=== PATIENT | female | born 1970 | race Caucasian/White ===

== ENCOUNTER 2021-12-20 08:43 | Outpatient (CLI) | payer BC, SELFPAY ==
--- OUTSIDE RECORDS SUMMARY | 2021-12-20 08:46 | XMS_ITS | Encounter Summary ---
:1970 Author Organization [facility] Address [address] [place] [address] Care Team Providers Name Role Phone Tom Abdul MD Primary Care Provider Reason for Visit Reason Comments HEARING LOSS Encounter Details Date Type Department Care Team Description 10/30/2020 Office Visit [facility] Mary Bryant Hearing loss, [address] [facility] REJI Mcguire unspecified hearing [place], [place] [address] [facility] loss type, unspecified [id number] [address] laterality (Primary [phone] [place], [place] [address] Dx) Social History Tobacco Use Types Packs/Day Years Used Date Smoking Tobacco: Former Smokeless Tobacco: Never Alcohol Use Standard Drinks/Week Comments Not Currently 0 (1 standard drink = 0.6 oz pure alcoho l) Sex Assigned at Date Recorded Not on file documented as of this encounter Progress Notes Mary Bryant AU.D. - 10/30/2020 2:00 PM CDT Patient comes in today for Hearing Aid Evaluation, but she did not bring hearing evaluation that wascompleted outside of [facility] with her today. She thought it was in her purse, but was unable to find it during the appointment. This was completed at [facility] where she also saw ENT. 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 Release of Information request was completed during the appointment and faxed to [facility] in [place]. Requested ENT and audiology records including audiogram, visit notes, and medical clearance for hearing aids. She will reschedule hearing aid evaluation after records are received from [facility]. documented in this encounter Plan of Treatment Not on filedocumented as of this encounter Visit Diagnoses Diagnosis Hearing loss, unspecified hearing loss t ype, unspecified laterality - Primary documented in this encounter Care Teams Enrollment Nurse Relationship Specialty Start Date End Date Tom Abdul MD PCP - General Family Practice [address] [place] [address] documented as of this encounter
--- OUTSIDE RECORDS SUMMARY | 2021-12-20 08:46 | XMS_ITS | Encounter Summary ---
:1970 [facility] Address [address] [place] [address] Care Team Providers Name Role Phone Tom Goff MD Primary Care Provider Reason for Referral Procedure/Equipment (Routine) - Closed Specialty Diagnoses / Procedures Referred By Contact Refer red To Contact Diagnoses Memory loss Romero Singh MD Procedures MR Brain W/WO IV Cont [address] [place] [address] Referral ID Status Reason Start Date Expiration Date Visits Requ ested Visits Authorized [id number] Closed 02/13/2021 05/15/2022 1 1 Consult/Transfer Care (Routine) - New Request Specialty Diagnoses / Procedures Referred By Contact Refer red To Contact Neuropsychology Diagnoses Memory loss Romero Singh MD [facility] Neuropsychology [address] [facility] [place] [address] [place] [address] Fax: Referral ID Status Reason Start Date Expiration Date Visits V isits Requested Authorized [id number] New Request 02/13/2021 05/15/2022 1 1 Scheduling Instructions Your provider has recommended an appoint ment with Neuropsychological Testing. You may call [phone] to schedule your appoi ntment. Reason for Visit Reason Comments CONSULT Encounter Details Date Type Department Care Team Description 02/13/2021 Office Visit [facility] Romero Singh, Odette garcia ([facility] Dx) Neurology [address] [place] [id number] [phone] Social History Tobacco Use Types Packs/Day Years Used Date Smoking Tobacco: Former Smokeless Tobacco: Never Alcohol Use Standard Drinks/Week Comments Not Currently 0 (1 standard drink = 0.6 oz pure alcoho l) Sex Assigned at Date Recorded Not on file documented as of this encounter Last Filed Vital Signs Vital Sign Reading Time Taken Comments Blood Pressure 109/68 02/13/2021 8:08 AM CDT Pulse 60 02/13/2021 8:08 AM CDT Temperature - - Respiratory Rate - - Oxygen Saturation - - Inhaled Oxygen Concentration - - Weight 115.2 kg (254 lb) 02/13/2021 8:08 AM CDT Height - - Body Mass Index - - documented in this encounter Progress Notes Romero Singh MD - 02/13/2021 8:15 AM CDT Outpatient Neurology Consultation Name: Keiko Kyle Age: 50 y.o. Date of : 1970 Date of Consultation: 02/12/2021 Consultation is requested by: Self-Referral, Patient, [place] [address] Primary care provider: Tom Goff MD Reason for Neurology Consult: Chief Complaint Patient presents with ??? CONSULT Assessment and Plan: Summary Diagnoses/Recommendations: 1. Cognitive impairment, NOS ?? Contributing factors: Medication side effect, sleep apnea, mental health disorder, ?? CT head 10/17/19 WNL ?? Mikhail Cognitive Assessment (MoCA) ?? Recommendations: ?? Neuropsychological testing ?? MRI brain ?? Follow-up with me after testing 2. Hypertension 3. Hyperlipidemia 4. Bipolar 1 5. PTSD 6. Restless legs 7. Obstructive sleep apnea with associated hypersomnia ?? Polysomnography 2014: AHI 5.1 , unable to tolerate CPAP ?? Multiple sleep latency test : Mean sleep latency 14.8, no REM sleep Plan as given to patient as above. See AVS. Chief Complaint: Memory impairment History of Present Illness: Keiko Kyle is a 50 y.o. female Patient is here to establish neurology care. She saw various neurologists before. She was last seen apparently in 2018 by Neurology. I records from Neurology from 2014 an outside facility. She has mostly concerns about her short-term memory She also is tripping and falling. She has neuropathy for almost 20 years. She uses a cane or walker.She broke her legs frequently and had recently a broken leg on the right with knee pain now. She has also nerve issues on the right arm. She had a disc replacement on the cervical spine with [facility]. Initially she had a pinched nerve sensation down her left arm with electrical zapping sensation. This surgery in 2018 helped but she still experience numbness in the left upper extremity She saw [facility] for her left shoulder and was told that the disc does not look good and she should check in with her spine surgeon. She is planning to go back to [facility] to address her cervical spine issues She has frequent muscle twitching on her lower extremities seems to me on observe a del rosario mostly spasms For the neuropathy she takes many years now gabapentin. She also had a very causes main removed on her left leg She takes medical cannabis CBD oral and muscle relaxant Her main concern today is really the short-term memory. She has a hard time tracking events . Her short-term memory is reduced. She has to write down things frequently. She is disoriented at times whenshe talks with her rn field case manager. Her daughter who lives with her until 2 days ago also noted the short-term memory issues. She has bad hearing. 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 She actually cannot really hold a job well. 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 She has a high school diploma and some college education She often has hallucination and feels that things happened that actually did not happen. She has tablets showing psychiatry care with [facility] soon. Had a chance to review the medical records from [facility]. She was followed at this clinic for obstructive sleep apnea with associated hypersomnia. She was not able to tolerate CPAP and was given Nuvigil for wake promotion She was hospitalized 02/18/2018 for a HNP W/RADICULOPATHY, C6-C7 and spine surgery Disc ArthroplastyLevels: C6 to C7 Episodic memory ?? Forgetting recent events Yes ?? Misplacing personal items Yes ?? Asking repetitive questions Yes ?? Missing appointments Yes ?? Paying bills late Yes ?? Poor long-term/autobiographical memory No Visual-spatial ?? Navigational problems Yes ?? Getting lost Yes ?? Difficulty locating items in play and site No ?? Problems visually recognizing faces No Language ?? Difficulties retrieving words or names Yes ?? Problems comprehending words No ?? Effortful or nonfluent speech No ?? Grammar errors No ?? Omissions No ?? Spelling errors No ?? Problems reading and writing Yes (ryland pressley) Executive function ?? Problems organizing Yes ?? Multitasking Yes ?? Distractibility Yes ?? Difficulties reasoning, problem solving, decision-making No ?? Poor judgment No Other cognitive concerns ?? Problems calculationYes ?? Difficulty using devices/technology Yes ?? Disoriented to time and space No ?? Medications: Outpatient Medications Prior to Visit Medication Sig Note Dispense Refill ??? acetaminophen (TYLENOL) 500 MG tablet Take 1 Tablet by mouth every 4 hours as needed. Maximum acetaminophen dose is 4000 mg in 24 hours 100 Tablet 0 ??? ALBUterol sulfate HFA 108 (90 Base) MCG/ACT inhaler Inhale 1-2 Puffs every 4 hours as needed forWheezing. 10/14/2019: Last filled 1 inhaler 07/10/19, unsure of last dose ??? baclofen (LIORESAL) 10 MG tablet Take 1 Tablet by mouth daily at bedtime. 30 Tablet 0 ??? budesonide-formoterol (SYMBICORT) 160-4.5 MCG/ACT inhaler Twice A Day ??? buPROPion (WELLBUTRIN XL) 300 MG 24 hour release tablet Take 300 mg by mouth daily. ??? celecoxib (CELEBREX) 100 MG capsule TAKE 1-2 CAPSULES TWICE A DAY NEEDED. ??? clonazePAM (KLONOPIN) 0.5 MG tablet Take 1 Tablet by mouth two times daily as needed for Anxiety. Indications: Panic Disorder 60 Tablet 0 ??? DULoxetine (CYMBALTA) 60 MG capsule Bedtime ??? famotidine (PEPCID) 10 MG tablet Take 2 Tablets by mouth two times a day. (Patient not taking: Reported on 02/13/2021) 120 Tablet 0 ??? gabapentin (NEURONTIN) 300 MG capsule Take 2 Capsules by mouth two times a day. Indications: anxiety 120 Capsule 0 ??? hydrOXYzine pamoate (VISTARIL) 50 MG capsule Take 1 Capsule by mouth three times a day as neededfor Anxiety. Indications: Feeling Anxious (Patient not taking: Reported on 02/13/2021) 60 Capsule 0 ??? lisinopril (ZESTRIL) 10 MG tablet Take 1 Tablet by mouth daily. (Patient not taking: Reported on02/13/2021) 30 Tablet 0 ??? metoprolol succinate (TOPROL XL) 50 MG 24 hour release tablet Take 50 mg by mouth daily. ??? mometasone-formoterol (DULERA) 100-5 mcg/actuation inhaler Inhale 2 Puffs two times a day. Rinsemouth/gargle after use (Patient not taking: Reported on 02/13/2021) 1 Each 0 ??? montelukast (SINGULAIR) 10 MG tablet Take 1 Tablet by mouth every evening. 30 Tablet 0 ??? nabumetone (RELAFEN) 500 MG tablet Take 1 Tablet by mouth two times a day. (Patient not taking: Reported on 02/13/2021) 60 Tablet 0 ??? ondansetron (ZOFRAN) 4 MG tablet Every 6 Hours as needed ??? pantoprazole DR (PROTONIX) 40 MG tablet Take 40 mg by mouth daily. ??? QUEtiapine (SEROQUEL) 100 MG tablet TAKE 1 AND 1/2 TABLETS (150MG) BY MOUTH AT BEDTIME ??? risperiDONE (RISPERDAL) 2 MG tablet Take 2 Tablets by mouth daily at bedtime. Indications: ManicPhase of Manic-Depression (Patient not taking: Reported on 02/13/2021) 60 Tablet 0 No facility-administered medications prior to visit. Allergies Allergen Reactions ??? Amoxicillin-Pot Clavulanate Diarrhea and Nausea And Vomiting ??? Cefdinir Nausea And Vomiting During sinusitis illness ??? Prazosin Other, see comments Patient felt weak, had bizarre dreams Immunizations: There is no immunization history on file for this patient. Past Medical History: No past medical history on file. Past Surgical History: No past surgical history on file. Social History: Social History Tobacco Use ??? Smoking status: Former Smoker ??? Smokeless tobacco: Never Used Substance Use Topics ??? Alcohol use: Not Currently Family History: No family history on file. Review of Systems: review of systems was negative other than HPI as above. Physical Examination: Vitals: 02/13/21 0808 BP: 109/68 Pulse: 60 Mental status: Alert, thought content appropriate, normal orientation for time, date, person, place,affect: normal, thought content exhibits logical connections Cranial nerves: II visual garner Full to confrontation II pupils Equal, round, reactive to light III,VII ptosis None III,IV, extraocular muscles Full ROM V mastication Normal V facial light touch sensation Normal VII facial muscle function - upper normal VII facial muscle function - lower normal XII tongue strength normal Sensory exam: RUE LT, PP, normal LUE LT, PP, Medial more than lateral RLE LT, PP, normal LLE LT, PP, Whole LLE numb Motor exam: Root/Nerve Right Left Shoulder abduction C5 (axillary) 5/5 5/5 Elbow flexion C5-6 (musculocutaneous) 5/5 5/5 Elbow extension C7 (radial) 5/5 5/5 Wrist flexion C6 (ulnar) 5/5 5/5 Wrist extension C7 (radial) 5/5 5/5 Finger Flexion C8 (median) 5/5 5/5 Finger Extension C7 (radial) 5/5 5/5 Hip flexion He L2 (femoral) 5/5 5/5 Hip extension L5 (inf gluteal) 5/5 5/5 Knee flexion S1 (sciatic) 5/5 5/5 Knee extension L3-4 (femoral) 5/5 5/5 Ankle dorsiflexion L4 (deep peroneal) 5/5 4/5 Ankle plantar flexion S1 (tibial) 5/5 4/5 Pronator Drift No No Reflexes Right Left biceps reflex (C-5 to C-6) 2/4 2/4 triceps reflex (C-7 to C-8) 2/4 2/4 quadriceps reflex (L-2 to L-4) 4/4 4/4 Achilles reflex (L-5 to S-2) 4/4 4/4 Babinski present Yes Yes Coordination: Romberg test normal Wide based Dxsxik-Rxbh-Ycdvvj testing normal Rapid Alternating Movements Normal Gait: She has pain when walking, especially with her right knee fracture Muscle tone: normal, without rigidity or spasticity, no tremor Laboratory Studies No results found for: PH, PO2, SAT, PCO2, HCO3, BASEEXCESS Lab Results Component Value Date Alkaline Phosphatase 83 10/14/2019 Bilirubin, Total 0.7 10/14/2019 Bilirubin, Direct 0.3 10/14/2019 Protein, Total 7.8 10/14/2019 Albumin 4.2 10/14/2019 AST (SGOT) 19 10/14/2019 ALT (SGPT) 27 10/14/2019 No results found for: FERR Lab Results Component Value Date Vitamin B12 431 10/14/2019 No results found for: ANASCREEN No results found for: ANCAG No results found for: PHENYT, PHENOBARB, VALPF, CBMZFREE, PFCAR, TCRB No results found for: CK Lab Results Component Value Date WBC 10.4 10/14/2019 RBC 4.72 10/14/2019 Hemoglobin 14.6 10/14/2019 HCT 43.6 10/14/2019 MCV 92.4 10/14/2019 RDW 13.9 10/14/2019 Platelets 342 10/14/2019 No results found for: ANTIDNA No results found for: ESR No results found for: CRP, CRPS Lab Results Component Value Date Cholesterol 249 (H) 11/03/2019 Lab Results Component Value Date HDL Cholesterol 50 11/03/2019 Lab Results Component Value Date LDL, Calculated 145 (H) 11/03/2019 Lab Results Component Value Date Triglyceride 272 (H) 11/03/2019 Lab Results Component Value Date TSH, Reflex 1.52 10/14/2019 No results found for: FERR, TIBCC, FE, TRANSFERRIN, SAT Imaging Studies MRI cervical spine 07/15/2013: Minimal posterior disc bulge C6 /7 MRI thoracic spine 07/15/2013: At T12/L1 small right paracentral disc herniation, mild deformity endplate T11 and T12 EEG 07/15/2013 dysrhythmia grade 1 generalized no epileptiform activation EMG left upper extremity 11/17/2013: Mild to moderate left ulnar neuropathy a a the the Above ancillary tests were personally reviewed during the office visit. Romero Singh MD, PhD, FAAN Diplomate of the [place] Board of [employer]iatry and Neurology Certified in Sleep Medicine, [place] [employer] Specialties 02/12/2021 CC: Tom Goff MD documented in this encounter Plan of Treatment Scheduled Referrals Name Type Priority Associated Diagnoses Order S chedule Neuropsychological Referral Routine Memory loss Ordered: Testing/Consult-Adult 2020 documented as of this encounter Results MR Brain W/WO IV Cont (03/07/2021 12:10 PM CDT) Anatomical Region Laterality Modality Head Magnetic Resonance Specimen (Source) Anatomical Collection Method Collection Time Re ceived Time Location / / Volume Laterality 03/07/2021 12:10 PM CDT Narrative 03/07/2021 3:05 PM CDT EXAM: MR BRAIN W/WO IV CONT LOCATION: [facility] DATE/TIME: 03/07/2021 12:10 PM INDICATION: Memory loss COMPARISON: Head CT 10/17/2019 CONTRAST: GADOBUTROL 1 MMOL/ML IV SOLN 1 0 mL TECHNIQUE: Routine multiplanar multisequ ence head MRI without and with intravenous contrast. FINDINGS: INTRACRANIAL CONTENTS: No acute or subac chilkat infarct. No mass, acute hemorrhage, or extra-axial fluid collections. Normal brain parenchymal signal. Normal ventricles and sulci. Normal position of the cer ebellar tonsils. No pathologic contrast enhancement. SELLA: No abnormality accounting for kaleigh hnique. OSSEOUS STRUCTURES/SOFT TISSUES: Normal marrow signal. The major intracranial vascular flow voids are maintained. ORBITS: No abnormality accounting for te chnique. SINUSES/MASTOIDS: No paranasal sinus muc osal disease. No middle ear or mastoid effusion. IMPRESSION: 1. ??Normal head MRI. Procedure Note Zeferino Farrell MD - 03/07/2021Formattin g of this note might be different from the original. EXAM: MR BRAIN W/WO IV CONT LOCATION: [facility] DATE/TIME: 03/07/2021 12:10 PM INDICATION: Memory loss COMPARISON: Head CT 10/17/2019 CONTRAST: GADOBUTROL 1 MMOL/ML IV SOLN 1 0 mL TECHNIQUE: Routine multiplanar multisequ ence head MRI without and with intravenous contrast. FINDINGS: INTRACRANIAL CONTENTS: No acute or subac chilkat infarct. No mass, acute hemorrhage, or extra-axial fluid collections. Normal brain parenchymal signal. Normal ventricles and sulci. Normal position of the cerebellar tonsils. No pathologic contrast enhancem ent. SELLA: No abnormality accounting for kaleigh hnique. OSSEOUS STRUCTURES/SOFT TISSUES: Normal marrow signal. The major intracranial vascular flow voids are maintained. ORBITS: No abnormality accounting for te chnique. SINUSES/MASTOIDS: No paranasal sinus muc osal disease. No middle ear or mastoid effusion. IMPRESSION: 1. Normal head MRI. Romero Singh MD RAD MRI documented in this encounter Visit Diagnoses Diagnosis Memory loss - Primary Memory loss documented in this encounter Care Teams Crusher And Blender Operator Relationship Specialty Start Date End Date Tom Goff MD PCP - General Family Practice [address] [place] [address] documented as of this encounter
--- OUTSIDE RECORDS SUMMARY | 2021-12-20 08:46 | XMS_ITS | Encounter Summary ---
:1970 Author Organization [facility] Address [address] [place] [address] Care Team Providers Name Role Phone Tom Abdul MD Primary Care Provider Reason for Visit Procedure/Equipment (Routine) - Closed Specialty Diagnoses / Procedures Referred By Contact Refer red To Contact Diagnoses Memory loss Romero Singh MD Procedures MR Brain W/WO IV Cont [address] [place] [address] Referral ID Status Reason Start Date Expiration Date Visits Requ ested Visits Authorized [id number] Closed 02/13/2021 05/15/2022 1 1 Encounter Details Date Type Department Care Team Description 03/07/2021 Ancillary Procedure [facility] Liza Singh MD [facility] [address] Radiology MRI [place], [place] [address] [address] [place] [address] [phone] Social History Tobacco Use Types Packs/Day Years Used Date Smoking Tobacco: Former Smokeless Tobacco: Never Alcohol Use Standard Drinks/Week Comments Not Currently 0 (1 standard drink = 0.6 oz pure alcoho l) Sex Assigned at Date Recorded Not on file documented as of this encounter Progress Notes Romero Singh MD - 03/07/2021 11:00 AM CDT MRI normal documented in this encounter Plan of Treatment Not on filedocumented as of this encounter Procedures Procedure Name Priority Date/Time Associated Diagnosis Comme nts MR BRAIN W/WO IV Routine 03/07/2021 12:10 PM Memory loss Resu lts for this CONT CDT procedure are i n the results section. documented in this encounter Results MR Brain W/WO IV Cont (03/07/2021 12:10 PM CDT) Anatomical Region Laterality Modality Head Magnetic Resonance Specimen (Source) Anatomical Collection Method Collection Time Re ceived Time Location / / Volume Laterality 03/07/2021 12:10 PM CDT Narrative 03/07/2021 3:05 PM CDT EXAM: MR BRAIN W/WO IV CONT LOCATION: [facility] DATE/TIME: 03/07/2021 12:10 PM INDICATION: Memory loss COMPARISON: Head CT 10/17/2019 CONTRAST: GADOBUTROL 1 MMOL/ML IV SOLN 1 0 mL TECHNIQUE: Routine multiplanar multisequ ence head MRI without and with intravenous contrast. FINDINGS: INTRACRANIAL CONTENTS: No acute or subac divine infarct. No mass, acute hemorrhage, or extra-axial [...] EXAM: MR BRAIN W/WO IV CONT LOCATION: [facility] DATE/TIME: 03/07/2021 12:10 PM INDICATION: Memory loss COMPARISON: Head CT 10/17/2019 CONTRAST: GADOBUTROL 1 MMOL/ML IV SOLN 1 0 mL TECHNIQUE: Routine multiplanar multisequ ence head MRI without and with intravenous contrast. FINDINGS: INTRACRANIAL CONTENTS: No acute or subac divine infarct. No mass, acute hemorrhage, or extra-axial [...] this encounter Visit Diagnoses Diagnosis Memory loss documented in this encounter Administered Medications Inactive Administered Medications - up to 3 most recent administrations Medication Order MAR Action Action Date Dose Rate Site gadobutrol (GADAVIST) 1 MMOL/ML Given 03/07/2021 11:58 AM CDT 10 mL injection 10 mL 10 mL, Intravenous, ONCE (NON-SCHEDULED), Starting on Neema 03/07/21 at 1158, Until Neema 03/07/21 at 1158, For 1 dose documented in this encounter Care Teams Medical Cost Consultant Relationship Specialty Start Date End Date Tom Abdul MD PCP - General Family Practice [address] [place] [address] documented as of this encounter
--- OUTSIDE RECORDS SUMMARY | 2021-12-20 08:46 | XMS_ITS | Encounter Summary ---
:1970 Author Organization [facility] Address [address] [place] [address] Care Team Providers Name Role Phone Tom Abdul MD Primary Care Provider Encounter Details Date Type Department Care Team Description 03/05/2021 Telephone [facility] Romero Mallory MD [facility] [address] [place] [address] [place] [address] [phone] Social History Tobacco Use Types Packs/Day Years Used Date Smoking Tobacco: Former Smokeless Tobacco: Never Alcohol Use Standard Drinks/Week Comments Not Currently 0 (1 standard drink = 0.6 oz pure alcoho l) Sex Assigned at Date Recorded Not on file documented as of this encounter Nursing Notes Romero Singh MD - 03/07/2021 8:54 PM CDT I will discuss the MRI results at the next office visit. Lisa Chiang RN - 03/07/2021 12:09 PM CDT Called patient back. Left foot drop. Left foot has tremors. Patient having muscle spasms in back andlegs are jerking a lot. Interfered with MRI today. Patient stated they will send what they have. Patient stated she will get her back and knee looked at to see if that is causing the problem. FYI info for provider when viewing the MRI. Reyes Carmichael - 03/05/2021 10:51 AM CDT Pt is calling regarding left foot pain tremors and muscle spasms - please call Reyes Carmichael 03/05/2021, 10:51 AM documented in this encounter Plan of Treatment Not on filedocumented as of this encounter Visit Diagnoses Not on filedocumented in this encounter Care Teams Senior Javascript Developer Relationship Specialty Start Date End Date Tom Abdul MD PCP - General Family Practice [address] [place] [address] documented as of this encounter
--- OUTSIDE RECORDS SUMMARY | 2021-12-20 08:46 | XMS_ITS | Encounter Summary ---
:1970 Author Organization [facility] Address [address] [place] [address] Care Team Providers Name Role Phone Tom Abdul MD Primary Care Provider Reason for Visit Reason Comments Hearing Aid Encounter Details Date Type Department Care Team Description 05/30/2021 Office Visit [facility], Audiology Bilateral hearing [address] loss, unspecified [place], [place] hearing loss type [id number] (Primary Dx) [phone] Social History Tobacco Use Types Packs/Day Years Used Date Smoking Tobacco: Former Smokeless Tobacco: Never Alcohol Use Standard Drinks/Week Comments Not Currently 0 (1 standard drink = 0.6 oz pure alcoho l) Sex Assigned at Date Recorded Not on file documented as of this encounter Progress Notes Sandy Maldonado - 05/30/2021 1:30 PM CST See service log OYSTER HARVESTER documented in this encounter Plan of Treatment Not on filedocumented as of this encounter Visit Diagnoses Diagnosis Bilateral hearing loss, unspecified hear ing loss type - Primary documented in this encounter Care Teams Care Information Associate Relationship Specialty Start Date End Date Tom Abdul MD PCP - General Family Practice [address] [place] [address] documented as of this encounter
--- OUTSIDE RECORDS SUMMARY | 2021-12-20 08:46 | XMS_ITS | Encounter Summary ---
:1970 Author Organization [facility] [employer] Address [address] [place] [address] Care Team Providers Name Role Phone Tom Abdul MD Primary Care Provider Reason for Visit Reason Comments HEARING PROBLEM Encounter Details Date Type Department Care Team Description 10/31/2020 Office Visit [facility], Bilateral sensorineural hear ing loss (Primary Dx); [address] REJI Sanabria Tinnitus, bilateral [place], [place] [address] [facility] [address] [facility] [phone] [place] [address] Social History Tobacco Use Types Packs/Day Years Used Date Smoking Tobacco: Former Smokeless Tobacco: Never Alcohol Use Standard Drinks/Week Comments Not Currently 0 (1 standard drink = 0.6 oz pure alcoho l) Sex Assigned at Date Recorded Not on file documented as of this encounter Progress Notes Mary Bryant AU.D. - 10/31/2020 1:30 PM CDT Hearing Aid Evaluation Name: Keiko Kyle : 1970 Date: 10/31/2020 Distribution Superintendent: REJI Damon Hearing loss: SNHL Accompanied by: self SUBJECTIVE: Keiko Kyle, 50 y.o., was seen for a hearing aid evaluation. She has not been seen previously fora hearing evaluation at [facility]. She brings in copy of audiogram completed at [facility] on 10/10/2020, which reveals moderate sensorineural hearing loss, in the right ear, and mild to moderately-severe sensorineural hearing loss, in the left ear. She also bring medical clearance from Dr. Cohen at [facility]. She is not a previous hearing aid user. Keiko Kyle reports that she is in need of the use of binaural amplification to aid in many of her communication situations. Keiko Kyle especially notices communication difficulty during conversation with her daughter, in background noise, on the phone, and watching TV. She has an Android cellphone ([employer] A51). She notes that she tried an amplifier previously, but she had great difficulty with the batteries and insertion due to dexterity and tremor concerns. OBJECTIVE: Benefits and limitations of obtaining amplification were discussed with the patient. Style and technology options were also discussed along with the benefits of binaural amplification. Realistic expectations of hearing aid technologies were also discussed in length with the patient. Discussed different blue tooth and accessory options. Discussed battery options including rechargeable or disposable. She is interested in larger earmold for insertion. Ear mold impressions were obtained, with good insertion depth and without incident. Recommended binaural Phonak Audeo M70-R rechargeable RICs in P1 with size 1m receivers and skeleton slimtip earmold. These were ordered, as the patient decided to obtain hearing aids. Medical clearance/Waiver: Maximilian Cohen MD ([facility]) ASSESSMENT: The evaluation today reveals that Keiko Kyle is an excellent candidate for binaural hearing aids. The patient agrees and understands. PLAN: Keiko Kyle will return to the clinic in approximately 3 weeks for the hearing aid fitting appointment. The prognosis for success is judged to be high as the patient has a high motivation level to hear better through the use of binaural amplification. All questions were answered to the patient's sat isfaction. Patient was provided informational brochure on Phonak hearing aids and the [facility] brochure regarding consumer rights and information when purchasing a hearing instrument. documented in this encounter Plan of Treatment Not on filedocumented as of this encounter Visit Diagnoses Diagnosis Bilateral sensorineural hearing loss - P rimary Sensorineural hearing loss, bilateral Tinnitus, bilateral Unspecified tinnitus documented in this encounter Care Teams Belt Measurer Relationship Specialty Start Date End Date Tom Abdul MD PCP - General Family Practice 11/[address] [place] [address] documented as of this encounter
--- OUTSIDE RECORDS SUMMARY | 2021-12-20 08:46 | XMS_ITS | Encounter Summary ---
:1970 Author Organization [facility] Address [address] [place] [address] Care Team Providers Name Role Phone Tom Abdul MD Primary Care Provider Reason for Visit Consult/Transfer Care (Routine) - New Request Specialty Diagnoses / Procedures Referred By Contact Refer red To Contact Neuropsychology Diagnoses Memory loss Romero Singh MD [facility] [address] [place] [address] [place] [address] Fax: Referral ID Status Reason Start Date Expiration Date Visits V isits Requested Authorized [id number] New Request 02/13/2021 05/15/2022 1 1 Encounter Details Date Type Department Care Team Description 09/11/2021 Office Visit [facility] En[facility] R, PhD, LP counseling (Primary Neuropsychology [address] Dx) [address] [place] [address] [phone] Social History Tobacco Use Types Packs/Day Years Used Date Smoking Tobacco: Former Smokeless Tobacco: Never Alcohol Use Standard Drinks/Week Comments Not Currently 0 (1 standard drink = 0.6 oz pure alcoho l) Sex Assigned at Date Recorded Not on file documented as of this encounter Patient Instructions Patient InstructionsEm Caceres, PhD, LP - 09/11/2021 10:02 AM CDT Reason for your visit: You completed a neuropsychological examination today. The purpose of this exam is to identify changes in your memory or other brain functions that may be affecting your day-to-day abilities or that might require treatment. Your doctor asked that this evaluation be done to clarify your diagnosis and determine what treatment or care is needed. Next steps: 1. You will receive your test results from Dr. Singh during your next visit with him. Please call [phone] if you are unable to keep that appointment or need to reschedule for any reason. 2. A copy of your test results will be sent to the doctor who ordered the evaluation as well as to your primary care physician. 3. You can always call [phone] if you have any questions about this exam or what to expect next. You may receive a patient satisfaction survey in the mail. We care about your experience today and greatly value your input. Often, this survey is best completed after your feedback session, once the entire work-up is complete. Thank you for visiting the Neuropsychology Department. documented in this encounter Progress Notes Em Caceres, PhD, LP - 09/11/2021 8:15 AM CDT Diagnostic interview and neuropsychological testing completed. Results pending. Patient will receive results from his/her neurologist during an upcoming follow- up visit. The final neuropsychological report will be filed under the Diag/Test tab in chart review in several weeks. Em Caceres, PhD, LP 09/11/2021, 10:01 AM documented in this encounter Plan of Treatment Scheduled Referrals Name Type Priority Associated Diagnoses Order S chedule Neuropsychological Referral Routine Memory loss Ordered: Testing/Consult-Adult 2020 documented as of this encounter Visit Diagnoses Diagnosis Encounter for counseling - Primary Counseling NOS documented in this encounter Care Teams Retail Clerk Relationship Specialty Start Date End Date Tom Abdul MD PCP - General Family Practice 11/[address] [place] [address] documented as of this encounter
--- OUTSIDE RECORDS SUMMARY | 2021-12-20 08:46 | XMS_ITS | Encounter Summary ---
:1970 Author Organization [facility] Address [address] [place] [address] Care Team Providers Name Role Phone Tom Abdul MD Primary Care Provider Encounter Details Date Type Department Care Team Description 02/15/2021 Orders Only Initial Department Provider, [place] [address] [address] MD [place], [place] [address] Interface provider [phone] [place] [address] Social History Tobacco Use Types Packs/Day Years Used Date Smoking Tobacco: Former Smokeless Tobacco: Never Alcohol Use Standard Drinks/Week Comments Not Currently 0 (1 standard drink = 0.6 oz pure alcoho l) Sex Assigned at Date Recorded Not on file documented as of this encounter Plan of Treatment Not on filedocumented as of this encounter Procedures Procedure Name Priority Date/Time Associated Diagnosis Comme nts EMG SCAN 02/15/2021 Results for thi s procedure are in the resu lts section. documented in this encounter Results EMG SCAN (02/15/2021) Narrative This result has an attachment that is no t available. Interface Provider [employer] DUMMY [employer]ODES documented in this encounter Visit Diagnoses Not on filedocumented in this encounter Care Teams Paid Internship Relationship Specialty Start Date End Date Tom Abdul MD PCP - General Family Practice [address] [place] [address] documented as of this encounter
--- OUTSIDE RECORDS SUMMARY | 2021-12-20 08:46 | XMS_ITS | Encounter Summary ---
:1970 Author Organization [facility] Address [address] [place] [address] Care Team Providers Name Role Phone Tom Abdul MD Primary Care Provider Reason for Visit Reason Comments CONSULT Encounter Details Date Type Department Care Team Description 03/05/2021 Office Visit [place] Lee Ann Garay DO Arthralgia, unspecified joint (Primary D x); Rheumatology [address] [facility]; [address] [facility] [address] Fibromyalgia [place], [place] [address] [place] [id number] Social History Tobacco Use Types Packs/Day Years Used Date Smoking Tobacco: Former Smokeless Tobacco: Never Alcohol Use Standard Drinks/Week Comments Not Currently 0 (1 standard drink = 0.6 oz pure alcoho l) Sex Assigned at Date Recorded Not on file documented as of this encounter Last Filed Vital Signs Vital Sign Reading Time Taken Comments Blood Pressure 124/84 03/05/2021 1:51 PM CDT Pulse 76 03/05/2021 1:51 PM CDT Temperature 36.2 ??C (97.1 ??F) 03/05/2021 1:51 PM CDT Respiratory Rate - - Oxygen Saturation - - Inhaled Oxygen Concentration - - Weight 116.1 kg (256 lb) 03/05/2021 1:51 PM CDT Height 165.1 cm (5' 5) 03/05/2021 1:51 PM CDT Body Mass Index 42.6 03/05/2021 1:51 PM CDT documented in this encounter Progress Notes Lee Ann Garay DO - 03/05/2021 1:45 PM CDT Rheumatology Consultation 03/05/21 This patient is referred by herself for evaluation of RA. Keiko Kyle is a 50 y.o. female who comes in for RA Per the patient her symptoms today comprised mostly of excessive fatigue, brain fog and widespread hyperalgesia. She believes that when she was previously on methotrexate that did help somewhat. She currently denies having any significant inflammatory arthritis of the bilateral upper extremities. Currently the patient has some effusion in the left knee which she states is chronic. She states that she is due for knee replacement sometime near future The patient was previously followed by Donna Acosta MD at [facility] until 2017 for questionable RA. Her initial presentation was polyarthralgia without inflammatory arthritis. She was started on prednisone and MTX which did not help. Her serologies for RA at that time were negative. Dr Acosta suggested that the patient could have fibromyalgia but kept her on MTX and then had her PCP take over. Since then she has tried things like Cymbalta and medical marijuana. The medical marijuana helped the most with all of her symptoms of the sleep and body pain. She has not been on medical marijuana for quite some time secondary to cost Past medical history is significant for HTN, HLD, bipolar disorder, PTSD and restless leg syndrome Exam Vitals: 03/05/21 1351 BP: 124/84 Pulse: 76 Temp: 97.1 ??F (36.2 ??C) Gen: NAD, AOx3 Skin: Skin without evidence of psoriasis, oral ulcers, or alopecia. No nail fold capillary dilation or drop off. No Raynaud's. No skin break down or thinning at nailbeds MSK: No evidence of synovitis or joint effusion. All joints with normal and symmetrical range of motion Lab/Imaging Labs: RF and CCP, RAMYA, JOHNNY and ANCA negative in feb 2016 at [facility] Imaging: No applicable imaging for us to review today Assessment and Plan 50 y.o. female who comes in for questionable rheumatoid arthritis and fibromyalgia -based on my exam today and history we do not see any evidence of rheumatoid arthritis. This would be atypical given how long she has been off DMARDs and steroids. Furthermore, bedside ultrasound todayconfirmed the lack of synovitis and joint effusion of the metacarpals and wrists. -fibromyalgia seems to be extremely unlikely given her history and response to treatment of sleep apnea and then also the medical marijuana 1) This patient meets criteria for fibromyalgia. Fibromyalgia is a chronic pain disorder and not an autoimmune disease. No further work up for autoimmune disease is required. Some recommendations for fibromyalgia include sleep optimization, regular low impact exercise, weight loss and addressing mental health concerns - if non-restorative sleep is present, a sleep clinic/study referral would be warranted - if mental health concerns are present, a psychiatric evaluation may be warranted - regular low impact exercise such as pool therapy, Marcelo Chi and yoga are strongly recommended - use of opioid medications are generally not recommended - FDA approved medications such as Cymbalta, Lyrica, Savella, and gabapentin can be used as an adjunct to above therapy -medical marijuana is starting to show some benefit in early studies for fibromyalgia in particular for patients with widespread pain and difficulty with sleep Billing based on: Time Total time for the visit was 50 minutes including, but not limited to, [id number] time spent reviewing records, counseling, and coordination of care. documented in this encounter Plan of Treatment Not on filedocumented as of this encounter Visit Diagnoses Diagnosis Arthralgia, unspecified joint - Primary Myalgia Mylagia and myositis, unspecified Fibromyalgia Mylagia and myositis, unspecified documented in this encounter Care Teams Cutting Machine Offbearer Relationship Specialty Start Date End Date Tom Abdul MD PCP - General Family Practice 11/02/[address] [place] [address] documented as of this encounter
--- OUTSIDE RECORDS SUMMARY | 2021-12-20 08:46 | XMS_ITS | Encounter Summary ---
:1970 Author Organization [facility] Address [address] [place] [address] Care Team Providers Name Role Phone Tom Abdul MD Primary Care Provider Encounter Details Date Type Department Care Team Description 02/15/2021 Orders Only Initial Department Provider, [address] YING CHAVEZ MD [place], [place] [address] Interface provider [phone] [place] [address] Social History Tobacco Use Types Packs/Day Years [...] Name Priority Date/Time Associated Diagnosis Comme nts EEG 02/15/2021 Results for thi s procedure are in the resu lts section. documented in this encounter Results EEG (02/15/2021) Narrative This result has an attachment that is no t available. Interface Provider DUMMY/OTHER/AR documented in this encounter Visit Diagnoses Not on filedocumented in this encounter Care Teams Finding Fastener Relationship Specialty Start Date End Date Tom Abdul MD PCP - General Family Practice [address] [facility] [place] [address] documented as of this encounter
--- OUTSIDE RECORDS SUMMARY | 2021-12-20 08:46 | XMS_ITS | Encounter Summary ---
:1970 Author Organization [facility] Address [address] [place] [address] Care Team Providers Name Role Phone Tom Goff MD Primary Care Provider Encounter Details Date Type Department Care Team Description 10/02/2021 Office Visit Romero Salinas, Memory loss ([facility] Dx) Neurology [address] [place] [phone] Social History Tobacco Use Types Packs/Day Years Used Date Smoking Tobacco: Former Smokeless Tobacco: Never Alcohol Use Standard Drinks/Week Comments Not Currently 0 (1 standard drink = 0.6 oz pure alcoho l) Sex Assigned at Date Recorded Not on file documented as of this encounter Last Filed Vital Signs Vital Sign Reading Time Taken Comments Blood Pressure 114/60 10/02/2021 10:05 AM CDT Pulse 52 10/02/2021 10:05 AM CDT Temperature - - Respiratory Rate - - Oxygen Saturation - - Inhaled Oxygen Concentration - - Weight 117.7 kg (259 lb 6.4 oz) 10/02/2021 10:05 AM CDT Height - - Body Mass Index 43.17 03/05/2021 1:51 PM CDT documented in this encounter Patient Instructions Patient InstructionsRomero Singh MD - 10/02/2021 10:21 AM CDT 1. Neurology follow-up. She will see Dr. Romero Singh in Neurology for follow- up, at which time results of neuropsychological testing and related recommendations will be reviewed and incorporated into treatment planning. 2. Ongoing mental health care as per existing treatment providers and including both psychiatric medication management and psychotherapy. 3. Ms. Kyle says that she has recently started learning julia chi, and she is encouraged to continue with this given the benefits to both mental and physical well-being. 4. Ongoing treatment compliance for sleep apnea. Untreated sleep apnea has been associated with concentration and memory difficulties, as well as with mood and sleep disturbance. Complying with recommended treatment can lead to improved functioning in all of these areas. 5. Promoting Brain Health. Ms. Kyle is encouraged to remain physically, socially, and cognitively active to promote brain health and overall well-being. Cognitively active: Playing board games, putting together jigsaw puzzles, reading, doing artwork, watching educational TV, and getting involved in music are activities that can stimulate your mind. Choose activities that are enjoyable to you! Socially active: Continue socializing with family and friends in safe ways during the coronavirus pandemic (e.g., telephone calls, video chats, socially- distanced outdoor greetings). Physically active: The [place] [employer] recommends individuals engage in 150 minutes of moderate activity a week (30 minutes, 5 days a week). Under the guidance of a medical provider/physicaltherapist, engaging in routine physical activity is recommended. Going for walks and doing housekeeping chores are a couple of activities that will raise your heart rate. 6. The Mediterranean Diet, which is characterized by a higher intake of salads, olive oil based dressings, nuts, fish, tomatoes, poultry and cruciferous vegetables & fruit PLUS a lower intake of high fat dairy products, red meat, organ meats and butter, has been shown to improve cognitive performance in patients experiencing a decline in cognition. documented in this encounter Progress Notes Romero Singh MD - 10/02/2021 10:15 AM CDT Outpatient Neurology F/U Name: Keiko Kyle Age: 51 y.o. Date of : 1970 No chief complaint on file. Assessment and Plan: Summary Diagnoses/Recommendations: 1. Subjective Cognitive impairment ?? Contributing factors: Medication side effect, sleep apnea, mental health disorder, ?? CT head 10/17/19 WNL ?? [facility] Cognitive Assessment (MoCA) ?? Neuropsychological testing 09/11/21 No cognitive disorder ?? MRI brain WNL Recommendations: ?? This patient has no clear neurological disorder that would explain her cognitive impairment. At this point it is more likely that she has a multifactorial process of medication side effects, sleep apnea, mental health concerns that affect her cognition. I discussed with her the results. She will talk with her psychiatrist. She will follow-up with neurology as needed 2. Hypertension 3. Hyperlipidemia 4. Bipolar 1 5. PTSD 6. Restless legs 7. Obstructive sleep apnea with associated hypersomnia ?? Polysomnography 2013: AHI 5.1 , unable to tolerate CPAP ?? Multiple sleep latency test : Mean sleep latency 14.8, no REM sleep ?? Polysomnography 03/22/2015: AHI 10, RDI 12 Plan as given to patient as above. See AVS. Chief Complaint: Memory impairment F/U History of Present Illness: Keiko Kyle is a 51 y.o. female 10/02/21 This patient had her neuropsychological testing 09/11/2021. She subtle variability in some tasks such as processing speed and executive function. The testing did not meet the threshold for a cognitive disorder the contributing factors could be stress, mood disturbance, chronic pain, medical marijuana use. She already stopped various medications prior to the neuropsychological testing including baclofen, psychotropic medications, antihistamines. She feels overall better. She also started using a CPAPmachine and seems to sleep better. She still is sometimes distracted. I explained the neuropsychological testing results. I gave her copy of the summary of the results for her psychiatrist. I explainedto her that she does not have dementia or an identifiable neurological condition at this point. She realizes that she is actually function fairly well when she reads instruction. She has a hard time with auditory instructions 02/12/2021 Patient is here to establish neurology care. [...] disc replacement on the cervical spine with [facility]. Initially she had a pinched nerve sensation down her left arm with electrical zapping sensation. This surgery in 2018 helped but she still experience numbness in the left upper extremity She saw [facility] for her left shoulder and was told that the disc does not look good and she should check in with her spine surgeon. She is planning to go back to [facility] to address her cervical spine issues [...] disoriented at times whenshe talks with her case management director. Her daughter who lives with her until 2 days ago also noted the short-term memory issues. She has bad hearing. 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 She actually cannot really hold a job well. 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 She has a high school diploma and some college education She often has hallucination and feels that things happened that actually did not happen. She has tablets showing psychiatry care with [facility] soon. Had a chance to review the medical records from [facility]. She was followed at [facility] for obstructive sleep apnea with associated hypersomnia. She was not able to tolerate CPAP and was given Nuvigil for wake promotion She was hospitalized 02/18/2018 for a HNP W/RADICULOPATHY, C6-C7 and spine surgery Disc ArthroplastyLevels: C6 to C7 Medications: Outpatient Medications Prior to Visit Medication Sig Note Dispense Refill ??? acetaminophen (TYLENOL) 500 MG tablet Take 1 Tablet by mouth every 4 hours as needed. Maximum acetaminophen dose is 4000 mg in 24 hours 100 Tablet 0 ??? acetaminophen-codeine (TYLENOL NO. 3) 300-30 MG tablet Take 1-2 Tablets by mouth every 4 hours as needed. ??? ALBUterol sulfate HFA 108 (90 Base) MCG/ACT inhaler Inhale 1-2 Puffs every 4 hours as needed forWheezing. 10/14/2019: Last filled 1 inhaler 07/10/19, unsure of last dose ??? BREZTRI AEROSPHERE 160-9-4.8 MCG/ACT AERO Take 2 Puffs by mouth every 12 hours. ??? budesonide-formoterol (SYMBICORT) 160-4.5 MCG/ACT inhaler Twice A Day ??? celecoxib (CELEBREX) 100 MG capsule TAKE 1-2 CAPSULES TWICE A DAY NEEDED. ??? DULoxetine (CYMBALTA) 30 MG capsule Take 30 mg by mouth. ??? DULoxetine (CYMBALTA) 60 MG capsule Bedtime ??? famotidine (PEPCID) 10 MG tablet Take 2 Tablets by mouth two times a day. (Patient not taking: Reported on 02/13/2021) 120 Tablet 0 ??? fluticasone propionate (FLONASE) 50 MCG/ACT nasal solution Daily ??? fluticasone propionate (FLONASE) 50 MCG/ACT nasal solution INSTILL 2 SPRAYS INTO EACH NOSTRIL ONCE DAILY ??? LATUDA 40 MG tablet Take 40 mg by mouth daily. ??? lisinopril (ZESTRIL) 10 MG tablet Take 1 Tablet by mouth daily. (Patient not taking: Reported on02/13/2021) 30 Tablet 0 ??? medical cannabis patient certified ??? metoprolol succinate (TOPROL XL) 50 MG 24 hour release tablet Take 50 mg by mouth daily. ??? mometasone-formoterol (DULERA) 100-5 mcg/actuation inhaler Inhale 2 Puffs two times a day. Rinsemouth/gargle after use (Patient not taking: Reported on 02/13/2021) 1 Each 0 ??? montelukast (SINGULAIR) 10 MG tablet Take 1 Tablet by mouth every evening. 30 Tablet 0 ??? ondansetron (ZOFRAN) 4 MG tablet Every 6 Hours as needed ??? pantoprazole DR (PROTONIX) 40 MG tablet Take 40 mg by mouth daily. ??? risperiDONE (RISPERDAL) 2 MG tablet Take 2 Tablets by mouth daily at bedtime. Indications: ManicPhase of Manic-Depression (Patient not taking: Reported on 02/13/2021) 60 Tablet 0 ??? zafirlukast (ACCOLATE) 20 MG tablet Take 20 mg by mouth every 12 hours. ??? baclofen (LIORESAL) 10 MG tablet Take 1 Tablet by mouth daily at bedtime. 30 Tablet 0 ??? buPROPion (WELLBUTRIN XL) 300 MG 24 hour release tablet Take 300 mg by mouth daily. ??? clonazePAM (KLONOPIN) 0.5 MG tablet Take 1 Tablet by mouth two times daily as needed for Anxiety. Indications: Panic Disorder 60 Tablet 0 ??? gabapentin (NEURONTIN) 300 MG capsule Take 2 Capsules by mouth two times a day. Indications: anxiety 120 Capsule 0 ??? hydrOXYzine pamoate (VISTARIL) 50 MG capsule Take 1 Capsule by mouth three times a day as neededfor Anxiety. Indications: Feeling Anxious (Patient not taking: Reported on 02/13/2021) 60 Capsule 0 ??? nabumetone (RELAFEN) 500 MG tablet Take 1 Tablet by mouth two times a day. (Patient not taking: Reported on 02/13/2021) 60 Tablet 0 ??? QUEtiapine (SEROQUEL) 100 MG tablet TAKE 1 AND 1/2 TABLETS (150MG) BY MOUTH AT BEDTIME No facility-administered medications prior to visit. Allergies [...] than HPI as above. Physical Examination: Vitals: 10/02/21 1005 BP: 114/60 Pulse: (!) 52 Mental status: Alert, thought content appropriate, normal orientation for time, date, person, place,affect: normal, thought content exhibits logical connections Laboratory Studies No results found for: PH, [...] left ulnar neuropathy a a the the 09/11/2021 NEUROPSYCHOLOGICAL PROFILE: ? Within Normal Limits ?? Subtly Variable ?? Mild ? Moderate ?? Severe ? Not Assessed ??Processing Speed? x ?Language?? x ?Visuospatial?? x ?Learning?? x ?Memory:? Retrieval?? x ?Memory:? Recog?? x ?Attention??/ Executive? x ?Global Rating? x ?Performance Validity x ?Mood? x ?Personality / Behavior x ? DIAGNOSTIC IMPRESSIONS: ?? . No cognitive disorder History of: . Obstructive sleep apnea . Bipolar 1 disorder . PTSD (post-traumatic stress disorder) . Restless legs syndrome . Hypertension . Hyperlipidemia . Chronic pain . Medical marijuana use Time spent on counseling/coordination of care: 26min. More than 50% of this time during the visit for Keiko Kyle was devoted to counseling and coordination of care, including face to face time withthe patient, time spent reviewing data, obtaining patient information, and discussing the case Keiko Kyle. I discussed memory loss, cognitive impairment, follow-up,. Romero Singh MD, PhD, FAAN Neurology & Sleep Medicine CC: Tom Goff MD documented in this encounter Plan of Treatment Not on filedocumented as of this encounter Visit Diagnoses Diagnosis Memory loss - Primary documented in this encounter Care Teams Network Contract Manager Relationship Specialty Start Date End Date Tom Goff MD PCP - General Family Practice 11/[address] [place] [address] documented as of this encounter
--- OUTSIDE RECORDS SUMMARY | 2021-12-20 08:46 | XMS_ITS | Encounter Summary ---
:1970 Author Organization [facility] Address [address] [place] [address] Care Team Providers Name Role Phone Tom Abdul MD Primary Care Provider Encounter Details Date Type Department Care Team Description 02/15/2021 Orders Only Initial Department Provider, [address] YING CHAVEZ MD [place], [place] [address] Interface provider [phone] [place] [address] Social History Tobacco Use Types Packs/Day Years [...] Name Priority Date/Time Associated Diagnosis Comme nts MRI-SCAN 02/15/2021 Results for thi s procedure are in the resu lts section. documented in this encounter Results MRI-SCAN (02/15/2021) Anatomical Region Laterality Modality Other Narrative This result has an attachment that is no t available. Interface Provider DUMMY/OTHER/AR documented in this encounter Visit Diagnoses Not on filedocumented in this encounter Care Teams Assembler Billiard Table Relationship Specialty Start Date End Date Tom Abdul MD PCP - General Family Practice [address] [facility] [address] documented as of this encounter
--- OUTSIDE RECORDS SUMMARY | 2021-12-20 08:46 | XMS_ITS | Encounter Summary ---
:1970 Author Organization [facility] Address [address] [place] [address] Care Team Providers Name Role Phone Tom Abdul MD Primary Care Provider Reason for Visit Reason Comments Hearing Aid HEARING LOSS Encounter Details Date Type Department Care Team Description 11/28/2020 Office Visit [facility] Francysensenait, Bilateral sensorineural hear ing loss (Primary Dx); [id number] [facility] REJI Sanabria Tinnitus, bilateral [place], [place] [address] [facility] [id number] [facility] [phone] [place] [address] Social History Tobacco Use Types Packs/Day Years Used Date Smoking Tobacco: Former Smokeless Tobacco: Never Alcohol Use Standard Drinks/Week Comments Not Currently 0 (1 standard drink = 0.6 oz pure alcoho l) Sex Assigned at Date Recorded Not on file documented as of this encounter Progress Notes Alireza Allan AU.D. - 11/28/2020 4:00 PM CDT Addended by: ALIREZA ALLAN on: 11/28/2020 05:37 PM Modules accepted: Orders Alireza Allan AU.D. - 11/28/2020 4:00 PM CDT Hearing Aid Fitting Name: Keiko Kyle : 1970 Date: 11/28/2020 Electrician Substation Supervisor: REJI Damon Medical Clearance for Hearing Aid Usage: provided by Dr. Maximilian Leos MD ([facility]) Patient was accompanied by: self Hearing Aids Right: Phonak Audeo M70-R Style: [facility] Serial #[id number] Left: Phonak Audeo M70-R Style: [facility] Serial #[id number] Accessories: finished stock inspector Trial Period: 02/26/2021 Battery Size: li-ion rechargeable Repair Warranty: 3 year Loss & Damage Warranty: 3 year Treatment plan: Unbundled, pay/bill as you go [facility] Fit: Overhead Worker Right: 1m Left: 1m Earmold: Tutoring Assistant Right: Phonak Left: Phonak Material Right: acrylic Left: acrylic Style Right: skeleton Left: skeleton Venting Right: AOV, small Left: AOV, small Evaluation of Short-Term Goals Verification of Fit: Real Ear speech mapping completed at target at 100% adaptation. Maintained gainat target. Patient noted loud sound quality with own voice and environmental sounds. Counseled regarding gradual adaptation to amplification. Fitting Formula: NAL-NL2 Different Programs and features enabled/availble with the hearing aid: Automatic; Paired to android phone for streaming and jordy Electrician Substation Supervisor counseled the patient/caregiver and demonstrated at the time of the appointment: Instrument cleaning, VC use, Battery insertion/testing, Insertion/removal, Telephone use, Button function/operation and Listening check Patient/caregiver successfully demonstrated skills at least 50% of the time: Instrument cleaning, VC use, Battery insertion/testing, Insertion/removal, Telephone use, Button function/operation and Listening check Areas of difficulty: None Patient/caregiver counseled regarding the following: Adaptation to instrument, Acoustic feedback, Battery life/safety, Expectations, Wearing schedule, Warranty and 45-day Adjustment period Items dispensed to patient/caregiver: Cleaning tools and User manuals; MD Brochure Follow-up concerns: Adaptation? Occlusion, consider making vents larger Follow-up Appointment: Return in 2-3 weeks for PRANAY documented in this encounter Plan of Treatment Not on filedocumented as of this encounter Visit Diagnoses Diagnosis Bilateral sensorineural hearing loss - P rimary Sensorineural hearing loss, bilateral Tinnitus, bilateral Unspecified tinnitus documented in this encounter Care Teams Forensic Accountant Relationship Specialty Start Date End Date Tom Abdul MD PCP - General Family Practice 11/[address] [place] [address] documented as of this encounter
--- OUTSIDE RECORDS SUMMARY | 2021-12-20 08:46 | XMS_ITS | Encounter Summary ---
:1970 Author [facility] Address [address] [place] [address] Care Team Providers Name Role Phone Tom Abdul MD Primary Care Provider Encounter Details Date Type Department Care Team Description 11/14/2020 Notes/Orders [facility], Audiology [address] [place] [address] Social History Tobacco Use Types Packs/Day Years [...] on filedocumented in this encounter Care Teams Burrer Hand Relationship Specialty Start Date End Date Tom Abdul MD PCP - General Family Practice [address] [place] [address] documented as of this encounter
--- OUTSIDE RECORDS SUMMARY | 2021-12-20 08:46 | XMS_ITS | Encounter Summary ---
:1970 [facility] Address [address] [place] [address] Care Team Providers Name Role Phone Tom Abdul MD Primary Care Provider Encounter Details Date Type Department Care Team Description 02/15/2021 Orders Only Initial Department Provider, [address] YING CHAVEZ MD [place], [place] [address] Interface provider [phone] [place] [address] Social History Tobacco Use Types Packs/Day Years [...] on filedocumented in this encounter Care Teams Manager Laundry Relationship Specialty Start Date End Date Tom Abdul MD PCP - General Family Practice [address] [place] [address] documented as of this encounter
--- OUTSIDE RECORDS SUMMARY | 2021-12-20 08:46 | XMS_ITS | Encounter Summary ---
:1970 Author Organization [facility] Address [address] [place] [address] Care Team Providers Name Role Phone Tom Abdul MD Primary Care Provider Encounter Details Date Type Department Care Team Description 02/15/2021 Orders Only Initial Department Provider, [address] YING CHAVEZ MD [place], [place] [address] Interface provider [phone] [place] [address] Social History Tobacco Use Types Packs/Day Years [...] Name Priority Date/Time Associated Diagnosis Comme nts SLEEP STUDY 02/15/2021 Results for thi s procedure are in the resu lts section. documented in this encounter Results SLEEP STUDY (02/15/2021) Narrative This result has an attachment that is no t available. Interface Provider DUMMY/OTHER/AR documented in this encounter Visit Diagnoses Not on filedocumented in this encounter Care Teams Flume Worker Relationship Specialty Start Date End Date Tom Abdul MD PCP - General Family Practice [address] [facility] [place] [address] documented as of this encounter
--- OUTSIDE RECORDS SUMMARY | 2021-12-20 08:46 | XMS_ITS | Clinical Summary ---
:1970 Author Organization [facility] Address [address] [place] [address] Care Team Providers Name Role Phone Tom Abdul MD Primary Care Provider Source Comments You are receiving this document as you are listed as the primary care provider,follow-up provider, or the patient has been referred to you for consultation.This is in compliance with the Medicare and Medicaid EHR Incentive Program,which states Providers who transition their patient to another setting of careor provider of care or refers their patient to another provider of care shouldprovide summarycare record for each transition of care or referral. [facility] Allergies Active Allergy Reactions Severity Noted Date Comments Amoxicillin-Pot Diarrhea, Nausea And 07/25/2017 Clavulanate Vomiting Cefdinir Nausea And Vomiting 08/07/2017 During s inusitis illness Prazosin Other, see comments 06/16/2013 Patient felt weak, had bizarre katina ams Medications Medication Sig Dispensed Refills Start Date End Date Status ALBUterol sulfate Inhale 1-2 Puffs 0 Active HFA 108 (90 Base) every 4 hours as MCG/ACT inhaler needed for Wheezing. acetaminophen Take 1 Tablet by 100 Tablet 0 10/18/2019 Active (TYLENOL) 500 MG mouth every 4 hours tablet as needed. Maximum acetaminophen dose is 4000 mg in 24 hours mometasone-formotero Inhale 2 Puffs two 1 Each 0 10/18/2019 Active l (DULERA) 100-5 times a day. Rinse mcg/actuation mouth/gargle after inhaler use Additional Information Patient not taking. Reported on 02/13/2021 montelukast (SINGULAIR) 10 Take 1 Tablet by mouth 30 Tablet 0 10/18/2019 Active MG tablet every evening. lisinopril (ZESTRIL) 10 MG Take 1 Tablet by mouth 30 Tablet 0 10/18/2019 Active tablet daily. Additional Information Patient not taking. Reported on 02/13/2021 famotidine (PEPCID) 10 MG Take 2 Tablets by mouth 120 Tablet 0 10/18/2019 Active tablet two times a day. Additional Information Patient not taking. Reported on 02/13/2021 risperiDONE (RISPERDAL) 2 MG Take 2 Tablets by mouth 60 Tablet 0 10/28/2019 Active tabletIndications: Manic daily at bedtime. Phase of Bipolar Mood Indications: Manic Phase Disorder of Manic-Depression Additional Information Patient not taking. Reported on 02/13/2021 celecoxib (CELEBREX) 100 MG TAKE 1-2 CAPSULES TWICE A 0 11/16/2020 Active capsule DAY NEEDED. ondansetron (ZOFRAN) 4 MG tablet Every 6 Hours as needed 0 12/09/2020 Active budesonide-formoterol (SYMBICORT) Twice A Day 0 07/2020 Active 160-4.5 MCG/ACT inhaler DULoxetine (CYMBALTA) 60 MG Bedtime 0 01/01/[address] (PROTONIX) 40 MG Take 40 mg by mouth daily. 0 01/31/2021 Active tablet metoprolol succinate (TOPROL XL) Take 50 mg by mouth daily. 0 01/31/2021 Active 50 MG 24 hour release tablet fluticasone propionate (FLONASE) INSTILL 2 SPRAYS INTO EACH 0 01/03/2021 Active 50 MCG/ACT nasal solution NOSTRIL ONCE DAILY acetaminophen-codeine (TYLENOL Take 1-2 Tablets by mouth 0 05/08/2021 Active NO. 3) 300-30 MG tablet every 4 hours as needed. DULoxetine (CYMBALTA) 30 MG Take 30 mg by mouth. 0 Active capsule fluticasone propionate (FLONASE) Daily 0 021 Active 50 MCG/ACT nasal solution LATUDA 40 MG tablet Take 40 mg by mouth daily. 0 Active zafirlukast (ACCOLATE) 20 MG Take 20 mg by mouth every 12 0 09/26/2021 Active tablet hours. medical cannabis patient 0 Active certified BREZ[employer] 160-9-4.8 Take 2 Puffs by mouth every 0 08/23/2021 Active MCG/ACT AERO 12 hours. 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 Encounters Date Type Specialty Care Team Description 10/02/2021 Office Visit Neurology Romero Singh MD Memory los s (Primary Dx) from Last 3 Months Social History Tobacco Use Types Packs/Day Years Used Date Smoking Tobacco: Former Smokeless Tobacco: Never Alcohol Use Standard Drinks/Week Comments Not Currently 0 (1 standard drink = 0.6 oz pure alcoho l) Sex Assigned at Date Recorded Not on file Last Filed Vital Signs Vital Sign Reading Time Taken Comments Blood Pressure 114/60 10/02/2021 10:05 AM CDT Pulse 52 10/02/2021 10:05 AM CDT Temperature 36.2 ??C (97.1 ??F) 03/05/2021 1:51 PM CDT Respiratory Rate 16 10/18/2019 8:20 AM CDT Oxygen Saturation 97% 10/18/2019 8:20 AM CDT Inhaled Oxygen Concentration - - Weight 117.7 kg (259 lb 6.4 oz) 10/02/2021 10:05 AM CDT Height 165.1 cm (5' 5) 03/05/2021 1:51 PM CDT Body Mass Index 43.17 03/05/2021 1:51 PM CDT Plan of Treatment Health Maintenance Due Date Last Done Comments Cervical Cancer Screening Due 1970 Colon Cancer Screening Plan Due 1970 Hep C Screening (Preventive 1970 Services) HepB (1) 1970 Mammogram 1970 COVID-19 Vaccine (#1) 1970 Adult Preventive Visit 1987 Zoster/Shingles (1 of 2) 2019 Influenza (#1) 2022 04/20/2020 DTaP/Tdap/Td (2 - Tdap) 09/02/2023 09/01/2013 Cholesterol 11/02/2024 11/03/2019 HIV Screening (Preventive Completed 10/15/2019 Services) HepA Aged Out No longer eligib le based on patient's age to complete this topic Hib Aged Out No longer eligib le based on patient's age to complete this topic IPV (Polio) Aged Out No longer eligib le based on patient's age to complete this topic MCV4 Aged Out No longer eligib le based on patient's age to complete this topic Pneumococcal Aged Out No longer eligib le based on patient's age to complete this topic Insurance Payer Benefit Plan / Subscriber ID Effective Dates Phone Addre ss Type Group BCBS BCBS PMAP BLUE [id number] 2019-Present [address] [address] [place] [address] [address] [place] [address] Keiko Kyle Personal/Famil Self 1970 [address] [place] [address] Advance Directives Latest Code Status on File Code Status Date Activated Date Inactivated Comments Full Code 10/14/2019 4:31 PM 10/18/2019 4:55 PM Care Teams 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
--- OUTSIDE RECORDS SUMMARY | 2021-12-20 08:46 | XMS_ITS | Encounter Summary ---
:1970 Author Organization [facility] Address [address] [place] [address] Care Team Providers Name Role Phone Tom Abdul MD Primary Care Provider Reason for Visit Reason Comments Refill Encounter Details Date Type Department Care Team Description [facility] Refill [facility] [id number] [place] [address] Social History Tobacco Use Types Packs/Day Years [...] on filedocumented in this encounter Care Teams Administrative Assistant Office Manager Relationship Specialty Start Date End Date Tom Abdul MD PCP - General Family Practice 11/02/[address] [place] [address] documented as of this encounter
--- OUTSIDE RECORDS SUMMARY | 2021-12-20 08:46 | XMS_ITS | Encounter Summary ---
:1970 Author Organization [facility] Address [address] [place] [address] Care Team Providers Name Role Phone Tom Goff MD Primary Care Provider Reason for Visit Reason Comments Hearing Aid Encounter Details Date Type Department Care Team Description 01/03/2021 Office Visit [facility] Francysensenait, Bilateral sensorineural hear ing loss (Primary Dx); [address] [employer] REJI Sanabria Tinnitus, bilateral [place], [place] [address] [facility] [id number] [facility] [phone] [place] [address] Social History Tobacco Use Types Packs/Day Years Used Date Smoking Tobacco: Former Smokeless Tobacco: Never Alcohol Use Standard Drinks/Week Comments Not Currently 0 (1 standard drink = 0.6 oz pure alcoho l) Sex Assigned at Date Recorded Not on file documented as of this encounter Progress Notes Mary Bryant AU.D. 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 She feels like she is underwater, especially with her own voice. She often gets a crackle type feedback from the hearing aids. She does feel they are helpful with her tinnitus and she acknowledges that she hears better with them. Interventions: Upon discussion, it sounds like it is hair/glasses noises she is hearing as the crackle. Discussed placement of hearing aids with glasses as the glasses were on top of hearing aids. Decreased gain by 3 dbHL from 4-8 kHz, changed to weak occlusion control, and decreased very soft gain (inceased expansion). She reported greatly improved sound quality with clinician's voice, her own voice, and ale/hair noise. She feels she will be able to wear them more consistently at this level. Discussed adaptation to amplification , and she understood. Tests/checks: Physical fit: Acceptable Subjective listening: Acceptable Additional Comments: Testbox measures were not completed today due to time limitations. Follow-up plan/Next appointment: 6 month PRANAY, sooner if adjustments are needed. documented in this encounter Plan of Treatment Not on filedocumented as of this encounter Visit Diagnoses Diagnosis Bilateral sensorineural hearing loss - P rimary Sensorineural hearing loss, bilateral Tinnitus, bilateral Unspecified tinnitus documented in this encounter Care Teams Shed Boss Relationship Specialty Start Date End Date Tom Goff MD PCP - General Family Practice 11/02/[address] [place] [address] documented as of this encounter
--- OUTSIDE RECORDS SUMMARY | 2021-12-20 08:47 | XMS_ITS | Encounter Summary ---
:1970 Author Organization [facility] Address [address] [place] [address] Care Team Providers Name Role Phone Unavailable Primary Care Provider Unavailable Reason for Visit Reason Comments Surgical Followup 72 hour post op Encounter Details Date Type Department Care Team Description 01/20/2020 Office Visit [facility] Esha Melgoza MD [address] [place] [address] Postop check ([facility] [place] Nurse, Sh Vein Dx) [address] [place] [address] Social History Tobacco Use Types Packs/Day Years Used Date Never Smoker Smokeless Tobacco: Never Used Sex Assigned at Date Recorded Not on file COVID-19 Exposure Response Date Recorded In the last month, have you been in contact with No / Unsure 01/20/2020 9:45 AM CDT someone who was confirmed or suspected to have Coronavirus / COVID-19? documented as of this encounter Progress Notes Radha Bianchi RN - 01/20/2020 10:00 AM CDT Images from the original note were not included. Postoperative Nurse Note Patient is here for their 72 hour postoperative visit. Procedure: Left leg VNUS closure GSV(med nec), 20-30 stab phlebs(med nec) Procedure Date: 01/18/2020 Surgeon: Dr. Melgoza Ultrasound Result: The left GSV is closed 14.4mm from the SFJ to the knee. Physical Exam: Incisions are approximated without signs of infection. Ecchymosis: minimal Swelling: minimal Paresthesia: pt denies Current Pain Ratin/10 Patient Questions or Concerns: Pt is doing well and has no concerns. Reviewed postoperative instructions with patient and provided them with written material of common things to expect from their procedure. Patient's [facility] Appointment: [address] Melgoza (03/07). Radha Bianchi RN documented in this encounter Plan of Treatment Not on filedocumented as of this encounter Visit Diagnoses Diagnosis Postop check - Primary Follow-up examination, following unspeci fied surgery documented in this encounter
--- OUTSIDE RECORDS SUMMARY | 2021-12-20 08:47 | XMS_ITS | Encounter Summary ---
:1970 Author Organization [facility] Address [facility] [place] [address] Care Team Providers Name Role Phone Unavailable Primary Care Provider Unavailable Reason for Visit Reason Onset Date Comments Refill Request 01/11/2020 Encounter Details Date Type Department Care Team Description 01/11/[address] [facility] Ve[facility] Melinda Melgoza Refill Request Clinic Ana Castillo MD [address] [facility] [address] [place] [phone] [place] [address] [phone] (Wo rk) Social History Tobacco Use Types Packs/Day Years Used Date Never Assessed Sex Assigned at Date Recorded Not on file documented as of this encounter Plan of Treatment Not on filedocumented as of this encounter Visit Diagnoses Diagnosis Varicose veins of left lower extremity w ith pain - Primary Varicose veins of lower extremities with other complications documented in this encounter
--- OUTSIDE RECORDS SUMMARY | 2021-12-20 08:47 | XMS_ITS | Encounter Summary ---
:1970 Author Organization [facility] Address [address] [place] [address] Care Team Providers Name Role Phone Unavailable Primary Care Provider Unavailable Reason for Visit Reason Comments APPOINTMENT REQUEST Encounter Details Date Type Department Care Team Description 10/20/2019 Telephone [facility] [place] Arias, JANUARY NTMENT REQUEST Hospitalization Lurdes gonzalez MD [address] [address] [place], [place] [phone] [facility] Social History Tobacco Use Types Packs/Day Years Used Date Smoking Tobacco: Never Assessed Sex Assigned at Date Recorded Not on file documented as of this encounter Nursing Notes Cindy Hampton [facility] - 10/20/2019 1:09 PM CDT Client was called this morning for intake, client was not reachable. When clinical staff picked up voice mails, client had called and left a message stating that no one called her for her appointment. It was then determined that the phone number was different/wrong. Hand Developer was asked to call client at this new number to reschedule intake appointment. Client didn't answer and voice mail left for clientto call the clinic back and leave a message, signwriter left contact number and the reason for why we are calling. BRITTANI Foreman 10/20/2019, 1:11 PM documented in this encounter Plan of Treatment Not on filedocumented as of this encounter Visit Diagnoses Not on filedocumented in this encounter
--- OUTSIDE RECORDS SUMMARY | 2021-12-20 08:47 | XMS_ITS | Encounter Summary ---
:1970 Author Organization [facility] Address [address] [place] [address] Care Team Providers Name Role Phone Unavailable Primary Care Provider Unavailable Reason for Visit Reason Comments CANCEL APPOINTMENT Encounter Details Date Type Department Care Team Description 10/20/2019 [facility]is Arias CANCE L APPOINTMENT Hospitalization Lurdes gonzalez MD [address] [address] [place], [place] [phone] Social History Tobacco Use Types Packs/Day Years Used Date Smoking Tobacco: Never Assessed Sex Assigned at Date Recorded Not on file documented as of this encounter Nursing Notes April Carrizales RN - 10/20/2019 9:54 AM CDT RN attempted to contact Keiko for intake for [facility]. Keiko is not currently active on [employer], the platform used for virtual appointments. RN LVM for Keiko with direct contact information to discuss appointment and receive assistance in setting up [employer]. Confirmed that phone number in chart is the same phone number given during PHP screening. Unable to reach on second attempt. Keiko is able to call the following number to re-schedule appointment: [phone]. PHP screening team, PHP coordinator and MD notified of the above. April Carrizales RN 10/20/2019, 9:59 AM documented in this encounter Plan of Treatment Not on filedocumented as of this encounter Visit Diagnoses Not on filedocumented in this encounter
--- OUTSIDE RECORDS SUMMARY | 2021-12-20 08:47 | XMS_ITS | Encounter Summary ---
:1970 Author Organization [facility] Address [address] [place] [address] Care Team Providers Name Role Phone Unavailable Primary Care Provider Unavailable Reason for Visit Reason Comments PHP Screening Encounter Details Date Type Department Care Team Description 10/18/2019 Telephone Kristine Partial Clovis Arias MD PHP Screening Hospitalization Prog lisa [address] [facility] [address] [place] [address] [place] [address] [phone] Social History Tobacco Use Types Packs/Day Years Used Date Smoking Tobacco: Never Assessed Sex Assigned at Date Recorded Not on file documented as of this encounter Nursing Notes Denae High, CASK MAKER - 10/18/2019 2:06 PM CDT [facility] Screening Referral - Adapted for Telemedicine (LOCUS still needed for [employer] and [place] clients) HP/Saumya Vitale Referral Source: JANAE Beltre 6 Non-HP/Park Winifred Referral Source and phone number: NA Reason for Referral: Discharge plan from inpt hospitalization LIZ for Referral Source: NA ???[[facility] in collaboration with other [place] healthcare organizations and government agencies, has decided to delay all clinic appointments during the Coronavirus outbreak for the safety and care of our clients. We can offer you a video Intake and instead of coming in, your providers will connect with you by video through your computer, smartphone or other device.?? YES NO ADMISSION CRITERIA X Must be 18 years or older. Able to provide photo identification. Yes X Does the client have a legal guardian and/or person who is responsible for making medical decisions on their behalf. NA X Able to attend programming for the full 25 hours per week via telemedicine (5 hours a day, M-F). This is an average of three weeks. Client can begin immediately. Yes X Screener to verify that this is a viable option for the client. Client is required to have the following in order to participate in a video Intake and subsequent PHP programming: ??? Working email address, confirmed and added to demographics tab in EPIC ??? Have access to a Smartphone, tablet OR computer with microphone and camera and internet connection ??? Stand for tablet or smartphone is helpful, but not required ??? A private, safe and quiet location that allows for confidential and private groups to take place Has laptop and smart phone. Lives alone and will have quiet confidential location. Confirm Address on file. Is this where they will be primarily during programming? [address] [place] [address] Primary phone Number for visits: [phone] Active e-mail: [email or web address] X Willing to be an active participant in plan of care, including attending & participating in groups on line. (What do you hope to get out of [facility]?) Yes, How to manage my life. X Acute onset or de-compensation or exacerbation of symptoms related to an Hercules I mental disorder. Describe primary mental health symptoms and brief mental health treatment history. Client had a recenthospitalization due to disorganization. Client has had past chronic PTSD from childhood. Client has a hx of depression. Client said most recently, she overdid things in trying to help her daughter moveand get into school, and at the same time caring for her granddaughter and dog. Client had many stressors, and her BP went low, and she had states of hypoxia secondary to COPD. Client knows she was confused and it impacted her mental health. Client feels clear now, though still has some physical issues, such as a headache and shoulder issues. Client reports having dissociated parts as well, which shesaid was learned through her care team. Client is learning grounding techniques for this. Client hasnot had other prior hospitalizations, and has never been to day programs, but was screened a few months ago for [facility] Day programs, but did not go due to the duration of the program. Client has had one prior near suicide attempt in the remote past. She was in , and was going to cut her wrists with her dad's razor in the sauna. Her brother found her before she acted on it. She was then put in foster care (a friend's family home) where she stayed for the remainder of her HS years. X Must not be in imminent danger to self, others, but may have a recent history of self-endangering behavior. (Ask about present risk and history of suicidal/homicidal/SIB behavior. If access to dangerous weapons, comment on willingness to secure them, if deemed necessary by [facility] treatment team.) Agrees to make and keep a safety plan, including reaching out to EC support person and going to the ED if unable to maintain safety. Client denies safety issues; she denies SI and SIB. She had one nearsuicide attempt in . Client made a safety plan and agrees to keep her safety plan. She denies access to guns or HI. Client reports hope for the future and her family is her protective factor. X Impairment of daily functioning to the extent that client is unable or has significant decrease inability to function at work or family/social situations. Also, assess for self-neglect. Client reports every area of functioning and daily living has been impacted. X Possess cognitive and emotional ability to participate in an active treatment process/can tolerateintensity of partial hospitalization program. How comfortable are you with the idea of being in a video group setting? (Has client participated in groups before? How are groups for the client? Comment on presentation in the interview - able to track, etc. Also ask if history of TBI, ADHD, learning disability.) Client has a hx of dyslexia and maybe ADHD. She has been in a group program in the past andit went well and was helpful. She did not recall the name of the program. X Able to tolerate participating in groups on line for 4 hours per day, and be able to regulate emotions when in distress and without extensive staff support. (Example: What have you found to be helpful to help calm yourself or manage emotions). Yes X Adequate support system to sustain self when not in program (i.e. family, clinical social work aide including case management, [facility] or therapist, psychiatrist, other) . At least one emergency contact is accessible during programming hours for client support Her 2 daughters, Shraddha Gipson and Ursula Gipson Client can provide the most current contact information for two emergency contacts Shraddha Gipson, daughter - [phone] Ursula Gipson, daughter - [phone] X Stable housing. Describe living situation - includes a safe, private, and quiet location that allows for confidential communication and online group and individual meetings to take place with minimaldistractions. Yes, lives in her own apt with her dog. She is , but they are legally , and client plans to file for a divorce. X Willing and able to refrain from abusive or self-medicating use of alcohol or other chemicals while in program (comment if recent or historical substance abuse). None - client is on medical marijuana, which she gets from a dispensery X Able to self-administer medications during programming day. Client takes medications as prescribed. She has a home health nurse who comes in weekly and sets up medications. X Needs PHP level of care based on (must be clear that client couldn't stabilize with less intensiveservices). Yes, client is in need of continued psychiatric stabilization following an acute psychiatric hospitalization. X In need of short-term structured environment and active treatment. None YES NO EXCLUSION CRITERIA X Mental illness and chemical dependency symptoms that prevent participation in active treatment. None X Unable to emotionally regulate without extensive support during group programming. Has acute psychosis, vidhi, or other symptoms that could be better treated in alternative programming. No - able tomanage emotions. X Only has primary diagnosis of chemical and/or substance abuse. NA X Too medically unstable to safely participate in [facility] (i.e. medical devices requiring skillednursing involvement). Comment on any medical issues and interaction with mental health. Airway restrictive due to COPD, and will have further assessment; chronic insufficient denisse syndrome, shoulder pain. X High potential for violent or predatory behavior - ask about criminal/arrest history. None X Cognitive impairment prevents participation in active treatment. None X Incapable of basic ADLs (i.e. toileting, feeding oneself). Accommodations needed? None Reminder: ??? (Infectious Control Questions) - NA - coming from in and has been tested for COVID 19. ??? Is this referral related to Work Comp and/or will Work Comp be utilized for coverage? Insurance has been verified, the client is responsible for verifying their coverage levels and co-pay requirements and/or out of pocket expense. ?Video visits are billable visits just like an in-office visit. Many insurances do cover video visits and we encourage you to check with your insurance company to verify coverage. You would be responsible for any co-pay or co-insurance as determined by your insurance plan.?Is this something you're interested in scheduling? If so, I can send you invitations via email for the Intake appointments. (Insert Clinician Name) will connect with you at the time of your appointment using [employer].?? CONSENT - Obtained X YES - client signed LIZ's while in inpatient for [facility] program. Due to the Covid 19 Pandemic and [facility] Telemedicine platform at this time, verbal consent has been obtained. I, Keiko Kyle give verbal consent for [facility] staff to share my information as outlined on the consent form, with my below listed emergency contacts. Names, relationship and phone numbers: Shraddha Gipson, daughter - [phone] Ursula Gipson, daughter - [phone] The client agrees to verify the emergency contact phone numbers and availability during the program. Meets Criteria for [facility]: YES Consult with Psychiatrist regarding: Not indicated MEGAN Metcalf 10/18/2019, 2:25 PM Cindy Hampton [facility] - 10/18/2019 10:55 AM CDT Received order referral for [facility], insurance verified and client is ready to screen soon as availability permits. BRITTANI Foreman 10/18/2019, 10:55 AM documented in this encounter Plan of Treatment Not on filedocumented as of this encounter Visit Diagnoses Not on filedocumented in this encounter
--- OUTSIDE RECORDS SUMMARY | 2021-12-20 08:47 | XMS_ITS | Encounter Summary ---
:1970 Author Organization [facility] Address [address] [place] [address] Care Team Providers Name Role Phone Tom Abdul Primary Care Provider Reason for Visit Reason Comments RECHECK discuss tx options Encounter Details Date Type Department Care Team Description 11/16/2019 Office Visit [facility] Melinda Melgoza Vari cose veins of Vein Clinic Ana Castillo MD left lower extremity [address] wi th pain (Primary [address]) [place] [phone] CARLOS LOPEZ [id number] (Wo rk) Social History Tobacco Use Types Packs/Day Years Used Date Never Assessed Sex Assigned at Date Recorded Not on file COVID-19 Exposure Response Date Recorded In the last month, have you been in contact with No / Unsure 11/16/2019 2:03 PM CDT someone who was confirmed or suspected to have Coronavirus / COVID-19? documented as of this encounter Progress Notes Melinda Melgoza MD - 11/16/2019 2:00 PM CDT Images from the original note were not included. [facility] Progress Note Date: November 16, 2019 Reason for Visit: Follow-up after trial of conservative therapy Subjective: Keiko Kyle reports that she has persistent pain in the left leg, with itching, swelling, and aching.The compression socks partially relieve the pain, but she remains symptomatic. She has been getting cramps at night, somewhat reduced with the stockings. Swelling at the ankle persists. She does have numbness and tingling in the foot related to her neuropathy. She is going to have her left shoulder surgery tomorrow, which she is looking forward to. No other major medical changes or updates since she was last seen. PMH from [facility] [employer] records: Cervical spinal stenosis Peripheral neuropathy HTN Obesity Anxiety Depression Endometriosis GERD Gestational DM Hiatal Hernia Migraine Panic disorder with agoraphobia PONV Rheumatoid arthritis Restless legs syndrome Vital signs: There were no vitals taken for this visit. PHYSICAL EXAM: General: Sitting comfortably in chair, NAD. Musculoskeletal: Normal walking gait around exam room. Grossly normal and symmetric strength and ROMin BLE. No edema present. Vascular: dorsalis pedis: palpable BL; posterior tibial: palpable BL. Cap refill < 3 sec over feet/toes. Veins: left leg calf varicosities present, along with a focal area of tenderness, faint erythema, and warmth (clinically consistent with SVT without a hard palpable cord)--this is on the anteromedial superior left calf. Scattered telangiectasias present. Venous Duplex Ultrasound: I have reviewed the following images. Venous Duplex, Bilateral Lower Extremity (05/12/19): bilateral common femoral, femoral, popliteal, posterior tibial, and peroneal veins patent without DVT (compressible, spontaneous flow, augmentation with distal compression). AT veins not visualized. Reflux is noted within the right greater saphenous vein within the proximal calf and distal thigh. (max reflux time of 2672 msec). Incompetence is also noted within the left greater saphenous vein within the proximal calf extending to the proximal, mid, and distal thigh as well as the saphenofemoral junction. (max reflux time of 2895 msec). There is normal competence of the greater saphenous vein within the mid and distal calves bilaterally, as well as the bilateral lesser saphenous veins. The right saphenofemoral junction is competent. I again reviewed the images and confirmed adequate depth of the left GSV and size to proceed with RFA. Assessment & Plan Keiko Kyle is a 49 year old female who presents with complaints of??left leg cramping, itching, and swelling, with aching, weakness, and fatigue in the lower leg bilaterally. She additionally has superficial venous thrombosis in one of the left calf varicosities. ??? Ms. Kyle has been wearing compression stockings (knee-high, 20-30 mmHg) since May 2019 ??? She has persistent symptoms (severe pain, swelling, burning) despite regular use of compression stockings, periodic leg elevation, and exercise as tolerated, with severe and persistent pain and swelling in the left leg, and this is affecting activities of daily living. She ranks her pain as approximately 7/10. ??? I discussed risks and benefits of proceeding with radiofrequency ablation of the left greater saphenous vein, including risk of bruising or bleeding, risk of superficial skin knight, nerve injury, infection, deep vein thrombosis, and possibility of future recanalization ??? I also discussed simultaneous stab phlebectomy for treatment of the left leg varicosities, whichI feel is medically necessary and indicated. ??? Ms. Kyle understands and wishes to proceed with ablation of the L GSV and stab phlebectomy of varicose left leg vein branches ??? Will work to schedule this Melinda Melgoza Lalitha Min - 11/16/2019 2:00 PM CDT After Visit Follow up Patient would like to order 1 pair of thigh high open toe black, 1 pair thigh high open toe beige. Faxed order to [facility], confirmed by Lalitha. Lalitha Min, Pheresis Nurse [facility] documented in this encounter Plan of Treatment Not on filedocumented as of this encounter Visit Diagnoses Diagnosis Varicose veins of left lower extremity w ith pain - Primary Varicose veins of lower extremities with other complications documented in this encounter Care Teams Radiologic Technologist Mammogram Relationship Specialty Start Date End Date Tom Abdul PCP - General Family Practice 11/16/19 11/16/19 [facility] [address] [place] [address] documented as of this encounter
--- OUTSIDE RECORDS SUMMARY | 2021-12-20 08:47 | XMS_ITS | Encounter Summary ---
:1970 Author Organization [facility] Address [address] [facility] [place] [address] Care Team Providers Name Role Phone Unavailable Primary Care Provider Unavailable Reason for Visit Reason Onset Date Comments Reschedule Appt 10/07/2019 Encounter Details Date Type Department Care Team Description 10/07/2019 Telephone [facility] [employer] [facility] Melinda Melgoza Reschedule Appt Clinic Jessica Castillo MD [address] [place] [address] [place] [address] [phone] (Wo rk) Social History Tobacco Use Types Packs/Day Years Used Date Never Assessed Sex Assigned at Date Recorded Not on file documented as of this encounter Miscellaneous Notes Telephone Encounter - Radha Bianchi RN - 10/07/2019 3:55 PM CDT Pt called back and got her appt rescheduled (see appt desk). NIDIA Conner, RN [facility] Telephone Encounter - Radha Bianchi RN - 10/07/2019 1:48 PM CDT Called pt and LDVM regarding following up with Dr. Melgoza. Pt did a telephone visit with her on 08/31/19. However, according to Dr. Melgoza note, she would like to see pt in the clinic to discuss treatment options in more detail. Informed pt our [place] office is back open next week (October 09). Gave pt our main number to call back. NIDIA Conner, RN [facility] [employer] documented in this encounter Plan of Treatment Not on filedocumented as of this encounter Visit Diagnoses Not on filedocumented in this encounter
--- OUTSIDE RECORDS SUMMARY | 2021-12-20 08:47 | XMS_ITS | Encounter Summary ---
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 Tablet, Refills: 0 CONTINUE these medications which have NOT CHANGED Details ALBUterol sulfate HFA 108 (90 Base) MCG/ACT inhaler Inhale 1-2 Puffs every 4 hours as needed for Wheezing. Comments: Pharmacist to dispense only the amount written. Pharmacy may substitute albuterol HFA products based on insurance. STOP taking these medications FLUoxetine (PROZAC) 40 MG capsule Comments: Reason for Stopping: traZODone (DESYREL) 100 MG tablet Comments: Reason for Stopping: FOLLOW-UP APPOINTMENTS Appointments and Follow Up: Discharge Orders (Non-med) When to Resume Normal Activities: Comments: You may resume normal activities as tolerated Discharge Instructions Comments: We think that you have bipolar disorder, with episodes of vidhi and depression. Risperdal is a mood stabilizer that should help prevent further episodes, and you can work with your outpatientprovider to reduce side effects or improve efficacy by adjusting timing or dose, or you can change the medication. Your provider will want to do blood tests periodically to check for diabetes, cholesterol problems, and will also monitor your weight. Regular exercise and sleep are good for both physical and mental health. We strongly recommend psychotherapy to help you cope well with this illness. Heart Healthy Diet Follow Up Appointment has Been Made Comments: Discharge nurse to give patient appointment card. Behavioral Health Follow-Ups Comments: Date: 10/26/2019 Time: 2:00pm Provider: Bianca Cohen [facility] Address: [address] [place] [address] Question Answer Comment Appointment Urgency? Non-Urgent Reason for visit? Hospitalization and Medication Management [facility] Program Screening Adult Comments: 49 yr old with first manic/psychotic break ,Hx of PTSD. Lot of stressors,bankruptcy,divorce Question: Appointment Urgency Answer: Non-Urgent A copy of this discharge summary to be faxed or otherwise made available to providers if patient hassigned a release of information. The patient was provided with a summary of appointments and discharge instructions. Crisis line numbers and referrals for emergency services were provided. Time spent on this discharge summary, counseling and coordination of care was 55 minutes. Report completed and signed by Dr. Arnaldo Albrecht, Staff Psychiatrist NE6 documented in this encounter Discharge Instructions Discharge InstructionsNikoYoselyn santos, [facility] - 10/18/2019 7:21 AM CDT Resources 1. [facility] [address], [address], [place] [address] [facility] ([facility]) improves the lives of children and adults with mental illnesses and their families by providing free classes on mental illnesses and support groups for adults with mental illnesses, parents and family members. For more information: Toll free: 7-974-SCCN-PocketSuite Website: www.Jobinasecond.org 2. Online go to: www.[place]Help.info 3 [facility] ([facility]) [address] [place] [address] Crisis Line Numbers 1. [facility] [phone] 2. [facility] ([facility]) [phone] 3. [facility] [phone] or [phone] 4. National Suicide Prevention Lifeline (TALK) Understanding Depression About Depression What is depression? Depression is a medical illness. The condition can affect your body, feelings, thoughts and behavior. Due to myths and stigma about depression, some people incorrectly view depression as a character flaw or a sign of personal weakness. Depression is neither of these. A medical illness, depression can cause emotional and physical pain. Suffering and disability can last for months or even years. Severe depression may include repeated thoughts of or suicide--or attempted suicide. When you have depression, you may have: ?? Problems with activity levels in certain parts of your brain. Or ?? Chemicals in your brain called neurotransmitters out of balance. Depression can affect anyone--young and old, men and women, and people from all ethnic groups and all professions. The illness is one of the most common mental disorders in the [place]. When depression is correctly diagnosed, the illness almost always is treatable. If you have a diagnosis of depression, recovering on your own may be challenging. With treatment, recovery is possible. Treatment may include prescription medication and talking with a behavioral health primary care provider. Symptoms of depression Everyone experiences periods of sadness (sometimes called feeling down or feeling blue). However, ifyou have these feelings for more than 2 weeks or they affect your daily life, you may have depression. Symptoms of depression include: ?? No longer enjoying most or all activities that previously gave you pleasure. ?? Tiredness or lack of energy. ?? Change in sleep patterns. ?? Change in appetite, or weight loss or gain. ?? Difficulty concentrating or making decisions. ?? Difficulty working. ?? Change in personal relationships. ?? Persistent feelings of guilt, worthlessness, helplessness or hopelessness. ?? General irritability. If you ever feel you are at risk of harming yourself, call your clinician or clinic. If you cannot reach your clinician or clinic, go to the nearest emergency center. Causes of depression We do not always know what causes depression. Many risk factors can lead to depression, including: ?? Family or personal history of depression. ?? Chemical imbalances in the brain. ?? Poor self-image or negative view of self. ?? Being easily overwhelmed by life???s challenges. ?? Chronic illness. ?? Domestic abuse or violence. ?? Major life changes or stressors, such as , divorce or moving to a new home. ?? or after giving (for women). Treatment for depression Treatment for depression can help you feel better and stay well. The aim of treatment is for you to enjoy life again and be able to resume your regular work schedule, hobbies and other activities. You will know your treatment is working when your symptoms of depression start to improve. The short-term goal of treatment is to resolve (get rid of) your symptoms. Resolving symptoms is called achieving remission. The long-term goal of treatment is to maintain remission as long as possible. Maintaining remission lessens the chance that depression will return (called relapse). Your treatment may include psychotherapy and prescription medication. Often, a combination of psychotherapy and medication is the best treatment for depression. Psychotherapy. Your clinician may recommend or refer you to a behavioral health professional for psychotherapy. Psychotherapy with a psychologist or other behavioral health professional involves talking and then taking action to make changes based on your therapy discussion. This treatment can take 8 to 10 weeks before you start feeling better. Prescription medication. Soon after your diagnosis, your clinician may prescribe antidepressant medication. However, feeling the benefits may take some time. You may have some side effects. Antidepressant medication If you have been prescribed an antidepressant medication, you may have questions. The following are some answers to frequently asked questions. Contact your care team if you have other questions or concerns about your medication. Will an antidepressant medication work for me? Most people are able to find at least one antidepressant medication that helps them feel better. About 6 out of 10 people start to feel better with the 1st antidepressant medication they try. No test can tell you how you will respond to an antidepressant medication. You may need to try several antidepressants before finding one antidepressant that works for you. When will I start to feel better? You may feel better just a few days after starting an antidepressant, or you may need to take an antidepressant for 4 to 8 weeks before you feel better. Sometimes, you may need your dose increased before you start to feel better. How long do I need to take an antidepressant? Most people take an antidepressant medication for at least 9 to 12 months. Some people continue taking medication for the rest of their lives. To decide how long to take medication, talk to your clinician about your symptoms and whether you previously have had periods of depression. Am I likely to have side effects? Side effects are not uncommon in the first 1 to 2 weeks of starting an antidepressant medication. Most side effects get better in a few weeks. You may need to decrease your dose, or change or add a medication. Side effects of antidepressant medication may include: ?? Weight changes. Changes in weight most likely occur over 6 to 12 months and depend on your actualweight. ?? Sexual problems. Loss of libido (sexual desire) or ability to reach orgasm. ?? Sleep problems. Sleepiness or insomnia (difficulty sleeping). ?? Stopping approach. If you skip a dose of your antidepressant medication or stop taking it all at once, the following may occur: ? Headache ? Dizziness ? Light-headedness ? Nausea ? Anxiety ? Be sure to take your antidepressant medication as prescribed. The medication helps improve your symptoms and keep them from coming back. Do not take your medication just when you have symptoms. Scheduling follow-up appointments We know scheduling and attending appointments can be challenging. However, regular appointments: ?? Help make sure your care plan is meeting your needs. ?? Can be an important part of your recovery, even if you are taking prescribed antidepressant medication. ?? Attending regular appointments with your clinician or therapist is valuable even when you do not feel like going or you feel better. ?? Getting support provided at appointments is riggs when you are not feeling your best. ?? Giving yourself credit for what you are able to accomplish is important, as is sharing that with your clinician or therapist. Completing a Patient Health Questionnaire-9 (PHQ-9) Your care team may ask you to complete the PHQ-9, also known as the Quick Depression Assessment. ThePHQ-9 is a brief 9-question survey that helps rate how often you may be experiencing symptoms of depression and which symptoms. The survey asks you to rate your symptoms related to depression for the previous 2 weeks. Answering the questions openly and honestly is important. Your answers help your care team: ?? Identify or diagnosis your depression. ?? Determine the severity of your depression. ?? Check the progress of your treatment over time. ?? Your care team may ask you to complete the PHQ-9 multiple times, including at or between appointments. ?? Modify your treatment. Taking Care of Yourself Medication and psychotherapy, often in combination, are the best treatments for depression. In addition, you can take steps on your own to feel better. Improving your mood Taking care of yourself can be difficult when you have depression. However, by trying different techniques, you can improve your mood and feel hopeful about your treatment and recovery. Be kind to yourself. Keep in mind: ?? Your depression is not likely to disappear right away. Feeling better takes time. Your mood will improve little by little. ?? Do not blame yourself for not feeling your best. ?? Depression is not something you can overcome with willpower alone. ?? A long-term approach to treatment is important to help you feel better and stay well. Other ways to help you feel better include the following: ?? Find pleasurable activities. People tend to feel healthier when they do activities they enjoy andspend time with people who are supportive. Having depression, though, can make doing the very activities that help you feel better difficult. Start by choosing one short activity you typically enjoy, such as going to the movies or a sporting event, or visiting a library or bookstore. ?? Increase your physical activity. Studies suggest that being physically active can help with depression symptoms. Even taking a short walk can help improve how you feel. ?? Write in a journal. By writing down your thoughts and experiences, you may notice what triggers your depression and what makes you feel better. You also will have some history that may help you recognize progress or ongoing problems. ?? Practice good nutrition. You can benefit from even small changes in your eating. Aim to eat more fresh fruits and vegetables, whole grains and lean protein. Eat fewer fried foods and sugary drinks. If you have lost your appetite, eat small snacks rather than large meals. ?? Avoid drinking alcohol or using illegal drugs. Do not take medications that have not been prescribed for you. They may affect the prescribed medications you are taking for depression or make your depression worse. ?? Improve your sleep habits. Getting a good night???s sleep can help you feel better. Beating the [employer] Beating the Blues is a free, confidential online [facility] program to support treatment of depression. The program includes 8 sessions (?? hour each) to complete at your own pace. We recommend doing the sessions over 8 to 10 weeks. Each session includes a follow-up activity to put into practice what you learned in the session. Practice in daily life supports getting even more out of the program. The sessions help you develop new skills to cope with difficult situations or problems, as well as develop healthy thinking. You will learn proven techniques to help improve your mood. Getting started is easy. Visit [employer] the [employer] at Smartmarket/public/health/plwebxt-qvs-jumxa as part of your treatment for depression at [facility]. You will need your health insurance IDnumber and an activation code to get started. If you do not have an activation code, call [phone] and ask for one. Adapted from 23880 (03/2018) ??2018 [facility] Suicidal Thoughts or Threats Home treatment If you are thinking about suicide, talk to someone about your feelings. It is important to remember that there are people who are willing and able to talk with you about your suicidal thoughts. With proper treatment, most suicidal people can be helped to feel better about life. People for you to consider talking with include: ?? A family member, friend, or spiritual adviser. ?? Your health professional, such as a doctor or counselor. ?? Other mental health resources, such as a community mental health agency or employee assistance program. ?? Your local suicide hotline or the national suicide hotline: 8-608-242-CSAK or . Youcan also find information at suicidePinnacleCare.org. Tips for family and friends You may be able to help someone who is considering suicide. If the suicide threat seems real, and the person has a specific suicide plan: ?? Call 911 (or the police if 911 is not available) in order to prevent the person from carrying outthe threat. ?? Consider your own safety. If you are in a safe environment and the person will not harm you: ? Stay with the person, or ask someone you trust to stay with the person, until help arrives. ? Don't argue with the person or make statements like It's not as bad as you think, and don't challenge the person by saying You're not the type to attempt suicide. Arguing with the person may onlyincrease his or her feelings of being out of control of his or her life. ? Talk about the situation as openly as possible. Tell the person that you don't want him or her to or to harm another person. Show understanding and compassion. If you think that someone you know has made a suicide plan, call your health professional. ? Your health professional may be able to help identify a mental health specialist and arrange an appointment for a person you think is considering suicide. An appointment with your health professionalmay not be needed. ? If you are not able to talk with your health professional, call your local suicide hotline or the national suicide hotline: 1-772-429-EZGA or . You can also find information at Splitforce.org. ? Once a treatment plan has been developed, you may be able to assist the person get the help he or she needs. Symptoms to watch for during home treatment Call your doctor if any of the following symptoms occur before you see your health professional: ?? The warning signs for the suicide threat, such as having a plan for attempting suicide, are real. ?? Symptoms become more severe or frequent. 83557 (09/2018) ??[facility] - Lesli Villalta - 10/17/2019 8:33 AM CDT Call your clinic or seek medical help if you have any sudden change in your condition or if you haveany of the following: Suicidal or homicidal thoughts,increase in agitation or anxiety,increase in paranoia,feelings of hopelessness,voices becoming bothersome,medication side effects not tolerable. documented in this encounter Medications at Time of Discharge Medication Sig Dispensed Refills Start Date End Date acetaminophen Take 1 Tablet by 100 Tablet 0 10/18/2019 (TYLENOL) 500 MG mouth every 4 hours tablet as needed. Maximum acetaminophen dose is 4000 mg in 24 hours ALBUterol sulfate HFA Inhale 1-2 Puffs 0 108 (90 Base) MCG/ACT every 4 hours as inhaler needed for Wheezing. famotidine (PEPCID) 10 Take 2 Tablets by 120 Tablet 0 2019 MG tablet mouth two times a day. lisinopril (ZESTRIL) Take 1 Tablet by 30 Tablet 0 0 10 MG tablet mouth daily. mometasone-formoterol Inhale 2 Puffs two 1 Each 0 2019 (DULERA) 100-5 times a day. Rinse mcg/actuation inhaler mouth/gargle after use montelukast Take 1 Tablet by 30 Tablet 0 10/18/2019 (SINGULAIR) 10 MG mouth every evening. tablet baclofen (LIORESAL) 10 Take 1 Tablet by 30 Tablet 0 2 020 10/02/2021 MG tablet mouth daily at bedtime. clonazePAM (KLONOPIN) Take 1 Tablet by 60 Tablet 0 10/18/19 20 10/02/2021 0.5 MG mouth two times daily tabletIndications: as needed for Panic Disorder Anxiety. Indications: Panic Disorder gabapentin (NEURONTIN) Take 2 Capsules by 120 Capsule 0 10/0210/02/2021 300 MG mouth two times a capsuleIndications: day. Indications: anxiety anxiety hydrOXYzine pamoate Take 1 Capsule by 60 Capsule 0 0 10/02/2021 (VISTARIL) 50 MG mouth three times a capsuleIndications: day as needed for Anxiety Anxiety. Indications: Feeling Anxious nabumetone (RELAFEN) Take 1 Tablet by 60 Tablet 0 0 10/02/2021 500 MG tablet mouth two times a day. risperiDONE Take 1 Tablet by 60 Tablet 0 10/18/2019 020 (RISPERDAL) 2 MG mouth two times a tabletIndications: day. Indications: Manic Phase of Bipolar Manic Phase of Mood Disorder Manic-Depression documented as of this encounter Progress Notes Frank Gallegos RN - 10/18/2019 2:54 PM CDT [facility] Discharge Note - Nursing Admission Date/Time: 10/13/2019 11:53 PM Attending MD: Patient discharged: to Home. Discharge Date: 10/18/2019 Discharge Time: 3:09 PM Patient accompanied by: Self. Transported by: Walked Valuables were taken home by patient: Yes Discharge instructions given and explained to patient: Yes Discharge Patient Education Plan completed, taught, and provided to patient/caregiver at discharge: Yes ?? Discussed medication risks with patient ?? Patient understands medications usage and side effects ?? Patient understands diagnosis ?? Action Plan for management of symptoms/side effects/complications requiring medical attention established and shared with patient/caregiver Was patient discharged on Warfarin? {(Do not delete line; Warfarin documentation is required) No Patients general condition on discharge: Patient was calm, verbalized understanding of discharge instructions. All medical devices (telemetry/IV/etc) unless otherwise ordered, have been removed and stored: Yes Report Completed by: Frank Gallegos RN --- End of Report --- Nicki Bates MD - 10/17/2019 10:13 AM CDT [facility] PSYCHIATRY PROGRESS NOTE: PATIENT NAME: Keiko Kyle DATE OF SERVICE: 10/17/2019 ATTENDING PSYCHIATRIST: Nicki Bates MD HOSPITAL DAY #3 CHIEF COMPLAINT I slept well INTERVAL HISTORY 10/16-struggling with L shoulder pain otherwise she is cooperative, pleasant, goal-directed, coherent. She denies any voices, no psychotic symptoms, no manic symptoms noticed. She sleeps well and takes her medications. I talked about day bridge program which is on Zoom and she is willing to do it.. I put in a consult for day bridge. She does not have any side effects on risperidone and does find it helpful. I also ordered a CT headwithout contrast. Her mood is better she is not depressed. IMPRESSION: 1. Unremarkable head CT with no acute intracranial abnormality. 10/15-she is better today, coherent and goal directed. She has spoken to her daughter and her who will take care of her dog. She is asking about discharge. She feels the risperidone really helps, she is thinking more clearly and feeling more organized. She is allowing me to increase the risperidone to 2 mg b.i.d.. We talked about her troubles-she says her daughter Ursula is on the autism spectrum and does not get along with her . She has had to deal with bankruptcy, divorce, helping her daughter. Her dog is in training for to be a service dog. I asked about her hospitalization at [place], she says it was for physical health reasons becauseof her COPD. She would also like an inhaler.Her o2 sat is normal-96% On the unit no behavior issues, slept 9.75 hours and is med compliant. We talked about possibility of discharge either tomorrow or Thursday. REVIEW OF SYSTEMS Constitutional: lt shoulder pain Psychiatric: disorganised,ptsd anxiety Medication Side effects: none CHART REVIEW & MULTIDISCIPLINARY TEAM MEETING Met with the multidisciplinary treatment team and discussed care and treatment planning. Staff Report: ??Subjective: I can't wait until I have my surgery. Objective: Pt spent the shift in bed. Pleasant on approach. Was tearful about shoulder pain. Pt was given scheduled medications including gabapentin and baclofen. She requested an ice pack. Denies psych symptoms. No other concerns. Pt was given Tylenol at 2232 for shoulder pain. ?? Group Attendance and participation: new PRN Medications: see jul OBJECTIVE SLEEP: Hours: 7.3 HOURS LABS: No results found for this or any previous visit (from the past 24 hour(s)). Current Facility-Administered Medications Medication Dose Route Frequency ??? acetaminophen (TYLENOL) tablet 500 mg 500 mg Oral Q4H PRN ??? baclofen (LIORESAL) tablet 10 mg 10 mg Oral At Bedtime ??? budesonide-formoterol (SYMBICORT) 80-4.5 MCG/ACT inhaler 2 Puff 2 Puff Inhalation Q12H ??? clonazePAM (KlonoPIN) tablet 0.5 mg 0.5 mg Oral BID PRN ??? famotidine (PEPCID) tablet 20 mg 20 mg Oral BID ??? gabapentin (NEURONTIN) capsule 600 mg 600 mg Oral BID ??? hydrOXYzine pamoate (VISTARIL) capsule 50 mg 50 mg Oral TID PRN ??? lisinopril (ZESTRIL) tablet 10 mg 10 mg Oral Daily ??? montelukast (SINGULAIR) tablet 10 mg 10 mg Oral Evening ??? nicotine (NICORETTE) gum 2 mg 2 mg Oral Q1H PRN ??? OLANZapine (ZyPREXA) injection 10 mg 10 mg Intramuscular ONCE PRN ??? OLANZapine (ZyPREXA) tablet 5 mg 5 mg Oral ONCE PRN ??? risperiDONE (RisperDAL) tablet 2 mg 2 mg Oral BID ??? [Held by provider in Manage Orders] traZODone (DESYREL) tablet 100 mg 100 mg Oral At Bedtime ALLERGY Allergies Allergen Reactions ??? Amoxicillin-Pot Clavulanate Diarrhea and Nausea And Vomiting ??? Cefdinir Nausea And Vomiting During sinusitis illness ??? Prazosin Other, see comments Patient felt weak, had bizarre dreams MENTAL STATUS EXAM BP 110/67 Pulse 69 Temp 97.9 ??F (36.6 ??C) (Oral) Resp 16 Wt 88.1 kg (194 lb 3.2 oz) [id number]% Appearance: alert, poorly groomed Behavior: cooperative, engaged Speech: slowed Language: intact Thought process: goal directed Thought content: aud smart,paranoia,denies si,possibly manic Homicidal Ideation: No Associations: intact Mood: anxious Affect: appropriate Orientation: Oriented times 3 Attention and Concentration:better Memory: intact Fund of Knowledge: intact Insight: , improving Judgement: , improved IMPRESSION Keiko Kyle is a 49 y.o. Female who has been admitted to station [facility] for Confusion ,disorganisation. The treatment team has initiated appropriate safety precautions. The patient is being admitted for evaluation, stabilization and treatment for the working diagnosis of PTSD,possible vidhi . She has a history of PTSD but seems like she has not presented with vidhi or psychosis in the past. We need more information through collateral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 my truck back. It got impounded. Objective: Pt has been mostly isolative to her room bedresting this shift. Pt behavior has been calmand controlled. Pt has made her needs known. Pt visible on the unit to make phone calls. Pt is pleasant during 1:1 conversation. Pt reports that she is ready to be discharged. She is anxious to get back to her therapy dog, Clayton. Pt discussed her concern about getting her truck out of impound in [place]. Later, pt reports that the [facility] in [place] will be helping her get her truck out. Pt appears relieved. Pt denies AH/VH. Pt denies SI/HI and agrees to contract for safety. Pt ate 100% of her dinner. Pt has been medication compliant this shift. Pt endorses shoulder pain and requested and received PRN Tylenol 500 mg for pain rated 8/10. Pt also received a cold pack. Per note, pt will be screened for [facility] tomorrow. Plan is for pt to discharge home tomorrow. --- End of Report --- Plan of Care - Beltran Bradshaw RN - 10/17/2019 2:39 PM CDT [facility] Plan of Care Note Assessment: Disturbed mood and thought process. Plan: Thoughts will clear. Subjective: Doing ok, shoulder is sore Objective: Pt up all shift, stated she is getting better. Pt did endorse A/H and a sore left shoulder. Pt did go to groups. Pt has planned discharge for Thursday, she has remained pleasant, calm, controlled. --- End of Report --- Plan of Care - Norah Delgado, [facility] - 10/17/2019 9:07 AM CDT [facility] Social Work Progress Note Data: Discussed pt's case in treatment team this AM. Pt will either discharge today or tomorrow. She already has psychiatry and therapy services and MD would like to see if she may be agreeable to some type of day treatment program. Met with pt this morning. She was pleasant and organized in conversation. She says she's pretty sureit was stress that caused her breakdown. She has been caring for her granddaughter, going through separation from her , dealing with all the implications of the pandemic, etc. Her daughter has arrangements for pt's granddaughter to have another person care for her over the course of the next 3 days. She is also doing paperwork to get daughter back in daycare starting next week. Pt has upcoming appointment with her medication provider and is open to other day treatment. We discussed [facility] and [facility] day treatment and pt would prefer [facility]. She likes that it's more intensive but for a shorter duration of time, as pt has surgery she's going to need to prepare for. Pt has two therapists she sees at the same place she has med management. One is an individual therapist and one is an EMDR therapist. Pt has been in touch with her during this admission but is trying to keep boundaries and not tell her too much. She would prefer song writer speak only with her daughters are her care here. Pt is hoping for discharge tomorrow morning and would like a cab home through her insurance. She says her has offered to pick her up but it could only be in the evening and her is pretty over whelmed anyway right now. She feels taking a cab home would be best for her. Left vm for Cindy and Denae at [facility] [id number] letting them know referral for DB was entered thismorning and pt is discharging tomorrow so if they could see her today that would be ideal. Rec'd emails from Denae and Mandie stating they will be up to screen pt for [facility] tomorrow. Spoke with pt's daughter Ursula who just talked with pt and says pt sounds a lot better. She is supportive of pt going home tomorrow and thinks something like the [facility] program sounds exactly like what pt needs. She says she's going to make absolutely sure pt has less stressors over the next couple weeks and has been in touch with pt's as well about the need for this. Legal Status: 72 hour hold expires 10/18 at 0804. Collateral Contacts Family/Friend Contact Release of Information?: No Family/Friend Contact Name: Annel Kyle (pt's partner) Family/Friend Contact Community Providers/Outpatient Psychiatrist Outside Healthcare Provider Name: Bianca Choen (PA-[facility]), Ind therapist, EMDR therapist - [facility] Outside Healthcare Provider Other Contact 1 Release of Information?: Yes Other Contact Name : Ursula Gipson Other Contact Other Contact 2 Release of Information?: Yes Other Contact Name: Federica (daughter) Action Plans: Collateral info; 72 hour hold Plan: Anticipated Discharge Date/Time: 10/21/[address] [place] [address] Disposition: Home Location: Report completed by Norah Delgado HEADSTART TEACHER, Pager Number [phone] --- End of Report --- Plan of Care - Erica Smith, OTR/L - 10/17/2019 7:11 AM CDT [facility] Occupational Therapy Plan of Care Note Group Name Attendance Minutes Topic Movement/Exercise Activity Room/Group Life Skills/IM&R Clinic Daily Group Total: Client excused from group attendance; group programming temporarily suspended dueto exposure concerns related to COVID-19 virus and need for social distancing. OT Evaluation Minutes: Evaluation: All OT Evaluations are found under Consults - OT Notes. Group Daily Assessment Sensory Items/Activities Offered: Grooming: Affect: Cognitive/Tracking: Social Skills: Work Skills: Investment/Participation: Comments: 1:1 OT Assessment Minutes: 45 Topic: Leisure Pleasant, reports that she is being discharged tomorrow. Positive and future oriented..SHAKIRA Johnson/Shayla Sensory Assessment OT Sensory Intervention Time: 15 minutes Sensory items/activities receptive and preferred: Music Device, Journal Music device: Bluetooth Preferred music: Bianary Beats Patient report of benefits of preferred sensory items after exploration: Reported improved concentration, Reported improved mood, Reported was more comfortable OT observation of sensory intervention: Had improved mood According to current staff observation, sensory self-report, and history of behavior the following interventions were offered: Patient was receptive to the following interventions: Assessment and Interpretation of the Sensory Consultation are as follows: Patient Care and Considerations: Recommendations to try when patient has stabilized: Stress/Anxiety/Energy Level Topic: Patient reported anxiety before: Patient reported anxiety after: Patient reported energy before: Patient reported energy after: Patient reported Zone of Regulation before: Patient reported Zone of Regulation after: Patient reported benefits: Patient other reported benefits: Initial Assessment Patient Reported Strengths: Organized(passionate, encouraging) Patient's Curriculum Track Beyond the Stress Experience Patient's Recovery Goals Patient's Recovery Goals: Unable Patient's Goals Complete at least two grooming tasks/day to increase self-management & independence in ADLs: Set OT Treatment Goals 1. Assess and provide education regarding functional skills, identified problem areas, and mental health symptoms. 2. Provide Treatment in above problem areas in a group setting and/or on a 1:1 basis. 3. Provide a safe environment. 4. Encourage daily, consistent participation in OT groups to work on above goals. OT Treatment Plan Patient will attend the following OT Groups: Clinic, Life Skills, Illness Management and Recovery (IM&R), Unit, Grooming and/or Movement/Exercise. Report completed by VICTOR MANUEL Hlom/Shayla --- End of Report --- Plan of Care - Skylar Funes RN - 10/17/2019 4:31 AM CDT General Plan of Care ??? Plan of Care Review Progressing [facility] Plan of Care Note Assessment: Sleep Plan: Patient will sleep > 5 hours Subjective: NA Objective: Patient appeared to have slept throughout the night without incident. 15 minute checks ongoing. --- End of Report --- Plan of Care - Dione Stanley RN - 10/16/2019 10:28 PM CDT [facility] Plan of Care Note Assessment: Altered Thought process Plan: Assess thought process, engage pt in conversation, encourage sleep & rest and promote compliance with treatment team. Subjective: I can't wait until I have my surgery. Objective: Pt spent the shift in bed. Pleasant on approach. Was tearful about shoulder pain. Pt was given scheduled medications including gabapentin and baclofen. She requested an ice pack. Denies psych symptoms. No other concerns. Pt was given Tylenol at 2232 for shoulder pain. --- End of Report --- Plan of Care - Mackenzie Jones RN - 10/16/2019 2:56 PM CDT [facility] Plan of Care Note Assessment: Altered mood and thought process. Plan: Monitor pt mood and behavior. Monitor pt thought process for clarity. Monitor pt pain level and manage accordingly. Provide medication education and 1:1 support. Subjective: My shoulder is really hurting. I just need to get that surgery. Objective: Pt has been mostly isolative to her room this shift. Pt behavior has been calm and controlled. Pt has made her needs known. Pt continues to endorse shoulder pain. Pt states, I just need to get that surgery. I had an appointment but I wasn't able to go. Pt ate 100% of her breakfast and 75%of her lunch. Pt has inquired about being discharged today. Pt discussed with provider and potentialfor discharge tomorrow or Thursday. Pt has been medication compliant this shift. Pt requested and received PRN Tylenol 500 mg for shoulder pain rated 9/10. Pt also received a cold pack. --- End of Report --- Plan of Care - Skylar Funes RN - 10/16/2019 5:23 AM CDT General Plan of Care ??? Plan of Care Review Progressing [facility] Plan of Care Note Assessment: Sleep Plan: Patient will sleep > 5 hours Subjective: NA Objective: Patient appeared to have slept throughout the night without incident. 15 minute checks ongoing. --- End of Report --- Plan of Care - Dione Stanley RN - 10/15/2019 10:53 PM CDT [facility] Plan of Care Note Assessment: Altered Thought process Plan: Assess thought process, engage pt in conversation, encourage sleep & rest and promote compliance with treatment team. Subjective: I've been able to rest and I've been sleeping good Objective: Pt spent most of the shift in bed sleeping. Pt was cooperative with medications. Reportedhaving good sleep while here. Denies psych symptoms. Denies pain. No concerns. --- End of Report --- Plan of Care - Mackenzie Jones RN - 10/15/2019 2:26 PM CDT [facility] Plan of Care Note Assessment: Altered mood and thought process. Plan: Monitor pt mood and behavior. Encourage participation on the unit. Monitor pt thought process for clarity. Ensure pt is wearing a mask and adhering to social distancing while on the unit. Providemedication education and 1:1 support. Subjective: My shoulder hurts. Can I get Tylenol and a cold pack? Objective: Pt has been mostly isolative to her room this shift. Pt is brief during 1:1 conversation.Computer Information Systems Instructor approached pt this morning to talk and pt was crying. Pt declines to elaborate when asked about it. Pt denies AH/VH. Pt denies SI/HI. Pt ate 100% of her breakfast and lunch. Pt refused her scheduled gabapentin stating I don't take that anymore. Computer Information Systems Instructor held lisinopril r/t low BP and pulse. BP 90/46 and pulse 53. Computer Information Systems Instructor encourages pt to increase her fluid intake. Pt accepting. Upon recheck pt BP 111/68 and pulse 70. Pt compliant with Pepcid this morning. Pt c/o shoulder pain and requested andreceived Tylenol and a cold pack with limited relief. Provider started pt on Risperdal 1 mg this afte rnoon. Pt compliant with medication administration. --- End of Report --- Plan of Care - Rosina Finley [facility] - 10/15/2019 12:56 PM CDT [facility] Social Work Progress Note Data: Phone contact with pt's daughter, Ursula, in attempt to gather additional collateral information. Ursula indicate pt was hospitalized approximately two months ago at hospital in [place]. At that time,pt's mental health had decompensated a little bit more than what we are seeing now. States this isnot baseline mental health for her and attributed some symptoms at that time to Oxygen levels being off and sleep apnea and COPD concerns. States medial doctor had been following this and feels what isattributing to current mental health symptoms is not this. States having spoke with hospice home care coordinator regarding pt being tested for early onset dementia or other reason behind current symptomology. Daughterstates pt has two therapists in the [place] area, one concerning marriage goals and another individual therapist with whom she has been working with around PTSD/trauma goals. Indicates pt having psychiatrist, Bianca Cohen, in [place]. Legal Status: 72-hour hold(10/13@8:36am) Collateral Contacts Family/Friend Contact Family/Friend Contact Name: Annel Kyle (pt's partner) Family/Friend Contact Other Contact 1 Other Contact Name : Ursula Gipson Other Contact Other Contact 2 Other Contact Name: Federica (daughter) Action Plans: Continue assessment, monitoring, stabilization of pt. Plan: Anticipated Discharge Date/Time: 10/21/[address] [place] [address] Disposition: Home Location: Report completed by Rosina Finley [facility], Pager Number [phone] --- End of Report --- Initial Assessments - Dorothy Yates OTR/Shyala - 10/15/2019 11:19 AM CDT [facility] OT Initial Assessment Diagnosis: Encounter Diagnoses Name Primary? Psychosis, unspecified psychosis type (HRC) Yes Patient Data on File [address] [facility] [address] Social History Socioeconomic History ??? Marital status: Unknown Spouse name: Not on file ??? Number of children: Not on file ??? Years of education: Not on file ??? Highest education level: Not on file Occupational History ??? Not on file Social Needs ??? Financial resource strain: Not on file ??? Food insecurity Worry: Not on file Inability: Not on file ??? Transportation needs Medical: Not on file Non-medical: Not on file Tobacco Use ??? Smoking status: Not on file Substance and Sexual Activity ??? Alcohol use: Not on file ??? Drug use: Not on file ??? Sexual activity: Not on file Lifestyle ??? Physical activity Days per week: Not on file Minutes per session: Not on file ??? Stress: Not on file Relationships ??? Social connections Talks on phone: Not on file Gets together: Not on file Attends restoration service: Not on file Active member of club or organization: Not on file Attends meetings of clubs or organizations: Not on file Relationship status: Not on file ??? Intimate partner violence Fear of current or ex partner: Not on file Emotionally abused: Not on file Physically abused: Not on file Forced sexual activity: Not on file Other Topics Concern ??? Not on file Social History Narrative ??? Not on file Patient Stated Information Initial Assessment Patient Strengths: Organized(passionate, encouraging) Daily Routines: Patient stated she is taking classes for studying medical billing/coding. Recently was hired a group home but had to take disability due to shoulder injury. Patient reported a lot of pain in her shoulder, plans for surgery, and that her shoulder has made it difficult to complete hobbies/daily routines. Patient is training her dog to be a service dog and helps take care of her 2 yearold grand daughter. Initial Assessment Patient Stressors: Relationships, Increase in psychiatric symptoms, Chronic Pain . Initial Assessment Patient Coping Skills: Meditate, Music, Play with my pet, Reading, Talking to my therapist Favorite Leisure/hobbies/exercise: very passionate about photography, likes walking dog, spending time with grand daugther, needlework/cross stitching, reading/puzzles, play guitar, and more.. How can we make your hospital stay more comfortable? Patient was accepting of paper for journaling, coloring materials, word finds, and grooming supplies. . Sensory Section Patient noticed sensory sensitivities to Patient noticed strong attractions to Patient noticed changes or concerns with Do you experience pain or migraine? Location of pain or migraine? Duration of pain or migraine? Do you have a trauma history? Patient has a trauma history of Do you feel your sensory sensitivities affect your daily life activities? Initial sensory items/activites receptive and preferred Coloring, Deep Breathing, Journal Initial sensory items/activities receptive and preferred specifics Patient chosen programming curriculum track: Beyond the Stress Experience Patient's Goal for this Hospitalization: To destress, decompress, and get back on track Subjective: I have been really stressed and anxious... I need to focus on me and get back on track. . Patient's Recovery Goals Patient's Recovery Goals: Unable Assessment Keiko was resting in bed when approached, stated she was in pain (shoulder) but still willing to meet, pleasant and cooperative, grooming appeared disheveled and greasy hair (provided grooming supplies), affect/mood appeared anxious and blunted, energy level appeared low, speech/responses were Mumbled, reported many coping skills for stress management, was oriented to OT and encouraged to participateand will be further assessed in OT as able. Goals Treatment Goals: 1. Assess and provide education regarding functional skills, identified problem areas and mental health symptoms. 2. Provide Treatment in above problem areas in a group setting and/or on a 1:1 basis. 3. Provide a safe environment. 4. Encourage daily, consistent participation in OT groups to work on above goals. 5. Please refer to patient's recovery goals above. Plan Treatment Plan: Patient will attend the following OT groups: Clinic, Life Skills, Movement/Exercise, Unit, Grooming,and Illness, Management, and Recovery (IM&R) Group. Please refer to the OT Progress Note for Treatment Goals. I acknowledge that the above information has been reviewed with the patient and the patient agrees with the above chosen problem area(s), goal(s) and plan. Dorothy Yates OTR/L --- End of Report --- Initial Assessments - Rosina Finley, [facility] - 10/15/2019 10:54 AM CDT [facility] Social Work Initial Assessment Admission Date/Time: 10/13/2019 11:53 PM Age: 49 y.o. Nursing Unit: NE6 Attending Practitioner: Nicki Bates MD County: [facility] Admitting Diagnosis: Encounter Diagnoses Name Primary? Psychosis, unspecified psychosis type (HRC) Yes Reason for admit: Pt brought in by medics after police stopped her for running a red light. Pt foundnonsensical, disorganized in speech/content Legal Status: On Admission: Voluntary Current: 72 hour hold (10/13@8:36am) Intrusive Treatment Plan: No Other Legal Issues: No other legal concerns noted at this time. Living Situation: Private residence Home with Collateral Contacts Family/Friend Contact Family/Friend Contact Name: Annel Kyle (pt's partner) Family/Friend Contact Other Contact 1 Other Contact Name : Ursula Gipson Other Contact Other Contact 2 Other Contact Name: Federica (daughter) Financial Insurance: [facility] Employment/Income: Unknown at this time. Psychiatric/Chemical Dependency/Medical History Records indicate pt hospitalized at [place] on 02/18. Pt with current and past dx Anxiety, Mood disorder(depression, bipolar) Psychotic disorder (Schizophrenia, psychosis), PTSD, Cluster B Personality disorder. Records indicate pt with increased psychosocial stressors including increased pain associated with medical concerns (needing surgery on left shoulder, neuropathy), conflict with spouse and family, PTSD Chemical Dependency: Pt denies current and history of substance use or dependence. Denies previous CD treatment history. Medical History: Please see H&P for full medical history. Data Computer Information Systems Instructor met with pt in her room and discussed role of social work. Pt observed lying in bed when song writer entered room and engaged while continuing to lie in bed. Pt cooperative, identified feeling a little better this morning. Pt's affect appears flat, stating I think I was pushing a little too hardlately. My daughter is going to beauty school and I'm trying to help her out. 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 Showed song writer her leg and indicated RN would be getting her compression socks. States having neuropathy in both legs, as well as,needing to have surgery on left shoulder. Indicates increased pain exacerbated over past several months due to Covid-19 pandemic and inability to have surgery. Also discussed having PTSD and stress around relationship with spouse as being very stressful. Pt speech observed somewhat mumbled and rambling at times, although cooperative. Discussed having RN with whom she has worked with in her home, aswell as, working with MD for physical health needs, stating I have a pretty good treatment team. Denies other mental health providers. Denies CD use/abuse. Denies SI/HI at this time, stating I don't want to do that, but I have a lot of stress right now. Pt appears cooperative, indicates being open to trying Medication and exploring treatment options. GAIN Substance Disorder Screening (SDScr) GAIN-SS (When was the last time the patient) The patient used alcohol or drugs weekly?: 0 (never)(pt denies any substance use/abuse) Patient spent a lot of time getting or using alcohol or drugs, or feeling the effects of alcohol or drugs: 0 Patient used alcohol/drugs even though caused social problems, lead to fights/trouble w/others: 0 (Never) Patient's use of alcohol/drugs caused them to give up, reduce/have problems at important activities at work/school/home/social events: 0 (Never) Patient had withdrawal problems from alcohol/drugs like shaking hands/vomiting/trouble sitting still/sleeping or used alcohol/drugs to stop sickness/withdrawal problems: 0 (Never) Score ((# of symptoms endorsed in the past year - total number of 3s and 2's): 0, Low, no CD assessment indicated MICD Integrated Assessment: No, GAIN-SDScr does not indicate further assessment Stage of Mental Health Treatment Stage 2: Contemplation/Early Persuasion (Regular contact with community provider, ambivalence about accepting treatment for DE, some readiness to consider impact of DE on quality of life, addressing needs in community has not reduced symptoms in last month) DE Treatment Recommendations for Inpatient/Outpatient Invite to educational group (stage 1), Development of recovery plan (stage 1), Medication education (stage 2), Support participation in skill development interventions (stage 3), Education about DE symptoms (stage 3), Provide diagnostic education (stage 1, 2) Stage of Substance Use Treatment N/A CD Treatment Recommendations for Inpatient/Outpatient N/A Clinical Assessment Strengths: Family/social support, Willing to take medications, Has insurance Barriers/Vulnerabilities: financial vulnerabilities, mental health issues, impaired insight Risk Assessment: Pt initially presenting disorganized, nonsensical speech and thought process, numerous psychosocial stressors Current Aggression towards others: No Clinical Summary: Pt would benefit from further assessment, monitoring, stabilization Reasons for readmission in last 30 days Initial Social Work Plan Anticipated Disposition: Home This document completed by: Rosina Finley [facility], Pager Number [phone] --- End of Report --- Plan of Care - Dione Stanley RN - 10/15/2019 4:51 AM CDT [facility] Plan of Care Note Assessment: Sleep Plan: Pt will sleep >5 hours Subjective: N/A Objective: Pt appeared to be sleeping throughout the night without any issues. 15 minutes checks completed. Will continue to monitor. --- End of Report --- Plan of Care - Dione Stanley RN - 10/14/2019 11:03 PM CDT Pt Keiko Kyle 49 y.o. female was admitted to [facility] at 1540. Pt reports she has a hx of PTSD. Pt was brought in by EMS after police stopped her for running a red light. Pt was nonsensical and displayed disorganized speech/content. Cooperative with vital signs. Unable to complete full assessment due to pt making nonsensical statements unrelated to assessment questions. Admission paperwork complete. Pt signed LIZ for both daughters. Denies SI/HI/hallucinations. Denies pain. Admission complete Plan of Care - Dwight Stanley [facility] - 10/14/2019 12:57 PM CDT [facility] Medication History Note Concerns to be addressed by team prior to discharge:* The patient was unable to be

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
--- OUTSIDE RECORDS SUMMARY | 2021-12-20 08:47 | XMS_ITS | Encounter Summary ---
:1970 Author Organization [place] Address [address] [address] Care Team Providers Name Role Phone Unavailable Primary Care Provider Unavailable Reason for Visit Reason Onset Date Comments RECHECK 08/31/2019 Return after conserv ative therapy Encounter Details Date Type Department Care Team Description 08/31/2019 Virtual Visit [facility] Melinda Melgoza veins of Vein Clinic Jessica Castillo MD left lower extremity [address] wi th pain (Primary [address]) [place] [id number] [place] [address] [phone] (Wo rk) Social History Tobacco Use Types Packs/Day Years Used Date Never Assessed Sex Assigned at Date Recorded Not on file documented as of this encounter Progress Notes Melinda Melgoza MD - 08/31/2019 10:30 AM CDT Keiko Kyle is a 49 year old female who is being evaluated via a billable telephone visit. The patient has been notified of following: This telephone visit will be conducted via a call between you and your physician/provider. We have found that certain health care needs can be provided without the need for a physical exam. This service lets us provide the care you need with a short phone conversation. If a prescription is necessary we can send it directly to your pharmacy. If lab work is needed we can place an order for that and you can then stop by our lab to have the test done at a later time. Telephone visits are billed at different rates depending on your insurance coverage. During this emergency period, for some insurers they may be billed the same as an in-person visit. Please reach out to your insurance provider with any questions. If during the course of the call the physician/provider feels a telephone visit is not appropriate, you will not be charged for this service. Patient has given verbal consent for Telephone visit? Yes How would you like to obtain your AVS? Mail a copy Phone call duration: 11 minutes Vascular Surgery Progress Note (Telehealth) Date: August 31, 2019 Subjective: Ms. Kyle reports that she has been wearing her compression stockings. She wears them daily from sun-up to sun-down. She notices that her legs do not itch as much when she wears the stockings; she continues to have foot cramps and spasms in the left foot and calf. She says her PCP increased the gabapentin and that helped one component of her pain, but did not alleviate her left foot and calf pain. Her pain increases with walking and over the course of the day; she feels that she does have slightly more stamina before the cramps set in. She sustained an injury to her left shoulder, which she states has left her in excruciating pain. She is due to undergo an MRI and then consultation for surgery for her left shoulder. It has made donning and doffing the compression stockings difficult, but she has continued to wear them daily. We discussed weight loss. She says that she has been walking her dog three times a day and has been losing weight; she is hopeful that she is under 200 lbs but is not sure how much she weighs currently. Current Outpatient Medications: ??? albuterol (PROAIR HFA/PROVENTIL HFA/VENTOLIN HFA) 108 (90 Base) MCG/ACT inhaler, INL 1 TO 2 PFS PO Q 4 H PRF WHZ OR DIFFICULT BREATHING, Disp: , Rfl: ??? baclofen (LIORESAL) 10 MG tablet, Take 10 mg by mouth At Bedtime, Disp: , Rfl: ??? clonazePAM (KLONOPIN) 0.5 MG tablet, Take 0.5 mg by mouth 2 times daily as needed, Disp: , Rfl: ??? DULERA 100-5 MCG/ACT inhaler, INL 2 PFS PO BID, Disp: , Rfl: ??? FLUoxetine (PROZAC) 40 MG capsule, Take 80 mg by mouth daily, Disp: , Rfl: ??? fluticasone (FLONASE) 50 MCG/ACT nasal spray, SHAKE LQ AND U 1 SPR IEN D, Disp: , Rfl: ??? gabapentin (NEURONTIN) 300 MG capsule, Take 300 mg by mouth 2 times daily, Disp: , Rfl: ??? lisinopril (PRINIVIL/ZESTRIL) 10 MG tablet, Take 10 mg by mouth daily, Disp: , Rfl: ??? medical cannabis (Patient's own supply), See Admin Instructions (The purpose of this order is todocument that the patient reports taking medical cannabis. This is not a prescription, and is not used to certify that the patient has a qualifying medical condition.), Disp: , Rfl: ??? methylPREDNISolone (MEDROL DOSEPAK) 4 MG tablet therapy pack, UTD, Disp: , Rfl: ??? ranitidine (ZANTAC) 150 MG tablet, , Disp: , Rfl: ??? traZODone (DESYREL) 100 MG tablet, Take 100 mg by mouth At Bedtime, Disp: , Rfl: ??? hydrOXYzine (VISTARIL) 50 MG capsule, , Disp: , Rfl: Assessment & Plan Keiko Kyle is a 49 year old female who presents with complaints of left leg cramping, itching, and swelling, with aching, weakness, and fatigue in the lower leg bilaterally. ? I reiterated that she has some symptoms that are beyond what would be anticipated for varicose vein pain. I think she has significant overlap with her peripheral neuropathy. I explained to her the treatment of her varicose veins may not completely resolve the symptoms in her legs. ?? I encouraged her to continue to wear the compression stockings on a daily basis until we are ableto see her again in clinic. ?? 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 I explained that due to the Covid pandemic, our clinics are currently closed for elective visits and procedures, and when we re-open, I look forward to seeing her and discussing possible procedures in more detail. ?? She would like another pair of compression hose shipped to her, as she has nearly worn through her current stockings. Melinda Melgoza documented in this encounter Plan of Treatment Not on filedocumented as of this encounter Visit Diagnoses Diagnosis Varicose veins of left lower extremity w ith pain - Primary Varicose veins of lower extremities with other complications documented in this encounter
--- OUTSIDE RECORDS SUMMARY | 2021-12-20 08:47 | XMS_ITS | Encounter Summary ---
:1970 Author Organization [place] Address [facility] [place] [address] Care Team Providers Name Role Phone Unavailable Primary Care Provider Unavailable Encounter Details Date Type Department Care Team Description 05/25/2019 Travel Social History Tobacco Use Types Packs/Day Years Used Date Never Assessed Sex Assigned at Date Recorded Not on file documented as of this encounter Plan of Treatment Not on filedocumented as of this encounter Visit Diagnoses Not on filedocumented in this encounter
--- OUTSIDE RECORDS SUMMARY | 2021-12-20 08:47 | XMS_ITS | Encounter Summary ---
:1970 Author Organization [place] Address [address] [facility] [place] [address] Care Team Providers Name Role Phone Tom Abdul Primary Care Provider Reason for Visit Reason Onset Date Comments Preop Call 01/11/2020 Encounter Details Date Type Department Care Team Description 01/11/2020 Telephone [facility] Vein Melinda Melgoza Preop Call Clinic Jessica Castillo MD [address] [facility] [address] [place] [address] [place] [address] [phone] (Wo rk) Social History Tobacco Use Types Packs/Day Years Used Date Never Assessed Sex Assigned at Date Recorded Not on file COVID-19 Exposure Response Date Recorded In the last month, have you been in contact with No / Unsure 01/18/2020 8:59 AM CDT someone who was confirmed or suspected to have Coronavirus / COVID-19? documented as of this encounter Miscellaneous Notes Telephone Encounter - Radha Bianchi RN - 01/11/2020 3:59 PM CDT [facility] Preoperative Nurse Call Procedure: Left leg VNUS closure GSV (med nec), 20-30 stab phlebs (med nec) Date: Wednesday 01/17 Time: 1000 Check in time: 0900 Called and spoke to patient. Informed patient: when to check in (0900) to sign consent, to bring their preop medications (ativan 3mg, clonidine 0.1mg) with them and take them after signing their consent, to have a truss driver helper/someone that will be responsible for them the rest of the day, to wear loose-fitting comfortable clothing, and to have their compression hose ready to go at home. Informed patient, that if possible, they should sit in the backseat to elevate their leg on the ride home. Special COVID-19 instructions: Patient aware they need to wear a mask to our clinic and during theirprocedure. Patient aware that their truss driver helper cannot come into the clinic and must wait in car. Nurse will call pt's truss driver helper when procedure is over. Patient understands that if they have any of the following symptoms (fever, cough, shortness of breath, rash), they need to notify us immediately to cancel their procedure and will have to reschedule for a later date. Patient is in agreement with preoperative information and has no further questions. Radha Bianchi RN documented in this encounter Plan of Treatment Not on filedocumented as of this encounter Visit Diagnoses Not on filedocumented in this encounter Care Teams Street Light Servicer Supervisor Relationship Specialty Start Date End Date Tom Abdul PCP - General Family Practice 01/18/20 01/18/20 [facility] [address] [place] [address] documented as of this encounter
--- OUTSIDE RECORDS SUMMARY | 2021-12-20 08:47 | XMS_ITS | Encounter Summary ---
:1970 Author Organization [facility] Address [address] [place] [address] Care Team Providers Name Role Phone Unavailable Primary Care Provider Unavailable Encounter Details Date Type Department Care Team Description 10/31/2019 Pt Care Coordination [facility] Partial Christopher, Hospitalization Prog lisa JEAN CARLOS Yeboah, [address] [facility] [place] [address] [address] [facility] [phone] [place], [place] [id number] Social History Tobacco Use Types Packs/Day Years Used Date Smoking Tobacco: Former Smokeless Tobacco: Never Alcohol Use Standard Drinks/Week Comments Not Currently 0 (1 standard drink = 0.6 oz pure alcoho l) Sex Assigned at Date Recorded Not on file documented as of this encounter Progress Notes Mandie Christopher MSW, [facility] - 10/31/2019 1:31 PM CDT [facility] Discharge Planning Note Data: Electrical And Instrumentation Mechanic spoke to client about her absence in Process [employer] this morning. Electrical And Instrumentation Mechanic reflected that her ongoing technical difficulties are interfering with her ability to be present in group. Discussedwhether she is invested in the group at this time. She concluded that the timing is off. She also needs to get shoulder surgery, as she struggles with chronic pain. Given all these factors, she decidedto discharge. She would like to attend [facility] after her shoulder surgery. Electrical And Instrumentation Mechanic let her know that she would have to ask her therapist or psychiatrist for a referral to be reconsidered. Assessment: Electrical And Instrumentation Mechanic assessed for safety concerns. She denied any thoughts of harming herself/SI or harming others. Barriers include: Ongoing shoulder pain, technical difficulties. Actions Completed: Client saw the psychiatrist for a medication check. Actions to be taken: Client to take care of her physical health issues and follow up with providers in the community. Plan: Client to discharge today and reconsider a [facility]. Anticipated discharge date: Client discharged this date by her own choice. JEAN CARLOS Nuñez, MEGAN 10/31/2019, 2:18 PM documented in this encounter Plan of Treatment Not on filedocumented as of this encounter Visit Diagnoses Not on filedocumented in this encounter
--- OUTSIDE RECORDS SUMMARY | 2021-12-20 08:47 | XMS_ITS | Encounter Summary ---
:1970 Author Organization [facility] Address [address] [place] [address] Care Team Providers Name Role Phone Unavailable Primary Care Provider Unavailable Reason for Visit Auth/Cert Specialty Diagnoses / Procedures Referred By Contact Refer red To Contact Diagnoses Psychosis, unspecified psychosis type ([facility]) Psychosis, unspecified psychosis type ([facility]) Referral ID Status Reason Start Date Expiration Date Visits Requ ested Visits Authorized [id number] 1 1 Encounter Details Date Type Department Care Team Description 10/17/[address] [facility] [place] [address] Social History Tobacco Use Types Packs/Day Years Used Date Smoking Tobacco: Never Assessed Sex Assigned at Date Recorded Not on file documented as of this encounter Plan of Treatment Not on filedocumented as of this encounter Procedures Procedure Name Priority Date/Time Associated Diagnosis Comme nts CT HEAD WO IV CONT Routine 10/17/2019 [...] EXAM: CT HEAD WO IV CONT LOCATION: [facility] DATE/TIME: 10/17/2019 1:46 PM INDICATION: Altered [...] tracranial abnormality. Nicki Bates MD RAD CT documented in this encounter Visit Diagnoses Not on filedocumented in this encounter
--- OUTSIDE RECORDS SUMMARY | 2021-12-20 08:47 | XMS_ITS | Encounter Summary ---
:1970 Author Organization [place] Address [address] [place] [address] Care Team Providers Name Role Phone Unavailable Primary Care Provider Unavailable Reason for Referral Durable Medical Equipment (Routine) - Closed Specialty Diagnoses / Procedures Referred By Contact Refer red To Contact Diagnoses Varicose veins of bilateral lower extremities with pain Melinda Melgoza MD [address] [place] [id number] Referral ID Status Reason Start Date Expiration Date Visits Requ ested Visits Authorized [id number] Closed 05/25/2019 05/24/2020 1 1 OMER CARE MANAGER Reason for Visit Reason Comments Consult Torres VV-Pain and muscle spasm s Encounter Details Date Type Department Care Team Description 05/25/2019 Office Visit [facility] Melinda Melgoza Vari cose veins of Vein Clinic Ana Castillo MD bilateral lower [address] ex tremities with pain [address] (Primary Dx) [place] [address] [place] [address] [phone] (Wo rk) Social History Tobacco Use Types Packs/Day Years Used Date Never Assessed Sex Assigned at Date Recorded Not on file documented as of this encounter Progress Notes Melinda Melgoza MD - 05/25/2019 1:15 PM CST [facility] HPI: Keiko Kyle is a 48 year old female who presents with complaints of foot pain, predominantly in the left leg. She has noticed cramping, especially along the medial calf; spasms in the lateral thigh; anditching around the ankle for a prolonged period of time. She is not sure exactly how long this has been going on. She noticed prominence of veins in her left leg around 2013 and 2014. She finds that the cramping is consistent throughout the course of the day, without known alleviating or aggravating factors. She has left ankle swelling that is predominantly at the end of the day. She does have a history of peripheral neuropathy (unknown etiology), and has numbness in her feet and a sensation of [id number] and burning in both legs. She is also had a history of recurrent falls that she attributes to numbness and heaviness in the legs. This seems to affect both feet, and has resulted in multiple fractures including a right foot fracture and a left ankle fracture. She says that she sometimes gets a creepy crawly feeling that is alleviated with ambulation. She purchased compression stockings [id number] in 2013 and wore them for a brief period of time. She has not worn them since then. She was given a prescription for 20 to 30 mmHg knee-high compression stockings; she wore them for 2 to 3 days and decided that they made the pain in her feet significantly worse, sossydni has not continued to wear them. On review of systems she has history of COPD with dyspnea on exertion and shortness of breath to some extent even at rest. She has fatigue. She says that she has history of easy bruising. She says thatshe has had dizziness and headaches. She has history of arthritis and has arthralgias. She says thattoño gets leg weakness in association with the numbness. She has had gradual vision loss. She additionally has extensive history of abdominal pain, including nausea, vomiting, diarrhea, constipation, indigestion, and heartburn. Lastly, she has a history of anxiety and panic attacks. She feels that the pain in her legs has significantly impacted her ability to do work. She enquires whether treatment of her varicose veins will allow her to resume work and employment. I have reviewed and updated the history. PAST MEDICAL HISTORY: No past medical history on file. No current outpatient medications on file. from [facility] records: Cervical spinal stenosis Peripheral neuropathy HTN Obesity Anxiety Depression Ednometriosis GERD Gestational DM Hiatal Hernia Migraine Panic disorder with agoraphobia PONV Rheumatoid arthritis Restless legs syndrome PAST SURGICAL HISTORY: No past surgical history on file. C6-7 disc arthroplasty REMI/BSO 2003 for endometriosis Right elbow ORIF 2005 R IHR Colonoscopy Cholecystectomy 2004 Left carpal tunnel release 2016 ALLERGIES: Allergies not on file FAMILY HISTORY: No family history on file. She notes a family history of varicose veins. SOCIAL HISTORY: Social History Tobacco Use ??? Smoking status: Not on file Substance Use Topics ??? Alcohol use: Not on file She has a previous [id number] smoking history. She quit 2 to 3 years ago. She does not drink alcohol. She denies any history of IV drug use. 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 She has 2 children and 1 grandchild. REVIEW OF SYSTEMS: 10-pt ROS negative except as noted in HPI. Vital signs: There were no vitals taken for this visit. PHYSICAL EXAM: General: Sitting comfortably in chair, NAD. HEENT: EOMI and conjugate, MMM Respiratory: Normal respiratory effort. Cardiovascular: Pulse is regular. Musculoskeletal: Slightly unsteady walking gait around exam room. Unable to walk heel-to-toe. Grossly normal and symmetric strength and ROM in BLE. Trace non- pitting edema present in the feet bilaterally. Vascular: dorsalis pedis: Palpable bilaterally; posterior tibial: Palpable bilaterally. Cap refill < 3 sec over feet/toes. Veins: Left medial calf varicosities present. Scattered, minimal telangiectasias present. Neurologic: A&Ox4 Psychiatric: Pleasantly conversant but with somewhat flat affect. Venous Duplex Ultrasound: I have reviewed the following images (she has brought them on disc from [facility]). Arterial Duplex, Bilateral Lower Extremity (05/11/19): normal, triphasic waveforms throughout bilateral TECHNICIAN ANATOMIC PATHOLOGY, SFA, popliteal, AT, peroneal, PT, and DP arteries, without focal velocity elevations to suggest hemodynamically significant stenoses. Venous Duplex, Bilateral Lower Extremity (05/12/19): bilateral [...] veins. The right saphenofemoral junction is competent. ASSESSMENT / PLAN: Keiko Kyle is a 48 year old female who presents with complaints of left leg cramping, itching, and swelling, with aching, weakness, and fatigue in the lower leg bilaterally. ??? I briefly discussed the pathophysiology of venous reflux and how that may be contributing to varicose veins ??? I explained to her that she has symptoms that are beyond what would be anticipated for varicose vein pain. I think she has significant overlap with her peripheral neuropathy. I explained to her thetreatment of her varicose veins may not completely resolve the symptoms in her legs. ??? I discussed with her that even severe varicose vein symptoms would not be expected to overtly prevent somebody from being able to do work, although they may impact someone's ability to do tasks at work. She asked if they were a source of disability and I explained that they generally are not. ??? I discussed the ultrasound findings with her and the meaning of venous incompetence. I discussedwith her that there may be a role for closure of her greater saphenous vein for symptom improvement;again I cautioned her that she may not have complete improvement in her symptomatology. ??? I explained the importance of wearing compression stockings. I emphasized to her that she will need to wear the compression stockings that she already has on a daily basis for trial of at least 3 months. ??? I have encouraged her to follow-up with her primary care physician and potentially a neurologist, for longitudinal care of her peripheral neuropathy. ??? Will have her follow up in clinic in 3 months to evaluate response to conservative therapy and discuss further interventions if needed Melinda Melgoza MD OMER CARE MANAGER documented in this encounter Plan of Treatment Scheduled Referrals Name Type Priority Associated Diagnoses Order S chedule DME REFERRAL Referral Routine Varicose veins of bilateral lower Ordered: 05/25/2019 extremities with pain documented as of this encounter Visit Diagnoses Diagnosis Varicose veins of bilateral lower extrem ities with pain - Primary documented in this encounter
--- OUTSIDE RECORDS SUMMARY | 2021-12-20 08:47 | XMS_ITS | Encounter Summary ---
:1970 Author Organization [email or web address] Address [address] [place] [address] Care Team Providers Name Role Phone Unavailable Primary Care Provider Unavailable Encounter Details Date Type Department Care Team Description 10/26/2019 Telemedicine [facility] Partial Clovis Arias Bipolar 1 disorder (HRC) (Primary Dx); Hospitalization Lurdes Carvajal MD Brief reactive psychosis (HRC); [address] [facility] [address] [facility] PTSD (post-traumatic stress disorder); [place] [address] [place], [place] Borderline personality disor mikey (HRC) [phone] [id number] Social History Tobacco Use Types Packs/Day Years Used Date Smoking Tobacco: Former Smokeless Tobacco: Never Alcohol Use Standard Drinks/Week Comments Not Currently 0 (1 standard drink = 0.6 oz pure alcoho l) Sex Assigned at Date Recorded Not on file documented as of this encounter Progress Notes Clovis Arias MD - 10/26/2019 10:30 AM CDT Addended by: CLOVIS ARIAS on: 10/27/2019 09:50 AM Modules accepted: Level of Service April Carrizales RN - 10/26/2019 10:30 AM CDT [facility] Partial Hospitalization Program NURSING ASSESSMENT I discussed with the patient/parent that this [...] of clinician: clinic Location of patient: home [place] - Suicide Severity Rating Scale (C-SSRS) Score Wish to be 1. In the past month, have you wished you were or could go to sleep and not wake up? No Suicidal Thoughts 2. In the past month, have you had any actual thoughts of killing yourself? No Suicide Behavior 6. Have you ever done anything, started to do anything, or prepared to do anything to end your life? Yes High school: Was going to slit wrists with a razor.. but my brother came knocking on the door How long ago did you do any of these? Over a year ago Risk Score: MODERATE Did the patient score Moderate or High on the [place]? Yes Suicide Ideation Intensity: 1. How many times in the last month have you had thoughts of Suicide? Less than once a week (1) 2. When you have the thoughts, how long do they last? A few seconds or minutes (1) 3. Could/can you stop thinking about killing yourself or wanting to if you want to? Easily able to control thoughts (1) 4. Are there things - anyone or anything (i.e. family, bahai, pain of ) - that has stopped you from wanting to or acting on thoughts of suicide? Deterrents does not apply (0) 5. What sort of reasons did you have for thinking about wanting to or kill yourself? Was it to end the pain or stop the way you were feeling (in other words you couldn't go on living with this painor how you were feeling) or was it to get attention, revenge or a reaction from others? Or Both? Does not apply (0) Total Score (0-25) from above Ideation questions: 3 Access to Lethal Methods: Does the patient have access to lethal means/method related to their plan? No History of self-harming behaviors: No Homicidal Assessment: Ideation: Denies Plan: Denies Past Acts: Denies Potential Victims Contacted: Name Date/Time NA NA MENTAL STATUS Motor Activity: Within Normal Limits Mood: pretty good lately Affect: Appropriate Speech: Clear/Coherent, Normal Rate and Brief Responses, Uses humor as defense. Appearance: Clean/Neat Attitude: Cooperative. Guarded in regards to stressors > see below. Thought: Clear, Logical Perception: Yes: PTSD - depersonalization and derealization. Some paranoia > people talking about her, more in the context of anxiety. Orientation: Alert and oriented to person, place and date Memory: Within Normal limits Insight: Partial Judgement: Fair PRIOR MENTAL & CHEMICAL HEALTH HISTORY Mental Health Inpatient Hospitalization(s) History: Yes; When? 2020; Where? [facility] Mental Health Outpatient Program History: Partial Hospitalization Program: No Intensive Outpatient Program: No Dialectical Behavior Therapy: Yes; When? approximately 4 years ago; Where? [facility] Substance Abuse History: See below: High school: used THC and speed. Used daily. No CD treatment. Denies blacking out from EtOH. No DWIs. Denies hx of binge drinking Therapist: 1) Dennise Perez [place], [place] 2) Gina Martins [place], [place] *marriage counselor > transitioned to EMDR therapist (after dissolution of marriage) Psychiatry: Bianca Cohen [place], [place] Borderline Personality d/o > 2013? Primary Care Provider: Dr. Tom Millan [facility] Pharmacist: Being referred to manager social media by Felipe through the [facility] ? RN: Felipe > Home Health Contact Information: Not obtained Stay of Commitment or Full Commitment: No Last Physical Date: Last year Pharmacy Name: [facility] SUMMARY OF SYMPTOMS/STRESSORS: Current Symptoms: - feelings of panic - hallucinations/psychosis (prior to hospitalization) - PTSD Current Stressors: - being questioned, (ie MH intakes) - I got a bunch of stressors .. for now I will leave it at that - physical > shoulder surgery needed ASSESSMENT REVIEW: Sleep: No concerns. Sleep Apnea: Yes. Is compliant with CPAP/BIPAP treatment? No: Uses dental appliances. Appetite: No concerns. Weight loss. 40-50#/3-4 months. Weight loss occurred with start of medical marijuana. Has not resumed since hospitalization. History of Eating Disorder: No Marital/Family Status: Yes, , in process of legal separation. 2nd marriage. Children (22,20). Grandchild (1=2) Sexually Active: No No breast tenderness. Denies . Hx of hysterectomy Living Situation: Living on self. Lives with Clayton (dog) Support System Information: really great support system. Professionals at [facility], people at [facility] in [facility]. Daughters Family History Information: Has anyone in your family completed suicide: Yes, Paternal Uncle: x1 Cousins (varying degrees): x5-6 Trauma/Abuse Status: Yes: Details not obtained Vocational Status: Employed at [employer]. Shoulder injury that requires surgery. Financial Status: Stressor. Filed for SSDI. Legal Situation: Yes: - bankruptcy, currently filing Coping Styles/Abilities: Photography. Psychiatric Advanced Directive: RN asked if the client has a psychiatric advanced directive. Client currently does not have a psychiatric advanced directive. Additional information regarding psychiatric advanced directives is available upon request. Client is aware of this information. Spiritual/Cultural Practices: Do you currently have any spiritual/cultural practices that affect your care/education? No History: No Visible Signs of Neglect (nursing observation) No In a safe relationship and/or feel safe in the home (patient report): Yes Any situations where you do not have control over finances, decision making, etc. (exploitation): No Patient Readiness to Learn: Acceptance Family Readiness to Learn: Acceptance Educational Needs/Client would like more information on the following: Current illness and Medication(s) What is the easiest way for the client to learn: Video/Picture, Verbal, Hands-On Demonstration and Written Brochures Client's Identified Treatment Goal: accepting and coping with my mental health Changes noted from last assessment: Reviewed participation agreement Reviewed ROIs Shraddha Gipson, daughter - [phone] Ursula Gipson, daughter - [phone] April Carrizales RN 10/26/2019, 9:48 AM Clovis Arias MD - 10/26/2019 10:30 AM CDT Psychiatric evaluation Date of service 10/26/2019 Identification : Patient Keiko Kyle is 49 y.o. who is referred to [facility] from inpatient psychiatric unit Information source : Chart review and patient interview. Not a very good historian. I discussed with the patient/parent that this [...] in the future. This visit was conducted video Location of clinician: [facility] program Location of patient: Home Chief complaint accepting and coping with my mental health issues?? History of present illness: 49-year-old female with a history of depression and PTSD was recently admitted to inpatient psychiatric hospital unit from emergency room following a manic and psychotic break. Chart review indicated patient was very disorganized and manic. Patient was tangential, trying tohurt people, pulled over, over talkative and acting bizarre. Working diagnosis was bipolar disorder with vidhi and psychosis. Organic workup was completed which was unremarkable. She was quickly stabilized with antipsychotic medications. She became coherent, goal directed without any manic or psychotic features. In the hospital risperidone trial was initiated and she was advanced to 2 mg b.i.d. on October 17 discharge summary indicated patient had resolution of mood and psychotic features. Her daughterwas contacted who also agreed that patient sounded a lot better and agreed with stepping down to [facility] program. [facility] bridge referral was made and she was screened by the manager social media. She was advised to continue clonazepam 0.5 mg twice a day, gabapentin 600 mg twice a day, risperidone 2 mg twice a day along with other medications for her medical conditions. During interview she was calm and controlled. She denied any particular mood symptoms. She did not appear manic. She did report history of anxiety and PTSD related paranoia. She is motivated to continue the program to learn about thisnew diagnoses. She asked questions regarding her medications. We discussed the possibility of consolidating her risperidone to at bedtime. She denies any side effects from current pharmacotherapy she denies any signs of hyperprolactinemia. She had a hysterectomy. Denies breast tenderness or galactorrhea. Adamantly denies suicidal or homicidal thoughts. Upon further inquiry she did say that she was given the diagnosis of borderline personality disorderin 2013. She says that she found DBT skills very helpful but has not been recently utilizing those skills. She expressed interest in DBT again. Denies hallucinations or delusions Adamantly denies suicidal ideation, intent or plan Denies thoughts of hurting anyone else To the manager social media she reported stressors of her blood pressure going down, hypoxia secondary to COPD and other psychosocial stressors. physical > shoulder surgery needed Psychiatric review of systems Denies head or past symptoms suggestive of eating disorder Denies current or past symptoms suggestive of psychosis other than recent break Denies current or past symptoms of previous episodes of hypomania/vidhi History positive of PTSD with flashbacks, nightmares and intrusive memories. Past psychiatric history Notes indicated that this was her only inpatient psychiatric hospitalization Her outpatient psychiatry clinician is Bianca Cohen Her outpatient therapist is and she She had been previously treated with fluoxetine and aripiprazole Notes indicated that she has had suicide attempt in high school when she tried to cut herself Previous diagnoses per 2013 notes from an outside hospital indicate major depressive disorder, borderline personality disorder, dependent personality disorder, PTSD, panic disorder with agoraphobia. Had been on aripiprazole in the past Dialectical Behavior Therapy: Yes; When? approximately 4 years ago; Where? [facility] Partial Hospitalization Program: No ?? Intensive Outpatient Program: No Outpatient therapist 1) Dennise Perez [place], [place] ?? 2) Gina Martins [place], [place] *marriage counselor > transitioned to EMDR therapist (after dissolution of marriage) Substance use history She has been on medical marijuana. Currently off. High school: used THC and speed. Used daily. No CD treatment. ?? Denies blacking out from EtOH. No DWIs. Denies hx of binge drinking Past medical history No hx of head trauma No hx of seizures Hx of sleep apnea : use dental appliances ?? COPD, sleep apnea, and asthma, stable ?? Chronic shoulder pain, needs surgery ?? HTN, dyslipidemia ?? Hx childhood Deo syndrome with neuro involvement No past medical history on file. Vitals: tele visit Past surgical history No past surgical history on file. Medical review of systems Shoulder pain No other acute symptoms noted from other systems Denies shortness of breath or chest pain Denies other musculoskeletal problems Denies acute neurological Current medications Current Outpatient Medications Medication Sig Note Dispense [...] ??? risperiDONE (RISPERDAL) 2 MG tablet Take 1 Tablet by mouth two times a day. Indications: Manic Phase of Manic-Depression 60 Tablet 0 No current facility-administered medications for this visit. Allergies Allergies Allergen Reactions ??? Amoxicillin-Pot Clavulanate Diarrhea and Nausea And Vomiting ??? Cefdinir Nausea And Vomiting During sinusitis illness ??? Prazosin Other, see comments Patient felt weak, had bizarre dreams Family history Possible schizophrenia in mother Has anyone in your family completed suicide: Yes, ?? Paternal Uncle: x1 Cousins (varying degrees): x5-6 ?? Social history Hx of childhood trauma: no details provided Notes indicate hx of dyslexia - no details Marital/Family Status: Yes, , in process of legal separation. 2nd marriage. Children (22,20). Grandchild (1=2) Living Situation: Living on self. Lives with Clayton (dog) Support System Information: really great support system. Professionals at [employer], people at [employer] in [place]. Daughters ??Vocational Status: Employed at [employer]. Shoulder injury that requires surgery. Legal Situation: Yes: - bankruptcy, currently filing ??Coping Styles/Abilities: Photography. MSE APPEARANCE- alert, casually groomed, glasses, wearing street [...] attempts- no History of self-injurious behavior-no Casey. [place] I psychiatric diagnoses-yes Substance use disorder-medical marijuana no use d/o Symptoms : recent vidhi and psychosis Family history of completed suicide or attempted suicide- yes Accessibility to firearms-denies Interpersonal factors : Loss of relationship, financial problems, social isolation, history of abuse Protective factors Ability to cope with the stress- limited Family responsibility and supportive-yes Positive therapeutic relationship with providers-yes Social support-yes Gnosticist beliefs- yes Connectedness with mental health providers- yes Homicide risk :low Diagnoses Brief psychotic disorder, in remission Hospital diagnosis was Bipolar d/o recent vidhi with psychosis Complex PTSD Borderline personality d/o Plan 1) Admit to [facility] 2) Encourage active participation in the programming 3) Medication changes : None 4) Risk vs benefits of medications reviewed -yes including metabolic side effects and tardive dyskinesia 5) Life style modifications - sleep hygiene, exercise, healthy diet 6) Medical concerns : No current medical concerns 7) Follow up - Bi-weekly ; may see me more often if needed 8) Review outside records, get LIZ's, coordinate with outside providers 9) LOS : Approximately 3 weeks 10) Disposition : TBD 11) In case of emergency call 911 or go to the nearest ER 12) Refrain from psychoactive substances Clovis Arias MD This note created using speech-recognition software and may contain unintended word substitutions. documented in this encounter Plan of Treatment Not on filedocumented as of this encounter Results (ABNORMAL) Lipid Panel and Direct LDL(If Needed) (11/03/2019 8:26 AM CDT) Patholo gist Method Time Signature Cholesterol 249 (H) 0 - 199 11/03/2019 [facility] mg/dL 11:50 AM [facility] CDT Triglyceride 272 (H) <=149 11/03/2019 [facility] mg/dL 11:50 AM [facility]AL [facility] CDT HDL Cholesterol 50 >=40 11/03/2019 [facility] mg/dL 11:50 AM [facility] CDT LDL, Calculated 145 (H) <130 11/03/2019 [facility] mg/dL 11:50 AM [facility] CDT Non HDL Chol, 199 mg/dL 11/03/2019 [facility] Calculated 11:50 AM [facility]AL [facility] CDT Cholesterol/HDL 5.0 11/03/2019 [facility] Ratio 11:50 AM [facility]AL [facility] CDT Hours Fasting 12 11/03/2019 [facility] 11:50 AM CDT Specimen Anatomical Collection Method / Collection Time Recei alba Time (Source) Location / Volume Laterality Blood Venipuncture / 11/03/2019 8:26 11/03/2019 8:26 Unknown AM CDT AM CDT Clovis Arias MD LAB_1 Performing Organization Address City/[facility] Phon e Number [facility] [address] [address] [facility] [address] [place] [address] Glucose (11/03/2019 8:26 AM CDT) P athologist Signature Glucose 100 70 - 100 11/03/2019 [facility] mg/dL 11:50 AM CDT CENTRAL [facility] Comment: The given reference range is fo r the fasting state. Non-fasting reference range for glucose is 70 - 180 mg/dL. Hours Fasting 12 11/03/2019 11:50 AM CDT [facility] Specimen Anatomical Collection Method / Collection Time Recei alba Time (Source) Location / Volume Laterality Blood Venipuncture / 11/03/2019 8:26 11/03/2019 8:26 Unknown AM CDT AM CDT Clovis Arias MD LAB_1 Performing Organization Address [facility] Phon e Number [facility] [address] [address] [facility] [address] [place], [place] [phone], [facility] Hgb A1C (11/03/2019 8:26 AM CDT) [facility] gist Method Time Signature Hemoglobin A1C 5.5 <=5.6 % 11/03/2019 [facility] 12:27 PM CDT CENTRAL [facility] Specimen Anatomical Collection Method / Collection Time Recei alba Time (Source) Location / Volume Laterality Blood Venipuncture / 11/03/2019 8:26 11/03/2019 8:26 Unknown AM CDT AM CDT Clovis Arias MD LAB_1 Performing Organization Address City/State/ZIP Code Phon e Number [facility] [address] [address] documented in this encounter Visit Diagnoses Diagnosis Bipolar 1 disorder (HRC) - Primary Bipolar I disorder, most recent episode (or current) unspecified Brief reactive psychosis (HRC) Other and unspecified reactive psychosis PTSD (post-traumatic stress disorder) ([facility]) Posttraumatic stress disorder Borderline personality disorder (HRC) Borderline personality disorder documented in this encounter
--- OUTSIDE RECORDS SUMMARY | 2021-12-20 08:47 | XMS_ITS | Encounter Summary ---
:1970 Author Organization [employer] Address [address] [place] [address] Care Team Providers Name Role Phone Unavailable Primary Care Provider Unavailable Reason for Visit Auth/Cert Specialty Diagnoses / Procedures Referred By Contact Refer red To Contact Referral ID Status Reason Start Date Expiration Date Visits Requ ested Visits Authorized [id number] 1 1 Encounter Details Date Type Department Care Team Description 10/28/2019 Telemedicine [facility] Partial Clovis Arias Brief re active psychosis (HRC) (Primary Dx); Hospitalization Lurdes Carvajal MD PTSD (post-traumatic stress disorder); [address] [facility]. [address] [facility] Bipolar 1 disorder (HRC); [place] [address] [place], [place] Borderline personality disor mikey (HRC) [phone] [id number] Social History Tobacco Use Types Packs/Day Years Used Date Smoking Tobacco: Former Smokeless Tobacco: Never Alcohol Use Standard Drinks/Week Comments Not Currently 0 (1 standard drink = 0.6 oz pure alcoho l) Sex Assigned at Date Recorded Not on file documented as of this encounter Progress Notes Mandie Christopher, JEAN CARLOS, LENS ASSISTANT - 10/28/2019 9:00 AM CDT [facility] Partial Hospitalization Program Process Group Progress Note Date: 10/28/2019 Start Time: 9:00 am End Time: 10:00 am Length: 60 minutes Video Visit This visit was conducted via video due to COVID-19 precautions Location of clinician: [facility] Location of patient: Home Modality [facility] Service Unit: Process Group Topics: Coping with anxiety, Coping with depression, DBT- Mindfulness, Practicing coping skills, Recovery strategies and Self cares and daily check in Treatment Strategy: Verbal, Written, and Therapeutic activity Treatment Interventions: Support, Group facilitation & presentation, Activity and DBT skills Clinical Impressions Client's Response to Intervention: Verbalizes or demonstrates understanding and Demonstrates abilityto apply information Client's Condition & Status: Restless/anxious and Constricted affect Learning Barriers: Emotional barriers, technology learning curve Peer & Group Dynamics: Appropriate and Cooperative Additional Impressions: Client shared that she applied the skill of radical acceptance to help her deal with her chronic health issues. She stated that she is at a crossroads, as she can't do the job she used to do. She stated, My life will look different but I have to give myself tahmina. She is exploring her options such as applying for disability and bankruptcy. As for the weekend, she will be celebrating her anniversary with her . Client Self-Report Safety: No SI/SIB reported. No HI reported. Safety Plan: No safety concerns reported. Client to follow her Safety Plan. Treatment Plan Treatment goals addressed this session: See Treatment Plan for goals. Client is progressing on goals for environmental support, safety, stress, and/or treatment and recovery. These interventions relate to the client's treatment plan goals by: Facilitating skills in: building support, lifestyle balance, developing and maintaining healthy living habits, self-esteem, self-efficacy and use of adaptive coping skills, and mental health management Engagement & Recovery Status: Positive engagement and recovery Overall Clinical Impressions: Coping skills do not meet life's stress and challenges, resulting in severe distress and functionality, Impairment in functioning of providing basic needs (i.e. self cares, hygiene, eating, sleeping, med compliance) and Impairment in social, occupational or school functioning Telehealth Visit Reminder Telehealth visits carry potential benefits and risks which differ from in-person sessions. Confidentiality still applies for telehealth services. It is important that you have access to a quiet, private space that is free of distractions during the session. If you need to cancel or change your telehealth appointments, you must notify [employer] in advance by calling the [employer] main number at . Please do not use any other numbers, such as [employer] phone numbers, as they will not be monitored by [employer]. In the event of technical problems or safety concerns, please notify [employer] by phone to confirm your current location and the best number to reach you. You must have a safety plan and emergency contacts on file for [facility], so that we can reach you if you get disconnected. Please also be mindful that, as your provider, I may determine that telehealth is no longer appropriate for you and that we should resume our sessions in person. Lastly, please be aware that data charges may apply if you are not connected to WiFi. Clinician Note I have reviewed the following with patient: (1) potential benefits, risks, and confidentiality issues related to telehealth; (2) patient's current location and contact information; (3) patient's safetyplan and emergency contacts; (4) contingency plans in the event of technical difficulties. In addition, I have explained to patient that I as the provider reserve the right to determine if patient is appropriate for telehealth visits. If patient is no longer appropriate for telehealth visits, I may determine that our sessions should resume in person. Lastly, patient is made aware that this visit is atelehealth visit and will be billed to patient's insurance. JEAN CARLOS Nuñez LICSW 10/28/2019, 8:25 AM Norah Pastrana OTR/Shayla - 10/28/2019 9:00 AM CDT Occupational Therapy IM&R Life Skills Group Progress Note Telehealth Visit This service was provided via telehealth and conducted using a synchronous audio-video link. ??? Clinician location: [facility] ??? Patient location: Home ??? Total time spent: 60 minutes Time Session Started: 10:15 Time session ended: 11:15 Length of session: 60 minutes [facility] Service Unit: Life Skills Topics: Sensory/self regulation, Crisis Intervention Grounding techniques Treatment Strategy: Verbal, Demonstration, SmartBoard, Therapeutic activity and Handouts Learning Barriers: Emotional barriers and technological barriers Treatment Intervention: Group, Prompting, Facilitation of problem solving/decision making and Facilitation of group dynamics Client???s response to intervention: Receptive to intervention Clinical Impression: General Assessments: Client demonstrated understanding of purpose and benefits of grounding techniques to self soothe in order to use raymundo mind. Participated in several methods of grounding techniques, including; movement, chewing gum and daily routine exploration. Activities of Daily Living: Appropriate dress, Groomed appearance Affect: brightened with activity Client continues to exhibit symptoms and need for PHP demonstrated by: Impairment in social, occupational, or school function and Reports using maladaptive coping skills which will put client at risk Treatment goals addressed this session: See master treatment plan for goals These interventions relate to the client???s treatment plan goals by: Developing/maintaining healthy living habits, Self-regulation and Use of adaptive coping skills Self-awareness Building support Improved concentration/attention span and Problem solving Telehealth Visit Reminder Telehealth visits carry potential benefits and risks which differ from in-person sessions. Confidentiality still applies for telehealth services. It is important that you have access to a quiet, private space that is free of distractions during the session. If you need to cancel or change your telehealth appointments, you must notify [employer] in advance by calling the [employer] main number at . Please do not use any other numbers, such as [employer] phone numbers, as they will not be monitored by [employer]. In the event of technical problems or safety concerns, please notify [employer] by phone to confirm your current location and the best number to reach you. You must have a safety plan and emergency contacts on file for [employer], so that we can reach you if you get disconnected. Please also be mindful that, as your provider, I may determine that telehealth is no longer appropriate for you and that we should resume our sessions in person. Lastly, please be aware that data charges may apply if you are not connected to WiFi. Clinician Note I have reviewed the following with patient: (1) potential benefits, risks, and confidentiality issues related to telehealth; (2) patient's current location and contact information; (3) patient's safetyplan and emergency contacts; (4) contingency plans in the event of technical difficulties. In addition, I have explained to patient that I as the provider reserve the right to determine if patient is appropriate for telehealth visits. If patient is no longer appropriate for telehealth visits, I may determine that our sessions should resume in person. Lastly, patient is made aware that this visit is atelehealth visit and will be billed to patient's insurance. VICTOR MANUEL Goldman/Shayla 10/28/2019 April Carrizales RN - 10/28/2019 9:00 AM CDT Nursing Group Progress Note I discussed with the patient/parent that this [...] of clinician: clinic Location of patient: home Date: 10/28/2019 [facility]: [facility] Time Session Started: 1:00 pm Time session ended: 2:00 pm Length of session: 60 minutes Topics: Healthy Lifestyles Treatment Strategy: Verbal, Written and Video Learning Barriers: None RN Intervention Provided: Group Patient???s response to intervention: Receptive to intervention Group Objective: Group discussion related to shame. Educational video by Madison Summers. Goal for client to engage in discussion on ways to dispell feelings of shame. Discussion on the topic of blame. Social Behavior/Social Skills: Compliant, Controlled, Cooperative, Engaged Work Skills: Investment & Participation: Followed directions, Good effort Affect: slight range in affect Activities of Daily Living: Appropriate dress, Groomed appearance Cognitive Skills: Thought Process & Tracking: logical, clear Client continues to exhibit symptoms and need for PHP demonstrated by: Impairment in social, occupational, or school function Treatment goals addressed this session: See Tx Plan These interventions relate to the patient???s treatment plan goals by: Providing opportunity to practice skills Facilitating: lifestyle balance, developing and maintaining healthy living habits, self-esteem and self-awareness April Carrizales RN 10/28/[address] - 10/28/2019 9:00 AM CDT Yoga Progress Note Date: 10/28/2019 Start Time: 2:15PM End Time: 3:00PM WEBEX Length of session: 45minutes NO CHARGE - CLIENT LEFT CLASS AFTER 10 MINUTES - NO NOTE/CHAT. HAD PC ISSUES. Treatment Strategy: Welcome, introduction, check in with body/mind. Stress relief breath practice. Alternate nostril Breathing. Six movements of the spine. What is Yoga discussion. Gentle stretches. Guided body scan meditation. Check back in. Close Practice. Learning Barriers: Treatment Intervention: Group Client???s response to intervention: See Master Treatment Plan for goals Treatment supports self awareness addressing the following goals: Functional, recovery environment-stress, and treatment and recovery. Progress towards goals this session: DID NOT ATTEND FULL CLASS [address] 10/28/2019, 4:26 PM Mandie Christopher MSW, LENS ASSISTANT - 10/28/2019 9:00 AM CDT [facility] Psychoeducational/psychosocial Progress Note Date: 10/28/2019 Start Time: 11:30 AM End Time: 12:30 PM Length: 60 minutes Telehealth Visit This service was provided via telehealth and conducted using a synchronous audio-video link. ??? Clinician location: [facility] ??? Patient location: Home ??? Total time spent: 60 minutes Telehealth Visit Reminder Telehealth visits carry potential benefits and risks which differ from in-person sessions. Confidentiality still applies for telehealth services. It is important that you have access to a quiet, private space that is free of distractions during the session. If you need to cancel or change your telehealth appointments, you must notify [employer] in advance by calling the [employer] main number at . Please do not use any other numbers, such as [employer] phone numbers, as they will not be monitored by [employer]. In the event of technical problems or safety concerns, please notify [employer] by phone to confirm your current location and the best number to reach you. You must have a safety plan and emergency contacts on file for [employer], so that we can reach you if you get disconnected. Please also be mindful that, as your provider, I may determine that telehealth is no longer appropriate for you and that we should resume our sessions in person. Lastly, please be aware that data charges may apply if you are not connected to [employer]. Modality [facility] Service Unit: Psychoeducational/psychosocial Topics: Gratitude and daily check in Treatment Strategy: Verbal, Written, and Therapeutic activity Treatment Interventions: Support, Group facilitation & presentation, Activity and Video Clinical Impressions Client's Response to Intervention: Needs prompts and Needs reinforcement Client's Condition & Status: Flat or blunted and Restless/anxious Learning Barriers: Emotional barriers, technical difficulties Peer & Group Dynamics: Appropriate, Cooperative and Passive Additional Impressions: Client did not actively participate in the group discussion/activity. Treatment Plan Treatment goals addressed this session: See Treatment Plan for goals. Client is progressing on goals for environmental support, safety, stress, and/or treatment and recovery. These interventions relate to the client's treatment plan goals by: Facilitating skills in: use of adaptive coping skills and cultivating gratitude, and mental health management Engagement & Recovery Status: Limited engagement and recovery Overall Clinical Impressions: Coping skills do not meet life's stress and challenges, resulting in severe distress and functionality, Impairment in functioning of providing basic needs (i.e. self cares, hygiene, eating, sleeping, med compliance) and Impairment in social, occupational or school functioning Clinician Note I have reviewed the following with patient: (1) potential benefits, risks, and confidentiality issues related to telehealth; (2) patient's current location and contact information; (3) patient's safetyplan and emergency contacts; (4) contingency plans in the event of technical difficulties. In addition, I have explained to patient that I as the provider reserve the right to determine if patient is appropriate for telehealth visits. If patient is no longer appropriate for telehealth visits, it may be determined that sessions should resume in person. Lastly, patient is made aware that this visit is a telehealth visit and will be billed to patient's insurance. 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
--- OUTSIDE RECORDS SUMMARY | 2021-12-20 08:47 | XMS_ITS | Encounter Summary ---
:1970 Author Organization [place] Address [address] [place] [address] Care Team Providers Name Role Phone Unavailable Primary Care Provider Unavailable Encounter Details Date Type Department Care Team Description 12/16/2019 Telephone [facility] Melinda Melgoza [facility] Jessica Castillo MD [id number] [place] [phone] [place] [phone] (Wo rk) Social History Tobacco Use Types [...] Telephone Encounter - Radha Bianchi RN - 12/16/2019 10:58 AM CDT Rec'd a Follow Up Request for Information from Disability Determination Services requesting information on this individual in regards to a claim for Social Security Disability. Faxed form to HIM centralized fax at [phone]. Fax confirmed. Sent form to HIM to scan in. NIDIA Conner, RN [facility] [employer] documented in this encounter Plan of Treatment Not on filedocumented as of this encounter Visit Diagnoses Not on filedocumented in this encounter
--- OUTSIDE RECORDS SUMMARY | 2021-12-20 08:47 | XMS_ITS | Encounter Summary ---
:1970 Author Organization [employer] Address [address] [place] [address] Care Team Providers Name Role Phone Tom Abdul MD Primary Care Provider Reason for Visit Reason Comments No Show Encounter Details Date Type Department Care Team Description 10/27/2019 Telephone [facility] Partial Clovis Arias MD No Show Hospitalization Prog lisa [address] [facility] [address] [place] [address] [place] [address] [phone] Social History Tobacco Use Types Packs/Day Years Used Date Smoking Tobacco: Former Smokeless Tobacco: Never Alcohol Use Standard Drinks/Week Comments Not Currently 0 (1 standard drink = 0.6 oz pure alcoho l) Sex Assigned at Date Recorded Not on file documented as of this encounter Nursing Notes Cindy Hampton [facility] - 10/27/2019 10:23 AM CDT Client was not seen in process group this morning. Call placed out to number in [employer]. Phone number is disconnected, designer/writer also tried another number and that is also disconnected. Just as designer/writer was about to have social media assistant call emergency contacts designer/writer seen client in the current group. Heating And Ventilating Worker hasattempted to chat with client privately in group and has not had a response. Heating And Ventilating Worker will clinical staff reach out to client to check in. BRITTANI Foreman 10/27/2019, 10:25 AM documented in this encounter Plan of Treatment Not on filedocumented as of this encounter Visit Diagnoses Not on filedocumented in this encounter Care Teams Building Repair Maintenance Supervisor Relationship Specialty Start Date End Date Tom Abdul MD PCP - General Family Practice [address] [place] [address] documented as of this encounter
--- OUTSIDE RECORDS SUMMARY | 2021-12-20 08:47 | XMS_ITS | Encounter Summary ---
:1970 Author Organization [place] Address [address] [place] [address] Care Team Providers Name Role Phone Unavailable Primary Care Provider Unavailable Reason for Visit Reason Onset Date Comments Appointment 08/24/2019 Can cancelled appt b e done as a Telephone Visit? Encounter Details Date Type Department Care Team Description 08/24/2019 Telephone [facility] Melinda Melgoza Appointment ([facility] Clinic Jessica Castillo MD cancelled appt be done [address] as a Telephone Visit?) [address] [facility] [address] [place] [phone] [place] [phone] (Wo rk) Social History Tobacco Use Types Packs/Day Years Used Date Never Assessed Sex Assigned at Date Recorded Not on file documented as of this encounter Miscellaneous Notes Telephone Encounter - Radha Bianchi RN - 08/29/2019 10:[address] Melgoza is able to do a telephone visit this Thursday morning with patient. Called pt back and scheduled her for a telephone visit at 10:30am on 08/[address] Melgoza. Pt in agreement with plan and had no further questions. Telephone Encounter - Radha Bianchi RN - 08/24/2019 4:38 PM CDT Routed note to Dr. Melgoza to advise. Telephone Encounter - Yen Song - 08/24/2019 9:46 AM CDT Patient called to update her telephone number. Patient was advised that her appointment for today (08/24/19) has been cancelled due to Covid-19. Keiko is asking if this is an appointment that we can do as a Telephone Visit? Keiko can be reached at [phone]. documented in this encounter Plan of Treatment Not on filedocumented as of this encounter Visit Diagnoses Not on filedocumented in this encounter
--- OUTSIDE RECORDS SUMMARY | 2021-12-20 08:47 | XMS_ITS | Encounter Summary ---
:1970 Author Organization [facility] Address [address] [place] [address] Care Team Providers Name Role Phone Tom Abdul Primary Care Provider Reason for Visit Reason Comments Vein Procedure Left leg VNUS closure GSV(me d nec), 20-30 stab phlebs(med nec) Encounter Details Date Type Department Care Team Description 01/18/2020 Office Visit [facility] Esha Melgoza MD [address] [place] [address] Varicose veins of left lower extremity w ith pain (Primary Dx); Vein Clinic Jessica Nurse, Vein Varicose veins of both lower extremities with pain [address] [place] [id number] Social History Tobacco Use Types Packs/Day Years Used Date Never Smoker Smokeless Tobacco: Never Used Sex Assigned at Date Recorded Not on file COVID-19 Exposure Response Date Recorded In the last month, have you been in contact with No / Unsure 01/18/2020 8:59 AM CDT someone who was confirmed or suspected to have Coronavirus / COVID-19? documented as of this encounter Last Filed Vital Signs Vital Sign Reading Time Taken Comments Blood Pressure 90/61 01/18/2020 12:21 PM CDT Pulse 76 01/18/2020 12:21 PM CDT Temperature - - Respiratory Rate - - Oxygen Saturation 93% 01/18/2020 12:21 PM CDT Inhaled Oxygen Concentration - - Weight - - Height - - Body Mass Index - - documented in this encounter Progress Notes Kevin Huston RN - 01/18/2020 10:00 AM CDT Pre-procedure Nursing Note Keiko Kyle presents to clinic for Vein Procedure . Ethnic Origins Teacher/Person Responsible for Patient: Annel () Phone Number: Prophylactic Medication:N/A Sedation Medication: Ativan, 3mg , Time Taken: 904 and Clonidine, 0.1mg, Time Taken: 904 Compression Stockings: Hose at home The procedure is being performed on LLE. Patient understanding of procedure matches consent? YES Medications verified LUCY Craig RN Melinda Melgoza MD - 01/18/2020 10:00 AM CDT Images from the original note were not included. [facility] Procedure Note Keiko Kyle January 18, 2020 Keiko Kyle is a 49 year old year old female who presents with complaints of left leg cramping, itching, and swelling, with aching, weakness, and fatigue in the lower leg bilaterally. She was found to have left greater saphenous vein incompetence and large varicosities, and was brought in today to undergo left greater saphenous vein radiofrequency ablation (via VNUS closure) and medically necessary stab phlebectomies, for symptoms refractory to compression stocking use. BP 90/61 Pulse 76 SpO2 93% Flowsheet Data 01/18/2020 Procedure Start Time: 10:40 AM Prep: Chloraprep Side: Left Tx Length (cm): LEFT GVS 45.5 Junction (cm): LEFT GVS 2.44 RF Cycles: LEFT GVS 10 RF TX Time (Minutes): LEFT GVS 2:54 # PHLEB Sites: 50 Sedation taken: Yes Pre Pt. Physical / Cognitive Limitations: WNL TOTAL Local anesthesia Injected (ml): 3 Max Volume Local Anesthesia (ml): 11 TOTAL Tumescent Injected volume (ml): 450 Max Volume Tumescent (ml): 572 Post Pt. Physical / Cognitive Limitations: WNL Procedure End Time: 12:25 PM D/C Instructions given, states readiness to leave and escorted to car: Yes Procedure Details of the procedure, including risks of bleeding, infection, nerve injury, deep vein thrombosis, and chance of recanalization, were discussed during the initial clinic visit and reviewed again on the day of procedure. The patient voiced understanding and proceeded to the procedure room under informed consent. The patient was placed supine on the operating table and the left groin and entire lower extremity were prepped and draped sterilely. The sinusoid ultrasound probe was used to identify the left greatersaphenous vein, which was found to be continuous from the ankle to the saphenofemoral junction. The skin overlying the saphenous vein at the proximal calf level was infiltrated with 1% lidocaine and a micropuncture needle was placed into the saphenous vein. A micropuncture guidewire and catheter were then advanced into the vein, and the catheter was exchanged over the wire for a 7-Fr sheath. The ClosureFast catheter was flushed and was then inserted into the sheath. The catheter was advanced throughthe greater saphenous vein up to the level of the saphenofemoral junction. The tip of the cathter was positioned 3 cm away from the junction, under ultrasound guidance. The tissue surrounding the greater saphenous vein was then anesthetized with a tumescent anesthetic solution of saline mixed with bicarbonate and lidocaine with epinephrine. The tissues were circumferentially infiltrated with tumescent anesthetic under ultrasound guidance, taking care to again confirmthe position of the catheter tip 3 cm away from the saphenofemoral junction. The skin overlying the marked varicose veins were anesthetized with the same solution. Following instillation of tumescent anesthesia, the catheter tip was again confirmed at a distance of 3 cm from the saphenofemoral junction. The ultrasound probe was used to compress the junction. The treatment was initiated with two 20-second sessions, ablating a distance of approximately 7 cm. The ClosureFast catheter was then serially withdrawn and the entire greater saphenous vein was treated in 7 cm increments. After the pullback was completed, the greater saphenous vein was evaluated with ultrasound and found to have internal echoes, thickened dover, minimal compressibility, and have no appreciable flow. The saphenofemoral junction and common femoral vein were examined and found to be compressible and free of thrombus. The catheter and sheath were completely removed and hemostasis was achieved with external pressure. The marked varicosities were then removed via 50 stab wounds. An ophthalmic microscalpel was used tocreate small incisions, through which varicose vein fragments were delivered and avulsed with a hookand mosquito clamps. Hemostasis was achieved with pressure. The skin of th leg was cleaned and dried. Bacitracin was applied around the incisions and the leg was dressed with gauze, abdominal pads, and TIMMY bandages from the toes to the groin. The patient was then kept for observation to ensure excellent hemostasis and comfort. Melinda Melgoza MD documented in this encounter Plan of Treatment Not on filedocumented as of this encounter Visit Diagnoses Diagnosis Varicose veins of left lower extremity w ith pain - Primary Varicose veins of lower extremities with other complications Varicose veins of both lower extremities with pain Varicose veins of lower extremities with other complications documented in this encounter Administered Medications Inactive Administered Medications - up to 3 most recent administrations Medication Order MAR Action Action Date Dose Rate Site lidocaine 1 % 10 mL, sodium Given 01/18/2020 2:00 PM CDT bicarbonate 1 mEq 11 mL injection Subcutaneous, ONCE, On Thu01/18/20 at 1300, For 1 dose lidocaine 1% with EPINEPHrine 1:100,000 60 mL, Given 01/18/2020 2:01 PM CDT sodium bicarbonate 12 mEq, sodium chloride 0.9% 500 mL 572 mL Infiltration, ONCE, On Thu01/18/20 at 1300, For 1 dose documented in this encounter Care Teams Explosive Ordnance Disposal Manager Relationship Specialty Start Date End Date Tom Abdul PCP - General Family Practice 01/18/20 01/18/20 [facility] [address] [place] [address] documented as of this encounter
--- OUTSIDE RECORDS SUMMARY | 2021-12-20 08:47 | XMS_ITS | Encounter Summary ---
:1970 Author Organization [facility] Address [address] [place] [address] Care Team Providers Name Role Phone Unavailable Primary Care Provider Unavailable Reason for Visit Reason Onset Date Comments Chart Prep 05/23/2019 Encounter Details Date Type Department Care Team Description 05/23/[address] [facility] Vein Melinda Melgoza Chart Prep Clinic Jessica Castillo MD [address] [place] [phone] [place] [address] [phone] (Wo rk) Social History Tobacco Use Types Packs/Day Years Used Date Never Assessed Sex Assigned at Date Recorded Not on file documented as of this encounter Miscellaneous Notes Telephone Encounter - Radha Bianchi RN - 05/23/2019 3:20 PM CST Pt called back and stated she was referred by her PCP to see Dr. Robbins, a general surgeon at [facility]. Then Dr. Robbins referred pt to see a vein specialist. Pt said she had an arterial and a vein ultrasound done recently. Called [facility] records and they are going to be faxing over a couple of ultrasounds the patient had done there as well as the consultation notes with Dr. Robbins. K OFF PERSON Telephone Encounter - Radha Bianchi RN - 05/23/2019 12:04 PM CST Called pt and had to LD asking whether pt was planning on bringing in records for her appt with Dr. Melgoza on 05/25 or if we needed to look into these records, asked pt if she's had an ultrasoundpreviously. Told pt to give us a call back and she can ask for Radha. K OFF PERSON documented in this encounter Plan of Treatment Not on filedocumented as of this encounter Visit Diagnoses Not on filedocumented in this encounter
--- OUTSIDE RECORDS SUMMARY | 2021-12-20 08:47 | XMS_ITS | Encounter Summary ---
:1970 Author Organization Code [facility] Address [address] [place] [address] Care Team Providers Name Role Phone Tom Abdul MD Primary Care Provider Encounter Details Date Type Department Care Team Description 10/31/2019 Telephone [facility] Denae High, Hospitalization Prog lisa [facility] [address] [facility] [address] [place] [address] [place] [address] [phone] (Wo rk) Social History Tobacco Use Types Packs/Day Years Used Date Smoking Tobacco: Former Smokeless Tobacco: Never Alcohol Use Standard Drinks/Week Comments Not Currently 0 (1 standard drink = 0.6 oz pure alcoho l) Sex Assigned at Date Recorded Not on file documented as of this encounter Nursing Notes Mandie Christopher, COMMUNITY HEALTH PROGRAM COORDINATOR, [facility] - 10/31/2019 10:23 AM CDT Outgoing Call: This telegraphic typewriter installer called client to speak to her about the participation agreement, as she was not in group today with the exception of briefly logging on/off. She called and spoke to a service team leader about this saying she was having technical difficulties and having to care for a sick grand daughter. Tower Helper made the observation that the ongoing technical difficulties seem to be interfering withher ability to participate in the program. Tower Helper further stated that it's time to have the discussion about whether or not this is working for her. She agreed and referred to her mindset today as discombobulated. She reported that she's also had a medication adjustment; specifically, she is now taking all of her Risperdal at night, so she really struggles in the morning. She said she is wondering about the timing of the program. She also missed a medical appointment this morning for her shoulder.She said that along with the tech stuff and the shoulder pain, she thinks it may be best to discharge and consider the program after her shoulder surgery. Tower Helper let her know how she could be re-referred in the future. Tower Helper will speak to the treatment team and call her back this afternoon. She denied having any safety concerns. JEAN CARLOS Nuñez LICSW 10/31/2019, 10:35 AM Denae High LICSW - 10/31/2019 9:59 AM CDT Telephone call: Client called and LM for telegraphic typewriter installer at 9:24 AM. Client said she was having a hard time logging into the [facility] group today, that she was having technical difficulties, and had a sick grandchild she is caring for today. She requested a call back. Tower Helper handed off to MEGAN Lockwood who is her process senior project leader/team lead. MEGAN Metcalf 10/31/2019, 10:00 AM documented in this encounter Plan of Treatment Not on filedocumented as of this encounter Visit Diagnoses Not on filedocumented in this encounter Care Teams Lawn Mower Relationship Specialty Start Date End Date Tom Abdul MD PCP - General Family Practice 11/02/[address] [place] [address] documented as of this encounter
--- OUTSIDE RECORDS SUMMARY | 2021-12-20 08:47 | XMS_ITS | Encounter Summary ---
:1970 Author Organization [facility] Address [facility] [place] [address] Care Team Providers Name Role Phone Unavailable Primary Care Provider Unavailable Encounter Details Date Type Department Care Team Description 01/20/2020 Travel Social History Tobacco Use Types Packs/Day Years Used Date Never Smoker Smokeless Tobacco: Never Used Sex Assigned at Date Recorded Not on file COVID-19 Exposure Response Date Recorded In the last month, have you been in contact with No / Unsure 01/20/2020 9:45 AM CDT someone who was confirmed or suspected to have Coronavirus / COVID-19? documented as of this encounter Plan of Treatment Not on filedocumented as of this encounter Visit Diagnoses Not on filedocumented in this encounter
--- OUTSIDE RECORDS SUMMARY | 2021-12-20 08:47 | XMS_ITS | Encounter Summary ---
:1970 Author Organization [facility] Address [address] [facility] [place] [address] Care Team Providers Name Role Phone Melinda Melgoza MD Unavailable [phone] Encounter Details Date Type Department Care Team Description 05/01/2020 Travel Social History Tobacco Use Types Packs/Day Years Used Date Never Smoker Smokeless Tobacco: Never Used Sex Assigned at Date Recorded Not on file COVID-19 Exposure Response Date Recorded In the last month, have you been in contact with No / Unsure 05/01/2020 5:49 PM NURSE ANESTHETIST someone who was confirmed or suspected to have Coronavirus / COVID-19? documented as of this encounter Plan of Treatment Not on filedocumented as of this encounter Visit Diagnoses Not on filedocumented in this encounter Care Teams Senior Business Development Manager Relationship Specialty Start Date End Date Melinda Melgoza, Assigned Heart and Vascular 02/24/20 07/20/21 Provider [address] [facility] [address] [place] [address] documented as of this encounter
--- OUTSIDE RECORDS SUMMARY | 2021-12-20 08:47 | XMS_ITS | Encounter Summary ---
:1970 Author Organization [place] Address [address] [facility] [place] [address] Care Team Providers Name Role Phone Tom Abdul Primary Care Provider Encounter Details Date Type Department Care Team Description 11/16/2019 Travel Social History Tobacco Use Types Packs/Day [...] on filedocumented in this encounter Care Teams Ob/Gyn Doctor Relationship Specialty Start Date End Date Tom Abdul PCP - General Family Practice 11/16/19 11/16/19 [facility] [address] [place] [address] documented as of this encounter
--- OUTSIDE RECORDS SUMMARY | 2021-12-20 08:47 | XMS_ITS | Encounter Summary ---
:1970 Author Organization [facility] Address [address] [place] [address] Care Team Providers Name Role Phone Tom Abdul MD Primary Care Provider Encounter Details Date Type Department Care Team Description 11/03/2019 Lab Visit [facility] Bipolar 1 disorder (HR) [address] [place], [place] [address] Social History Tobacco Use Types Packs/Day Years [...] Name Priority Date/Time Associated Diagnosis Comme nts LIPID PANEL AND Routine 11/03/2019 8:26 AM Bipolar 1 disorder Results for this DIRECT LDL(IF CDT (HRC) procedure are in NEEDED) the results section. HGB A1C Routine 11/03/2019 8:26 AM Bipolar 1 disorder Res ults for this CDT ([facility]) procedure are i n the results section. GLUCOSE Routine 11/03/2019 8:26 AM Bipolar 1 disorder Res ults for this CDT ([facility]) procedure are i n the results section. documented in this encounter Results (ABNORMAL) Lipid Panel and Direct LDL(If Needed) (11/03/2019 8:26 AM CDT) [facility] Method Time Signature Cholesterol 249 (H) 0 - 199 11/03/2019 [facility] mg/dL 11:50 AM CENTRAL LAB CDT Triglyceride [...] CENTRAL LAB CDT Hours Fasting 12 11/03/2019 [facility] 11:50 AM CDT Specimen Anatomical Collection Method / Collection Time Recei alba Time (Source) Location / Volume Laterality Blood Venipuncture / 11/03/2019 8:26 11/03/2019 8:26 Unknown AM CDT AM CDT Clovis Arias MD LAB_1 Performing Organization Address City/[facility] Phon e Number [facility] CEN[facility]AL LAB [address] [address] [facility] [address] [place] [address], [place] Glucose (11/03/2019 8:26 AM CDT) athologist Signature Glucose 100 70 - 100 11/03/2019 [facility] mg/dL 11:50 AM CDT CENTRAL LAB Comment: The given reference range is fo r the fasting state. Non-fasting reference range for glucose is 70 - 180 mg/dL. Hours Fasting 12 11/03/2019 11:50 AM CDT [facility] Specimen Anatomical Collection Method / Collection Time Recei alba Time (Source) Location / Volume Laterality Blood Venipuncture / 11/03/2019 8:26 11/03/2019 8:26 Unknown AM CDT AM CDT Clovis Arias MD LAB_1 Performing Organization Address City/[facility] Phon e Number [facility]AL [facility] [address] [address] [facility] [address] [place] [address], [place] Hgb A1C (11/03/2019 8:26 AM CDT) [facility] gist Method Time Signature Hemoglobin A1C 5.5 <=5.6 % 11/03/2019 [facility] 12:27 PM CDT CENTRAL LAB Specimen Anatomical Collection Method / Collection Time Recei alba Time (Source) Location / Volume Laterality Blood Venipuncture / 11/03/2019 8:26 11/03/2019 8:26 Unknown AM CDT AM CDT Clovis Arias MD LAB_1 Performing Organization Address City/State/ZIP Code Phon e Number [facility] C[facility]AL [facility] [address] [address] documented in this encounter Visit Diagnoses Diagnosis Bipolar 1 disorder ([facility]) Bipolar I disorder, most recent episode (or current) unspecified documented in this encounter Care Teams Safety Consultant Relationship Specialty Start Date End Date Tom Abdul MD PCP - General Family Practice 11/02/[address] [place] [address] documented as of this encounter
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
--- OUTSIDE RECORDS SUMMARY | 2021-12-20 08:47 | XMS_ITS | Encounter Summary ---
:1970 Author Organization [employer] Address [facility] [place] [address] Care Team Providers Name Role Phone Unavailable Primary Care Provider Unavailable Encounter Details Date Type Department Care Team Description 06/30/2019 Travel Social History Tobacco Use Types Packs/Day Years Used Date Never Assessed Sex Assigned at Date Recorded Not on file documented as of this encounter Plan of Treatment Not on filedocumented as of this encounter Visit Diagnoses Not on filedocumented in this encounter
--- OUTSIDE RECORDS SUMMARY | 2021-12-20 08:47 | XMS_ITS | Encounter Summary ---
:1970 Author Organization [employer] Address [address] [place] [address] Care Team Providers Name Role Phone Unavailable Primary Care Provider Unavailable Reason for Visit Auth/Cert Specialty Diagnoses / Procedures Referred By Contact Refer red To Contact Referral ID Status Reason Start Date Expiration Date Visits Requ ested Visits Authorized [id number] 1 1 Encounter Details Date Type Department Care Team Description 10/27/2019 Telemedicine [facility] Partial Clovis Arias MD Hospitalization Prog lisa [address] [facility] [address] [place] [address] [place] [address] [phone] Social History Tobacco Use Types Packs/Day Years Used Date Smoking Tobacco: Former Smokeless Tobacco: Never Alcohol Use Standard Drinks/Week Comments Not Currently 0 (1 standard drink = 0.6 oz pure alcoho l) Sex Assigned at Date Recorded Not on file documented as of this encounter Progress Notes Mandie Christopher, JEAN [place], FAMILY RESOURCE SPECIALIST - 10/27/2019 9:00 AM CDT [facility] Partial Hospitalization Program Process Group Progress Note Date: 10/27/2019 Start Time: 9:00 am End Time: 10:00 am Length: 60 minutes Video Visit This visit was conducted via video due to COVID-19 precautions Location of clinician: [facility] Location of patient: Home Modality [facility] Service Unit: Process Group Topics: Coping with anxiety, Coping with depression, DBT- Mindfulness, Practicing coping skills, Recovery strategies and Self cares and daily check in Treatment Strategy: Verbal, Written, and Therapeutic activity Treatment Interventions: Support, Group facilitation & presentation, Activity and DBT skills Clinical Impressions Client's Response to Intervention: Client's Condition & Status: Learning Barriers: Peer & Group Dynamics: Additional Impressions: Client Self-Report Safety: Safety Plan: Treatment Plan Treatment goals addressed this session: [...] mental health management Engagement & Recovery Status: Overall Clinical Impressions: Telehealth Visit Reminder Telehealth visits carry potential benefits and risks which differ from in-person sessions. Confidentiality still applies for telehealth services. It is important that you have access to a quiet, private space that is free of distractions during the session. If you need to cancel or change your telehealth appointments, you must notify [facility] in advance by calling the [facility] main number at . Please do not use any other numbers, such as [facility] phone numbers, as they will not be monitored by [facility]. In the event of technical problems or safety concerns, please notify [facility] by phone to confirm your current location and the best number to reach you. You must have a safety plan and emergency contacts on file for [facility], so that we can reach you if you get disconnected. Please also be mindful that, as your provider, I may determine that telehealth is no longer appropriate for you and that we should resume our sessions in person. Lastly, please be aware that data charges may apply if you are not connected to [employer]. Clinician Note I have reviewed the following [...] billed to patient's insurance. JEAN [place] Nuñez, FAMILY RESOURCE SPECIALIST 10/27/2019, 8:23 AM Denae High LICSW - 10/27/2019 9:00 AM CDT [facility] Partial Hospitalization Program Psychoeducational/psychosocial Progress Note Date: 10/27/2019 Start Time: 10:15 AM End Time: 11:15 AM Length: 45 minutes - client came in late, and appeared to have technical difficulties. Telehealth Visit This service was provided via telehealth and conducted using a synchronous audio-video link. ??? Clinician location: [facility] ??? Patient location: Home ??? Total time [...] change your telehealth appointments, you must notify [facility] in advance by calling the [facility] main number at . Please do not use any other numbers, such as [facility] phone numbers, as they will not be monitored by [facility]. In the event of technical problems or safety concerns, please notify [facility] by phone to confirm your current location and the best number to reach you. You must have a safety plan and emergency contacts on file for [facility], so that we can reach you if you get disconnected. Please also be mindful that, as your provider, I may determine that telehealth is no longer appropriate for you and that we should resume our sessions in person. Lastly, please be aware that data charges may apply if you are not connected to [employer]. Modality [facility] Service Unit: Psychoeducational/psychosocial Topics: DBT- Distress tolerance and Radical acceptance and daily check in Treatment Strategy: Verbal, Written, and Therapeutic activity Treatment Interventions: Support, Group facilitation & presentation, Activity and DBT skills Clinical Impressions Client's Response to Intervention: Needs prompts and Needs reinforcement Client's Condition & Status: Flat or blunted and Restless/anxious Learning Barriers: Emotional barriers and Poor motivation Peer & Group Dynamics: Passive Additional Impressions: Client was in and out of group with technical issues; client appeared to be minimally attentive. Treatment Plan Treatment goals addressed this session: See Treatment Plan for goals. Client is progressing on goals for environmental support, safety, stress, and/or treatment and recovery. These interventions relate to the client's treatment plan goals by: Facilitating skills in: building support, lifestyle balance, developing and maintaining healthy living habits, self-esteem, self-efficacy, use of adaptive coping skills and self-awareness, and mental health management Engagement & Recovery Status: Minimal engagement and recovery Overall Clinical Impressions: Impairment in social, occupational or school functioning [...] and will be billed to patient's insurance. MEGAN Metcalf 10/27/2019, 4:31 PM Telehealth Visit Reminder Telehealth visits carry potential benefits and risks which differ from in-person sessions. Confidentiality still applies for telehealth services. It is important that you have access to a quiet, private space that is free of distractions during the session. If you need to cancel or change your telehealth appointments, you must notify [facility] in advance by calling the [facility] main number at . Please do not use any other numbers, such as [facility] phone numbers, as they will not be monitored by [facility]. In the event of technical problems or safety concerns, please notify [facility] by phone to confirm your current location and the best number to reach you. You must have a safety plan and emergency contacts on file for [facility], so that we can reach you if you get disconnected. Please also be mindful that, as your provider, I may determine that telehealth is no longer appropriate for you and that we should resume our sessions in person. Lastly, please be aware that data charges may apply if you are not connected to [employer]. [facility] Partial Hospitalization Program Psychoeducational/psychosocial Progress Note Date: 10/27/2019 Start Time: 2:15 PM End Time: 3:00 PM Length: 0 minutes Client was not in group. NO CHARGE. MEGAN Metcalf 10/27/2019, 4:32 PM Madeleine Cloud - 10/27/2019 9:00 AM CDT Telehealth Visit This service was provided via [...] change your telehealth appointments, you must notify [facility] in advance by calling the [facility] main number at . Please do not use any other numbers, such as [facility] phone numbers, as they will not be monitored by [facility]. In the event of technical problems or safety concerns, please notify [facility] by phone to confirm your current location and the best number to reach you. You must have a safety plan and emergency contacts on file for [facility], so that we can reach you if you get disconnected. Please also be mindful that, as your provider, I may determine that telehealth is no longer appropriate for you and that we should resume our sessions in person. Lastly, please be aware that data charges may apply if you are not connected to [employer]. Occupational Therapy IM&R Life Skills Group Progress Note Date: 10/27/2019 [facility] Service Unit: Life Skills Time Session Started: 11:30 a.m. Time session ended: 12:30 p.m. Length of session: Not present; no charge Topics: Automatic Negative Thoughts (ANTs) follow up Treatment Strategy: Review of information presented in last two life skill session Applying it to clients' most challenging situations Review of associated worksheet for further application Clinician Note I have reviewed the following [...] and will be billed to patient's insurance. Client continues to exhibit symptoms and need for PHP demonstrated by: VICTOR MANUEL Kim/Shayla 10/27/2019, 2:06 PM April Carrizales RN - 10/27/2019 9:00 AM CDT Progress Note ([facility] Program Nursing) RN spoke with client -- her phone number did work when I just tried her. She reported that she was not in the last session, despite being logged in. She reports having pain issues (chronic) which she was tending to. She also states having tech difficulties but now feels comfortable with that aspect. Discussed having video on when in groups and having to be in groups. Informed that she must notify staff if she will not be present in group. Client discussed that she will not be in the last session either. She is sedated from re-starting her medical marijuana (during the last group). She plans to try again tomorrow. No imminent safety concerns. April Carrizales RN --- End of Report --- T Khushboo Christie, PHD, MSCP, LP - 10/27/2019 9:00 AM CDT [facility] Psychoeducational Group Psychiatric Diagnoses Progress Note Date: 10/27/2019 Start Time: 1:00 pm End Time: 2:00 pm Length: 60 minutes (Patient was absent from group. No charges.) Telehealth Visit This service was provided via telehealth and conducted using a synchronous audio-video link. ??? Clinician location: [facility] ??? Patient location: Home ??? Total time [...] change your telehealth appointments, you must notify [facility] in advance by calling the [facility] main number at . Please do not use any other numbers, such as [facility] phone numbers, as they will not be monitored by [facility]. In the event of technical problems or safety concerns, please notify [facility] by phone to confirm your current location and the best number to reach you. You must have a safety plan and emergency contacts on file for [facility], so that we can reach you if you get disconnected. Please also be mindful that, as your provider, I may determine that telehealth is no longer appropriate for you and that we should resume our sessions in person. Lastly, please be aware that data charges may apply if you are not connected to [employer]. Patient could be seen logging on around 1 pm. However, there was no video. I reached out to her repeatedly and asked her to let me know if she could hear or see us, but there was no response. I also wrote a note to her privately, but again, no response. Khushboo Christie, PhD, MSCP Licensed Psychologist [facility] Staff Psychologist 10/27/2019 2:19 PM documented in this encounter Plan of Treatment Not on filedocumented as of this encounter Visit Diagnoses Not on filedocumented in this encounter
--- OUTSIDE RECORDS SUMMARY | 2021-12-20 08:47 | XMS_ITS | Encounter Summary ---
:1970 Author Organization [employer] Address [address] [facility] [place] [address] Care Team Providers Name Role Phone Tom Abdul Primary Care Provider Encounter Details Date Type Department Care Team Description 01/18/2020 Travel Social History Tobacco Use Types Packs/Day [...] on filedocumented in this encounter Care Teams Bit Tripoler Relationship Specialty Start Date End Date Tom Abdul PCP - General Family Practice 01/18/20 01/18/20 [facility] [address] [place] [address] documented as of this encounter
--- OUTSIDE RECORDS SUMMARY | 2021-12-20 08:47 | XMS_ITS | Encounter Summary ---
:1970 Author Organization [place] Address [address] [place] [address] Care Team Providers Name Role Phone Unavailable Primary Care Provider Unavailable Reason for Referral Diagnostic Imaging Ultrasound (Routine) - Closed Specialty Diagnoses / Procedures Referred By Contact Refer red To Contact Diagnoses Varicose veins of left lower extremity with pain Melinda Melgoza, Procedures US Lower Extremity Venous Duplex Left [address] [place] [address] Referral ID Status Reason Start Date Expiration Date Visits Requ ested Visits Authorized [id number] Closed 12/26/2019 12/25/2020 1 1 Encounter Details Date Type Department Care Team Description 12/26/2019 Orders Only [facility] Melinda Melgoza Vari cose veins of Vein Clinic Ana Castillo MD left lower extremity [address] wi th pain (Primary [address] [address] Dx) [place] [address] [place] [address] [phone] (Wo rk) Social History Tobacco Use Types Packs/Day Years Used Date Never Assessed Sex Assigned at Date Recorded Not on file documented as of this encounter Plan of Treatment Not on filedocumented as of this encounter Results US Lower Extremity Venous Duplex Left (01/20/2020 10:13 AM CDT) Anatomical Region Laterality Modality Vascular, Thigh, Leg Ultrasound Specimen (Source) Anatomical Location Collection Method / Collectio n Time Received Time / Laterality Volume Impressions 01/26/2020 7:35 AM CDT Examined by: DAKSHA Age: ??49 year old ? Reading MD: POLINA ?? INDICATIONS: ?Post VNUS Closure ?? EXAM TYPE LEFT LOWER EXTREMITY VENOUS DUPLEX 72 HOUR POST VNUS CLOSURE GSV ?? TECHNICAL SUMMARY ?? Multiple transverse and longitudinal shivani ges of left lower extremity were obtained. ?? LEFT: ? The CFV demonstrates phasic flow, compre sses, and responds to augmentations. ??No evidence of DVT at t his time. ??The remainder of deep veins including left femoral, popliteal, posterior tibial and peroneal veins are widely patent and fully compre ssible with no evidence for DVT at this time. ?? The GSV is closed 14.4 mm from the SFJ t o the knee with evidence of thrombus seen throughout. ? FINAL SUMMARY: 1. ? Left CFV is patent. 2. ? The left GSV is closed 14 .4 mm from the SFJ to the knee. Narrative 01/26/2020 7:35 AM CDT Name: ??Keiko Kyle ? Date: January 20, 2020 ? : 1970 Sex: female Melinda Melgoza MD IMG US ORDERABLES documented in this encounter Visit Diagnoses Diagnosis Varicose veins of left lower extremity w ith pain - Primary Varicose veins of lower extremities with other complications Varicose veins of left lower extremity w ith pain Varicose veins of lower extremities with other complications documented in this encounter
--- OUTSIDE RECORDS SUMMARY | 2021-12-20 08:47 | XMS_ITS | Encounter Summary ---
:1970 [facility] Address [address] [place] [address] Care Team Providers Name Role Phone Tom Abdul MD Primary Care Provider Reason for Visit Reason Comments COVID Screening Encounter Details Date Type Department Care Team Description 11/02/2019 Telephone [facility] Unassigned, Provider COVID Screening Practice [address] [place] [id number] [place] [address] Social History Tobacco Use Types Packs/Day Years Used Date Smoking Tobacco: Former Smokeless Tobacco: Never Alcohol Use Standard Drinks/Week Comments Not Currently 0 (1 standard drink = 0.6 oz pure alcoho l) Sex Assigned at Date Recorded Not on file documented as of this encounter Nursing Notes Dahiana Hermosillo - 11/02/2019 9:28 AM CDT Initial Screening: Patient information Best number to contact patient: [phone] Reason for Call: COVID Screening/Testing Request In the last 14 days have you had close contact with a person known to have COVID-19 or been instructed to self-isolate? No Are symptoms urgent/emergent? No Do you currently have any of these symptoms? None: Close the TE and Follow your normal workflow documented in this encounter Plan of Treatment Not on filedocumented as of this encounter Visit Diagnoses Not on filedocumented in this encounter Care Teams Thermal Cutting Machine Operator Relationship Specialty Start Date End Date Tom Abdul MD PCP - General Family Practice 11/02/[address] [place] [address] documented as of this encounter
--- OUTSIDE RECORDS SUMMARY | 2021-12-20 08:47 | XMS_ITS | Encounter Summary ---
:1970 Author Organization [place] Address [address] [place] [address] Care Team Providers Name Role Phone Unavailable Primary Care Provider Unavailable Reason for Visit Diagnostic Imaging Ultrasound (Routine) - Closed Specialty Diagnoses / Procedures Referred By Contact Refer red To Contact Diagnoses Varicose veins of left lower extremity with pain Melinda Melgoza, Procedures US Lower Extremity Venous Duplex Left [address] [place] [address] Referral ID Status Reason Start Date Expiration Date Visits Requ ested Visits Authorized [id number] Closed 12/26/2019 12/25/2020 1 1 Encounter Details Date Type Department Care Team Description 01/20/2020 Ancillary [facility] Melinda Melgoza Vari cose veins of Procedure [facility] MD Anna left lower Solutions [address] extremity with pain [address] [facility] [address] [facility] [place] [address] [address] [place] (Work) [address] [phone] Social History Tobacco Use Types Packs/Day Years [...] Name Priority Date/Time Associated Diagnosis Comme nts US LOWER EXTREMITY Routine 01/20/2020 10:13 AM Varicose veins of Results for this VENOUS DUPLEX LEFT CDT left lower extremity p rocedure are in with pain the results section. documented in this encounter Results US Lower Extremity Venous [...] : 1970 Sex: female Melinda Melgoza MD [facility] ORDERABLES documented in this encounter Visit Diagnoses Diagnosis Varicose veins of left lower extremity w ith pain Varicose veins of lower extremities with other complications documented in this encounter
--- OUTSIDE RECORDS SUMMARY | 2021-12-20 08:47 | XMS_ITS | Clinical Summary ---
:1970 Author Organization [place] Address [facility] [place] [address] Care Team Providers Name Role Phone Unavailable Primary Care Provider Unavailable Allergies Active Allergy Reactions Severity Noted Date Comments Prazosin Fatigue 05/25/2019 Medications Medication Sig Dispensed Refills Start Date End Date Status gabapentin Take 300 mg by mouth 0 Active (NEURONTIN) 300 MG 2 times daily capsule lisinopril Take 10 mg by mouth 0 Active (PRINIVIL/ZESTRIL) daily 10 MG tablet baclofen (LIORESAL) Take 10 mg by mouth 0 08/25/2019 Active 10 MG tablet At Bedtime fluticasone SHAKE LQ AND U 1 SPR 0 11/09/2018 Active (FLONASE) 50 MCG/ACT IEN D nasal spray albuterol (PROAIR INL 1 TO 2 PFS PO Q 0 07/10/2019 Active HFA/PROVENTIL 4 H PRF WHZ OR HFA/VENTOLIN HFA) DIFFICULT BREATHING 108 (90 Base) MCG/ACT inhaler hydrOXYzine 0 07/14/2019 Active (VISTARIL) 50 MG capsule DULERA 100-5 MCG/ACT INL 2 PFS PO BID 0 06/27/2019 Active inhaler medical cannabis See Admin 0 Act eduardo (Patient's own Instructions (The supply) purpose of this order is to document that the patient reports taking medical cannabis. This is not a prescription, and is not used to certify that the patient has a qualifying medical condition.) clonazePAM Take 0.5 mg by mouth 0 07/29/2019 Active (KLONOPIN) 0.5 MG 2 times daily as tablet needed famotidine (PEPCID) Take 20 mg by mouth 0 11/01/2019 Active 20 MG tablet 2 times daily nabumetone (RELAFEN) Take 500 mg by mouth 0 10/18/19 20 Active 500 MG tablet daily montelukast Take 10 mg by mouth 0 11/08/2019 Active (SINGULAIR) 10 MG daily tablet risperiDONE Take 4 mg by mouth 0 11/09/2019 Active (RISPERDAL) 4 MG daily tablet DULoxetine Take 30 mg by mouth 0 Active (CYMBALTA) 30 MG 2 times daily capsule Social History Tobacco Use Types Packs/Day Years [...] - - Body Mass Index - - Plan of Treatment Health Maintenance Due Date Last Done Comments ADVANCE CARE PLANNING 1970 ANNUAL REVIEW OF HM ORDERS 1969 CT COLONOGRAPHY 1969 FIT-DNA (Cologuard) 1970 FIT 1970 FLEX SIG 1970 MAMMO SCREENING 1970 PREVENTIVE CARE VISIT 1969 COVID-19 Vaccine (#1) 1969 COLONOSCOPY 1979 COLORECTAL CANCER SCREENING 1979 HIV SCREENING 1984 HEPATITIS C SCREENING 1987 PAP 1990 DTAP/TDAP/TD IMMUNIZATION (1 - 1994 Tdap) LIPID 2014 ZOSTER IMMUNIZATION (1 of 2) 2019 PHQ-2 (once per calendar year) 2021 INFLUENZA VACCINE (#1) 2022 HEPATITIS B IMMUNIZATION Aged Out No long er eligible based on patient's age to complete this topic IPV IMMUNIZATION Aged Out No longer eligi ble based on patient's age to complete this topic MENINGITIS IMMUNIZATION Aged Out No longe r eligible based on patient's age to complete this topic Pneumococcal Vaccine: Pediatrics Aged Out No longer eligible based on (0 to 5 Years) and At-Risk patie nt's age to complete this Patients (6 to 64 Years) topic Medical Devices Explanted Type Area Supervisor Word Processing Device Shelf Model / Serial Identifier Expiration Date / L ot Catheter-01/18/2020 Catheter [employer] [id number] 05/03/2021 / Implanted: 01/18/2020 by Melinda Melgoza MD (Quantity not on file) / Explanted: 01/18/2020 by Melinda Melgoza MD (Quantity not on file) [id number] Insurance Payer Benefit Plan / Subscriber ID Effective Dates Phone Addre ss Type Group BLUE PLUS BLUE PLUS [id number] 2019-Kaylyn [phone] [place] [id number] [address] [place] [address] [place] [address]
--- OUTSIDE RECORDS SUMMARY | 2021-12-20 08:48 | XMS_ITS | Encounter Summary ---
:1970 Author Organization [place] Address [address] [place] [address]. [place] [address] Care Team Providers Name Role Phone Unavailable Primary Care Provider Unavailable Encounter Details Date Type Department Care Team Description 05/16/2019 Medical Correspondence [facility] Scan, SURGERY REFERRAL Health Info [facility] Non-Provider [facility] [address] [place] [id number] Social History Tobacco Use Types Packs/Day Years Used Date Never Assessed Sex Assigned at Date Recorded Not on file documented as of this encounter Plan of Treatment Not on filedocumented as of this encounter Visit Diagnoses Not on filedocumented in this encounter
--- OUTSIDE RECORDS SUMMARY | 2021-12-20 08:48 | XMS_ITS | Encounter Summary ---
:1970 Author Organization [place] Address [facility] [place] [address] Care Team Providers Name Role Phone Tom Abdul Primary Care Provider Tom Abdul Primary Care Provider Melinda Melgoza MD Unavailable [phone] Encounter Details Date Type Department Care Team Description 03/19/2016 Records - [facility] CONVERSION Provider, James zhang Social History Tobacco Use Types Packs/Day Years Used Date Never Assessed Sex Assigned at Date Recorded Not on file COVID-19 Exposure Response Date Recorded In the last month, have you been in contact with No / Unsure 05/01/2020 5:49 PM ADULT BASIC EDUCATION TEACHER someone who was confirmed or suspected to have Coronavirus / COVID-19? documented as of this encounter Plan of Treatment Not on filedocumented as of this encounter Procedures Procedure Name Priority Date/Time Associated Diagnosis Comme nts EKG CARDIAC - HIM SCAN 03/19/2016 documented in this encounter Results EKG CARDIAC - HIM SCAN (03/19/2016) Narrative This result has an attachment that is no t available. Historical Provider ECG ORDERABLES documented in this encounter Visit Diagnoses Not on filedocumented in this encounter Care Teams Chemistry Intern Relationship Specialty Start Date End Date Tom Abdul PCP - General Family Practice 11/16/19 11/16/19 [facility] [address] [place] [address] Tom Abdul PCP - General Family Practice 01/18/20 01/18/20 [facility] [address] [place] [facility] [place] [address] Melinda Melgoza Assigned Heart and 02/24/2007/02 MD [facility] Vascular Provider [address] [place] [address] documented as of this encounter
--- OUTSIDE RECORDS SUMMARY | 2021-12-20 08:48 | XMS_ITS | Encounter Summary ---
:1970 Author Organization [place] Address [facility] [place] [address] Care Team Providers Name Role Phone Tom Abdul Primary Care Provider Tom Abdul Primary Care Provider Melinda Melgoza MD Unavailable [phone] Encounter Details Date Type Department Care Team Description 04/16/2016 Records - [facility] Provider, James zhang Social History Tobacco Use Types Packs/Day Years Used Date Never Assessed Sex Assigned at Date Recorded Not on file COVID-19 Exposure Response Date Recorded In the last month, have you been in contact with No / Unsure 05/01/2020 5:49 PM LAB DIRECTOR someone who was confirmed or suspected to have Coronavirus / COVID-19? documented as of this encounter Plan of Treatment Not on filedocumented as of this encounter Procedures Procedure Name Priority Date/Time Associated Diagnosis Comme nts LAB RESULT - HIM 04/16/2016 1:27 PM SCAN LAB DIRECTOR SURGICAL PATHOLOGY Routine 04/15/2016 10:15 AM Re sulhermila for this EXAM LAB DIRECTOR procedure are i n the results section. documented in this encounter Results LAB RESULT - HIM SCAN (04/16/2016 1:27 PM LAB DIRECTOR) Specimen (Source) Anatomical Location Collection Method / Collectio n Time Received Time / Laterality Volume Narrative This result has an attachment that is no t available. Historical Provider NON-BEAKER LAB TESTING Surgical Pathology Exam (04/15/2016 10:15 AM LAB DIRECTOR) [facility] Method Time Signature Case Report HML Surgical Pathology ?Case: [id number] ? 04/16/2016 [facility] Authorizing Provider: ??Scott Haley Cain, DO ?? Collected: ? 04/15/2016 1015 ? 1:27 PM LAB DIRECTOR FAIR[facility] W-ST. Pathologist: ? Gualberto Thakkar MD ? Received: ?04/15/2016 1345 ? [facility] Specimen: ?Elbow, Left, LEFT ELBOW LIPOMA ? LABORATORY Final LEFT ELBOW BIOPSY 04/16/2016 [facility] Diagnosis ??- ?? BENIGN LIPOMA 1:27 PM LAB DIRECTOR LALITO EW-ST. 16 at ??1:27 PM [facility] Clinical Clinical history: ??Pain 04/16/2016 [facility] ALTH Information Reason for procedure: ??R22.31 1:27 PM LAB DIRECTOR MARITZA-ST. Time placed in formalin: ??1015 [facility] Gross Received in a 04/16/2016 [facility] Description formalin filled 1:27 PM LAB DIRECTOR [facility] T. container, [facility] labeled with the LABORATORY patient's name, are fragments of unremarkable yellow fibrofatty soft tissue measuring 4.2 x 4.1 x 1.9 cm. Nurse Charge Rn sections are submitted. TORREYRS-1C KDP:db Charges CPT: ?56995 04/16/2016 [facility] ICD-10: ?D17.9 1:27 PM LAB DIRECTOR [facility] Result Flag Normal 04/16/2016 [facility] 1:27 PM LAB DIRECTOR [facility] Comment: SPECIMEN PROCESSING: All histology slide preparation and stai ns; and cytology slide preparation, staining, and outsole handler screening done at [facility] are performed at [facility], [address] [place] [address], [id number], with final interpretatio n, frozen section analysis, and cytology adequacy assessment at indicated laboratory. Specimen Anatomical Collection Method Collection Time Receive d Time (Source) Location / / Volume Laterality Tissue specimen LEFT ELBOW REGION 04/15/2016 10:15 1:45 (specimen) STRUCTURE / AM LAB DIRECTOR PM LAB DIRECTOR Unknown Zeke ARROYO - GIO FINN Performing Organization Address City/State/ZIP Code Phon [place] [id number] [place] [address] documented in this encounter Visit Diagnoses Not on filedocumented in this encounter Care Teams Mill Operator Relationship Specialty Start Date End Date Tom Abdul PCP - General Family Practice 11/16/19 11/16/19 [facility] [address] [place] [address] Tom Abdul PCP - General Family Practice 01/18/20 01/18/20 [facility] [address] [place] [address] Melinda Melgoza Assigned Heart and 02/24/2007/02 MD Anna Vascular Provider [address] [place] [address] documented as of this encounter
[2021-12-20 14:54] LABS: Chloride* 101 mmol/L (96-114); Potassium* 4.5 mmol/L (3.6-5.1); Sodium* 136 mmol/L (135-149)
[2021-12-20 14:57] LABS: Blood Urea Nitrogen* 12 mg/dL (7-30); Carbon Dioxide* 27 mmol/L (20-32); Creatinine* 0.8 mg/dL (0.5-1.5); Estimated Glomerular Filt Rate 89 ml/min
[2021-12-20 14:58] LABS: Calcium* 9.4 mg/dL (8.4-10.6); Glucose* 101 mg/dL (60-115)
== END 2021-12-20 08:44 | disposition home or self-care (01) ==
LOC: NFLDREF 08:44
PROVIDERS: PCP Family Medicine; Visit Provider Family Medicine
DX: Z01.818 Encounter for other preprocedural examination (principal)
CPT/HCPCS: 80048

== ENCOUNTER 2021-12-20 14:48 | Outpatient (REF) | payer BC, SELFPAY ==
--- OUTSIDE RECORDS SUMMARY | 2021-12-20 14:55 | XMS_ITS | Encounter Summary ---
:1970 Author Organization [facility] Address [address] [place] [address] Care Team Providers Name Role Phone Tom Abdul MD Primary Care Provider Reason for Visit Reason Comments Refill Encounter Details Date Type Department Care Team Description [facility]/06[facility] Shayla Bates MD Refill Behavioral Health [id number] [place] [address] Social History Tobacco Use Types Packs/Day Years [...] on filedocumented in this encounter Care Teams Supervisor Die Casting Relationship Specialty Start Date End Date Tom Abdul MD PCP - General Family Practice 11/02/[address] [place] [address] documented as of this encounter
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
--- OUTSIDE RECORDS SUMMARY | 2021-12-20 14:55 | XMS_ITS | Encounter Summary ---
:1970 Author Organization [facility] Address [address] [place] [address] Care Team Providers Name Role Phone Tom Abdul MD Primary Care Provider Encounter Details Date Type Department Care Team Description 02/15/2021 Orders Only Initial Department Provider, [address] YING CHAVEZ MD [place], [place] [address] Interface provider [phone] [place] [address] Social History Tobacco Use Types Packs/Day Years [...] on filedocumented in this encounter Care Teams Associate Director Of Sales Relationship Specialty Start Date End Date Tom Abdul MD PCP - General Family Practice 11/02/[address] [facility] [address] BEDS [place] [address] documented as of this encounter
--- OUTSIDE RECORDS SUMMARY | 2021-12-20 14:55 | XMS_ITS | Encounter Summary ---
:1970 Author Organization [facility] Address [address] [place] [address] Care Team Providers Name Role Phone Tom Abdul MD Primary Care Provider Reason for Visit Procedure/Equipment (Routine) - Closed Specialty Diagnoses / Procedures Referred By Contact Refer red To Contact Diagnoses Memory loss Romero Singh MD Procedures MR Brain W/WO IV Cont [address] [place] [address] Referral ID Status Reason Start Date Expiration Date Visits Requ ested Visits Authorized [id number] Closed 02/13/2021 05/15/2022 1 1 Encounter Details Date Type Department Care Team Description 03/07/2021 Ancillary Procedure [facility] Liza Singh MD [facility] [address] Radiology MRI [place], [place] [address] [address] [place] [address] [phone] Social History Tobacco Use Types Packs/Day Years [...] EXAM: MR BRAIN W/WO IV CONT LOCATION: [facility] DATE/TIME: 03/07/2021 12:10 PM INDICATION: Memory loss [...] EXAM: MR BRAIN W/WO IV CONT LOCATION: [facility] DATE/TIME: 03/07/2021 12:10 PM INDICATION: Memory loss [...] dose documented in this encounter Care Teams Cash Van Salesperson Relationship Specialty Start Date End Date Tom Abdul MD PCP - General Family Practice 11/[address] [place] [address] documented as of this encounter
--- OUTSIDE RECORDS SUMMARY | 2021-12-20 14:55 | XMS_ITS | Encounter Summary ---
:1970 Author Organization [employer] Address [address] [place] [address] Care Team Providers Name Role Phone Tom Abdul MD Primary Care Provider Encounter Details Date Type Department Care Team Description 11/03/2019 Lab Visit [facility] Bipolar 1 disorder (HR) [address] [place], [place] [address] Social History Tobacco Use [...] Direct LDL(If Needed) (11/03/2019 8:26 AM CDT) [facility] Method Time Signature Cholesterol 249 (H) 0 - 199 11/03/2019 [facility] mg/dL 11:50 AM CENTRAL LAB CDT Triglyceride [...] LAB CDT Hours Fasting 12 11/03/2019 [facility] 11:50 AM CDT Specimen Anatomical Collection Method / Collection Time Recei alba Time (Source) Location / Volume Laterality Blood Venipuncture / 11/03/2019 8:26 11/03/2019 8:26 Unknown AM CDT AM CDT Clovis Arias MD LAB_1 Performing Organization Address City/[facility] Phon e Number [facility] C[facility]AL LAB [address] [address] [facility] [address] [place] [address], [place] Glucose (11/03/2019 8:26 AM CDT) athologist Signature Glucose 100 70 - 100 11/03/2019 [facility] mg/dL 11:50 AM CDT CENTRAL LAB Comment: The given reference range is fo r the fasting state. Non-fasting reference range for glucose is 70 - 180 mg/dL. Hours Fasting 12 11/03/2019 11:50 AM CDT [facility] LAB Specimen Anatomical Collection Method / Collection Time Recei alba Time (Source) Location / Volume Laterality Blood Venipuncture / 11/03/2019 8:26 11/03/2019 8:26 Unknown AM CDT AM CDT Clovis Arias MD LAB_1 Performing Organization Address City/[facility] Phon e Number [facility] C[facility]AL LAB [address] [address] [facility] [address] [place] [address], [place] Hgb A1C (11/03/2019 8:26 AM CDT) [facility] gist Method Time Signature Hemoglobin A1C 5.5 <=5.6 % 11/03/2019 [facility] 12:27 PM CDT CENTRAL LAB Specimen Anatomical Collection Method / Collection Time Recei alba Time (Source) Location / Volume Laterality Blood Venipuncture / 11/03/2019 8:26 11/03/2019 8:26 Unknown AM CDT AM CDT Clovis Arias MD LAB_1 Performing Organization Address City/State/ZIP Code Phon e Number [facility] CENTRAL LAB [address] [address] documented in this encounter Visit Diagnoses Diagnosis Bipolar 1 disorder (HRC) Bipolar I disorder, most recent episode (or current) unspecified documented in this encounter Care Teams Cold Roll Catcher Relationship Specialty Start Date End Date Tom Abdul MD PCP - General Family Practice 11/02/[address] [place] [address] documented as of this encounter
--- OUTSIDE RECORDS SUMMARY | 2021-12-20 14:55 | XMS_ITS | Encounter Summary ---
:1970 Author Organization [employer] [facility] Address [address] [place] [address] Care Team Providers Name Role Phone Tom Abdul MD Primary Care Provider Encounter Details Date Type Department Care Team Description 10/31/2019 Telephone [facility] Partial Denae High, Hospitalization Prog lisa [facility] [address] [facility] [address] [place] [address] [place] [address] [phone] (Wo rk) Social History Tobacco Use Types Packs/Day Years Used Date Smoking Tobacco: Former Smokeless Tobacco: Never Alcohol Use Standard Drinks/Week Comments Not Currently 0 (1 standard drink = 0.6 oz pure alcoho l) Sex Assigned at Date Recorded Not on file documented as of this encounter Nursing Notes Mandie Christopher, CATALOGUE CLERK, [facility] - 10/31/2019 10:23 AM CDT Outgoing Call: This film writer called client to speak to her about the participation agreement, as she was not in group today with the exception of briefly logging on/off. She called and spoke to a steam shovel runner about this saying she was having technical difficulties and having to care for a sick grand daughter. Dials Inspector made the observation that the ongoing technical difficulties seem to be interfering withher ability to participate in the program. Dials Inspector further stated that it's time to have [...] consider the program after her shoulder surgery. Dials Inspector let her know how she could be re-referred in the future. Dials Inspector will speak to the treatment team and call her back this afternoon. She denied having any safety concerns. JEAN CARLOS Nuñez LICSW 10/31/2019, 10:35 AM Denae High LICSW - 10/31/2019 9:59 AM CDT Telephone call: Client called and LM for film writer at 9:24 AM. Client said she was having a hard time logging into the [facility] group today, that she was having technical difficulties, and had a sick grandchild she is caring for today. She requested a call back. Dials Inspector handed off to MEGAN Lockwood who is her process hunting sales leader. MEGAN Metcalf 10/31/2019, 10:00 AM documented in this encounter Plan of Treatment Not on filedocumented as of this encounter Visit Diagnoses Not on filedocumented in this encounter Care Teams Diving Instructor Relationship Specialty Start Date End Date Tom Abdul MD PCP - General Family Practice [address] [place] [address] documented as of this encounter
--- OUTSIDE RECORDS SUMMARY | 2021-12-20 14:55 | XMS_ITS | Encounter Summary ---
:1970 [address] [facility] Address [address] [place] [address] Care Team Providers Name Role Phone Tom Abdul MD Primary Care Provider Encounter Details Date Type Department Care Team Description 02/15/2021 Orders Only Initial Department Provider, [address] YING CHAVEZ MD [place], [place] [address] Interface provider [phone] [place] [address] Social History Tobacco Use Types Packs/Day Years [...] on filedocumented in this encounter Care Teams Montessori Paraprofessional Relationship Specialty Start Date End Date Tom Abdul MD PCP - General Family Practice [address] [facility] [place] [address] documented as of this encounter
--- OUTSIDE RECORDS SUMMARY | 2021-12-20 14:55 | XMS_ITS | Encounter Summary ---
:1970 Author Organization [employer] Address [address] [place] [address] Care Team Providers Name Role Phone Unavailable Primary Care Provider Unavailable Reason for Visit Auth/Cert Specialty Diagnoses / Procedures Referred By Contact Refer red To Contact Referral ID Status Reason Start Date Expiration Date Visits Requ ested Visits Authorized [id number] 1 1 Encounter Details Date Type Department Care Team Description 10/28/2019 Telemedicine [facility] Partial Clovis Arias Brief re active psychosis (HRC) (Primary Dx); Hospitalization Lurdes Carvajal MD PTSD (post-traumatic stress disorder); [address] [facility]. [address] [facility] Bipolar 1 disorder (HRC); [place] [address] [place], [place] Borderline personality disor mikey (HRC) [phone] [id number] Social History Tobacco Use Types Packs/Day Years Used Date Smoking Tobacco: Former Smokeless Tobacco: Never Alcohol Use Standard Drinks/Week Comments Not Currently 0 (1 standard drink = 0.6 oz pure alcoho l) Sex Assigned at Date Recorded Not on file documented as of this encounter Progress Notes Mandie Christopher, JEAN CARLOS, SCIENTIFIC GLASS BLOWER - 10/28/2019 9:00 AM CDT [facility] Partial Hospitalization Program Process Group Progress Note Date: 10/28/2019 Start Time: 9:00 am End Time: 10:00 am Length: 60 minutes Video Visit This visit was conducted via video due to COVID-19 precautions Location of clinician: [facility] Location of patient: Home Modality [...] change your telehealth appointments, you must notify [employer] in advance by calling the [employer] main number at . Please do not use any other numbers, such as [facility] phone numbers, as they will not be monitored by [employer]. In the event of technical problems or safety concerns, please notify [employer] by phone to confirm your current location and the best number to reach you. You must have a safety plan and emergency contacts on file for [facility], so that we can reach you [...] change your telehealth appointments, you must notify [employer] in advance by calling the [employer] main number at . Please do not use any other numbers, such as [facility] phone numbers, as they will not be monitored by [employer]. In the event of technical problems or safety concerns, please notify [employer] by phone to confirm your current location and the best number to reach you. You must have a safety plan and emergency contacts on file for [employer], so that we can reach you if [...] patient: home Date: 10/28/2019 [facility] Time Session Started: 1:00 pm Time session [...] Way 10/28/2019, 4:26 PM Mandie Christopher MSW, SCIENT[employer] GLASS BLOWER - 10/28/2019 9:00 AM CDT [facility] Psychoeducational/psychosocial Progress Note Date: 10/28/2019 Start Time: 11:30 AM End Time: 12:30 PM Length: 60 minutes Telehealth Visit This service was provided via telehealth and conducted using a synchronous audio-video link. ??? Clinician location: [facility] ??? Patient location: Home ??? Total time [...] change your telehealth appointments, you must notify [employer] in advance by calling the [employer] main number at . Please do not use any other numbers, such as [facility] phone numbers, as they will not be monitored by [employer]. In the event of technical problems or safety concerns, please notify [employer] by phone to confirm your current location and the best number to reach you. You must have a safety plan and emergency contacts on file for [employer], so that we can reach you if you get disconnected. Please also be mindful that, as your provider, I may determine that telehealth is no longer appropriate for you and that we should resume our sessions in person. Lastly, please be aware that data charges may apply if you are not connected to [employer]. Modality [facility]: Psychoeducational/psychosocial Topics: Gratitude [...]
--- OUTSIDE RECORDS SUMMARY | 2021-12-20 14:55 | XMS_ITS | Encounter Summary ---
:1970 Author Organization [employer] Address [address] [place] [address] Care Team Providers Name Role Phone Tom Abdul MD Primary Care Provider Reason for Visit Reason Comments HEARING PROBLEM Encounter Details Date Type Department Care Team Description 10/31/2020 Office Visit [facility] Gerphills[facility]yi, Bilateral sensorineural hear ing loss (Primary Dx); [address] REJI Sanabria Tinnitus, bilateral [place], [place] [address] [facility] [address] [facility] [phone] [place] [address] Social History Tobacco Use Types [...] Name: Keiko Kyle : 1970 Date: 10/31/2020 Shredder Tender: REJI Damon Hearing loss: SNHL Accompanied by: self SUBJECTIVE: Keiko Kyle, 50 y.o., was seen for a hearing aid evaluation. She has not been seen previously fora hearing evaluation at [facility]. She brings in copy of audiogram completed at [facility] on 10/10/2020, which reveals moderate sensorineural hearing loss, in the right ear, and mild to moderately-severe sensorineural hearing loss, in the left ear. She also bring medical clearance from Dr. Cohen at [facility]. She is not a previous hearing aid user. Keiko Kyle reports that she is in need of the use of binaural amplification to aid in many of her communication situations. Keiko Kyle especially notices communication difficulty during conversation with her daughter, in background noise, on the phone, and watching TV. She has an Android cellphone (Vivo A51). She notes that she tried an [...] decided to obtain hearing aids. Medical clearance/Waiver: Maxmiilian Cohen MD ([facility]) ASSESSMENT: The evaluation today reveals that Keiko [...] brochure on [employer] hearing aids and the [facility] brochure regarding consumer rights and information when purchasing a hearing instrument. documented in this encounter Plan of Treatment Not on filedocumented as of this encounter Visit Diagnoses Diagnosis Bilateral sensorineural hearing loss - P rimary Sensorineural hearing loss, bilateral Tinnitus, bilateral Unspecified tinnitus documented in this encounter Care Teams Manager Of Production Relationship Specialty Start Date End Date Tom Abdul MD PCP - General Family Practice 11/[address] [place] [address] documented as of this encounter
--- OUTSIDE RECORDS SUMMARY | 2021-12-20 14:55 | XMS_ITS | Encounter Summary ---
:1970 Author [facility] Address [address] [place] [address] Care Team Providers Name Role Phone Tom Goff MD Primary Care Provider Reason for Referral Procedure/Equipment (Routine) - Closed Specialty Diagnoses / Procedures Referred By Contact Refer red To Contact Diagnoses Memory loss Romero Singh MD Procedures MR Brain W/WO IV Cont [address] [place] [address] Referral ID Status Reason Start Date Expiration Date Visits Requ ested Visits Authorized [id number] Closed 02/13/2021 05/15/2022 1 1 Consult/Transfer Care (Routine) - New Request Specialty Diagnoses / Procedures Referred By Contact Refer red To Contact Neuropsychology Diagnoses Memory loss Romero Singh MD [facility] Neuropsychology [address] [facility] [place] [address] [place] [address] Fax: Referral ID Status Reason Start Date Expiration Date Visits V isits Requested Authorized [id number] New Request 02/13/2021 05/15/2022 1 1 Scheduling Instructions Your provider has recommended an appoint ment with Neuropsychological Testing. You may call [phone] to schedule your appoi ntment. Reason for Visit Reason Comments CONSULT Encounter Details Date Type Department Care Team Description 02/13/2021 Office Visit [facility] Romero Singh, Odette garcia ([facility] Dx) Neurology [address] [place] [address] [phone] Social History Tobacco Use Types Packs/Day Years [...] 02/12/2021 Consultation is requested by: Self-Referral, Patient, [place] [address] Primary care provider: Tom Goff MD Reason [...] disc replacement on the cervical spine with [facility]. Initially she had a pinched nerve sensation down her left arm with electrical zapping sensation. This surgery in 2018 helped but she still experience numbness in the left upper extremity She saw [facility] for her left shoulder and was told that the disc does not look good and she should check in with her spine surgeon. She is planning to go back to [facility] to address her cervical spine issues [...] disoriented at times whenshe talks with her outpatient case manager. Her daughter who lives with her until 2 days ago also noted the short-term memory issues. She has bad hearing. 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 She actually cannot really hold a job well. 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 She has a high school diploma and some college education She often has hallucination and feels that things happened that actually did not happen. She has tablets showing psychiatry care with [facility] soon. Had a chance to review the medical records from [facility]. She was followed at this clinic for [...] Yes Coordination: Romberg test normal Wide based Ncfmej-Wtom-Hblaqu testing normal Rapid Alternating Movements Normal Gait: [...] Singh MD, PhD, FAAN Diplomate of the [place] Board of Psychiatry and Neurology Certified in Sleep Medicine, [place] [employer] Medical Specialties 02/12/2021 CC: Tom [...] EXAM: MR BRAIN W/WO IV CONT LOCATION: [facility] DATE/TIME: 03/07/2021 12:10 PM INDICATION: Memory loss COMPARISON: Head CT 10/17/2019 CONTRAST: GADOBUTROL 1 MMOL/ML IV SOLN 1 0 mL TECHNIQUE: Routine multiplanar multisequ ence head MRI without and with intravenous contrast. FINDINGS: INTRACRANIAL CONTENTS: No acute or subac [place] infarct. No mass, acute hemorrhage, or extra-axial [...] EXAM: MR BRAIN W/WO IV CONT LOCATION: [facility] DATE/TIME: 03/07/2021 12:10 PM INDICATION: Memory loss COMPARISON: Head CT 10/17/2019 CONTRAST: GADOBUTROL 1 MMOL/ML IV SOLN 1 0 mL TECHNIQUE: Routine multiplanar multisequ ence head MRI without and with intravenous contrast. FINDINGS: INTRACRANIAL CONTENTS: No acute or subac [place] infarct. No mass, acute hemorrhage, or extra-axial [...] loss documented in this encounter Care Teams Tile Presser Relationship Specialty Start Date End Date Tom Goff MD PCP - General Family Practice [address] [place] [address] documented as of this encounter
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
--- OUTSIDE RECORDS SUMMARY | 2021-12-20 14:55 | XMS_ITS | Encounter Summary ---
:1970 Author Organization [facility] [facility] Address [address] [place] [address] Care Team Providers Name Role Phone Tom Abdul MD Primary Care Provider Reason for Visit Reason Comments HEARING LOSS Encounter Details Date Type Department Care Team Description 10/30/2020 Office Visit [facility] Mary Bryant Hearing loss, [address] [address] [facility] REJI Mcguire unspecified hearing [place], [place] [address] [facility] loss type, unspecified [phone] Av laterality (Primary [phone] [place], [place] [address] Dx) Social History Tobacco [...] bring hearing evaluation that wascompleted outside of [facility] with her today. She thought it was in her purse, but was unable to find it during the appointment. This was completed at [facility] where she also saw ENT. 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 Release of Information request was completed during the appointment and faxed to [facility] and Clinic in [place]. Requested ENT and audiology records including audiogram, visit notes, and medical clearance for hearing aids. She will reschedule hearing aid evaluation after records are received from [facility]. documented in this encounter Plan of Treatment Not on filedocumented as of this encounter Visit Diagnoses Diagnosis Hearing loss, unspecified hearing loss t ype, unspecified laterality - Primary documented in this encounter Care Teams Deck Hand Relationship Specialty Start Date End Date Tom Abdul MD PCP - General Family Practice [address] [place] [address] documented as of this encounter
--- OUTSIDE RECORDS SUMMARY | 2021-12-20 14:55 | XMS_ITS | Encounter Summary ---
:1970 Author Organization [facility] Address [address] [place] [address] Care Team Providers Name Role Phone Tom Abdul MD Primary Care Provider Reason for Visit Reason Comments COVID Screening Encounter Details Date Type Department Care Team Description 11/02/2019 Telephone [facility] Unassigned, Provider COVID Screening Practice [address] [place] [id number] [place] [address] Social History Tobacco Use Types Packs/Day Years Used Date Smoking Tobacco: Former Smokeless Tobacco: Never Alcohol Use Standard Drinks/Week Comments Not Currently 0 (1 standard drink = 0.6 oz pure alcoho l) Sex Assigned at Date Recorded Not on file documented as of this encounter Nursing Notes Dahiana Hermosillo - 11/02/2019 9:28 AM CDT Initial Screening: Patient information Best number to contact patient: [phone] Reason for Call: COVID Screening/Testing Request In [...] on filedocumented in this encounter Care Teams Electrical Worker Relationship Specialty Start Date End Date Tom Abdul MD PCP - General Family Practice 11/[address] [place] [address] documented as of this encounter
--- OUTSIDE RECORDS SUMMARY | 2021-12-20 14:55 | XMS_ITS | Encounter Summary ---
:1970 Author Organization [employer] Address [address] [place] [address] Care Team Providers Name Role Phone Tom Gfof MD Primary Care Provider Reason for Visit Reason Comments Hearing Aid Encounter Details Date Type Department Care Team Description 01/03/2021 Office Visit [facility] Francysensenait, Bilateral sensorineural hear ing loss (Primary Dx); [address] [employer] REJI Sanabria Tinnitus, bilateral [place], [place] [address] [facility] [id number] [facility] [phone] [place] [address] Social History Tobacco Use Types [...] Primary MD: Tom Goff MD Date: 01/03/2021 Engineering Team Supervisor: REJI Damon Reason for Appointment: Routine follow-up; Evaluation of goals: Wear time: multimedia assistant Primary maritime guard of instrument(s): Patient Follow-up concerns: Not wearing [...] tinnitus documented in this encounter Care Teams Hvac Instructor Relationship Specialty Start Date End Date Tom Goff MD PCP - General Family Practice 11/02/[address] [place] [address] documented as of this encounter
--- OUTSIDE RECORDS SUMMARY | 2021-12-20 14:55 | XMS_ITS | Encounter Summary ---
:1970 Author Organization [employer] Address [address] [place] [address] Care Team Providers Name Role Phone Unavailable Primary Care Provider Unavailable Encounter Details Date Type Department Care Team Description 10/31/2019 Pt Care Coordination [facility] Partial Christopher, Hospitalization Prog lisa JEAN CARLOS Y[place], [address] [facility] [place] [address] [address] [facility] [phone] [place], [place] [id number] Social History Tobacco Use Types Packs/Day Years Used Date Smoking Tobacco: Former Smokeless Tobacco: Never Alcohol Use Standard Drinks/Week Comments Not Currently 0 (1 standard drink = 0.6 oz pure alcoho l) Sex Assigned at Date Recorded Not on file documented as of this encounter Progress Notes Mandie Christopher MSW, [facility] - 10/31/2019 1:31 PM CDT [facility] Discharge Planning Note Data: Face Cleaner spoke to client about her absence in Process Group this morning. Face Cleaner reflected that her ongoing technical difficulties are interfering with her ability to be present in group. Discussedwhether she is invested in the group at this time. She concluded that the timing is off. She also needs to get shoulder surgery, as she struggles with chronic pain. Given all these factors, she decidedto discharge. She would like to attend [facility] after her shoulder surgery. Face Cleaner let her know that she would have to ask her therapist or psychiatrist for a referral to be reconsidered. Assessment: Face Cleaner assessed for safety concerns. She denied any thoughts of harming herself/SI or harming others. Barriers include: Ongoing shoulder pain, technical difficulties. Actions Completed: Client saw the psychiatrist for a medication check. Actions to be taken: Client to take care of her physical health issues and follow up with providers in the community. Plan: Client to discharge today and reconsider [facility]. Anticipated discharge date: Client discharged this date by her own choice. JEAN CARLOS Nuñez, MEGAN 10/31/2019, 2:18 PM documented in this encounter Plan of Treatment Not on filedocumented as of this encounter Visit Diagnoses Not on filedocumented in this encounter
--- OUTSIDE RECORDS SUMMARY | 2021-12-20 14:55 | XMS_ITS | Encounter Summary ---
:1970 Author Organization [facility] Address [address] [place] [address] Care Team Providers Name Role Phone Tom Abdul MD Primary Care Provider Encounter Details Date Type Department Care Team Description 02/15/2021 Orders Only Initial Department Provider, [address] YING CHAVEZ MD [place], [place] [address] Interface provider [phone] [place] [address] Social History Tobacco Use Types Packs/Day Years [...] on filedocumented in this encounter Care Teams Media Relations Director Relationship Specialty Start Date End Date Tom Abdul MD PCP - General Family Practice [address] [place] [address] documented as of this encounter
--- OUTSIDE RECORDS SUMMARY | 2021-12-20 14:55 | XMS_ITS | Encounter Summary ---
:1970 Author Organization [employer] Address [address] [place] [address] Care Team Providers Name Role Phone Tom Abdul MD Primary Care Provider Reason for Visit Reason Comments Hearing Aid HEARING LOSS Encounter Details Date Type Department Care Team Description 11/28/2020 Office Visit [facility] Francysensenait, Bilateral sensorineural hear ing loss (Primary Dx); [address] [facility] REJI Sanabria Tinnitus, bilateral [place], [place] [address] [facility] [address] [facility] [phone] [place] [address] Social History Tobacco Use Types [...] Name: Keiko Kyle : 1970 Date: 11/28/2020 Agronomy Specialist: REJI Damon Medical Clearance for Hearing Aid Usage: provided by Dr. Maximilian Leos MD ([facility]) Patient was accompanied by: self Hearing Aids Right: Phonak Audeo M70-R Style: [facility] Serial #[id number] Left: Phonak Audeo M70-R Style: [facility] Serial #[id number] Accessories: closet builder Trial Period: 02/26/2021 Battery Size: li-ion rechargeable Repair Warranty: 3 year Loss & Damage Warranty: 3 year Treatment plan: Unbundled, pay/bill as you go [facility] Fit: Deicer Inspector Pneumatic Right: 1m Left: 1m Earmold: Director Workers Compensation Right: Phonak Left: Phonak Material Right: acrylic [...] to android phone for streaming and jordy Agronomy Specialist counseled the patient/caregiver and demonstrated at the [...] tinnitus documented in this encounter Care Teams Access Services Librarian Relationship Specialty Start Date End Date Tom Abdul MD PCP - General Family Practice 11/02/[address] [place] [address] documented as of this encounter
--- OUTSIDE RECORDS SUMMARY | 2021-12-20 14:55 | XMS_ITS | Encounter Summary ---
:1970 Author Organization [facility] Address [address] [place] [address] Care Team Providers Name Role Phone Tom Abdul MD Primary Care Provider Encounter Details Date Type Department Care Team Description 03/05/2021 Telephone [facility] Romero Mallory MD [facility] [address] [place] [address] [place] [address] [phone] Social History Tobacco Use Types Packs/Day Years [...] on filedocumented in this encounter Care Teams Web Administrator Relationship Specialty Start Date End Date Tom Abdul MD PCP - General Family Practice 11/[address] [place] [address] documented as of this encounter
--- OUTSIDE RECORDS SUMMARY | 2021-12-20 14:55 | XMS_ITS | Encounter Summary ---
:1970 Author Organization [facility] Address [address] [place] [address] Care Team Providers Name Role Phone Tom Abdul MD Primary Care Provider Encounter Details Date Type Department Care Team Description 11/14/2020 Notes/Orders [facility], Audiology [address] [place] [address] Social History Tobacco Use [...] on filedocumented in this encounter Care Teams Patent Prosecution Attorney Relationship Specialty Start Date End Date Tom Abdul MD PCP - General Family Practice 11/[address] [place] [address] documented as of this encounter
--- OUTSIDE RECORDS SUMMARY | 2021-12-20 14:55 | XMS_ITS | Encounter Summary ---
:1970 Author Organization [facility] Address [address] [place] [address] Care Team Providers Name Role Phone Tom Abdul MD Primary Care Provider Reason for Visit Reason Comments CONSULT Encounter Details Date Type Department Care Team Description 03/05/2021 Office Visit [place] Lee Ann Garay DO Arthralgia, unspecified joint (Primary D x); Rheumatology [address] [place] Myalgia; [address] [facility] [address] Fibromyalgia [place], [place] [id number] [place] [phone] Social History Tobacco Use Types Packs/Day Years [...] previously followed by Donna Acosta MD at [facility] until 2017 for questionable RA. Her initial [...] and ANCA negative in feb 2016 at [facility] Imaging: No applicable imaging for us to [...] 50 minutes including, but not limited to, [id number] time spent reviewing records, counseling, and coordination of care. documented in this encounter Plan of Treatment Not on filedocumented as of this encounter Visit Diagnoses Diagnosis Arthralgia, unspecified joint - Primary Myalgia Mylagia and myositis, unspecified Fibromyalgia Mylagia and myositis, unspecified documented in this encounter Care Teams Automatic Grinder Operator Relationship Specialty Start Date End Date Tom Abdul MD PCP - General Family Practice 11/02/[address] [place] [address] documented as of this encounter
--- OUTSIDE RECORDS SUMMARY | 2021-12-20 14:55 | XMS_ITS | Encounter Summary ---
:1970 Author Organization [facility] Address [address] [place] [address] Care Team Providers Name Role Phone Tom Abdul MD Primary Care Provider Encounter Details Date Type Department Care Team Description 02/15/2021 Orders Only Initial Department Provider, [address] YING CHAVEZ MD [place], [place] [address] Interface provider [phone] [place] [id number] Social History Tobacco Use Types Packs/Day Years [...] on filedocumented in this encounter Care Teams Burglar Alarm Mechanic Relationship Specialty Start Date End Date Tom Abdul MD PCP - General Family Practice [address] [facility] [id number] documented as of this encounter
--- OUTSIDE RECORDS SUMMARY | 2021-12-20 14:55 | XMS_ITS | Encounter Summary ---
:1970 Author Organization [facility] Address [address] [place] [address] Care Team Providers Name Role Phone Tom Abdul MD Primary Care Provider Encounter Details Date Type Department Care Team Description 02/15/2021 Orders Only Initial Department Provider, [place] [address] GERDA CHAVEZ MD [place], [place] [address] Interface provider [phone] [place] [address] Social History Tobacco Use Types Packs/Day Years [...] on filedocumented in this encounter Care Teams Press Operator Helper Relationship Specialty Start Date End Date Tom Abdul MD PCP - General Family Practice [address] [place] [address] documented as of this encounter
--- OUTSIDE RECORDS SUMMARY | 2021-12-20 14:55 | XMS_ITS | Clinical Summary ---
:1970 [facility] Address [address] [place] [address] Care Team Providers Name Role Phone Tom [...] for each transition of care or referral. [email or web address] Allergies Active Allergy Reactions Severity Noted Date [...] hours. medical cannabis patient 0 Active certified [employer] 160-9-4.8 Take 2 Puffs by mouth every [...] ss Type Group BCBS BCBS PMAP BLUE [id number] 2019-Present [address] [address] [place] [id number] [address] [facility] [place] [id number] Keiko Kyle Personal/Famil Self 1970 [address] [place] [id number] Advance Directives Latest Code Status on File Code Status Date Activated Date Inactivated Comments Full Code 10/14/2019 4:31 PM 10/18/2019 4:55 PM Care Teams Home Theater Specialist Relationship Specialty Start Date End Date Tom Abdul MD PCP - General Family Practice 11/02/[address] [place] [address]
--- OUTSIDE RECORDS SUMMARY | 2021-12-20 14:55 | XMS_ITS | Encounter Summary ---
:1970 Author Organization [facility] Address [address] [place] [address] Care Team Providers Name Role Phone Tom Abdul MD Primary Care Provider Reason for Visit Reason Comments Hearing Aid Encounter Details Date Type Department Care Team Description 05/30/2021 Office Visit [facility], Audiology Bilateral hearing [address] loss, unspecified [place], [place] hearing loss type [address] (Primary Dx) [phone] Social History Tobacco Use Types Packs/Day Years Used Date Smoking Tobacco: Former Smokeless Tobacco: Never Alcohol Use Standard Drinks/Week Comments Not Currently 0 (1 standard drink = 0.6 oz pure alcoho l) Sex Assigned at Date Recorded Not on file documented as of this encounter Progress Notes Sandy Maldonado - 05/30/2021 1:30 PM CST See service log HANGER SHAPER MACHINE OPERATOR documented in this encounter Plan of Treatment Not on filedocumented as of this encounter Visit Diagnoses Diagnosis Bilateral hearing loss, unspecified hear ing loss type - Primary documented in this encounter Care Teams Maintainer Plant Relationship Specialty Start Date End Date Tom Abdul MD PCP - General Family Practice [address] [place] [address] documented as of this encounter
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
--- OUTSIDE RECORDS SUMMARY | 2021-12-20 14:55 | XMS_ITS | Encounter Summary ---
:1970 Author Organization [facility] Address [address] [place] [address] Care Team Providers Name Role Phone Tom Abdul MD Primary Care Provider Reason for Visit Consult/Transfer Care (Routine) - New Request Specialty Diagnoses / Procedures Referred By Contact Refer red To Contact Neuropsychology Diagnoses Memory loss Romero Singh MD [facility] [address] [place] [address] [place] [address] Fax: Referral ID Status Reason Start Date Expiration Date Visits V isits Requested Authorized [id number] New Request 02/13/2021 05/15/2022 1 1 Encounter Details Date Type Department Care Team Description 09/11/2021 Office Visit Em Chan Encounter for [facility], [facility] counseling (Primary Neuropsychology [address] Dx) [address] [place] [address] [phone] Social History Tobacco Use Types Packs/Day Years [...] your next visit with him. Please call [phone] if you are unable to keep that appointment or need to reschedule for any reason. 2. A copy of your test results will be sent to the doctor who ordered the evaluation as well as to your primary care physician. 3. You can always call [phone] if you have any questions about this [...] NOS documented in this encounter Care Teams Cloth Bin Packer Relationship Specialty Start Date End Date Tom Abdul MD PCP - General Family Practice 11/02/191999 [place] [address] documented as of this encounter
--- OUTSIDE RECORDS SUMMARY | 2021-12-20 14:55 | XMS_ITS | Encounter Summary ---
:1970 Author Organization [facility] Address [address] [place] [address] Care Team Providers Name Role Phone Tom Goff MD Primary Care Provider Encounter Details Date Type Department Care Team Description 10/02/2021 Office Visit Romero Salinas, Memory loss ([facility] Dx) Neurology [address] [place] [phone] Social History Tobacco Use Types Packs/Day Years [...] socially- distanced outdoor greetings). Physically active: The [place] [employer] recommends individuals engage in 150 [...] disorder, ?? CT head 10/17/19 WNL ?? [place] Cognitive Assessment (MoCA) ?? Neuropsychological testing 09/11/21 [...] disc replacement on the cervical spine with [facility]. Initially she had a pinched nerve sensation down her left arm with electrical zapping sensation. This surgery in 2018 helped but she still experience numbness in the left upper extremity She saw [facility] for her left shoulder and was told that the disc does not look good and she should check in with her spine surgeon. She is planning to go back to [facility] to address her cervical spine issues [...] disoriented at times whenshe talks with her top case assembler. Her daughter who lives with her until 2 days ago also noted the short-term memory issues. She has bad hearing. 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 She actually cannot really hold a job well. 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 She has a high school diploma and some college education She often has hallucination and feels that things happened that actually did not happen. She has tablets showing psychiatry care with [facility] soon. Had a chance to review the medical records from [facility]. She was followed at [facility] for obstructive sleep apnea with associated hypersomnia. [...] Primary documented in this encounter Care Teams Fishing Rod Marker Relationship Specialty Start Date End Date Tom Goff MD PCP - General Family Practice 11/02/[address] [place] [address] documented as of this encounter
--- OUTSIDE RECORDS SUMMARY | 2021-12-20 14:56 | XMS_ITS | Encounter Summary ---
:1970 Author Organization [place] Address [address] [place] [address] Care Team Providers Name Role Phone Unavailable Primary Care Provider Unavailable Reason for Referral Diagnostic Imaging Ultrasound (Routine) - Closed Specialty Diagnoses / Procedures Referred By Contact Refer red To Contact Diagnoses Varicose veins of left lower extremity with pain Melinda Melgoza, Procedures US Lower Extremity Venous Duplex Left [address] [place] [address] Referral ID Status Reason Start Date Expiration Date Visits Requ ested Visits Authorized [id number] Closed 12/26/2019 12/25/2020 1 1 Encounter Details Date Type Department Care Team Description 12/26/2019 Orders Only [facility] Melinda Melgoza Vari cose veins of Vein Clinic Ana Castillo MD left lower extremity [address] wi th pain (Primary [address] [address] Dx) [place] [address] [place] [address] [phone] (Wo rk) Social History Tobacco Use Types [...]
--- OUTSIDE RECORDS SUMMARY | 2021-12-20 14:56 | XMS_ITS | Encounter Summary ---
:1970 Author [facility] Address [address] [place] [address] Care Team Providers Name Role Phone Unavailable Primary Care Provider Unavailable Reason for Visit Reason Comments APPOINTMENT REQUEST Encounter Details Date Type Department Care Team Description 10/20/2019 Telephone [facility]is Arias, JANUARY NTMENT REQUEST Hospitalization Lurdes gonzalez MD [address] [address] [place], [place] [phone] [facility] Social History Tobacco Use Types Packs/Day Years [...] determined that the phone number was different/wrong. Conveyor Worker was asked to call client at this new number to reschedule intake appointment. Client didn't answer and voice mail left for clientto call the clinic back and leave a message, publications writer left contact number and the reason for why we are calling. BRITTANI Foreman 10/20/2019, 1:11 PM documented in this encounter Plan of Treatment Not on filedocumented as of this encounter Visit Diagnoses Not on filedocumented in this encounter
--- OUTSIDE RECORDS SUMMARY | 2021-12-20 14:56 | XMS_ITS | Encounter Summary ---
:1970 Author Organization [place] Address [address] [place] [address] Care Team Providers Name Role Phone Unavailable Primary Care Provider Unavailable Encounter Details Date Type Department Care Team Description 12/16/2019 Telephone [facility] Vein Melinda Melgoza [facility] Jessica Castillo MD [address] [address] [place] [phone] [place] [id number] (Wo rk) Social History Tobacco Use Types [...] Faxed form to HIM centralized fax at [phone]. Fax confirmed. Sent form to HIM to scan in. NIDIA Conner, RN [facility] [employer] documented in this encounter Plan of Treatment Not on filedocumented as of this encounter Visit Diagnoses Not on filedocumented in this encounter
--- OUTSIDE RECORDS SUMMARY | 2021-12-20 14:56 | XMS_ITS | Encounter Summary ---
:1970 Author Organization [place] Address [facility] [place] [address] Care Team Providers Name Role Phone Unavailable Primary Care Provider Unavailable Reason for Visit Reason Onset Date Comments Refill Request 01/11/2020 Encounter Details Date Type Department Care Team Description 01/11/2020 Refill [facility] Vein Melinda Melgoza Refill Request Clinic Ana Castillo MD [address] [facility] [address] [place] [phone] [place] [address] [phone] (Wo rk) Social History Tobacco Use Types [...]
--- OUTSIDE RECORDS SUMMARY | 2021-12-20 14:56 | XMS_ITS | Encounter Summary ---
:1970 Author Organization [place] Address [address] [place] [address] Care Team Providers Name Role Phone Unavailable Primary Care Provider Unavailable Reason for Visit Reason Onset Date Comments Appointment 08/24/2019 Can cancelled appt b e done as a Telephone Visit? Encounter Details Date Type Department Care Team Description 08/24/2019 Telephone [facility] Melinda Melgoza Appointment (Can Clinic Jessica Castillo MD cancelled appt be done [address] as a Telephone Visit?) [address] [facility] [address] [place] [address] [place] [phone] (Wo rk) Social History Tobacco Use Types [...] Telephone Visit? Keiko can be reached at [phone]. documented in this encounter Plan of Treatment Not on filedocumented as of this encounter Visit Diagnoses Not on filedocumented in this encounter
--- OUTSIDE RECORDS SUMMARY | 2021-12-20 14:56 | XMS_ITS | Encounter Summary ---
:1970 Author Organization [place] Address [address] [facility] [place] [address] Care Team Providers Name Role Phone Tom Abdul Primary Care Provider Reason for Visit Reason Onset Date Comments Preop Call 01/11/2020 Encounter Details Date Type Department Care Team Description 01/11/2020 Telephone [facility] Vein Melinda Melgoza Preop Call Clinic Jessica Castillo MD [address] [facility] [address] [place] [address] [place] [address] [phone] (Wo rk) Social History Tobacco Use Types [...] after signing their consent, to have a chain saw driver/someone that will be responsible for them the [...] and during theirprocedure. Patient aware that their chain saw driver cannot come into the clinic and must wait in car. Nurse will call pt's chain saw driver when procedure is over. Patient understands that [...] on filedocumented in this encounter Care Teams Career Law Clerk Relationship Specialty Start Date End Date Tom Abdul PCP - General Family Practice 01/18/20 01/18/20 [facility] [address] [place] [address] documented as of this encounter
--- OUTSIDE RECORDS SUMMARY | 2021-12-20 14:56 | XMS_ITS | Encounter Summary ---
:1970 Author Organization [place] Address [facility] [place] [address] Care Team Providers Name Role Phone Unavailable [...]
--- OUTSIDE RECORDS SUMMARY | 2021-12-20 14:56 | XMS_ITS | Encounter Summary ---
:1970 [facility] Address [address] [place] [address] Care Team Providers Name Role Phone Unavailable Primary Care Provider Unavailable Reason for Visit Auth/Cert Specialty Diagnoses / Procedures Referred By Contact Refer red To Contact Diagnoses Psychosis, unspecified psychosis type (HRC) Psychosis, unspecified psychosis type (HRC) Referral ID Status Reason Start Date Expiration Date Visits Requ ested Visits Authorized [id number] 1 1 Encounter Details Date Type Department Care Team Description 10/17/[address] [place] [address] Social History Tobacco Use Types Packs/Day Years [...] EXAM: CT HEAD WO IV CONT LOCATION: [facility] DATE/TIME: 10/17/2019 1:46 PM INDICATION: Altered [...]
--- OUTSIDE RECORDS SUMMARY | 2021-12-20 14:56 | XMS_ITS | Encounter Summary ---
:1970 Author Organization [place] Address [address] [facility] [place] [address] Care Team Providers Name Role Phone Unavailable Primary Care Provider Unavailable Reason for Visit Reason Comments Surgical Followup 72 hour post op Encounter Details Date Type Department Care Team Description 01/20/2020 Office Visit [facility] Esha Melgoza MD [address] [place] [id number] Postop check (Primary Vein Clinic [place] Nurse, Sh Vein Dx) [address] [place] [address] Social History Tobacco Use Types Packs/Day [...]
--- OUTSIDE RECORDS SUMMARY | 2021-12-20 14:56 | XMS_ITS | Encounter Summary ---
:1970 Author Organization [place] Address [address] [place] [address] Care Team Providers Name Role Phone Tom Abdul Primary Care Provider Reason for Visit Reason Comments Vein Procedure Left leg VNUS closure GSV(me d nec), 20-30 stab phlebs(med nec) Encounter Details Date Type Department Care Team Description 01/18/2020 Office Visit [facility] Esha Melgoza MD [address] [place] [address] Varicose veins of left lower extremity w ith pain (Primary Dx); Vein Clinic [place] Nurse, Vein Varicose veins of both lower extremities with pain [address] [place] [phone] Social History Tobacco Use Types Packs/Day Years [...] presents to clinic for Vein Procedure . Inside Sales Specialist/Person Responsible for Patient: Annel () Phone Number: [...] dose documented in this encounter Care Teams Learning Developer Relationship Specialty Start Date End Date Tom Abdul PCP - General Family Practice 01/18/20 01/18/20 [facility] [address] [place] [address] documented as of this encounter
--- OUTSIDE RECORDS SUMMARY | 2021-12-20 14:56 | XMS_ITS | Encounter Summary ---
:1970 Author Organization [place] Address [address] [facility] [place] [address] Care Team Providers Name Role Phone Unavailable Primary Care Provider Unavailable Reason for Visit Reason Onset Date Comments Reschedule Appt 10/07/2019 Encounter Details Date Type Department Care Team Description 10/07/2019 Telephone [facility] [place] [facility] Melinda Melgoza Reschedule Appt Clinic Jessica Castillo MD [address] [place] [address] [place] [address] [phone] (Wo rk) Social History Tobacco Use Types Packs/Day Years Used Date Never Assessed Sex Assigned at Date Recorded Not on file documented as of this encounter Miscellaneous Notes Telephone Encounter - Radha Bianchi RN - 10/07/2019 3:55 PM CDT Pt called back and got her appt rescheduled (see appt desk). NIDIA Conner, RN [facility] [employer] Telephone Encounter - Radha [...] number to call back. NIDIA Conner, RN [facility] [place] [employer] documented in this encounter Plan of Treatment Not on filedocumented as of this encounter Visit Diagnoses Not on filedocumented in this encounter
--- OUTSIDE RECORDS SUMMARY | 2021-12-20 14:56 | XMS_ITS | Encounter Summary ---
:1970 Author Organization [place] Address [facility] [place] [address] Care Team Providers Name Role Phone Unavailable [...]
--- OUTSIDE RECORDS SUMMARY | 2021-12-20 14:56 | XMS_ITS | Encounter Summary ---
:1970 Author Organization [place] Address [address] [place] [address] Care Team Providers Name Role Phone Unavailable Primary Care Provider Unavailable Reason for Visit Reason Onset Date Comments RECHECK 08/31/2019 Return after conserv ative therapy Encounter Details Date Type Department Care Team Description 08/31/2019 Virtual Visit [facility] Jessica Castillo MD left lower extremity [address] wi th pain (Primary [address]) [place] [id number] JESSICA CARLOS [phone] (Wo rk) Social History Tobacco Use Types [...]
--- OUTSIDE RECORDS SUMMARY | 2021-12-20 14:56 | XMS_ITS | Encounter Summary ---
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 [facility] [address] [address] Treponema Screen (10/15/2019 7:35 AM CDT) [facility] Method Time Signature Treponema Screen 0.028 {s_co_ratio 10/15/2019 [facility] Result } 8:31 PM CDT LABORATORY Treponema Screen Non Non 10/15/2019 [facility] Interpretation Reactive Reactive 8:31 PM CDT LABORATORY Specimen Anatomical Collection Method / Collection Time Recei alba Time (Source) Location / Volume Laterality Blood Venipuncture / 10/15/2019 7:35 10/15/2019 7:45 Unknown AM CDT AM CDT Nicki Bates MD LAB_1 Performing Organization Address City/State/ZIP Code Phon e Number [facility] [address] [place] [address] HIV 1/2 Ag/Ab 4th Generation (10/15/2019 7:35 AM CDT) [facility] gist Method Time Signature HIV 1/2 Negative [...] Nicki Bates MD LAB_1 Performing Organization Address City/[facility]/ZIP Code Phon e Number [address] [address] Ammonia (10/15/2019 7:35 AM CDT) athologist Signature Ammonia, Blood 25 18 - 72 10/15/2019 [facility] umol/L 8:12 AM CDT HOSPITAL Specimen Anatomical Collection Method / Collection Time Recei alba Time (Source) Location / Volume Laterality Blood Venipuncture / 10/15/2019 7:35 10/15/2019 7:44 Unknown AM CDT AM CDT Nicki Bates MD LAB_1 Performing Organization Address City/[facility]/ZIP Code Phon e Number [address] [address] Vitamin B12 Only (10/14/2019 6:39 PM CDT) athologist Signature Vitamin B12 [phone] 10/17/2019 [facility] pg/mL 12:13 PM CDT CENTRAL LAB Specimen Anatomical Collection Method / Collection Time Recei alba Time (Source) Location / Volume Laterality Blood Venipuncture / 10/14/2019 6:39 10/14/2019 6:43 Unknown PM CDT PM CDT Nicik Bates MD LAB_1 Performing Organization Address City/[facility]/ZIP Code Phon e Number [facility] [address] [address] (ABNORMAL) Complete Blood Count-W/Diff (10/14/2019 6:39 PM [...] Nicki Bates MD LAB_1 Performing Organization Address [facility]/ZIP [facility] e Number [address] [address] TSH with Free T4 (if TSH Abnormal) (10/14/2019 6:39 PM CDT) athologist Signature TSH, Reflex 1.52 0.30 - 4.50 10/14/2019 [facility] uIU/mL 7:43 PM CDT HOSPITAL Specimen Anatomical Collection Method / Collection Time Recei alba Time (Source) Location / Volume Laterality Blood Venipuncture / 10/14/2019 6:39 10/14/2019 6:43 Unknown PM CDT PM CDT [facility] - 10/14/2019 7:43 PM CD T Lab will automatically reflex to Free T4 when TSH results are <0.30 uIU/mL or >4.50 mIU/mL. Nicki Bates MD LAB_1 Performing Organization Address [facility] e [address] [address] 2019 Novel Coronavirus ??? Rapid (COVID-19) (10/14/2019 9:25 AM CDT) [facility] Method Time Signature COVID-19 Not Not 10/14/2019 [facility] Interpretation Detected Detected 10:26 AM HOSPITAL CDT Specimen Anatomical Collection Method Collection Time Receive d Time (Source) Location / / Volume Laterality Swab (Source Non-blood 10/14/2019 9:25 AM 0 9:27 Required) Collection / CDT AM CDT [facility] - 10/14/2019 10:26 AM C DT Test performed by real-time PCR. This test has been authorized by the FDA under an Emergency Use Authorization (EUA) for use by authorized laboratories. Julito Ward PA-C LAB_1 Performing Organization Address [facility]/ZIP Code Phon e Number [address] [address] Hemoglobin, Blood (10/14/2019 8:15 AM CDT) athologist Signature Hemoglobin 14.2 12.0 - 15.5 10/14/2019 [facility] g/dL 8:27 AM CDT HOSPITAL Specimen Anatomical Collection Method / Collection Time Recei alba Time (Source) Location / Volume Laterality Blood Venipuncture / 10/14/2019 8:15 10/14/2019 8:21 Unknown AM CDT AM CDT Julito Ward PA-C LAB_1 Performing Organization Address [facility] e Number [address] [address] Liver Panel (Hepatic Function Panel) (10/14/2019 8:15 [...] Julito Ward PA-C LAB_1 Performing Organization Address City/[facility] Phon e Number [address] [address] (ABNORMAL) Basic Metabolic Panel (10/14/2019 8:15 AM [...] 10.4 10/14/2019 [facility] mg/dL 8:54 AM T [facility] BUN 8 7 - 26 10/14/2019 [facility] mg/dL 8:54 AM T [facility] Creatinine 0.84 0.55 - 10/14/2019 [facility] 1.02 mg/dL 8:54 AM T HOSPITAL GFR, Estimated >60 >60 10/14/2019 [facility] mL/min/1.7 8:54 AM [facility] 3m2 GFR, Est If >60 >60 10/14/2019 [facility] mL/min/1.7 8:54 AM [facility] Martiniqu[place] 3m2 Glucose 103 (H) 70 - 100 10/14/2019 [facility] mg/dL 8:54 AM [facility] Comment: The given reference range is fo r the fasting state. Non-fasting reference range for glucose is 70 - 180 mg/dL. Specimen Anatomical Collection Method / Collection Time Recei alba Time (Source) Location / Volume Laterality Blood Venipuncture / 10/14/2019 8:15 10/14/2019 8:21 Unknown AM CDT AM T Julito Ward PA-C LAB_1 Performing Organization Address City/State/[place] [address] documented in this encounter Visit Diagnoses Diagnosis [...] Plan of Care - Christoscase Norah Huizar, FOOD HANDLER - 10/18/2019 8:57 AM CDT [facility] Social Work Discharge Note Admission Date/Time: 10/13/2019 11:53 PM Attending Practitioner: Arnaldo Albrecht MD Disposition:Disposition from : Home Anticipated Discharge Date/Time: 10/21/19 1400 Transportation Arrangements: Taxi Discharge Collateral Contact: Family/Friend Contact Release of Information?: No Family/Friend Contact Name: Annel Kyle (pt's partner) Family/Friend Contact Community Providers/Outpatient Psychiatrist Outside Healthcare Provider Name: Bianca Cohen (PA-C), Ind therapist, EMDR therapist - [facility] [place] Outside Healthcare Provider Other Contact 1 Release of Information?: Yes Other Contact Name : Ursula Gipson Other Contact Other Contact 2 Release of Information?: Yes Other Contact Name: Federica (daughter) Other Contact 3 Other Contact Name : LUCY Wang - [facility] Other Contact Other Contact Legal Status at Discharge: 72 hour hold expires 10/18 at 0804. County: [place] Insurance: [facility] CD Assessment Completed: N/A Integrated Treatment Plan: N/A Discharge Safety Risk Assessed: Yes; Pt denies SI/HI. She is at risk for rehospitalization if she doesn't follow discharge instructions. Discharge Summary: Pt discharging home this afternoon. She is going with a 30 day supply of medications and has intake scheduled for on morning. See discharge proposal lead writer for details. Updated med orders have been sent to pt's home care agency (see below). Medical Education Manager spoke with pt's daughterUrsula yesterday and reviewed plan with her. She is supportive of the plan. Spoke with Materials Planner/Production Planner Stephanie with [facility] [phone] to let her know of pt's hospital discharge. She requests orders (includin resumption of home care order) be faxed to her at [phone] and they will have one of their RNs follow up with pt for resumption of care. Report completed by MEGAN Ames, Pager Number [phone] --- End of Report --- Plan of Care - Edna Alonso RN - 10/18/2019 8:38 AM CDT [facility] Plan of Care Note Assessment: Impaired thought [...] Marsh OTR/Shayla - 10/18/2019 7:11 AM CDT [facility] Occupational Therapy Plan of Care Note Group [...] Care ??? Plan of Care Review Progressing [facility] Plan of Care Note Assessment: Sleep Plan: Patient will sleep > 5 hours Subjective: NA Objective: Patient appeared to have slept throughout the night without incident. 15 minute checks ongoing. Patient to discharge today. --- End of Report --- Plan of Care - Mackenzie Jones RN - 10/17/2019 6:40 PM CDT [facility] Plan of Care Note Assessment: Readiness for [...] getting her truck out of impound in [place]. Later, pt reports that [facility] [place] will be helping her get her truck [...] Bradshaw RN - 10/17/2019 2:39 PM CDT [facility] Plan of Care Note Assessment: Disturbed mood [...] --- Plan of Care - Norah Delgado, [facility] - 10/17/2019 9:07 AM CDT [facility] Social Work Progress Note Data: Discussed pt's [...] tell her too much. She would prefer proposal lead writer speak only with her daughters are [...] for Cindy and Denae at [place] [phone] letting them know referral for DB was [...] Psychiatrist Outside Healthcare Provider Name: Bianca Cohen (PA-Ector), Ind therapist, EMDR therapist - [facility] Outside Healthcare Provider Other Contact 1 Release of Information?: Yes Other Contact Name : Ursula Gipson Other Contact Other Contact 2 Release of Information?: Yes Other Contact Name: Federica (daughter) Action Plans: Collateral info; 72 hour hold Plan: Anticipated Discharge Date/Time: 10/21/[address] [place] [address] Disposition: Home Location: Report completed by Norah Delgado FOOD HANDLER, Pager Number [phone] --- End of Report --- Plan of Care - Erica Smith, OTR/L - 10/17/2019 7:11 AM CDT [facility] Occupational Therapy Plan of Care Note Group [...] and/or Movement/Exercise. Report completed by VICTOR MANUEL Holm/Shayla --- End of Report --- Plan of Care - Skylar Funes RN - 10/17/2019 4:31 AM CDT General Plan of Care ??? Plan of Care Review Progressing [facility] Plan of Care Note Assessment: Sleep Plan: Patient will sleep > 5 hours Subjective: NA Objective: Patient appeared to have slept throughout the night without incident. 15 minute checks ongoing. --- End of Report --- Plan of Care - Dione Stanley RN - 10/16/2019 10:28 PM CDT [facility] Plan of Care Note Assessment: Altered Thought [...] Jones RN - 10/16/2019 2:56 PM CDT [facility] Plan of Care Note Assessment: Altered mood [...] Care ??? Plan of Care Review Progressing [facility] Plan of Care Note Assessment: Sleep Plan: Patient will sleep > 5 hours Subjective: NA Objective: Patient appeared to have slept throughout the night without incident. 15 minute checks ongoing. --- End of Report --- Plan of Care - Dione Stanley RN - 10/15/2019 10:53 PM CDT [facility] Plan of Care Note Assessment: Altered Thought [...] Jones RN - 10/15/2019 2:26 PM CDT [facility] Plan of Care Note Assessment: Altered mood [...] this shift. Pt is brief during 1:1 conversation.Medical Education Manager approached pt this morning to talk and pt was crying. Pt declines to elaborate when asked about it. Pt denies AH/VH. Pt denies SI/HI. Pt ate 100% of her breakfast and lunch. Pt refused her scheduled gabapentin stating I don't take that anymore. Medical Education Manager held lisinopril r/t low BP and pulse. BP 90/46 and pulse 53. Medical Education Manager encourages pt to increase her fluid intake. [...] --- Plan of Care - Rosina Finley [facility] - 10/15/2019 12:56 PM CDT [facility] Social Work Progress Note Data: Phone contact with pt's daughter, Ursula, in attempt to gather additional collateral information. Ursula indicate pt was hospitalized approximately two months ago at hospital in [place]. At that time,pt's mental health had decompensated [...] is not this. States having spoke with occupational therapist home based regarding pt being tested for early onset dementia or other reason behind current symptomology. Daughterstates pt has two therapists in the [place] area, one concerning marriage goals and another individual therapist with whom she has been working with around PTSD/trauma goals. Indicates pt having psychiatrist, Bianca Cohen, in [place]. Legal Status: 72-hour hold(10/13@8:36am) Collateral Contacts Family/Friend Contact Family/Friend Contact Name: Annel Kyle (pt's partner) Family/Friend Contact Other Contact 1 Other Contact Name : Ursula Gipson Other Contact Other Contact 2 Other Contact Name: Federica (daughter) Action Plans: Continue assessment, monitoring, stabilization of pt. Plan: Anticipated Discharge Date/Time: 10/21/[address] [place] [address] Disposition: Home Location: Report completed by Rosina Finley [facility], Pager Number [phone] --- End of Report --- Initial Assessments - Dorothy Yates OTR/Shayla - 10/15/2019 11:19 AM CDT [facility] OT Initial Assessment Diagnosis: Encounter Diagnoses Name Primary? Psychosis, unspecified psychosis type (HRC) Yes Patient Data on File [id number] [facility] [address] Social History Socioeconomic History ??? 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 Nursing Unit: NE6 Attending Practitioner: Nicki Bates MD County: [facility] Admitting Diagnosis: Encounter Diagnoses Name Primary? Psychosis, [...] Dependency/Medical History Records indicate pt hospitalized at [facility] on 02/18. Pt with current and past [...] see H&P for full medical history. Data Medical Education Manager met with pt in her room and discussed role of social work. Pt observed lying in bed when proposal lead writer entered room and engaged while continuing to lie in bed. Pt cooperative, identified feeling a little better this morning. Pt's affect appears flat, stating I think I was pushing a little too hardlately. My daughter is going to beauty school and I'm trying to help her out. 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 Showed proposal lead writer her leg and indicated RN would [...] community provider, ambivalence about accepting treatment for PR, some readiness to consider impact of PR on quality of life, addressing needs in community has not reduced symptoms in last month) PR Treatment Recommendations for Inpatient/Outpatient Invite to educational group (stage 1), Development of recovery plan (stage 1), Medication education (stage 2), Support participation in skill development interventions (stage 3), Education about PR symptoms (stage 3), Provide diagnostic education (stage [...] Home This document completed by: Rosina Finley [facility], Pager Number [phone] --- End of Report --- Plan of Care - Dione Stanley RN - 10/15/2019 4:51 AM CDT [facility] Plan of Care Note Assessment: Sleep Plan: Pt will sleep >5 hours Subjective: N/A Objective: Pt appeared to be sleeping throughout the night without any issues. 15 minutes checks completed. Will continue to monitor. --- End of Report --- Plan of Care - Dione Stanley RN - 10/14/2019 11:03 PM CDT Pt Keiko Kyle 49 y.o. female was admitted to [facility] at 1540. Pt reports she has a [...] complete Plan of Care - Dwight Stanley [facility] - 10/14/2019 12:57 PM CDT [facility] Medication History Note Concerns to be addressed by team prior to discharge:* The patient was unable to be interviewed. Thislist was completed using online resources only (Dr Gutierrez, Care Everywhere, [facility]) Please use cautionwhen using this list since it may not be 100 % accurate. Primary Pharmacy is: [facility] [phone] and [email or web address] [phone] Outpatient Medications Marked as Taking for the [...] review: The following medications were added to ENVIRONMENTAL RESEARCH PROJECT MANAGER MED LIST: All meds were added The following medications were deleted from ENVIRONMENTAL RESEARCH PROJECT MANAGER MED LIST: none The following medications (strength, dose or directions) were changed on ENVIRONMENTAL RESEARCH PROJECT MANAGER MED LIST: None Recently filled medications that patient states they are not taking: Unable to assess Medication adherence concerns/barriers: unable to assess TRAIN CREW MEMBER Consent (written or verbal) obtained from patient: n/a Does the patient need an MTM Outpatient consult?: no This Med Rec was completed using: [employer] (website) Primary Pharmacy is: [email or web address] [phone] and [email or web address] [phone] This document completed by: Dwight Stanley RPh [...] 10/13/2019 11:47 PM CDT Pt transported by [facility] to ED. Pt was found pulled over on the side of the road with her therapy dog. Police found the pt and she stated that she was trying to get to a watch dog meeting at [facility]. When EMS arrived pt was very confused unable to provide a good medical history. EMSstated pt's therapy dog is at [facility] in [place] . Pt's truck is at [facility] in [place] . documented in this encounter Administered Medications [...] 2099 (Automatically Held - Provider: Catherine Ang) 1617 (Unheld by provider in Manage Orders - Provider: Inpatient Template [facility]) 100 mg, Oral, HS, First dose on [...]
--- OUTSIDE RECORDS SUMMARY | 2021-12-20 14:56 | XMS_ITS | Encounter Summary ---
:1970 Author Organization [place] Address [address] [place] [address] Care Team Providers Name Role Phone Unavailable Primary Care Provider Unavailable Reason for Visit Auth/Cert Specialty Diagnoses / Procedures Referred By Contact Refer red To Contact Referral ID Status Reason Start Date Expiration Date Visits Requ ested Visits Authorized [id number] 1 1 Encounter Details Date Type Department Care Team Description 10/27/2019 Telemedicine [facility] Partial Clovis Arias MD Hospitalization Prog lisa [address] [facility] [address] [place] [address] [place] [address] [phone] Social History Tobacco Use Types Packs/Day Years Used Date Smoking Tobacco: Former Smokeless Tobacco: Never Alcohol Use Standard Drinks/Week Comments Not Currently 0 (1 standard drink = 0.6 oz pure alcoho l) Sex Assigned at Date Recorded Not on file documented as of this encounter Progress Notes Mandie Christopher, JEAN CARLOS, INSPECTOR FILTERS - 10/27/2019 9:00 AM CDT [facility] Partial Hospitalization Program Process Group Progress Note Date: 10/27/2019 Start Time: 9:00 am End Time: 10:00 am Length: 60 minutes Video Visit This visit was conducted via video due to COVID-19 precautions Location of clinician: [facility] Location of patient: Home [facility] Service [...] change your telehealth appointments, you must notify [facility] in advance by calling the [facility]io main number at . Please do not use any other numbers, such as [employer] phone numbers, as they will not be monitored by [facility]. In the event of technical problems or safety concerns, please notify [facility] by phone to confirm your current location and the best number to reach you. You must have a safety plan and emergency contacts on file for edul[facility], so that we can reach you if you get disconnected. Please also be mindful that, as your provider, I may determine that telehealth is no longer appropriate for you and that we should resume our sessions in person. Lastly, please be aware that data charges may apply if you are not connected to [employer]. Clinician Note I have reviewed the following [...] billed to patient's insurance. JEAN CARLOS Nuñez, INSPECTOR FILTERS 10/27/2019, 8:23 AM Denae High LICSW - 10/27/2019 9:00 AM CDT [facility] Partial Hospitalization Program Psychoeducational/psychosocial Progress Note Date: 10/27/2019 Start Time: 10:15 AM End Time: 11:15 AM Length: 45 minutes - client came in late, and appeared to have technical difficulties. Telehealth Visit This service was provided via telehealth and conducted using a synchronous audio-video link. ??? Clinician location: [facility] ??? Patient location: Home ??? Total [...] change your telehealth appointments, you must notify [facility] in advance by calling the [facility] main number at . Please do not use any other numbers, such as [employer] phone numbers, as they will not be monitored by [facility]. In the event of technical problems or safety concerns, please notify [facility] by phone to confirm your current location and the best number to reach you. You must have a safety plan and emergency contacts on file for [facility], so that we can reach you if you get disconnected. Please also be mindful that, as your provider, I may determine that telehealth is no longer appropriate for you and that we should resume our sessions in person. Lastly, please be aware that data charges may apply if you are not connected to [employer]. [facility] Service Unit: Psychoeducational/psychosocial Topics: DBT- [...] change your telehealth appointments, you must notify edulio in advance by calling the edulio main number at . Please do not use any other numbers, such as [employer] phone numbers, as they will not be monitored by edulio. In the event of technical problems or safety concerns, please notify edulio by phone to confirm your current location and the best number to reach you. You must have a safety plan and emergency contacts on file for edulio, so that we can reach you if you get disconnected. Please also be mindful that, as your provider, I may determine that telehealth is no longer appropriate for you and that we should resume our sessions in person. Lastly, please be aware that data charges may apply if you are not connected to [employer]. [facility] Partial Hospitalization Program Psychoeducational/psychosocial Progress Note [...] change your telehealth appointments, you must notify edulio in advance by calling the edulio main number at . Please do not use any other numbers, such as [employer] phone numbers, as they will not be monitored by edulio. In the event of technical problems or safety concerns, please notify [facility]io by phone to confirm your current location and the best number to reach you. You must have a safety plan and emergency contacts on file for edulio, so that we can reach you if you get disconnected. Please also be mindful that, as your provider, I may determine that telehealth is no longer appropriate for you and that we should resume our sessions in person. Lastly, please be aware that data charges may apply if you are not connected to [employer]. Occupational Therapy IM&R Life Skills Group Progress [...] - 10/27/2019 9:00 AM CDT Progress Note ([facility] Program Nursing) RN spoke with client -- [...] MSCP, LP - 10/27/2019 9:00 AM CDT [facility] Psychoeducational Group Psychiatric Diagnoses Progress Note Date: 10/27/2019 Start Time: 1:00 pm End Time: 2:00 pm Length: 60 minutes (Patient was absent from group. No charges.) Telehealth Visit This service was provided via telehealth and conducted using a synchronous audio-video link. ??? Clinician location: [facility] ??? Patient location: Home ??? Total [...] change your telehealth appointments, you must notify [facility] in advance by calling the edulio main number at . Please do not use any other numbers, such as [employer] phone numbers, as they will not be monitored by edulio. In the event of technical problems or safety concerns, please notify [facility] by phone to confirm your current location and the best number to reach you. You must have a safety plan and emergency contacts on file for edulio, so that we can reach you if [...] response. Khushboo Christie, PhD, MSCP Licensed Psychologist [facility] Staff Psychologist 10/27/2019 2:19 PM documented in this encounter Plan of Treatment Not on filedocumented as of this encounter Visit Diagnoses Not on filedocumented in this encounter
--- OUTSIDE RECORDS SUMMARY | 2021-12-20 14:56 | XMS_ITS | Encounter Summary ---
:1970 Author Organization [facility] Address [address] [place] [address] Care Team Providers Name Role Phone Unavailable Primary Care Provider Unavailable Reason for Visit Reason Comments CANCEL APPOINTMENT Encounter Details Date Type Department Care Team Description [facility]/20[facility]2019 [facility]ovis [facility]as CANCE L APPOINTMENT Hospitalization Lurdes gonzalez MD [address] [address] [place], [place] [phone] [address] Social History Tobacco Use Types Packs/Day Years Used Date Smoking Tobacco: Never Assessed Sex Assigned at Date Recorded Not on file documented as of this encounter Nursing Notes April Carrizales RN - 10/20/2019 9:54 AM CDT RN attempted to contact [facility] for intake for [facility]. Keiko is not currently active on Sling, the platform used for virtual appointments. RN LVM for [facility] with direct contact information to discuss appointment and receive assistance in setting up Sling. Confirmed that phone number in chart is the same phone number given during PHP screening. Unable to reach on second attempt. Keiok is able to call the following number to re-schedule appointment: [phone]. PHP screening team, PHP coordinator and MD notified of the above. April Carrizales RN 10/20/2019, 9:59 AM documented in this encounter Plan of Treatment Not on filedocumented as of this encounter Visit Diagnoses Not on filedocumented in this encounter
--- OUTSIDE RECORDS SUMMARY | 2021-12-20 14:56 | XMS_ITS | Encounter Summary ---
:1970 Author Organization [place] Address [facility] [place] [address] Care Team Providers Name Role Phone Unavailable [...]
--- OUTSIDE RECORDS SUMMARY | 2021-12-20 14:56 | XMS_ITS | Clinical Summary ---
:1970 Author Organization [place] Address [facility] [place] [address] Care Team Providers Name Role Phone Unavailable [...] Years) topic Medical Devices Explanted Type Area Real Estate Leasing Manager Device Shelf Model / Serial Identifier Expiration Date / L ot Catheter-01/18/2020 Catheter [employer] [id number] 05/03/2021 / Implanted: 01/18/2020 by Melinda Melgoza MD (Quantity not on file) / Explanted: 01/18/2020 by Melinda Melgoza MD (Quantity not on file) [id number] Insurance Payer Benefit Plan / Subscriber ID Effective Dates Phone Addre ss Type Group BLUE PLUS BLUE PLUS [id number] 2019-Kaylyn [phone] [place] [id number] [address] [place] [address]
--- OUTSIDE RECORDS SUMMARY | 2021-12-20 14:56 | XMS_ITS | Encounter Summary ---
:1970 Author Organization [place] Address [address] [facility] [place] [address] Care Team Providers Name Role Phone Tom Abdul Primary Care Provider Reason for Visit Reason Comments RECHECK discuss tx options Encounter Details Date Type Department Care Team Description 11/16/2019 Office Visit [facility] Melinda Melgoza Vari cose veins of Vein Clinic Ana Castillo MD left lower extremity [address] pain (Primary [address]) [place] [phone] [place]OPE[place] [id number] (Wo rk) Social History Tobacco Use Types [...] since she was last seen. PMH from [email or web address] records: Cervical spinal stenosis Peripheral neuropathy HTN [...] high open toe beige. Faxed order to [facility], confirmed by Lalitha. Lalitha Min, Chemical Project Engineer [facility] [employer] documented in this encounter Plan of Treatment Not on filedocumented as of this encounter Visit Diagnoses Diagnosis Varicose veins of left lower extremity w ith pain - Primary Varicose veins of lower extremities with other complications documented in this encounter Care Teams Assistant Associate Full Professor Relationship Specialty Start Date End Date Tom Abdul PCP - General Family Practice 11/16/19 11/16/19 [facility] [address] [place] [address] documented as of this encounter
--- OUTSIDE RECORDS SUMMARY | 2021-12-20 14:56 | XMS_ITS | Encounter Summary ---
:1970 Author Organization [place] Address [address] [facility] [place] [address] Care Team Providers Name Role Phone Unavailable Primary Care Provider Unavailable Reason for Visit Diagnostic Imaging Ultrasound (Routine) - Closed Specialty Diagnoses / Procedures Referred By Contact Refer red To Contact Diagnoses Varicose veins of left lower extremity with pain Melinda Melgoza, Procedures US Lower Extremity Venous Duplex Left [address] [place] [address] Referral ID Status Reason Start Date Expiration Date Visits Requ ested Visits Authorized [id number] Closed 12/26/2019 12/25/2020 1 1 Encounter Details Date Type Department Care Team Description 01/20/2020 Ancillary [facility] Melinda Melgoza Vari cose veins of Procedure [facility] MD Anna left lower Solutions [address] extremity with pain [address] [facility] [address] [facility] [place] [address] [address] [place] Lopez (Work) [address] [phone] Social History Tobacco Use Types Packs/Day Years [...] : 1970 Sex: female Melinda Melgoza MD [facility] ORDER[facility]LES documented in this encounter Visit Diagnoses Diagnosis Varicose veins of left lower extremity w ith pain Varicose veins of lower extremities with other complications documented in this encounter
--- OUTSIDE RECORDS SUMMARY | 2021-12-20 14:56 | XMS_ITS | Encounter Summary ---
:1970 Author Organization [place] Address [address] [facility] [place] [address] Care Team Providers Name Role Phone Tom [...] on filedocumented in this encounter Care Teams Embroidery Patternmaker Relationship Specialty Start Date End Date Tom Abdul PCP - General Family Practice 01/18/20 01/18/20 [facility] [address] [place] [address] documented as of this encounter
--- OUTSIDE RECORDS SUMMARY | 2021-12-20 14:56 | XMS_ITS | Encounter Summary ---
:1970 Author Organization [place] Address [address] [place] [address] Care Team Providers Name Role Phone Tom Abdul MD Primary Care Provider Reason for Visit Reason Comments No Show Encounter Details Date Type Department Care Team Description 10/27/2019 Telephone [facility] Partial Clovis Arias MD No Show Hospitalization Prog lisa 640 [facility] 640 [place] [address] [place] [address] [phone] Social History Tobacco Use Types Packs/Day Years [...] morning. Call placed out to number in Locately. Phone number is disconnected, chief underwriter also tried another number and that is also disconnected. Just as chief underwriter was about to have medical social worker call emergency contacts chief underwriter seen client in the current group. Engineering Instructor hasattempted to chat with client privately in group and has not had a response. Engineering Instructor will clinical staff reach out to client to check in. BRITTANI Foreman 10/27/2019, 10:25 AM documented in this encounter Plan of Treatment Not on filedocumented as of this encounter Visit Diagnoses Not on filedocumented in this encounter Care Teams Tape Deck Installer Relationship Specialty Start Date End Date Tom Abdul MD PCP - General Family Practice 11/02/[address] [place] [address] documented as of this encounter
--- OUTSIDE RECORDS SUMMARY | 2021-12-20 14:56 | XMS_ITS | Encounter Summary ---
:1970 Author Organization [place] Address [address] [facility] [place] [address] Care Team Providers Name Role Phone Tom [...] on filedocumented in this encounter Care Teams Sales Incentive Analyst Relationship Specialty Start Date End Date Tom Abdul PCP - General Family Practice 11/16/19 11/16/19 [facility] [address] [place] [address] documented as of this encounter
--- OUTSIDE RECORDS SUMMARY | 2021-12-20 14:56 | XMS_ITS | Encounter Summary ---
:1970 Author Organization [facility] Address [address] [place] [address] Care Team Providers Name Role Phone Unavailable Primary Care Provider Unavailable Reason for Visit Reason Comments PHP Screening Encounter Details Date Type Department Care Team Description 10/18/2019 Telephone [facility] Partial Clovis Arias MD PHP Screening Hospitalization Prog lisa 640 [facility] [address] [place] [address] [place] [address] [phone] Social History Tobacco Use Types Packs/Day Years Used Date Smoking Tobacco: Never Assessed Sex Assigned at Date Recorded Not on file documented as of this encounter Nursing Notes Denae High, CHANNEL PROCESS PLANT OPERATOR - 10/18/2019 2:06 PM CDT [facility] Screening Referral - Adapted for Telemedicine (LOCUS still needed for [employer] and [place] clients) HP/Saumya Vitale Referral Source: JANAE Beltre 6 Non-HP/Park [facility]red Referral Source and phone number: NA Reason for Referral: Discharge plan from inpt hospitalization LIZ for Referral Source: NA ???[[facility] in collaboration with other [place] healthcare organizations and government agencies, has decided [...] they will be primarily during programming? [address] [place] [address] Primary phone Number for visits: [phone] Active e-mail: [email or web address] [employer]ition X Willing to be an active participant in plan of care, including attending & participating in groups on line. (What do you hope to get out of [facility]?) Yes, How to manage my life. X Acute onset or de-compensation or exacerbation of symptoms related to an Rhodell I mental disorder. Describe primary mental health [...] to secure them, if deemed necessary by [facility] treatment team.) Agrees to make and [...] self when not in program (i.e. family, delinquency prevention social worker including case management, [facility] or therapist, psychiatrist, other) . At least one emergency contact is accessible during programming hours for client support Her 2 daughters, Shraddha Gipson and Ursula Gipson Client can provide the most current contact information for two emergency contacts Shraddha Gipson, daughter - [phone] Ursula Gipson, daughter - [phone] X Stable housing. Describe living situation - [...] Too medically unstable to safely participate in [employer] (i.e. medical devices requiring skillednursing involvement). Comment [...] at the time of your appointment using [employer].?? CONSENT - Obtained X YES - client signed LIZ's while in inpatient for [facility] program. Due to the Covid 19 Pandemic and [facility] Telemedicine platform at this time, verbal consent has been obtained. I, Keiko Kyle give verbal consent for [facility] staff to share my information as outlined on the consent form, with my below listed emergency contacts. Names, relationship and phone numbers: Shraddha Gipson, daughter - [phone] Ursula Gipson, daughter - [phone] The client agrees to verify the emergency contact phone numbers and availability during the program. Meets [facility]: YES Consult with Psychiatrist regarding: Not indicated MEGAN Metcalf 10/18/2019, 2:25 PM Cindy Hampton [facility] - 10/18/2019 10:55 AM CDT Received order referral for [facility], insurance verified and client is ready to screen soon as availability permits. BRITTANI Foreman 10/18/2019, 10:55 AM documented in this encounter Plan of Treatment Not on filedocumented as of this encounter Visit Diagnoses Not on filedocumented in this encounter
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
--- OUTSIDE RECORDS SUMMARY | 2021-12-20 14:56 | XMS_ITS | Encounter Summary ---
:1970 Author Organization [place] Address [address] [place] [address] Care Team Providers Name Role Phone Unavailable Primary Care Provider Unavailable Reason for Referral Durable Medical Equipment (Routine) - Closed Specialty Diagnoses / Procedures Referred By Contact Refer red To Contact Diagnoses Varicose veins of bilateral lower extremities with pain Melinda Melgoza MD [address] [place] [address] Referral ID Status Reason Start Date Expiration Date Visits Requ ested Visits Authorized [id number] Closed 05/25/2019 05/24/2020 1 1 TOOTH GRINDING MACHINE OPERATOR Reason for Visit Reason Comments Consult Torres VV-Pain and muscle spasm s Encounter Details Date Type Department Care Team Description 05/25/2019 Office Visit [facility] Melinda Melgoza Vari cose veins of Vein Clinic Ana Castillo MD bilateral lower [address] ex tremities with pain [address] (Primary Dx) [place] [address] [place] [address] [phone] (Wo rk) Social History Tobacco Use Types [...] in her feet and a sensation of ktyj-wvw-[id number] and burning in both legs. She is [...] alleviated with ambulation. She purchased compression stockings [id number] in 2013 and wore them for a [...] current outpatient medications on file. from [facility]: Cervical spinal stenosis Peripheral neuropathy HTN [...] Not on file She has a previous [id number] smoking history. She quit 2 to 3 years ago. She does not drink alcohol. She denies any history of IV drug use. 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 Arterial Duplex, Bilateral Lower Extremity (05/11/19): normal, triphasic waveforms throughout bilateral BEVEL GEAR GENERATOR OPERATOR, SFA, popliteal, AT, peroneal, PT, and DP [...] further interventions if needed Melinda Melgoza MD TOOTH GRINDING MACHINE OPERATOR documented in this encounter Plan of Treatment Scheduled Referrals Name Type Priority Associated Diagnoses Order S chedule DME REFERRAL Referral Routine Varicose veins of bilateral lower Ordered: 05/25/2019 extremities with pain documented as of this encounter Visit Diagnoses Diagnosis Varicose veins of bilateral lower extrem ities with pain - Primary documented in this encounter
--- OUTSIDE RECORDS SUMMARY | 2021-12-20 14:56 | XMS_ITS | Encounter Summary ---
:1970 Author Organization [place] Address [address] [facility] [place] [address] Care Team Providers Name Role Phone Melinda Melgoza MD Unavailable [phone] Encounter Details Date Type Department Care Team Description 05/01/2020 Travel Social History Tobacco Use Types Packs/Day Years Used Date Never Smoker Smokeless Tobacco: Never Used Sex Assigned at Date Recorded Not on file COVID-19 Exposure Response Date Recorded In the last month, have you been in contact with No / Unsure 05/01/2020 5:49 PM PROVIDER ENROLLMENT SPECIALIST someone who was confirmed or suspected to have Coronavirus / COVID-19? documented as of this encounter Plan of Treatment Not on filedocumented as of this encounter Visit Diagnoses Not on filedocumented in this encounter Care Teams Hebrew Teacher Relationship Specialty Start Date End Date Melinda Melgoza, Assigned Heart and Vascular 02/24/20 07/20/21 Provider [address] [facility] [address] [place] [address] documented as of this encounter
--- OUTSIDE RECORDS SUMMARY | 2021-12-20 14:57 | XMS_ITS | Encounter Summary ---
:1970 Author Organization [place] Address [address] [facility] [place] [address] Care Team Providers Name Role Phone Unavailable Primary Care Provider Unavailable Reason for Visit Reason Onset Date Comments Chart Prep 05/23/2019 Encounter Details Date Type Department Care Team Description 05/23/2019 Telephone [facility] Vein Melinda Melgoza Chart Prep Clinic Jessica Castillo MD [address] [place] [address] [place] [address] [phone] (Wo rk) Social History Tobacco Use Types Packs/Day Years Used Date Never Assessed Sex Assigned at Date Recorded Not on file documented as of this encounter Miscellaneous Notes Telephone Encounter - Radha Bianchi RN - 05/23/2019 3:20 PM CST Pt called back and stated she was referred by her PCP to see Dr. Robbins, a general surgeon at [facility]. Then Dr. Robbins referred pt to see a vein specialist. Pt said she had an arterial and a vein ultrasound done recently. Called [facility] and they are going to be faxing over a couple of ultrasounds the patient had done there as well as the consultation notes with Dr. Robbins. ECTOR RUBBER STAMP DIE Telephone Encounter - Radha Bianchi RN - [...] back and she can ask for Radha. ECTOR RUBBER STAMP DIE documented in this encounter Plan of Treatment Not on filedocumented as of this encounter Visit Diagnoses Not on filedocumented in this encounter
--- OUTSIDE RECORDS SUMMARY | 2021-12-20 14:57 | XMS_ITS | Encounter Summary ---
:1970 Author Organization [place] Address [facility] [place] [address] Care Team Providers Name Role Phone Tom Abdul Primary Care Provider Tom Abdul Primary Care Provider Melinda Melgoza MD Unavailable [phone] Encounter Details Date Type Department Care Team Description 03/19/2016 Records - [facility] CONVERSION Provider, James zhang Social History Tobacco Use Types Packs/Day Years Used Date Never Assessed Sex Assigned at Date Recorded Not on file COVID-19 Exposure Response Date Recorded In the last month, have you been in contact with No / Unsure 05/01/2020 5:49 PM AIRCRAFT SYSTEMS REPAIRER someone who was confirmed or suspected to [...] on filedocumented in this encounter Care Teams Survey Worker Relationship Specialty Start Date End Date Tom Abdul PCP - General Family Practice 11/16/19 11/16/19 [facility] [address] [place] [address] Tom Abdul PCP - General Family Practice 01/18/20 01/18/20 [facility] [address] [facility] [facility] [place] [address] Melinda Melgoza Assigned Heart and 02/24/2007/02 MD [facility] Provider [address] [place] [address] documented as of this encounter
--- OUTSIDE RECORDS SUMMARY | 2021-12-20 14:57 | XMS_ITS | Encounter Summary ---
:1970 Author Organization [place] Address [facility] [place] [address] Care Team Providers Name Role Phone Tom Abdul Primary Care Provider Tom Abdul Primary Care Provider Melinda Melgoza MD Unavailable [phone] Encounter Details Date Type Department Care Team Description 04/16/2016 Records - [facility] Provider, James zhang Social History Tobacco Use Types Packs/Day Years Used Date Never Assessed Sex Assigned at Date Recorded Not on file COVID-19 Exposure Response Date Recorded In the last month, have you been in contact with No / Unsure 05/01/2020 5:49 PM PUBLISHING SYSTEMS ANALYST someone who was confirmed or suspected to have Coronavirus / COVID-19? documented as of this encounter Plan of Treatment Not on filedocumented as of this encounter Procedures Procedure Name Priority Date/Time Associated Diagnosis Comme nts LAB RESULT - HIM 04/16/2016 1:27 PM SCAN PUBLISHING SYSTEMS ANALYST SURGICAL PATHOLOGY Routine 04/15/2016 10:15 AM Re sulhermila for this EXAM PUBLISHING SYSTEMS ANALYST procedure are i n the results section. documented in this encounter Results LAB RESULT - HIM SCAN (04/16/2016 1:27 PM PUBLISHING SYSTEMS ANALYST) Specimen (Source) Anatomical Location Collection Method / Collectio n Time Received Time / Laterality Volume Narrative This result has an attachment that is no t available. Historical Provider NON-BEAKER LAB TESTING Surgical Pathology Exam (04/15/2016 10:15 AM PUBLISHING SYSTEMS ANALYST) [facility] Method Time Signature Case Report HML Surgical Pathology ?Case: [id number] ? 04/16/2016 [facility] Authorizing Provider: ??Scott Haley Cain, DO ?? Collected: ? 04/15/2016 1015 ? 1:27 PM PUBLISHING SYSTEMS ANALYST [facility]-ST. Pathologist: ? Gualberto Thakkar MD ? Received: ?04/15/2016 1345 ? [facility] Specimen: ?Elbow, Left, LEFT ELBOW LIPOMA ? LABORATORY Final LEFT ELBOW BIOPSY 04/16/2016 [facility] Diagnosis ??- ?? BENIGN LIPOMA 1:27 PM PUBLISHING SYSTEMS ANALYST LALITO EW-ST. 16 at ??1:27 PM [facility] Clinical Clinical history: ??Pain 04/16/2016 [facility] Information Reason for procedure: ??R22.31 1:27 PM PUBLISHING SYSTEMS ANALYST MARITZA-ST. Time placed in formalin: ??1015 [facility] Gross Received in a 04/16/2016 [facility] Description formalin filled 1:27 PM PUBLISHING SYSTEMS ANALYST [facility] T. container, [facility] labeled with the LABORATORY patient's name, are fragments of unremarkable yellow fibrofatty soft tissue measuring 4.2 x 4.1 x 1.9 cm. Peoplesoft Consultant sections are submitted. TORREYRS-1C KDP:db Charges CPT: ?68584 04/16/2016 [facility] ICD-10: ?D17.9 1:27 PM PUBLISHING SYSTEMS ANALYST [facility] Result Flag Normal 04/16/2016 [facility] 1:27 PM PUBLISHING SYSTEMS ANALYST [facility] Comment: SPECIMEN PROCESSING: All histology slide preparation and stai ns; and cytology slide preparation, staining, and harvest supervisor screening done at [facility] are performed at [facility], [address] [place] [address], [address], with final interpretatio n, frozen section analysis, and cytology adequacy assessment at indicated laboratory. Specimen Anatomical Collection Method Collection Time Receive d Time (Source) Location / / Volume Laterality Tissue specimen LEFT ELBOW REGION 04/15/2016 10:15 1:45 (specimen) STRUCTURE / AM PUBLISHING SYSTEMS ANALYST PM PUBLISHING SYSTEMS ANALYST Unknown Zeke ARROYO - GIO FINN Performing Organization Address City/State/ZIP Code Phon e Number [place] [id number] [place] [address] documented in this encounter Visit Diagnoses Not on filedocumented in this encounter Care Teams Cartographic Aide Relationship Specialty Start Date End Date Tom Abdul PCP - General Family Practice 11/16/19 11/16/19 [facility] [address] [place] [address] Tom Abdul PCP - General Family Practice 01/18/20 01/18/20 [facility] [address] [place] [address] Melinda Melgoza Assigned Heart and 02/24/2007/02 MD [facility] Provider [address] [place] [address] documented as of this encounter
--- OUTSIDE RECORDS SUMMARY | 2021-12-20 14:57 | XMS_ITS | Encounter Summary ---
:1970 Author Organization [place] Address [address] [place] [address]. [place] [address] Care Team Providers Name Role Phone Unavailable Primary Care Provider Unavailable Encounter Details Date Type Department Care Team Description 05/16/[address] [facility] Scan, SURGERY REFERRAL Health Info [facility] Non-Provider [facility] [address] [place] [id number] Social History Tobacco Use Types Packs/Day Years Used Date Never Assessed Sex Assigned at Date Recorded Not on file documented as of this encounter Plan of Treatment Not on filedocumented as of this encounter Visit Diagnoses Not on filedocumented in this encounter
[2021-12-20 15:52] LABS: Hemoglobin A1C* 5.89 % (0-5.6)
== END 2021-12-20 14:49 | disposition home or self-care (01) ==
LOC: NPINS 14:48
PROVIDERS: PCP Family Medicine
DX: Z01.818 Encounter for other preprocedural examination (principal)
CPT/HCPCS: 83036

== ENCOUNTER 2021-12-30 17:41 | Outpatient (REF) | payer BC, SELFPAY ==
--- OUTSIDE RECORDS SUMMARY | 2021-12-30 17:44 | XMS_ITS | Encounter Summary ---
:1970 Author Organization [facility] Address [address] [place] [address] Care Team Providers Name Role Phone Tom Abdul MD Primary Care Provider Reason for Visit Procedure/Equipment (Routine) - Closed Specialty Diagnoses / Procedures Referred By Contact Refer red To Contact Diagnoses Memory loss Romero Singh MD Procedures MR Brain W/WO IV Cont [address] [place] [address] Referral ID Status Reason Start Date Expiration Date Visits Requ ested Visits Authorized [id number] Closed 02/13/2021 05/15/2022 1 1 Encounter Details Date Type Department Care Team Description 03/07/2021 Ancillary Procedure [facility] Liza Singh MD [facility] [address] Radiology MRI [place], [place] [address] [address] [place] [address] [phone] Social History Tobacco Use Types Packs/Day Years [...] MR BRAIN W/WO IV CONT LOCATION: [facility] DATE/TIME: 03/07/2021 12:10 PM INDICATION: Memory [...] MR BRAIN W/WO IV CONT LOCATION: [facility] DATE/TIME: 03/07/2021 12:10 PM INDICATION: Memory [...] dose documented in this encounter Care Teams Program Checker Relationship Specialty Start Date End Date Tom Abdul MD PCP - General Family Practice 11/02/[address] [place] [address] documented as of this encounter
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
--- OUTSIDE RECORDS SUMMARY | 2021-12-30 17:44 | XMS_ITS | Encounter Summary ---
:1970 Author Organization [facility] Address [address] [place] [address] Care Team Providers Name Role Phone Tom Abdul MD Primary Care Provider Encounter Details Date Type Department Care Team Description 02/15/2021 Orders Only Initial Department Provider, [address] YING CHAVEZ MD [place], [place] [address] Interface provider [phone] [place] [address] Social History Tobacco Use Types Packs/Day Years [...] on filedocumented in this encounter Care Teams Brine Room Laborer Relationship Specialty Start Date End Date Tom Abdul MD PCP - General Family Practice [address] [facility] [place] [address] documented as of this encounter
--- OUTSIDE RECORDS SUMMARY | 2021-12-30 17:44 | XMS_ITS | Encounter Summary ---
:1970 Author Organization [employer] Address [address] [place] [address] Care Team Providers Name Role Phone Unavailable Primary Care Provider Unavailable Reason for Visit Auth/Cert Specialty Diagnoses / Procedures Referred By Contact Refer red To Contact Referral ID Status Reason Start Date Expiration Date Visits Requ ested Visits Authorized [id number] 1 1 Encounter Details Date Type Department Care Team Description 10/27/2019 Telemedicine [facility] Partial Clovis Arias MD Hospitalization Prog lisa [address] [facility] 640 [place] [address] [place] [address] [phone] Social History Tobacco Use Types Packs/Day Years Used Date Smoking Tobacco: Former Smokeless Tobacco: Never Alcohol Use Standard Drinks/Week Comments Not Currently 0 (1 standard drink = 0.6 oz pure alcoho l) Sex Assigned at Date Recorded Not on file documented as of this encounter Progress Notes Mandie Christopher, JEAN CARLOS, CEMENT CONVEYOR OPERATOR - 10/27/2019 9:00 AM CDT [facility] Partial Hospitalization Program Process Group Progress Note Date: 10/27/2019 Start Time: 9:00 am End Time: 10:00 am Length: 60 minutes Video Visit This visit was conducted via video due to COVID-19 precautions Location of clinician: [facility] Location of patient: Home [facility] [...] change your telehealth appointments, you must notify [facility] in advance by calling the [facility] main number at . Please do not use any other numbers, such as awe[employer]sm phone numbers, as they will not be monitored by [facility]. In the event of technical problems or safety concerns, please notify [facility] by phone to confirm your current location and the best number to reach you. You must have a safety plan and emergency contacts on file for [facility], so that we can reach you if you get disconnected. Please also be mindful that, as your provider, I may determine that telehealth is no longer appropriate for you and that we should resume our sessions in person. Lastly, please be aware that data charges may apply if you are not connected to [facility]. Clinician Note I have reviewed the following [...] billed to patient's insurance. JEAN CARLOS Nuñez, CEMENT CONVEYOR OPERATOR 10/27/2019, 8:23 AM Denae High LICSW - 10/27/2019 9:00 AM CDT [facility] Partial Hospitalization Program Psychoeducational/psychosocial Progress Note Date: 10/27/2019 Start Time: 10:15 AM End Time: 11:15 AM Length: 45 minutes - client came in late, and appeared to have technical difficulties. Telehealth Visit This service was provided via telehealth and conducted using a synchronous audio-video link. ??? Clinician location: [facility] ??? Patient location: Home ??? Total [...] change your telehealth appointments, you must notify [facility] in advance by calling the [facility] main number at . Please do not use any other numbers, such as awe[employer]sm phone numbers, as they will not be monitored by [facility]. In the event of technical problems or safety concerns, please notify [facility] by phone to confirm your current location and the best number to reach you. You must have a safety plan and emergency contacts on file for [facility], so that we can reach you if you get disconnected. Please also be mindful that, as your provider, I may determine that telehealth is no longer appropriate for you and that we should resume our sessions in person. Lastly, please be aware that data charges may apply if you are not connected to [facility]. [facility] Service Unit: Psychoeducational/psychosocial Topics: DBT- [...] change your telehealth appointments, you must notify [facility] in advance by calling the [facility] main number at . Please do not use any other numbers, such as awe[employer]sm phone numbers, as they will not be monitored by [facility]. In the event of technical problems or safety concerns, please notify [facility] by phone to confirm your current location and the best number to reach you. You must have a safety plan and emergency contacts on file for [facility], so that we can reach you if you get disconnected. Please also be mindful that, as your provider, I may determine that telehealth is no longer appropriate for you and that we should resume our sessions in person. Lastly, please be aware that data charges may apply if you are not connected to [facility]. [facility] Partial Hospitalization Program Psychoeducational/psychosocial Progress Note [...] change your telehealth appointments, you must notify [facility] in advance by calling the [facility] main number at . Please do not use any other numbers, such as awe[employer]sm phone numbers, as they will not be monitored by [facility]. In the event of technical problems or safety concerns, please notify [facility] by phone to confirm your current location and the best number to reach you. You must have a safety plan and emergency contacts on file for [facility], so that we can reach you if you get disconnected. Please also be mindful that, as your provider, I may determine that telehealth is no longer appropriate for you and that we should resume our sessions in person. Lastly, please be aware that data charges may apply if you are not connected to [employer]. Occupational Therapy IM&R Life Skills Group Progress [...] - 10/27/2019 9:00 AM CDT Progress Note ([facility] Program Nursing) RN spoke with client [...] MSCP, LP - 10/27/2019 9:00 AM CDT [facility] Psychoeducational Group Psychiatric Diagnoses Progress Note Date: 10/27/2019 Start Time: 1:00 pm End Time: 2:00 pm Length: 60 minutes (Patient was absent from group. No charges.) Telehealth Visit This service was provided via telehealth and conducted using a synchronous audio-video link. ??? Clinician location: [facility] ??? Patient location: Home ??? Total [...] change your telehealth appointments, you must notify [facility] in advance by calling the [facility] main number at . Please do not use any other numbers, such as awe[employer]sm phone numbers, as they will not be monitored by [facility]. In the event of technical problems or safety concerns, please notify [facility] by phone to confirm your current location and the best number to reach you. You must have a safety plan and emergency contacts on file for [facility], so that we can reach you if [...] response. Khushboo Christie, PhD, MSCP Licensed Psychologist [facility] Staff Psychologist 10/27/2019 2:19 PM documented in this encounter Plan of Treatment Not on filedocumented as of this encounter Visit Diagnoses Not on filedocumented in this encounter
--- OUTSIDE RECORDS SUMMARY | 2021-12-30 17:44 | XMS_ITS | Encounter Summary ---
:1970 Author Organization [facility] [facility] Address [address] [place] [address] Care Team Providers Name Role Phone Tom Abdul MD Primary Care Provider Reason for Visit Reason Comments No Show Encounter Details Date Type Department Care Team Description 10/27/2019 Telephone [facility] Partial Clovis Arias MD No Show Hospitalization Prog lisa [address] [facility] 640 [place] [address] [place] [address] [phone] Social History Tobacco Use Types Packs/Day Years [...] morning. Call placed out to number in [employer]. Phone number is disconnected, board writer also tried another number and that is also disconnected. Just as board writer was about to have dialysis social worker call emergency contacts board writer seen client in the current group. Electrical Accessories Assembler hasattempted to chat with client privately in group and has not had a response. Electrical Accessories Assembler will clinical staff reach out to client to check in. BRITTANI Foreman 10/27/2019, 10:25 AM documented in this encounter Plan of Treatment Not on filedocumented as of this encounter Visit Diagnoses Not on filedocumented in this encounter Care Teams Track Repairer Helper Relationship Specialty Start Date End Date Tom Abdul MD PCP - General Family Practice [address] [place] [address] documented as of this encounter
--- OUTSIDE RECORDS SUMMARY | 2021-12-30 17:44 | XMS_ITS | Encounter Summary ---
:1970 Author Organization [facility] Address [address] [place] [address] Care Team Providers Name Role Phone Tom Abdul MD Primary Care Provider Encounter Details Date Type Department Care Team Description 10/31/2019 Telephone [facility] Partial Denae High, Hospitalization Prog lisa [facility] 640 [facility] 640 [place] [address] [place] [address] [phone] (Wo rk) Social History Tobacco Use Types Packs/Day Years Used Date Smoking Tobacco: Former Smokeless Tobacco: Never Alcohol Use Standard Drinks/Week Comments Not Currently 0 (1 standard drink = 0.6 oz pure alcoho l) Sex Assigned at Date Recorded Not on file documented as of this encounter Nursing Notes Mandie Christopher, MILLINERY WORKER, [facility] - 10/31/2019 10:23 AM CDT Outgoing Call: This repairer typewriter called client to speak to her about the participation agreement, as she was not in group today with the exception of briefly logging on/off. She called and spoke to a sports team marketing intern about this saying she was having technical difficulties and having to care for a sick grand daughter. Outside Energy Sales Representatives made the observation that the ongoing technical difficulties seem to be interfering withher ability to participate in the program. Outside Energy Sales Representatives further stated that it's time to have [...] consider the program after her shoulder surgery. Outside Energy Sales Representatives let her know how she could be re-referred in the future. Outside Energy Sales Representatives will speak to the treatment team and call her back this afternoon. She denied having any safety concerns. JEAN CARLOS Nuñez LICSW 10/31/2019, 10:35 AM Denae High LICSW - 10/31/2019 9:59 AM CDT Telephone call: Client called and LM for repairer typewriter at 9:24 AM. Client said she was having a hard time logging into the [facility] group today, that she was having technical difficulties, and had a sick grandchild she is caring for today. She requested a call back. Outside Energy Sales Representatives handed off to MEGAN Lockwood who is her process numerical analysis group manager. MEGAN Metcalf 10/31/2019, 10:00 AM documented in this encounter Plan of Treatment Not on filedocumented as of this encounter Visit Diagnoses Not on filedocumented in this encounter Care Teams Machine Cell Tuber Relationship Specialty Start Date End Date Tom Abdul MD PCP - General Family Practice [address] [place] [address] documented as of this encounter
--- OUTSIDE RECORDS SUMMARY | 2021-12-30 17:44 | XMS_ITS | Encounter Summary ---
:1970 Author Organization [facility] Address [address] [place] [address] Care Team Providers Name Role Phone Tom Abdul MD Primary Care Provider Encounter Details Date Type Department Care Team Description 02/15/2021 Orders Only Initial Department Provider, [address] YING CHAVEZ MD [place], [place] [address] Interface provider [phone] [place] [address] Social History Tobacco Use Types Packs/Day Years [...] on filedocumented in this encounter Care Teams Masonry Contractor Relationship Specialty Start Date End Date Tom Abdul MD PCP - General Family Practice [address] [facility] [place] [address] documented as of this encounter
--- OUTSIDE RECORDS SUMMARY | 2021-12-30 17:44 | XMS_ITS | Encounter Summary ---
:1970 Author Organization [facility] Address [address] [place] [address] Care Team Providers Name Role Phone Tom Abdul MD Primary Care Provider Reason for Visit Consult/Transfer Care (Routine) - New Request Specialty Diagnoses / Procedures Referred By Contact Refer red To Contact Neuropsychology Diagnoses Memory loss Romero Singh MD [facility] [address] [place] [address] [place] [address] Fax: Referral ID Status Reason Start Date Expiration Date Visits V isits Requested Authorized [id number] New Request 02/13/2021 05/15/2022 1 1 Encounter Details Date Type Department Care Team Description 09/11/2021 Office Visit [facility] Encounter for [facility] R, PhD, LP counseling (Primary Neuropsychology [address] Dx) [address] [place] [address] [phone] Social History Tobacco Use Types Packs/Day Years [...] your next visit with him. Please call [phone] if you are unable to keep that appointment or need to reschedule for any reason. 2. A copy of your test results will be sent to the doctor who ordered the evaluation as well as to your primary care physician. 3. You can always call [phone] if you have any questions about this [...] NOS documented in this encounter Care Teams Distribution Driver Relationship Specialty Start Date End Date Tom Abdul MD PCP - General Family Practice 11/02/[address] [place] [address] documented as of this encounter
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
--- OUTSIDE RECORDS SUMMARY | 2021-12-30 17:44 | XMS_ITS | Encounter Summary ---
:1970 Author Organization [facility] Address [address] [place] [address] Care Team Providers Name Role Phone Tom Goff MD Primary Care Provider Encounter Details Date Type Department Care Team Description 10/02/2021 Office Visit Romero Salinas, Memory loss ([facility] MD Dx) Neurology [address] [place] [id number] Social History Tobacco Use Types Packs/Day Years [...] socially- distanced outdoor greetings). Physically active: The [place] Heart Association recommends individuals engage in 150 [...] disorder, ?? CT head 10/17/19 WNL ?? Hugo Cognitive Assessment (MoCA) ?? Neuropsychological testing 09/11/21 [...] disc replacement on the cervical spine with [facility]. Initially she had a pinched nerve sensation down her left arm with electrical zapping sensation. This surgery in 2018 helped but she still experience numbness in the left upper extremity She saw [facility] for her left shoulder and was told that the disc does not look good and she should check in with her spine surgeon. She is planning to go back to [facility] to address her cervical spine issues [...] disoriented at times whenshe talks with her bottle caser. Her daughter who lives with her until 2 days ago also noted the short-term memory issues. She has bad hearing. 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 She actually cannot really hold a job well. 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 She has a high school diploma and some college education She often has hallucination and feels that things happened that actually did not happen. She has tablets showing psychiatry care with [facility] soon. Had a chance to review the medical records from [facility]. She was followed at [facility] for obstructive sleep apnea with associated [...] patient information, and discussing the case Keiko Kyel. I discussed memory loss, cognitive impairment, follow-up,. Romero Singh MD, PhD, FAAN Neurology & Sleep Medicine CC: Tom Goff MD documented in this encounter Plan of Treatment Not on filedocumented as of this encounter Visit Diagnoses Diagnosis Memory loss - Primary documented in this encounter Care Teams Cake Froster Relationship Specialty Start Date End Date Tom Goff MD PCP - General Family Practice 11/[address] [place] [address] documented as of this encounter
--- OUTSIDE RECORDS SUMMARY | 2021-12-30 17:44 | XMS_ITS | Encounter Summary ---
:1970 [address] [facility] Address [address] [place] [address] Care Team Providers Name Role Phone Tom Abdul MD Primary Care Provider Reason for Visit Reason Comments Hearing Aid Encounter Details Date Type Department Care Team Description 05/30/2021 Office Visit [facility], Audiology Bilateral hearing [address] loss, unspecified [place], [place] hearing loss type [address] (Primary Dx) [phone] Social History Tobacco Use Types Packs/Day Years Used Date Smoking Tobacco: Former Smokeless Tobacco: Never Alcohol Use Standard Drinks/Week Comments Not Currently 0 (1 standard drink = 0.6 oz pure alcoho l) Sex Assigned at Date Recorded Not on file documented as of this encounter Progress Notes Sandy Maldonado - 05/30/2021 1:30 PM CST See service log IANCE ASSEMBLER documented in this encounter Plan of Treatment Not on filedocumented as of this encounter Visit Diagnoses Diagnosis Bilateral hearing loss, unspecified hear ing loss type - Primary documented in this encounter Care Teams Director Hardware Relationship Specialty Start Date End Date Tom Abdul MD PCP - General Family Practice [address] [place] [address] documented as of this encounter
--- OUTSIDE RECORDS SUMMARY | 2021-12-30 17:44 | XMS_ITS | Encounter Summary ---
:1970 Author Organization [facility] Address [address] [place] [address] Care Team Providers Name Role Phone Tom Abdul MD Primary Care Provider Encounter Details Date Type Department Care Team Description 09/11/2021 Procedure Visit [facility] Neuroscience Stuart Gaytan, Center Neuropsycholo gy PhD, LP [address] [place] [address] [place], [place] [phone] (Wo rk) Social History Tobacco Use Types [...] distanced outdoor greetings). c. Physically active: The [place] Heart Association recommends individuals engage in 150 [...] as clinically indicated for information regarding cognitive exchange underwriting consultant time. REFERRING CLINICIAN: Romero Singh M.D. [address] [facility] [address] REASON FOR CONSULTATION: Neuropsychological evaluation to assess the patient's current cognitive status, rule out an organic basis for impairment, assist with diagnostic clarification, and offer treatment recommendations. CLINICAL HISTORY: Ms. Keiko Kyle is a 51 year-old, right-handed Algerian female with 12 years of formal education [...] disc replacement of her cervical spine with [facility] in 2018. She had muscle spasms and was taking medical cannabis/ CBD and a muscle relaxant.She had obstructive sleep apnea with associated hypersomnia but was not able to tolerate CPAP. She felt her short-term memory has been declining as she was having a hard time tracking events and was needing to write things down. She had started a new job in [employer] but was worried about learning the [...] also enjoys spending time reading and doing [employer]. The patient denies any difficulty with driving or managing her finances or medications. DIAGNOSTIC STUDIES: EXAM: MR BRAIN W/WO IV CONT LOCATION: [facility] DATE/TIME: 03/07/2021 12:10 PM ?? INDICATION: Memory [...] Ms. Kyle was born and raised in [place], [place], the middle of 3 children. Although [...] is followed for psychiatric medication management at [facility]. She also has a therapist whom she sees via video weekly at [facility]. She was psychiatrically hospitalized at [facility] in October 2019 for 5 days secondary [...] following neuropsychological measures were administered: Animal Naming [place] Naming Test Brief Visuospatial Memory Test - [...] 55 minutes. Test administration and scoring by alternative energy technician: 175 minutes. Test evaluation services,including clinical integration, data interpretation, clinical decision making, treatment planning, documentation, and, if appropriate, interactive feedback: 160 minutes. Please note: This report was created using speech-recognition software and may contain unintended word-substitutions. The laws and professional standards that apply to in-person behavioral services also apply to telehealth services. This visit was conducted via video. Em Gaytan, PhD, [facility] Neuropsychology [address] [facility] [place] [address] Dept: [phone] Dept Loc: [phone] Loc DETAILED TEST RESULTS: Single word reading [...] and overall well-being. a. Cognitively active: Playing [employer] es, putting together jigsaw puzzles, reading, doing artwork, watching educational TV, and getting involved in music are activi ties that can stimulate your mind. Choose activities that are en joyable to you! b. Socially active: Continue socializing with family and friends in safe ways during the coronavirus pand emic (e.g., telephone calls, video chats, socially-distanced o utdoor greetings). c. Physically active: The [place] Heart Association recommends individuals engage in 150 [...] clinically indicated for information reg arding cognitive exchange underwriting consultant time. ____ REFERRING CLINICIAN: Romero Singh M.D. [address] [facility] [address] REASON FOR CONSULTATION: Neuropsychological evaluation to assess the patient's current cognitive status, rule out an organic ba sis for impairment, assist with diagnostic clarification, an d offer treatment recommendations. CLINICAL HISTORY: Ms. Keiko Kyle is a 51 year-old, rig ht-handed Algerian female with 12 years of formal education [...] disc replacement of her cervical spine with [facility] in 2018. She had muscle spasms [...] She had started a new job in [employer] but was worried about learning the new system. She had d ifficulty maintaining any job for a long period of time. CT scan o n 10/17/19 was within normal limits. On the [place] cognitive Assessment, she obtained a score of [...] enjoys spendin g time reading and doing [employer]u. The patient denies any difficulty with d riving or managing her finances or medications. DIAGNOSTIC STUDIES: EXAM: MR BRAIN W/WO IV CONT LOCATION: [facility] DATE/TIME: 03/07/2021 12:10 PM ?? INDICATION: Memory [...] Ms. Kyle was born and raised in [place], [place], the middle of 3 children. 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 She has been twice. She is from her current partner. She has 2 children. As mentioned above, she has te mporary custody of her granddaughter. PSYCHIATRIC HISTORY: The patient recalls that she 1st started seeing a therapist in high school. According to the medical re cord, she is followed for psychiatric medication management at [facility]. She also has a therapist whom she sees via [employer] weekly at [facility]. She was psychiatrically h ospitalized at [facility] in October 2019 for 5 days secondary [...] The patient was on time for the [facility] ent. Informed consent was obtained. She ambulated [...] neuropsychological measures were adminis tered: Animal Naming [place] Naming Test Brief Visuospatial Memory Test - [...] you, Dr. Romero Singh, for involvi jamar sd in the care of this patient. Neurobehavioral status exam: 55 minutes. Test administration and scoring by alternative energy technician : 175 minutes. Test evaluation services, including clinical integration, data interpretation, clinical decision making , treatment planning, documentation, and, if appropriate, inte ractive feedback: 160 minutes. Please note: This report was created [facility] [employer] speech-recognition software and may contain unintended word -substitutions. The laws and professional standards that apply to in-person behavioral services also apply to telehealth servic es. This visit was conducted via video. Em Gaytan, PhD, [facility] Neuro psychology [address] [place] [address] Dept: [phone] Dept Loc: [phone] Loc DETAILED TEST RESULTS: ?? Single word [...] loss documented in this encounter Care Teams Java Software Engineer Relationship Specialty Start Date End Date Tom Abdul MD PCP - General Family Practice [address] [place] [address] documented as of this encounter
--- OUTSIDE RECORDS SUMMARY | 2021-12-30 17:44 | XMS_ITS | Encounter Summary ---
:1970 Author Organization [facility] Address [address] [place] [address] Care Team Providers Name Role Phone Tom Abdul MD Primary Care Provider Encounter Details Date Type Department Care Team Description 02/15/2021 Orders Only Initial Department Provider, [place] [address] GERDA CHAVEZ MD [place], [place] [address] Interface provider [phone] [place] [address] Social History Tobacco Use Types Packs/Day Years [...] on filedocumented in this encounter Care Teams Orthotic Assistant Relationship Specialty Start Date End Date Tom Abdul MD PCP - General Family Practice [address] [place] [address] documented as of this encounter
--- OUTSIDE RECORDS SUMMARY | 2021-12-30 17:44 | XMS_ITS | Clinical Summary ---
:1970 [facility] Address [address] [place] [address] Care Team Providers Name Role Phone Tom [...] for each transition of care or referral. [employer] Allergies Active Allergy Reactions Severity Noted Date [...] hours. medical cannabis patient 0 Active certified BREZTRAccellos 160-9-4.8 Take 2 Puffs by mouth every [...] ss Type Group BCBS BCBS PMAP BLUE [id number] 2019-Present [address] [address] [place] [id number] [address] [place] [address] Keiko Kyle Personal/Famil Self 1970 [address] [place] [address] Advance Directives Latest Code Status on File Code Status Date Activated Date Inactivated Comments Full Code 10/14/2019 4:31 PM 10/18/2019 4:55 PM Care Teams Insurance Account Executive Relationship Specialty Start Date End Date Tom Abdul MD PCP - General Family Practice 11/[address] [place] [address]
--- OUTSIDE RECORDS SUMMARY | 2021-12-30 17:44 | XMS_ITS | Encounter Summary ---
:1970 Author Organization [facility] Address [address] [place] [address] Care Team Providers Name Role Phone Tom Abdul MD Primary Care Provider Reason for Visit Reason Comments HEARING LOSS Encounter Details Date Type Department Care Team Description 10/30/2020 Office Visit [facility] [place] Hearing loss, [address] [employer] [facility] REJI Mcguire unspecified hearing [place], [place] [address] [facility] loss type, unspecified [id number] Av laterality (Primary [phone] [place], [place] [address] Dx) Social History Tobacco [...] bring hearing evaluation that [facility] with her today. She thought it was in her purse, but was unable to find it during the appointment. This was completed at [facility] where she also saw ENT. 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 Release of Information request was completed during the appointment and faxed to [facility] in [place]. Requested ENT and audiology records including audiogram, visit notes, and medical clearance for hearing aids. She will reschedule hearing aid evaluation after records are received from [facility]. documented in this encounter Plan of Treatment Not on filedocumented as of this encounter Visit Diagnoses Diagnosis Hearing loss, unspecified hearing loss t ype, unspecified laterality - Primary documented in this encounter Care Teams Design Supervisor Relationship Specialty Start Date End Date Tom Abdul MD PCP - General Family Practice [address] [place] [address] documented as of this encounter
--- OUTSIDE RECORDS SUMMARY | 2021-12-30 17:44 | XMS_ITS | Encounter Summary ---
:1970 Author Organization [facility] Address [address] [place] [address] Care Team Providers Name Role Phone Tom Abdul MD Primary Care Provider Reason for Visit Reason Comments Refill Encounter Details Date Type Department Care Team Description [facility] Ref[facility] Behavior[facility] Health [id number] [place] [address] Social History Tobacco Use Types Packs/Day Years [...] on filedocumented in this encounter Care Teams Peanut Sheller Relationship Specialty Start Date End Date Tom Abdul MD PCP - General Family Practice [address] [place] [address] documented as of this encounter
--- OUTSIDE RECORDS SUMMARY | 2021-12-30 17:44 | XMS_ITS | Clinical Summary ---
:1970 Author Organization [employer] [facility] [place] [address] Care Team Providers Name Role Phone Kayy Mathis Skylar [facility] Unavailable Unavailable Ej Jaeger MD Unavailable Unavailable Donna Acosta MD Unavailable Cain Zeke Haley DO Unavailable Tom Abdul MD Primary Care Provider [phone] Allergies Active Allergy Reactions Severity Noted Date Comments Amoxicillin-Pot Diarrhea, Vomiting 07/25/2017 Clavulanate Cefdinir Vomiting 08/07/2017 During sinusiti s illness Pollen Extracts Runny Nose 04/25/2016 Itchy watery burning eyes, itchy ear s Prazosin Other - Describe In 06/16/2013 Patient felt weak, Comment Field had bizarre dr pruitt Medications Medication Sig Dispensed Refills Start Date End Date Status hydrOXYzine pamoate TAKE 3 CAPSULES BY 180 capsule 3 8 Active (VISTARIL) 25 mg MOUTH DAILY capsuleIndications: NEEDED FOR ANXIETY PTSD (post-traumatic stress disorder) lisinopril (PRINIVIL; Take 1 tablet by 90 tablet 3 09/09/2017 Active ZESTRIL) 10 mg mouth once daily. tabletIndications: HTN (hypertension) omeprazole (PRILOSEC) Take 1 capsule by 90 capsule 3 8 Active 40 mg Delayed-Release mouth once daily. capsuleIndications: Gastroesophageal reflux disease with esophagitis ondansetron (ZOFRAN Place 1 tablet on 30 tablet 1 09/09/2017 Active ODT) 4 mg the tongue every 8 disintegrating hours if needed tabletIndications: for Bruised ribs, right, Nausea/Vomiting. initial encounter fluticasone (50 mcg Inhale 2 Sprays 48 g 3 09/09/2017 Active per actuation) nasal into both nostrils solution once daily. (FLONASE)Indications: Environmental allergies cetirizine (ZYRTEC) Take 1 tablet by 30 tablet 3 09/29/2017 Active 10 mg mouth once daily. tabletIndications: Environmental allergies montelukast Take 1 tablet by 30 tablet 2 09/29/2017 Active (SINGULAIR) 10 mg mouth at bedtime. tabletIndications: Environmental allergies cyclobenzaprine Take 1 tablet by 90 tablet 4 11/17/2017 Active (FLEXERIL) 10 mg mouth 3 times tabletIndications: daily if needed Muscle tension for Muscle Spasm. headache, Strain of May cause neck muscle, drowsiness. subsequent encounter gabapentin Gradually increase 270 capsule 1 01/05/2018 Active (NEURONTIN) 300 mg up to 300mg in capsuleIndications: morning, and Cervical Continue 600 mg at radiculopathy, Left night. hand weakness diazePAM (VALIUM) 5 Take 1 tablet by 15 tablet 0 02/19/2018 Active mg tabletIndications: mouth every 6 Cervical hours if needed radiculopathy, for Muscle Spasm. Cervical spinal Use at bedtime and stenosis avoid taking within 3 hours of flexeril. sennosides-docusate, Take 1-4 tablets 50 tablet 0 02/19/2018 Active 8.6-50 mg, (SENOKOT by mouth 2 times S) 8.6-50 mg daily. tabletIndications: Cervical radiculopathy, Cervical spinal stenosis HYDROcodone-acetamino Take 1-2 tablets 50 tablet 0 02/19/2018 Active phen, 5-325 mg, by mouth every 4 (NORCO) per hours if needed tabletIndications: for pain. Max Cervical acetaminophen radiculopathy, dose: 4000 mg in Cervical spinal 24 hrs. stenosis WalkerIndications: Walker with front 1 Device 0 02/19/2018 Active Cervical wheels for home radiculopathy, use. 99 weeks Cervical spinal stenosis Active Problems Problem Noted Date Cervical spinal stenosis 02/18/2018 Cervical radiculopathy 11/26/2017 Overview: ~ November 2017: C7-T1 [place] Left sided epidura l steroid injection at [facility]. HTN (hypertension) 09/18/2016 Reactive inflammatory arthritis 03/13/2016 Overview: Dr. Gibson Anxiety 01/30/2016 Restrictive airway disease 08/23/2014 Overview: PFTs 08/2014 Hyperlipidemia LDL goal < 100 08/16/2014 H/O gestational diabetes mellitus, not currently pregn ant 08/02/2014 Overview: 1997 Environmental allergies 02/16/2014 Encounter for long-term (current) use of medications 0 11/28/2013 Personality Disorder, NOS; borderline, dependent, avoi dant features 10/18/2013 Ruling out Narcolepsy and cataplexy 05/31/2013 Major depression, recurrent 05/31/2013 Rule out due to general medical condition (Katarina's synd billy age 11, brain 05/31/2013 swelling, reports change in cognitive and personality) BRYAN 1216/2012 AHI-5 04/23/2013 Peripheral neuropathy 03/10/2013 PTSD (post-traumatic stress disorder) Restless legs syndrome (RLS) Resolved Problems Problem Noted Date Resolved Date Major depressive disorder, recurrent episode, severe, 201306/08/2014 without mention of psychotic behavior Major depressive disorder, recurrent episode, moderate 09/0809/23/2013 Anxiety disorder; ALEX, Panic, PTSD symptoms 05/31/2013 10/18/2013 BRYAN (obstructive sleep apnea) 03/10/2013 04/23/2013 Panic disorder with agoraphobia 06/08/19 15 Immunizations Name Administration Dates Next Due Tdap 09/01/2013 Family History Medical History Relation Name Comments Psychiatric illness Brother 1 ocd, ptsd Unknown Brother 1 Unknown Brother 2 Psychiatric illness Daughter 1 aspergers, B PAD and ODD Psychiatric illness Daughter 2 mild anxiety Alcohol/Drug Father Psychiatric illness Father Unknown Father Unknown Maternal Grandfather Unknown Maternal Grandmother Alcohol/Drug Mother Hypertension Mother Psychiatric illness Mother not controll ed, arson, stabbing, etc. Unknown Mother Psychiatric illness Other cousin mult adm to [place] Psychiatric illness Paternal Aunt ECT's and mu lt admission Unknown Paternal Grandfather Unknown Paternal Grandmother Cancer-breast No Family History Relation Name Status Comments Brother 1 Alive Brother 2 Alive Daughter 1 Alive Daughter 2 Alive Father Alive Maternal Grandfather Maternal Grandmother Mother Alive Other cousin Alive Paternal Aunt Alive Paternal Grandfather Paternal Grandmother Social History Tobacco Use Types Packs/Day Years Used Date Former Smoker Cigarettes 1 20 Quit: 2016 Smokeless Tobacco: Never Used Tobacco Cessation: Counseling Given: Yes Comments: passive smoke exposure Alcohol Use Standard Drinks/Week Comments No 0 (1 standard drink = 0.6 oz pure extrem home rare, less than annually alcohol) Alcohol Habits Answer Date Recorded How often do you have a drink Not asked containing alcohol? How many drinks containing alcohol Not asked do you have on a typical day when you are drinking? How often do you have six or more Not asked drinks on one occasion? Comment: extremely rare, less than annually 04/25 Sex Assigned at Date Recorded Not on file Obstetrics History Para Term AB IAB SAB Ectopic Multiple Living Live Births 3 2 2 1 1 2 Date Outcome GA Total Labor/2nd/3rd Weight Sex Delivery Anes PTL Megan A 1 A5 Name Clin Labor Term F Term F SAB Last Filed Vital Signs Vital Sign Reading Time Taken Comments Blood Pressure 117/84 02/24/2018 10:45 AM CDT Pulse 85 02/24/2018 10:45 AM CDT Temperature 36 ??C (96.8 ??F) 02/19/2018 8:56 AM CDT Respiratory Rate 18 02/19/2018 8:56 AM CDT Oxygen Saturation 96% 02/24/2018 10:45 AM CDT Inhaled Oxygen Concentration - - Weight 108.2 kg (238 lb 8 oz) 02/24/2018 10:45 AM CDT Height 162.6 cm (5' 4) 02/18/2018 7:36 AM CDT Body Mass Index 40.94 02/18/2018 7:36 AM CDT Plan of Treatment Health Maintenance Due Date Last Done Comments Hepatitis C screening for age 0206/20/1987 18-79 Mammogram for age 45-75 03/13/2017 03/13/2016, 12/14/2013, 12/12/2013 Depression screening for age 12+ 09/09/2018 09/09/2017, , 06/06/2016, Additional history exists BMI (ht and wt on same day) for 02/04/2019 02/04/2018, 01/2018, age 18+ 11/05/2017, Additional history exists Zoster (shingles) series for age 0206/20/2019 50+ (1 of 2) COVID-19 vaccine series (3 - 01/21/2021 08/21/2020, 021 Booster for Moderna series) Lipids for age 45-75 03/13/2021 03/13/2016, 08/11/2014, 08/11/2014 Influenza for age 50-64 01/02/2022 Tetanus booster 09/02/2023 09/01/2013 Colonoscopy through age 75 01/20/2026 01/21/2016, 6 Tdap Completed 09/01/2013 Medical Devices Implanted Type [facility] Chief Executive Officer Device Shelf Model / Identifier Expiration Serial / Date Lot Disc Cerv [id number] Mobi-C - [id number] N/A: Cervical Zim joni [employer] 06/04/2021 [id number] / Implanted: Qty: 1 on 02/18/2018 by Bunny Monsivais MD at [facility] [employer] / [id number] Results Not on filefrom Last 3 Months Insurance Payer Benefit Plan / Subscriber ID Effective Dates Phone Addre ss Type Group [employer] [place] BL[employer]AGE [id number] 2019-Presen [address] [address] [place] [address] MEDICAID [place] MEDICAID [id number] 2012-Present [address] [address] [place] [address] Keiko Kyle Personal/Famil Self 1970 [address] (Home) [address] [place] [address] Keiko Kyle Workers Comp Self 1970 [address]Home[address] [place] [address] JAIME DS FIRST Occ Employer 05/04/2000 ATTN A /P ADVANTAGE Health/Jaquan (Home) [address] [place] [address] Advance Directives Latest Code Status on File Code Status Date Activated Date Inactivated Comments Full Code 02/18/2018 12:51 PM 02/19/2018 4:49 PM Full Code 05/01/2016 8:39 AM 05/01/2016 1:13 PM Code Status Discussion: Discussed Full Code 05/01/2016 5:45 AM 05/01/2016 8:39 AM Care Teams Furnace Brazer Relationship Specialty Start Date End Date Tom Abdul MD PCP - General Family Practice 07/16/201999 [place] [address] Kayy Mathis CNS Clinical Nurse Specialist 08/02 09/15 Ej Jaeger MD Neurology 08/16/14 Donna Acosta MD Rheumatology Rheumatology 02/12/16 [address] [facility] [address] [place] [address] Zeke Barlow, DO Surgery of the Hand 03/13/162089 [place] [address]
--- OUTSIDE RECORDS SUMMARY | 2021-12-30 17:44 | XMS_ITS | Encounter Summary ---
:1970 Author Organization [employer] Address [address] [place] [address] Care Team Providers Name Role Phone Unavailable Primary Care Provider Unavailable Encounter Details Date Type Department Care Team Description 10/31/2019 Pt Care Coordination [facility] Partial Christopher, Hospitalization Prog lisa JEAN CARLOS Yeboah, [address] [facility] [place] [address] [address] [facility] [phone] [place], [place] [id number] Social History Tobacco Use Types Packs/Day Years Used Date Smoking Tobacco: Former Smokeless Tobacco: Never Alcohol Use Standard Drinks/Week Comments Not Currently 0 (1 standard drink = 0.6 oz pure alcoho l) Sex Assigned at Date Recorded Not on file documented as of this encounter Progress Notes Mandie Christopher MSW, [facility] - 10/31/2019 1:31 PM CDT [facility] Discharge Planning Note Data: Quarter Seamer spoke to client about her absence in Process Group this morning. Quarter Seamer reflected that her ongoing technical difficulties are interfering with her ability to be present in group. Discussedwhether she is invested in the group at this time. She concluded that the timing is off. She also needs to get shoulder surgery, as she struggles with chronic pain. Given all these factors, she decidedto discharge. She would like to attend [facility] after her shoulder surgery. Quarter Seamer let her know that she would have to ask her therapist or psychiatrist for a referral to be reconsidered. Assessment: Quarter Seamer assessed for safety concerns. She denied any thoughts of harming herself/SI or harming others. Barriers include: Ongoing shoulder pain, technical difficulties. Actions Completed: Client saw the psychiatrist for a medication check. Actions to be taken: Client to take care of her physical health issues and follow up with providers in the community. Plan: Client to discharge today and [facility]. Anticipated discharge date: Client discharged this date by her own choice. JEAN CARLOS Nuñez, MEGAN 10/31/2019, 2:18 PM documented in this encounter Plan of Treatment Not on filedocumented as of this encounter Visit Diagnoses Not on filedocumented in this encounter
--- OUTSIDE RECORDS SUMMARY | 2021-12-30 17:44 | XMS_ITS | Encounter Summary ---
:1970 Author Organization [facility] Address [address] [place] [address] Care Team Providers Name Role Phone Tmo Abdul MD Primary Care Provider Encounter Details Date Type Department Care Team Description 02/15/2021 Orders Only Initial Department Provider, [address] YING CHAVEZ MD [place], [place] [address] Interface provider [phone] [place] [address] Social History Tobacco Use Types Packs/Day Years [...] on filedocumented in this encounter Care Teams Family Service Aide Relationship Specialty Start Date End Date Tom Abdul MD PCP - General Family Practice 11/[address] [place] [address] documented as of this encounter
--- OUTSIDE RECORDS SUMMARY | 2021-12-30 17:44 | XMS_ITS | Encounter Summary ---
:1970 Author [facility] Address [address] [place] [address] Care Team Providers Name Role Phone Tom Abdul MD Primary Care Provider Reason for Visit Reason Comments COVID Screening Encounter Details Date Type Department Care Team Description 11/02/2019 Telephone [facility] Unassigned, Provider COVID Screening Practice [address] [place] [id number] [place] [address] Social History Tobacco Use Types Packs/Day Years Used Date Smoking Tobacco: Former Smokeless Tobacco: Never Alcohol Use Standard Drinks/Week Comments Not Currently 0 (1 standard drink = 0.6 oz pure alcoho l) Sex Assigned at Date Recorded Not on file documented as of this encounter Nursing Notes Dahiana Hermosillo - 11/02/2019 9:28 AM CDT Initial Screening: Patient information Best number to contact patient: [phone] Reason for Call: COVID Screening/Testing Request In [...] on filedocumented in this encounter Care Teams Laundry Helper Relationship Specialty Start Date End Date Tom Abdul MD PCP - General Family Practice 11/02/[address] [address] documented as of this encounter
--- OUTSIDE RECORDS SUMMARY | 2021-12-30 17:44 | XMS_ITS | Encounter Summary ---
:1970 Author Organization [employer] Address [address] [place] [address] Care Team Providers Name Role Phone Unavailable Primary Care Provider Unavailable Reason for Visit Auth/Cert Specialty Diagnoses / Procedures Referred By Contact Refer red To Contact Referral ID Status Reason Start Date Expiration Date Visits Requ ested Visits Authorized [id number] 1 1 Encounter Details Date Type Department Care Team Description 10/28/2019 Telemedicine [facility] Partial Clovis Arias Brief re active psychosis (HRC) (Primary Dx); Hospitalization Lurdes Carvajal MD PTSD (post-traumatic stress disorder); [address] [facility]. [address] [facility] Bipolar 1 disorder (HRC); [place] [address] [place], [place] Borderline personality disor mikey (HRC) [phone] [address] Social History Tobacco Use Types Packs/Day Years Used Date Smoking Tobacco: Former Smokeless Tobacco: Never Alcohol Use Standard Drinks/Week Comments Not Currently 0 (1 standard drink = 0.6 oz pure alcoho l) Sex Assigned at Date Recorded Not on file documented as of this encounter Progress Notes Mandie Christopher, JEAN CARLOS, [facility] - 10/28/2019 9:00 AM CDT [facility] Partial Hospitalization Program Process Group Progress Note Date: 10/28/2019 Start Time: 9:00 am End Time: 10:00 am Length: 60 minutes Video Visit This visit was conducted via video due to COVID-19 precautions Location of clinician: [facility] Location of patient: Home Modality [facility] [...] change your telehealth appointments, you must notify [employer] in advance by calling the [employer] main number at . Please do not use any other numbers, such as MyDoc phone numbers, as they will not be monitored by [employer]. In the event of technical problems or safety concerns, please notify [employer] by phone to confirm your current location and the best number to reach you. You must have a safety plan and emergency contacts on file for [facility], so that we can reach you [...] change your telehealth appointments, you must notify [employer] in advance by calling the [employer] main number at . Please do not use any other numbers, such as MyDoc phone numbers, as they will not be monitored by [employer]. In the event of technical problems or safety concerns, please notify [employer] by phone to confirm your current location and the best number to reach you. You must have a safety plan and emergency contacts on file for [employer], so that we can reach you if [...] patient: home Date: 10/28/2019 [facility] Time Session Started: 1:00 pm Time session [...] Way 10/28/2019, 4:26 PM Mandie Christopher MSW, [facility] - 10/28/2019 9:00 AM CDT [facility] Partial Hospital[facility] Program Psychoeducational/psychosocial Progress Note Date: 10/28/2019 Start Time: 11:30 AM End Time: 12:30 PM Length: 60 minutes Telehealth Visit This service was provided via telehealth and conducted using a synchronous audio-video link. ??? Clinician location: [facility] ??? Patient location: Home ??? Total [...] change your telehealth appointments, you must notify [employer] in advance by calling the [employer] main number at . Please do not use any other numbers, such as MyDoc phone numbers, as they will not be monitored by [employer]. In the event of technical problems or safety concerns, please notify [employer] by phone to confirm your current location and the best number to reach you. You must have a safety plan and emergency contacts on file for [employer], so that we can reach you if you get disconnected. Please also be mindful that, as your provider, I may determine that telehealth is no longer appropriate for you and that we should resume our sessions in person. Lastly, please be aware that data charges may apply if you are not connected to [facility]. Modality [facility] Service [facility]: Psychoeducational/psychosocial Topics: Gratitude [...]
--- OUTSIDE RECORDS SUMMARY | 2021-12-30 17:44 | XMS_ITS | Encounter Summary ---
:1970 Author Organization [facility] Address [address] [place] [address] Care Team Providers Name Role Phone Tom Abdul MD Primary Care Provider Reason for Visit Reason Comments Hearing Aid HEARING LOSS Encounter Details Date Type Department Care Team Description 11/28/2020 Office Visit [facility] Francysensenait, Bilateral sensorineural hear ing loss (Primary Dx); [address] REJI Sanabria Tinnitus, bilateral [place], [place] [address] [facility] [address] [facility] [phone] [place] [address] Social History Tobacco Use Types [...] Name: Keiko Kyle : 1970 Date: 11/28/2020 Temporary Help Agency Referral Clerk: REJI Damon Medical Clearance for Hearing Aid Usage: provided by Dr. Maximilian Leos MD ([facility]) Patient was accompanied by: self Hearing Aids Right: Phonak Audeo M70-R Style: [facility] Serial #[id number] Left: Phonak Audeo M70-R Style: [facility] Serial #[id number] Accessories: hot metal charger Trial Period: 02/26/2021 Battery Size: li-ion rechargeable Repair Warranty: 3 year Loss & Damage Warranty: 3 year Treatment plan: Unbundled, pay/bill as you go [facility] Fit: Tubing Supervisor Right: 1m Left: 1m Earmold: Cement Crusher Operator Right: Phonak Left: Phonak Material Right: acrylic [...] to android phone for streaming and jordy Temporary Help Agency Referral Clerk counseled the patient/caregiver and demonstrated at the [...] tinnitus documented in this encounter Care Teams Psychologist Experimental Relationship Specialty Start Date End Date Tom Abdul MD PCP - General Family Practice 11/02/[address] [place] [address] documented as of this encounter
--- OUTSIDE RECORDS SUMMARY | 2021-12-30 17:44 | XMS_ITS | Encounter Summary ---
:1970 Author Organization [facility] Address [address] [place] [address] Care Team Providers Name Role Phone Tom Abdul MD Primary Care Provider Encounter Details Date Type Department Care Team Description 11/14/2020 Notes/Orders [facility], Audiology [address] [place] [address] Social History Tobacco Use [...] on filedocumented in this encounter Care Teams Fiberglass Technician Relationship Specialty Start Date End Date Tom Abdul MD PCP - General Family Practice 11/[address] [place] [address] documented as of this encounter
--- OUTSIDE RECORDS SUMMARY | 2021-12-30 17:44 | XMS_ITS | Encounter Summary ---
:1970 Author Organization [facility] Address [address] [place] [address] Care Team Providers Name Role Phone Tom Abdul MD Primary Care Provider Encounter Details Date Type Department Care Team Description 03/05/2021 Telephone [facility] Romero Mallory MD [facility] [address] [place] [address] [place] [address] [phone] Social History Tobacco Use Types Packs/Day Years [...] on filedocumented in this encounter Care Teams Cleaner Furniture Relationship Specialty Start Date End Date Tom Abdul MD PCP - General Family Practice 11/02/[address] [place] [address] documented as of this encounter
--- OUTSIDE RECORDS SUMMARY | 2021-12-30 17:44 | XMS_ITS | Encounter Summary ---
:1970 Author Organization [employer] Address [address] [place] [address] Care Team Providers Name Role Phone Tom Abdul MD Primary Care Provider Reason for Visit Reason Comments HEARING PROBLEM Encounter Details Date Type Department Care Team Description 10/31/2020 Office Visit [facility] Gerphillsenyi, Bilateral sensorineural hear ing loss (Primary Dx); [address] REJI Sanabria Tinnitus, bilateral [place], [place] [address] [facility] [address] [facility] [phone] [place] [address] Social History Tobacco Use Types [...] Name: Keiko Kyle : 1970 Date: 10/31/2020 Road Service Locksmith: REJI Damon Hearing loss: SNHL Accompanied by: self SUBJECTIVE: Keiko Kyle, 50 y.o., was seen for a hearing aid evaluation. She has not been [facility]. She brings in copy of audiogram completed at [facility] on 10/10/2020, which reveals moderate sensorineural hearing loss, in the right ear, and mild to moderately-severe sensorineural hearing loss, in the left ear. She also bring medical clearance from Dr. Cohen at [facility]. She is not a previous hearing aid user. Keiko Kyle reports that she is in need of the use of binaural amplification to aid in many of her communication situations. Keiko Kyle especially notices communication difficulty during conversation with her daughter, in background noise, on the phone, and watching TV. She has an Android cellphone (Aviate A51). She notes that she tried an [...] hearing aids. Medical clearance/Waiver: Maximilian Cohen MD ([facility]) ASSESSMENT: The evaluation today reveals that [...] on Phonak hearing aids and the [facility] brochure regarding consumer rights and information when purchasing a hearing instrument. documented in this encounter Plan of Treatment Not on filedocumented as of this encounter Visit Diagnoses Diagnosis Bilateral sensorineural hearing loss - P rimary Sensorineural hearing loss, bilateral Tinnitus, bilateral Unspecified tinnitus documented in this encounter Care Teams Green Pipefitter Relationship Specialty Start Date End Date Tom Abdul MD PCP - General Family Practice 11/02/[address] [place] [address] documented as of this encounter
--- OUTSIDE RECORDS SUMMARY | 2021-12-30 17:45 | XMS_ITS | Encounter Summary ---
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 1:46 PM INDICATION: Altered [...] Nicki Bates MD LAB_1 Performing Organization Address City/[facility]/ZIP Code Phon e Number [facility] [address] [address] Treponema Screen (10/15/2019 7:35 AM CDT) [facility] Method Time Signature Treponema Screen 0.028 {s_co_ratio 10/15/2019 [facility] Result } 8:31 PM CDT LABORATORY Treponema Screen Non Non 10/15/2019 [facility] Interpretation Reactive Reactive 8:31 PM CDT LABORATORY Specimen Anatomical Collection Method / Collection Time Recei alba Time (Source) Location / Volume Laterality Blood Venipuncture / 10/15/2019 7:35 10/15/2019 7:45 Unknown AM CDT AM CDT Nicki Bates MD LAB_1 Performing Organization Address City/State/ZIP Code Phon e Number [facility] [address] [place] [address] HIV 1/2 Ag/Ab 4th Generation (10/15/2019 7:35 AM CDT) [facility] gist Method Time Signature HIV 1/2 Negative [...] Nicki Bates MD LAB_1 Performing Organization Address City/[facility]/ZIP Code Phon e Number [address] [address] Ammonia (10/15/2019 7:35 AM CDT) athologist Signature Ammonia, Blood 25 18 - 72 10/15/2019 [facility] umol/L 8:12 AM CDT HOSPITAL Specimen Anatomical Collection Method / Collection Time Recei alba Time (Source) Location / Volume Laterality Blood Venipuncture / 10/15/2019 7:35 10/15/2019 7:44 Unknown AM CDT AM CDT Nicki Bates MD LAB_1 Performing Organization Address City/[facility]/ZIP Code Phon e Number [address] [address] Vitamin B12 Only (10/14/2019 6:39 PM CDT) athologist Signature Vitamin B12 [phone] 10/17/2019 [facility] pg/mL 12:13 PM CDT CENTRAL LAB Specimen Anatomical Collection Method / Collection Time Recei alba Time (Source) Location / Volume Laterality Blood Venipuncture / 10/14/2019 6:39 10/14/2019 6:43 Unknown PM CDT PM CDT Nicki Bates MD LAB_1 Performing Organization Address City[facility]/ZIP Code Phon e Number [facility] [address] [address] (ABNORMAL) Complete Blood Count-W/Diff (10/14/2019 6:39 PM [...] Nicki Bates MD LAB_1 Performing Organization Address [facility]/ZIP [facility] e Number [address] [address] TSH with Free T4 (if TSH Abnormal) (10/14/2019 6:39 PM CDT) athologist Signature TSH, Reflex 1.52 0.30 - 4.50 10/14/2019 [facility] uIU/mL 7:43 PM CDT HOSPITAL Specimen Anatomical Collection Method / Collection Time Recei alba Time (Source) Location / Volume Laterality Blood Venipuncture / 10/14/2019 6:39 10/14/2019 6:43 Unknown PM CDT PM CDT [facility] - 10/14/2019 7:43 PM CD T Lab will automatically reflex to Free T4 when TSH results are <0.30 uIU/mL or >4.50 mIU/mL. Nicki Bates MD LAB_1 Performing Organization Address [facility] e [address] [address] 2019 Novel Coronavirus ??? Rapid (COVID-19) (10/14/2019 9:25 AM CDT) [facility] Method Time Signature COVID-19 Not Not 10/14/2019 [facility] Interpretation Detected Detected 10:26 AM HOSPITAL CDT Specimen Anatomical Collection Method Collection Time Receive d Time (Source) Location / / Volume Laterality Swab (Source Non-blood 10/14/2019 9:25 AM 0 9:27 Required) Collection / CDT AM CDT [facility] - 10/14/2019 10:26 AM C DT Test performed by real-time PCR. This test has been authorized by the FDA under an Emergency Use Authorization (EUA) for use by authorized laboratories. Julito Ward PA-C LAB_1 Performing Organization Address [facility]/ZIP Code Phon e Number [address] [address] Hemoglobin, Blood (10/14/2019 8:15 AM CDT) athologist Signature Hemoglobin 14.2 12.0 - 15.5 10/14/2019 [facility] g/dL 8:27 AM CDT HOSPITAL Specimen Anatomical Collection Method / Collection Time Recei alba Time (Source) Location / Volume Laterality Blood Venipuncture / 10/14/2019 8:15 10/14/2019 8:21 Unknown AM CDT AM CDT Julito Ward PA-C LAB_1 Performing Organization Address [facility] e Number [address] [address] Liver Panel (Hepatic Function Panel) (10/14/2019 8:15 [...] Julito Ward PA-C LAB_1 Performing Organization Address City/[facility] Phon e Number [address] [address] (ABNORMAL) Basic Metabolic Panel (10/14/2019 8:15 AM [...] 10.4 10/14/2019 [facility] mg/dL 8:54 AM T [facility] BUN 8 7 - 26 10/14/2019 [facility] mg/dL 8:54 AM T [facility] Creatinine 0.84 0.55 - 10/14/2019 [facility] 1.02 mg/dL 8:54 AM T HOSPITAL GFR, Estimated >60 >60 10/14/2019 [facility] mL/min/1.7 8:[address] [facility] 3m2 GFR, Est If >60 >60 10/14/2019 [facility] mL/min/1.7 8:[address] [facility] 3m2 Glucose 103 (H) 70 - 100 10/14/2019 [facility] mg/dL 8:[address] [facility] Comment: The given reference range is fo r the fasting state. Non-fasting reference range for glucose is 70 - 180 mg/dL. Specimen Anatomical Collection Method / Collection Time Recei alba Time (Source) Location / Volume Laterality Blood Venipuncture / 10/14/2019 8:15 10/14/2019 8:21 Unknown AM CDT AM T Julito Ward PA-C LAB_1 Performing Organization Address City/State/Z[place] [address] documented in this encounter Visit Diagnoses Diagnosis [...] Plan of Care - Christoscase Norah Huizar, AGRICULTURAL SERVICE WORKER - 10/18/2019 8:57 AM CDT [facility] Social Work Discharge Note Admission Date/Time: 10/13/2019 11:53 PM Attending Practitioner: Arnaldo Albrecht MD Disposition:Disposition from : Home Anticipated Discharge Date/Time: 10/21/19 1400 Transportation Arrangements: Taxi Discharge Collateral Contact: Family/Friend Contact Release of Information?: No Family/Friend Contact Name: Annel Kyle (pt's partner) Family/Friend Contact Community Providers/Outpatient Psychiatrist Outside Healthcare Provider Name: Bianca Cohen (PA-C), Ind therapist, EMDR therapist - [facility] [place] Outside Healthcare Provider Other Contact 1 Release of Information?: Yes Other Contact Name : Ursula Gipson Other Contact Other Contact 2 Release of Information?: Yes Other Contact Name: Federica (daughter) Other Contact 3 Other Contact Name : LUCY Wang - [facility] Other Contact Other Contact Legal Status at Discharge: 72 hour hold expires 10/18 at 0804. County: [place] Insurance: [facility] CD Assessment Completed: N/A Integrated Treatment Plan: N/A Discharge Safety Risk Assessed: Yes; Pt denies SI/HI. She is at risk for rehospitalization if she doesn't follow discharge instructions. Discharge Summary: Pt discharging home this afternoon. She is going with a 30 day supply of medications and has intake scheduled for on morning. See discharge instructional writer for details. Updated med orders have been sent to pt's home care agency (see below). Canoe Inspector Final spoke with pt's daughterUrsula yesterday and reviewed plan with her. She is supportive of the plan. Spoke with Band Director Stephanie with [facility] [phone] to let her know of pt's hospital discharge. She requests orders (includin resumption of home care order) be faxed to her at [phone] and they will have one of their RNs follow up with pt for resumption of care. Report completed by MEGAN Ames, Pager Number [phone] --- End of Report --- Plan of Care - Edna Alonso RN - 10/18/2019 8:38 AM CDT [facility] Plan of Care Note Assessment: [...] Marsh OTR/Shayla - 10/18/2019 7:11 AM CDT [facility] Occupational Therapy Plan of Care Note Group [...] Care ??? Plan of Care Review Progressing [facility] Plan of Care Note Assessment: Sleep Plan: Patient will sleep > 5 hours Subjective: NA Objective: Patient appeared to have slept throughout the night without incident. 15 minute checks ongoing. Patient to discharge today. --- End of Report --- Plan of Care - Mackenzie Jones RN - 10/17/2019 6:40 PM CDT [facility] Plan of Care Note Assessment: [...] getting her truck out of impound in [place]. Later, pt reports that [facility] [place] will be helping her get her truck [...] [place] RN - 10/17/2019 2:39 PM CDT [facility] Plan of Care Note Assessment: [...] --- Plan of Care - Norah Delgado, [facility] - 10/17/2019 9:07 AM CDT [facility] Social Work Progress Note Data: Discussed pt's [...] tell her too much. She would prefer instructional writer speak only with her daughters are [...] for Cindy and Denae at [place] [address] letting them know referral for DB was [...] Cohen (PA-Ector), Ind therapist, EMDR therapist - [facility] Outside Healthcare Provider Other Contact 1 Release of Information?: Yes Other Contact Name : Ursula Gipson Other Contact Other Contact 2 Release of Information?: Yes Other Contact Name: Federica (daughter) Action Plans: Collateral info; 72 hour hold Plan: Anticipated Discharge Date/Time: 10/21/[address] [place] [address] Disposition: Home Location: Report completed by Norah Delgado AGRICULTURAL SERVICE WORKER, Pager Number [phone] --- End of Report --- Plan of Care - Erica Smith, OTR/L - 10/17/2019 7:11 AM CDT [facility] Occupational Therapy Plan of Care Note Group [...] Care ??? Plan of Care Review Progressing [facility] Plan of Care Note Assessment: Sleep Plan: Patient will sleep > 5 hours Subjective: NA Objective: Patient appeared to have slept throughout the night without incident. 15 minute checks ongoing. --- End of Report --- Plan of Care - Dione Stanley RN - 10/16/2019 10:28 PM CDT [facility] Plan of Care Note Assessment: [...] Jones RN - 10/16/2019 2:56 PM CDT [facility] Plan of Care Note Assessment: [...] Care ??? Plan of Care Review Progressing [facility] Plan of Care Note Assessment: Sleep Plan: Patient will sleep > 5 hours Subjective: NA Objective: Patient appeared to have slept throughout the night without incident. 15 minute checks ongoing. --- End of Report --- Plan of Care - Dione Stanley RN - 10/15/2019 10:53 PM CDT [facility] Plan of Care Note Assessment: [...] Jones RN - 10/15/2019 2:26 PM CDT [facility] Plan of Care Note Assessment: Altered [...] this shift. Pt is brief during 1:1 conversation.Canoe Inspector Final approached pt this morning to talk and pt was crying. Pt declines to elaborate when asked about it. Pt denies AH/VH. Pt denies SI/HI. Pt ate 100% of her breakfast and lunch. Pt refused her scheduled gabapentin stating I don't take that anymore. Canoe Inspector Final held lisinopril r/t low BP and pulse. BP 90/46 and pulse 53. Canoe Inspector Final encourages pt to increase her fluid intake. [...] --- Plan of Care - Rosina Finley [facility] - 10/15/2019 12:56 PM CDT [facility] Social Work Progress Note Data: Phone contact with pt's daughter, Ursula, in attempt to gather additional collateral information. Ursula indicate pt was hospitalized approximately two months ago at hospital in [place]. At that time,pt's mental health had decompensated [...] is not this. States having spoke with home and family living professor regarding pt being tested for early onset dementia or other reason behind current symptomology. Daughterstates pt has two therapists in the [place] area, one concerning marriage goals and another individual therapist with whom she has been working with around PTSD/trauma goals. Indicates pt having psychiatrist, Bianca Cohen, in [place]. Legal Status: 72-hour hold(10/13@8:36am) Collateral Contacts Family/Friend Contact Family/Friend Contact Name: Annel Kyle (pt's partner) Family/Friend Contact Other Contact 1 Other Contact Name : Ursula Gipson Other Contact Other Contact 2 Other Contact Name: Federica (daughter) Action Plans: Continue assessment, monitoring, stabilization of pt. Plan: Anticipated Discharge Date/Time: 10/21/[address] [place] [address] Disposition: Home Location: Report completed by Rosina Finley [facility], Pager Number [phone] --- End of Report --- Initial Assessments - Dorothy Yates OTR/Shayla - 10/15/2019 11:19 AM CDT [facility] OT Initial Assessment Diagnosis: Encounter Diagnoses Name Primary? Psychosis, unspecified psychosis type (HRC) Yes Patient Data on File [address] [facility] [address] Social History Socioeconomic History ??? 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 Recently was hired a retirement but had to take disability due to [...] Report --- Initial Assessments - Rosina Finley, [facility] - 10/15/2019 10:54 AM CDT [facility] Social Work Initial Assessment Admission Date/Time: 10/13/2019 11:53 PM Age: 49 y.o. Nursing Unit: NE6 Attending Practitioner: Nicki Bates MD County: [facility] Admitting Diagnosis: Encounter Diagnoses Name Primary? [...] Other Contact Name: Federica (daughter) Financial Insurance: [facility] Employment/Income: Unknown at this time. Psychiatric/Chemical Dependency/Medical History Records indicate pt hospitalized at [facility] on 02/18. Pt with current and past [...] see H&P for full medical history. Data Canoe Inspector Final met with pt in her room and discussed role of social work. Pt observed lying in bed when instructional writer entered room and engaged while continuing to lie in bed. Pt cooperative, identified feeling a little better this morning. Pt's affect appears flat, stating I think I was pushing a little too hardlately. My daughter is going to beauty school and I'm trying to help her out. 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 Showed instructional writer her leg and indicated RN would [...] community provider, ambivalence about accepting treatment for MN, some readiness to consider impact of MN on quality of life, addressing needs in community has not reduced symptoms in last month) MN Treatment Recommendations for Inpatient/Outpatient Invite to educational group (stage 1), Development of recovery plan (stage 1), Medication education (stage 2), Support participation in skill development interventions (stage 3), Education about MN symptoms (stage 3), Provide diagnostic education (stage [...] Home This document completed by: Rosina Finley [facility], Pager Number [phone] --- End of Report --- Plan of Care - Dione Stanley RN - 10/15/2019 4:51 AM CDT [facility] Plan of Care Note Assessment: Sleep Plan: Pt will sleep >5 hours Subjective: N/A Objective: Pt appeared to be sleeping throughout the night without any issues. 15 minutes checks completed. Will continue to monitor. --- End of Report --- Plan of Care - Dione Stanley RN - 10/14/2019 11:03 PM CDT Pt Keiko Kyle 49 y.o. female was admitted to [facility] at 1540. Pt reports she [...] complete Plan of Care - Dwight Stanley [facility] - 10/14/2019 12:57 PM CDT [facility] Pharmacy Medication History Note Concerns to be addressed by team prior to discharge:* The patient was unable to be interviewed. Thislist was completed using online resources only (Dr Gutierrez, Care Everywhere, [facility]) Please use cautionwhen using this list since it may not be 100 % accurate. Primary Pharmacy is: [facility] [phone] and [facility] [phone] Outpatient Medications Marked as Taking for the [...] review: The following medications were added to [facility] MED LIST: All meds were added The following medications were deleted from [facility] MED LIST: none The following medications (strength, dose or directions) were changed on [facility] MED LIST: None Recently filled medications that patient states they are not taking: Unable to assess Medication adherence concerns/barriers: unable to assess GAMING CASHIER Consent (written or verbal) obtained from patient: n/a Does the patient need an MTM Outpatient consult?: no This Med Rec was completed using: [facility] (website) Primary Pharmacy is: [facility] [phone] and [facility] [phone] This document completed by: Dwight Stanley RPh [...] 10/13/2019 11:47 PM CDT Pt transported by [facility] to ED. Pt was found pulled over on the side of the road with her therapy dog. Police found the pt and she stated that she was trying to get to a watch dog meeting at [facility]. When EMS arrived pt was very confused unable to provide a good medical history. EMSstated pt's therapy dog is at [facility] in [place] . Pt's truck is at [facility] in [place] . documented in this encounter Administered Medications [...] 2099 (Automatically Held - Provider: Catherine Ang) 9266 (Unheld by provider in Manage Orders - Provider: Inpatient Template [facility]) 100 mg, Oral, HS, First dose on [...]
--- OUTSIDE RECORDS SUMMARY | 2021-12-30 17:45 | XMS_ITS | Clinical Summary ---
:1970 Author Organization [place] Address [facility] [place] [address] Care Team Providers Name Role Phone Unavailable [...] Years) topic Medical Devices Explanted Type Area Multi Punch Operator Device Shelf Model / Serial Identifier Expiration Date / L ot Catheter-01/18/2020 Catheter [employer]IC [id number] 05/03/2021 / Implanted: 01/18/2020 by Melinda Melgoza MD (Quantity not on file) / Explanted: 01/18/2020 by Melinda Melgoza MD (Quantity not on file) [id number] Insurance Payer Benefit Plan / Subscriber ID Effective Dates Phone Addre ss Type Group BLUE PLUS BLUE PLUS [id number] 2019-Kaylyn [phone] [place] [id number] [place] [address]
--- OUTSIDE RECORDS SUMMARY | 2021-12-30 17:45 | XMS_ITS | Encounter Summary ---
:1970 Author Organization [place] Address [address] [place] [address] Care Team Providers Name Role Phone Unavailable Primary Care Provider Unavailable Encounter Details Date Type Department Care Team Description 12/16/2019 Telephone [facility] PreCision Dermatology Vein Melinda Melgoza [facility] Jessica Castillo MD [address] [place] [phone] [place] [id number] (Wo rk) Social History Tobacco Use Types [...] Faxed form to HIM centralized fax at [phone]. Fax confirmed. Sent form to HIM to scan in. NIDIA Conner, RN [facility] [employer] documented in this encounter Plan of Treatment Not on filedocumented as of this encounter Visit Diagnoses Not on filedocumented in this encounter
--- OUTSIDE RECORDS SUMMARY | 2021-12-30 17:45 | XMS_ITS | Encounter Summary ---
:1970 Author Organization [place] Address [address] [facility] [place] [address] Care Team Providers Name Role Phone Unavailable Primary Care Provider Unavailable Reason for Referral Diagnostic Imaging Ultrasound (Routine) - Closed Specialty Diagnoses / Procedures Referred By Contact Refer red To Contact Diagnoses Varicose veins of left lower extremity with pain Melinda Melgoza, Procedures US Lower Extremity Venous Duplex Left [address] [place] [address] Referral ID Status Reason Start Date Expiration Date Visits Requ ested Visits Authorized [id number] Closed 12/26/2019 12/25/2020 1 1 Encounter Details Date Type Department Care Team Description 12/26/2019 Orders Only [facility] Melinda Melgoza Vari cose veins of Vein Clinic Ana Castillo MD left lower extremity [address] wi th pain (Primary [address] Dx) [place] [address] [place] [address] [phone] (Wo rk) Social History Tobacco Use Types [...]
--- OUTSIDE RECORDS SUMMARY | 2021-12-30 17:45 | XMS_ITS | Encounter Summary ---
:1970 Author Organization [place] Address [address] [facility] [place] [address] Care Team Providers Name Role Phone Unavailable Primary Care Provider Unavailable Reason for Visit Diagnostic Imaging Ultrasound (Routine) - Closed Specialty Diagnoses / Procedures Referred By Contact Refer red To Contact Diagnoses Varicose veins of left lower extremity with pain Melinda Melgoza, Procedures US Lower Extremity Venous Duplex Left [address] [place] [address] Referral ID Status Reason Start Date Expiration Date Visits Requ ested Visits Authorized [id number] Closed 12/26/2019 12/25/2020 1 1 Encounter Details Date Type Department Care Team Description 01/20/2020 Ancillary [facility] Melinda Melgoza Vari cose veins of Procedure [facility] MD Anna left lower Solutions [address] extremity with pain [address] [facility] [address] [facility] [place] [address] [address] [place] (Work) [address] [phone] Social History Tobacco Use Types Packs/Day Years [...] : 1970 Sex: female Melinda Melgoza MD [facility] ORDERABLES documented in this encounter Visit Diagnoses Diagnosis Varicose veins of left lower extremity w ith pain Varicose veins of lower extremities with other complications documented in this encounter
--- OUTSIDE RECORDS SUMMARY | 2021-12-30 17:45 | XMS_ITS | Encounter Summary ---
:1970 Author Organization [place] Address [address] [facility] [place] [address] Care Team Providers Name Role Phone Tom Abdul Primary Care Provider Reason for Visit Reason Onset Date Comments Preop Call 01/11/2020 Encounter Details Date Type Department Care Team Description 01/11/2020 Telephone [facility] Vein Melinda Melgoza Preop Call Clinic Jessica Castillo MD [address] [facility] [address] [place] [address] [place] [address] [phone] (Wo rk) Social History Tobacco Use Types [...] after signing their consent, to have a pick up driver/someone that will be responsible for them [...] and during theirprocedure. Patient aware that their pick up driver cannot come into the clinic and must wait in car. Nurse will call pt's pick up driver when procedure is over. Patient understands [...] on filedocumented in this encounter Care Teams Ceo Ziff Davis Relationship Specialty Start Date End Date Tom Abdul PCP - General Family Practice 01/18/20 01/18/20 [facility] [address] [place] [address] documented as of this encounter
--- OUTSIDE RECORDS SUMMARY | 2021-12-30 17:45 | XMS_ITS | Encounter Summary ---
:1970 Author Organization [place] Address [facility] [place] [address] Care Team Providers Name Role Phone Unavailable [...]
--- OUTSIDE RECORDS SUMMARY | 2021-12-30 17:45 | XMS_ITS | Encounter Summary ---
:1970 Author Organization [place] Address [facility] [place] [address] Care Team Providers Name Role Phone Unavailable Primary Care Provider Unavailable Reason for Visit Reason Onset Date Comments Refill Request 01/11/2020 Encounter Details Date Type Department Care Team Description 01/11/2020 Refill [facility] Vein Melinda Melgoza Refill Request Clinic Ana Castillo MD [address] [facility] [address] [place] [address] [place] [address] [phone] (Wo rk) Social History Tobacco Use Types [...]
--- OUTSIDE RECORDS SUMMARY | 2021-12-30 17:45 | XMS_ITS | Encounter Summary ---
:1970 [facility] Address [address] [place] [address] Care Team Providers Name Role Phone Unavailable Primary Care Provider Unavailable Reason for Visit Auth/Cert Specialty Diagnoses / Procedures Referred By Contact Refer red To Contact Diagnoses Psychosis, unspecified psychosis type (HRC) Psychosis, unspecified psychosis type (HRC) Referral ID Status Reason Start Date Expiration Date Visits Requ ested Visits Authorized [id number] 1 1 Encounter Details Date Type Department Care Team Description 10/17/[address] [place] [address] Social History Tobacco Use Types Packs/Day Years [...] EXAM: CT HEAD WO IV CONT LOCATION: [facility] DATE/TIME: 10/17/2019 1:46 PM INDICATION: Altered [...]
--- OUTSIDE RECORDS SUMMARY | 2021-12-30 17:45 | XMS_ITS | Encounter Summary ---
:1970 Author Organization [facility] Address [address] [place] [address] Care Team Providers Name Role Phone Unavailable Primary Care Provider Unavailable Reason for Visit Reason Comments PHP Screening Encounter Details Date Type Department Care Team Description 10/18/2019 Telephone Kristine Partial Clovis Arias MD PHP Screening Hospitalization Prog lisa [address] [facility] [address] [place] [address] [place] [address] [phone] Social History Tobacco Use Types Packs/Day Years Used Date Smoking Tobacco: Never Assessed Sex Assigned at Date Recorded Not on file documented as of this encounter Nursing Notes Denae High, ICE PULLER - 10/18/2019 2:06 PM CDT [facility] Screening Referral - Adapted for Telemedicine (LOCUS still needed for [employer] and [place] clients) HP/Saumya Vitale Referral Source: JANAE Beltre 6 Non-HP/Park Winifred Referral Source and phone number: NA Reason for Referral: Discharge plan from inpt hospitalization LIZ for Referral Source: NA ???[[facility] in collaboration with other [place] healthcare organizations and government agencies, has decided [...] they will be primarily during programming? [address] [place] [address] Primary phone Number for visits: [phone] Active e-mail: [email or web address] X Willing to be an active participant in plan of care, including attending & participating in groups on line. (What do you hope to get out of [facility]?) Yes, How to manage my life. X Acute onset or de-compensation or exacerbation of symptoms related to an Kirkman I mental disorder. Describe primary mental health [...] to secure them, if deemed necessary by [facility] treatment team.) Agrees to make and [...] self when not in program (i.e. family, certified social workers in health care including case management, ARMHS or therapist, psychiatrist, other) . At least one emergency contact is accessible during programming hours for client support Her 2 daughters, Shraddha Gipson and Ursula Gipson Client can provide the most current contact information for two emergency contacts Shraddha Gipson, daughter - [phone] Ursula Gipson, daughter - [phone] X Stable housing. Describe living situation - [...] Too medically unstable to safely participate in [employer] (RIS) (i.e. medical devices requiring skillednursing involvement). Comment [...] at the time of your appointment using [employer]?? CONSENT - Obtained X YES - client signed LIZ's while in inpatient for [facility] program. Due to the Covid 19 Pandemic and [facility] Telemedicine platform at this time, verbal consent has been obtained. I, Keiko Kyle give verbal consent for [facility] staff to share my information as outlined on the consent form, with my below listed emergency contacts. Names, relationship and phone numbers: Shraddha Gipson, daughter - [phone] Ursula Gipson, daughter - [phone] The client agrees to verify the emergency contact phone numbers and availability during the program. Meets Criteria for [facility]: YES Consult with Psychiatrist regarding: Not indicated MEGAN Metcalf 10/18/2019, 2:25 PM Cindy Hampton [facility] - 10/18/2019 10:55 AM CDT Received order referral for [facility], insurance verified and client is ready to screen soon as availability permits. BRITTANI Foreman 10/18/2019, 10:55 AM documented in this encounter Plan of Treatment Not on filedocumented as of this encounter Visit Diagnoses Not on filedocumented in this encounter
--- OUTSIDE RECORDS SUMMARY | 2021-12-30 17:45 | XMS_ITS | Encounter Summary ---
:1970 Author Organization [place] Address [address] [facility] [place] [address] Care Team Providers Name Role Phone Tom [...] on filedocumented in this encounter Care Teams Cook Vacuum Kettle Relationship Specialty Start Date End Date Tom Abdul PCP - General Family Practice 01/18/20 01/18/20 [facility] [address] [place] [address] documented as of this encounter
--- OUTSIDE RECORDS SUMMARY | 2021-12-30 17:45 | XMS_ITS | Encounter Summary ---
:1970 Author Organization [facility] Address [address] [place] [address] Care Team Providers Name Role Phone Unavailable Primary Care Provider Unavailable Reason for Visit Reason Comments CANCEL APPOINTMENT Encounter Details Date Type Department Care Team Description 10/20/2019 [facility] Clovis Arias CANCE L APPOINTMENT Hospitalization Lurdes gonzalez MD [address] [place] [address] [address] [place], [place] [phone] Social History Tobacco Use Types Packs/Day Years Used Date Smoking Tobacco: Never Assessed Sex Assigned at Date Recorded Not on file documented as of this encounter Nursing Notes April Carrizales RN - 10/20/2019 9:54 AM CDT RN attempted to contact Keiko for intake for [facility]. Keiko is not currently active on [employer], the platform used for virtual appointments. RN LVM for Keiko with direct contact information to discuss appointment and receive assistance in setting up [employer]. Confirmed that phone number in chart is the same phone number given during PHP screening. Unable to reach on second attempt. Keiko is able to call the following number to re-schedule appointment: [phone]. PHP screening team, PHP coordinator and MD notified of the above. April Carrizales RN 10/20/2019, 9:59 AM documented in this encounter Plan of Treatment Not on filedocumented as of this encounter Visit Diagnoses Not on filedocumented in this encounter
--- OUTSIDE RECORDS SUMMARY | 2021-12-30 17:46 | XMS_ITS | Encounter Summary ---
:1970 Author Organization [place] Address [facility]0 [facility] [place] [address] Care Team Providers Name Role Phone Unavailable [...]
--- OUTSIDE RECORDS SUMMARY | 2021-12-30 17:46 | XMS_ITS | Encounter Summary ---
:1970 Author Organization [place] Address [facility] [place] [address] Care Team Providers Name Role Phone Tom Abdul Primary Care Provider Tom Abdul Primary Care Provider Melinda Melgoza MD Unavailable [phone] Encounter Details Date Type Department Care Team Description 03/19/2016 Records - [facility] CONVERSION Provider, James zhang Social History Tobacco Use Types Packs/Day Years Used Date Never Assessed Sex Assigned at Date Recorded Not on file COVID-19 Exposure Response Date Recorded In the last month, have you been in contact with No / Unsure 05/01/2020 5:49 PM [employer]LA[employer] someone who was confirmed or suspected to [...] on filedocumented in this encounter Care Teams Math And Science Instructor Relationship Specialty Start Date End Date Tom Abdul PCP - General Family Practice 11/16/19 11/16/19 [facility] [address] [place] [address] Tom Abdul PCP - General Family Practice 01/18/20 01/18/20 [facility] [address] [place] JAIRON [facility]LY [facility] [place] [address] Melinda Melgoza Assigned Heart and 02/24/2007/02 MD [facility] Provider [address] [place] [address] documented as of this encounter
--- OUTSIDE RECORDS SUMMARY | 2021-12-30 17:46 | XMS_ITS | Encounter Summary ---
:1970 Author Organization [place] Address [address] [place] [address]. [place] [address] Care Team Providers Name Role Phone Unavailable Primary Care Provider Unavailable Encounter Details Date Type Department Care Team Description 05/16/2019 Medical Correspondence [facility] Scan, SURGERY REFERRAL Health Info [facility] Non-Provider [facility] Srvcs AND CLINICS [address] [place] [address] Social History Tobacco Use Types Packs/Day Years Used Date Never Assessed Sex Assigned at Date Recorded Not on file documented as of this encounter Plan of Treatment Not on filedocumented as of this encounter Visit Diagnoses Not on filedocumented in this encounter
--- OUTSIDE RECORDS SUMMARY | 2021-12-30 17:46 | XMS_ITS | Encounter Summary ---
:1970 Author Organization [place] Address [facility]0 [facility] [place] [address] Care Team Providers Name Role Phone Unavailable [...]
--- OUTSIDE RECORDS SUMMARY | 2021-12-30 17:46 | XMS_ITS | Encounter Summary ---
:1970 Author Organization [place] Address [address] [facility] [place] [address] Care Team Providers Name Role Phone Tom Abdul Primary Care Provider Reason for Visit Reason Comments RECHECK discuss tx options Encounter Details Date Type Department Care Team Description 11/16/2019 Office Visit [facility] Melinda Melgoza Vari cose veins of Vein Clinic Ana Castillo MD left lower extremity [address] wi th pain (Primary [address] Dx) [place] [address] [place] [id number] (Wo rk) Social History Tobacco Use Types [...] since she was last seen. PMH from [facility] [employer] records: Cervical spinal stenosis Peripheral neuropathy HTN [...] high open toe beige. Faxed order to [facility], confirmed by Lalitha. Lalitha Min, Facilities Engineer [facility] documented in this encounter Plan of Treatment Not on filedocumented as of this encounter Visit Diagnoses Diagnosis Varicose veins of left lower extremity w ith pain - Primary Varicose veins of lower extremities with other complications documented in this encounter Care Teams Contact Center Consultant Relationship Specialty Start Date End Date Tom Abdul PCP - General Family Practice 11/16/19 11/16/19 [facility] [address] [place] [address] documented as of this encounter
--- OUTSIDE RECORDS SUMMARY | 2021-12-30 17:46 | XMS_ITS | Encounter Summary ---
:1970 Author Organization [place] Address [address] [facility] [place] [address] Care Team Providers Name Role Phone Unavailable Primary Care Provider Unavailable Reason for Visit Reason Onset Date Comments Appointment 08/24/2019 Can cancelled appt b e done as a Telephone Visit? Encounter Details Date Type Department Care Team Description 08/24/2019 Telephone [facility] Melinda Melgoza Appointment (Can Clinic [place] Castillo MD cancelled appt be done [address] as a Telephone Visit?) [address] [facility] [address] [place] [address] [place] [id number] (Wo rk) Social History Tobacco Use Types [...] Telephone Visit? Keiko can be reached at [phone]. documented in this encounter Plan of Treatment Not on filedocumented as of this encounter Visit Diagnoses Not on filedocumented in this encounter
--- OUTSIDE RECORDS SUMMARY | 2021-12-30 17:46 | XMS_ITS | Encounter Summary ---
:1970 Author Organization [place] Address [facility] [place] [address] Care Team Providers Name Role Phone Tom Abdul Primary Care Provider Tom Abdul Primary Care Provider Melinda Melgoza MD Unavailable [phone] Encounter Details Date Type Department Care Team Description 04/16/2016 Records - [facility] Provider, James zhang Social History Tobacco Use Types Packs/Day Years Used Date Never Assessed Sex Assigned at Date Recorded Not on file COVID-19 Exposure Response Date Recorded In the last month, have you been in contact with No / Unsure 05/01/2020 5:49 PM PADDER someone who was confirmed or suspected to have Coronavirus / COVID-19? documented as of this encounter Plan of Treatment Not on filedocumented as of this encounter Procedures Procedure Name Priority Date/Time Associated Diagnosis Comme nts LAB RESULT - HIM 04/16/2016 1:27 PM SCAN PADDER SURGICAL PATHOLOGY Routine 04/15/2016 10:15 AM Re sulhermila for this EXAM PADDER procedure are i n the results section. documented in this encounter Results LAB RESULT - HIM SCAN (04/16/2016 1:27 PM PADDER) Specimen (Source) Anatomical Location Collection Method / Collectio n Time Received Time / Laterality Volume Narrative This result has an attachment that is no t available. Historical Provider NON-BEAKER LAB TESTING Surgical Pathology Exam (04/15/2016 10:15 AM PADDER) [facility] Method Time Signature Case Report HML Surgical Pathology ?Case: [id number] ? 04/16/2016 [facility] Authorizing Provider: ??Scott Haley Cain, DO ?? Collected: ? 04/15/2016 1015 ? 1:27 PM PADDER FAIRA[facility]DREA W-ST. Pathologist: ? Gualberto Thakkar MD ? Received: ?04/15/2016 1345 ? [facility] Specimen: ?Elbow, Left, LEFT ELBOW LIPOMA ? LABORATORY Final LEFT ELBOW BIOPSY 04/16/2016 [facility] Diagnosis ??- ?? BENIGN LIPOMA 1:27 PM PADDER LALITO EW-ST. 16 at ??1:27 PM [facility] Clinical Clinical history: ??Pain 04/16/2016 [facility] Information Reason for procedure: ??R22.31 1:27 PM PADDER MARITZA-ST. Time placed in formalin: ??1015 [facility] Gross Received in a 04/16/2016 [facility] Description formalin filled 1:27 PM PADDER [facility]-S T. container, [facility] labeled with the LABORATORY patient's name, are fragments of unremarkable yellow fibrofatty soft tissue measuring 4.2 x 4.1 x 1.9 cm. Silk Screen Frame Assembler sections are submitted. TORREYRS-1C KDP:db Charges CPT: ?79512 04/16/2016 [facility] ICD-10: ?D17.9 1:27 PM PADDER [facility] Result Flag Normal 04/16/2016 [facility] 1:27 PM PADDER [facility] Comment: SPECIMEN PROCESSING: All histology slide preparation and stai ns; and cytology slide preparation, staining, and c++ professor screening done at [facility] are performed at , [address] [place] [address], [id number], with final interpretatio n, frozen section analysis, and cytology adequacy assessment at indicated laboratory. Specimen Anatomical Collection Method Collection Time Receive d Time (Source) Location / / Volume Laterality Tissue specimen LEFT ELBOW REGION 04/15/2016 10:15 1:45 (specimen) STRUCTURE / AM PADDER PM PADDER Unknown Zeke ARROYO - GIO FINN Performing Organization Address City/State/ZIP Code Phon [place] [id number] [place] [address] documented in this encounter Visit Diagnoses Not on filedocumented in this encounter Care Teams Synthetic Resin Operator Relationship Specialty Start Date End Date Tom Abdul PCP - General Family Practice 11/16/19 11/16/19 [facility] [address] [place] [address] Tom Abdul PCP - General Family Practice 01/18/20 01/18/20 [facility] [address] [place] [address] Melinda Melgoza Assigned Heart and 02/24/2007/02 MD [facility] Provider [address] [place] [address] documented as of this encounter
--- OUTSIDE RECORDS SUMMARY | 2021-12-30 17:46 | XMS_ITS | Encounter Summary ---
:1970 Author Organization [place] Address [address] [facility] [place] [address] Care Team Providers Name Role Phone Unavailable Primary Care Provider Unavailable Reason for Visit Reason Onset Date Comments RECHECK 08/31/2019 Return after conserv ative therapy Encounter Details Date Type Department Care Team Description 08/31/2019 Virtual Visit [facility] Melinda Melgoza veins of Vein Clinic eJssica Castillo MD left lower extremity [address] wi th pain (Primary [address] Dx) [place] [address] [place] [address] [phone] (Wo rk) Social History Tobacco Use Types [...]
--- OUTSIDE RECORDS SUMMARY | 2021-12-30 17:46 | XMS_ITS | Encounter Summary ---
:1970 Author Organization [place] Address [address] [place] [address] Care Team Providers Name Role Phone Unavailable Primary Care Provider Unavailable Reason for Referral Durable Medical Equipment (Routine) - Closed Specialty Diagnoses / Procedures Referred By Contact Refer red To Contact Diagnoses Varicose veins of bilateral lower extremities with pain Melinda Melgoza MD [address] [place] [address] Referral ID Status Reason Start Date Expiration Date Visits Requ ested Visits Authorized [id number] Closed 05/25/2019 05/24/2020 1 1 ARCHITECT Reason for Visit Reason Comments Consult [facility] VV-Pain and muscle spasm s Encounter Details Date Type Department Care Team Description 05/25/2019 Office Visit [facility] Melinda Melgoza Vari cose veins of Vein Clinic Ana Castillo MD bilateral lower [address] ex tremities with pain [address] (Primary Dx) [place] [address] [place] [address] [phone] (Wo rk) Social History Tobacco Use Types [...] in her feet and a sensation of slny-vnb-xeommaf and burning in both legs. She is [...] alleviated with ambulation. She purchased compression stockings ipnm-slz-hzawpnl in 2013 and wore them for a [...] current outpatient medications on file. from [employer] records: Cervical spinal stenosis Peripheral neuropathy HTN [...] Not on file She has a previous [id number] smoking history. She quit 2 to 3 years ago. She does not drink alcohol. She denies any history of IV drug use. 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 Arterial Duplex, Bilateral Lower Extremity (05/11/19): normal, triphasic waveforms throughout bilateral COGENERATION TECHNICIAN, SFA, popliteal, AT, peroneal, PT, and DP [...] further interventions if needed Melinda Melgoza MD ARCHITECT documented in this encounter Plan of Treatment Scheduled Referrals Name Type Priority Associated Diagnoses Order S chedule DME REFERRAL Referral Routine Varicose veins of bilateral lower Ordered: 05/25/2019 extremities with pain documented as of this encounter Visit Diagnoses Diagnosis Varicose veins of bilateral lower extrem ities with pain - Primary documented in this encounter
--- OUTSIDE RECORDS SUMMARY | 2021-12-30 17:46 | XMS_ITS | Encounter Summary ---
:1970 Author Organization [place] Address [address] [facility] [place] [address] Care Team Providers Name Role Phone Unavailable Primary Care Provider Unavailable Reason for Visit Reason Onset Date Comments Reschedule Appt 10/07/2019 Encounter Details Date Type Department Care Team Description 10/07/2019 Telephone [facility] Melinda Melgoza Reschedule Appt Clinic Jessica Castillo MD [address] [place] [address] [place] [address] [phone] (Wo rk) Social History Tobacco Use Types Packs/Day Years Used Date Never Assessed Sex Assigned at Date Recorded Not on file documented as of this encounter Miscellaneous Notes Telephone Encounter - Radha Bianchi RN - 10/07/2019 3:55 PM CDT Pt called back and got her appt rescheduled (see appt desk). NIDIA Conner, RN [facility] Telephone Encounter - Radha [...] number to call back. NIDIA Conner, RN [facility] [employer] documented in this encounter Plan of Treatment Not on filedocumented as of this encounter Visit Diagnoses Not on filedocumented in this encounter
[2021-12-31 14:31] LABS: Cholesterol* 210 mg/dL (90-199)
[2021-12-31 14:32] LABS: HDL Cholesterol* 44 mg/dL (>=50); LDL Cholesterol Calculated 135 mg/dL (<100); Triglycerides* 154 mg/dL (40-149)
== END 2021-12-30 17:42 | disposition home or self-care (01) ==
LOC: NPINS 17:41
PROVIDERS: PCP Family Medicine
DX: F31.31 Bipolar disorder, current episode depressed, mild (principal)
CPT/HCPCS: 80061

== ENCOUNTER 2022-01-02 09:26 | Day surgery (SDC) | payer BC, SELFPAY ==
[2022-01-02] VITALS (24 sets, daily range): BP systolic 102–138; BP diastolic 52–95; PULSE 55–78; RESP 12–20; TEMP 35.9–37.2; O2SAT 90–98; BMI 43.1
[2022-01-02] MEDS: CELECOXIB 200 MG CAPSULE PO ×2 (08:40→21:35)
[2022-01-02] MEDS: ACETAMINOPHEN 500 MG TABLET 1000 MG PO ×3 (08:40→21:36)
[2022-01-02] MEDS: OXYCODONE (CR) 10 MG TAB.ER.12H PO (08:40)
[2022-01-02] MEDS: LACTATED RINGERS 1000 ML 1,000 ML 100 ML IV ×2 (09:00→12:25)
--- NOTE | 2022-01-02 09:02 | CRLHL7_ITS ---
For Patients: As a result of the Century Cures Act, medical imaging exams and procedure reports are released immediately into your electronic medical record. You may view this report before your referring provider. If you have questions, please contact your health care provider. Indication: pre-op, standing x-ray Technique: Left knee 2 views Comparison: 01/08/2021 Findings: Lateral compartment narrowing. No synovitis. No fracture. Impression: AP standing and lateral standing left knee films for pre replacement evaluation. Dictated by Tom Millan MD @ 01/07/2022 8:24:54 AM (Electronically Signed)
--- NOTE | 2022-01-02 09:58 | SUR.PREOP ---
X-ray complete as per order.
[2022-01-02] MEDS: fentaNYL 100 MCG/2 ML inj IVP (10:51)
[2022-01-02] MEDS: MIDAZOLAM HCL 1 MG/ML inj IVP (10:51)
--- NOTE | 2022-01-02 11:12 | SUR.PREOP ---
TIME?OUT:?1050 PT/RN/MDA?VERIFICATION?OF?SURGICAL?SITE,?PROCEDURE,?AND?CONSENT OBTAINED?PRIOR?TO?INVASIVE?PROCEDURE.
[2022-01-02] MEDS: CEFAZOLIN 2 GM INJ IVP (11:50)
--- NOTE | 2022-01-02 12:08 | W.PM.NB ---
Nerve Block Nerve Block Date Seen: 01/02/22 Type of block requested by surgeon for post-operative analgesia: adductor canal Side: left Time out performed: Yes Verification of patient name: Yes Verification of date of : Yes Site marking: site marked Name of person performing procedure: Dmitriy Continuous monitoring Was continuous monitoring of O2 sat, B/P, cardiac technologist, recorded every 15 minutes?: Yes Procedure Checklist: sterile prep, needles and gloves Ultrasound guided. Images saved: Yes Medications given in 5ml increments after negative aspiration: Ropivicaine %: 0.5 mL: 20 Needle gauge: 22 Decadron (mg): 10 Precedex (mcg): 25 Patient tolerated procedure well: Yes Additional comments: Needle noted adjacent to nerve Block Charges Block Charge (with Pro Fee): Femoral Nerve Use of Ultrasound Machine for Block: Yes- US Guidance/pain block
--- NOTE | 2022-01-02 12:20 | P.NB_ITS ---
Nerve Block Nerve Block Date Seen: 01/02/22 Type of block requested by surgeon for post-operative analgesia: geniculars Side: left Time out performed: Yes Verification of patient name: Yes Verification of date of : Yes Site marking: site marked Name of person performing procedure: Dmitriy Continuous monitoring Was continuous monitoring of O2 sat, B/P, traffic monitor specialist, recorded every 15 minutes?: Yes Procedure Checklist: sterile prep, needles and gloves Medications given in 5ml increments after negative aspiration: Ropivicaine %: 0.5 mL: 9 Needle gauge: 25 Patient tolerated procedure well: Yes Block Charges Block Charge (with Pro Fee): Genicular Nerve Block Use of Ultrasound Machine for Block: No
--- NOTE | 2022-01-02 12:23 | SUR.OPER ---
Patient transferred from Same Day Surgery to OR2 by bed. Patient was assisted to transfer to OR table. Patient was given 2 warm blankets to provide warmth and comfort.
--- NOTE | 2022-01-02 13:09 | CRLHL7_ITS ---
For Patients: As a result of the Cures Act, medical imaging exams and procedure reports are released immediately into your electronic medical record. You may view this report before your referring provider. If you have questions, please contact your health care provider. Indication: Postop total knee arthroplasty. Technique: Two views. Comparison: None. Findings/Impression: Status post total knee arthroplasty. Prosthesis components are well aligned. No fracture. Subcutaneous gas. No radiopaque foreign body. Dictated by Beltran Foy MD @ 01/02/2022 2:38:47 PM (Electronically Signed)
--- NOTE | 2022-01-02 13:11 | PM.ORPRC ---
Procedure Note Date of procedure: 01/02/22 Procedure: SURGEON: Amish Andrea MD STAGE SET DESIGNER: Paty Godinez PA-C PREOPERATIVE DIAGNOSIS: Left knee osteoarthritis POSTOPERATIVE DIAGNOSIS: Left knee osteoarthritis NAME OF OPERATION: Left total knee arthroplasty ANESTHESIA: Spinal ESTIMATED BLOOD LOSS: 0 mL COMPLICATIONS: None SPECIMENS: None DRAINS: None PREOPERATIVE ANTIBIOTICS: Ancef 2 grams IMPLANTS: 1. J&J Attune # 5 posterior stabilized femur 2. #4 fixed-bearing tibia 3. #5 posterior stabilized, 5 mm fixed-bearing polyethylene 4. 38 patella INDICATIONS: The patient is a 51-year-old female with a longstanding history of severe, unrelenting left knee pain secondary to end-stage (grade IV) left knee osteoarthritis. Despite appropriate nonoperative management, including activity modification, anti-inflammatories, hgas-rwd-zymhiuw pain medication, bracing, physical therapy, and injections they continue to have pain and disability. Operative intervention was offered. The risks, benefits and expected outcomes were discussed in detail. These included but were not limited to: Infection, bleeding, injury to blood vessel or nerve, venous thromboembolism. All questions were answered to their satisfaction. Use of an records management assistant was necessary throughout the case for patient positioning and safety, soft tissue retraction, and closure. A modifier 22 should be added to this case. The patient's weight of 117.5 kg with a BMI of 43.2 kg/meter squared made positioning a challenge and added time required to complete the case. PROCEDURE: Spinal anesthesia was administered. The patient was placed supine on the operating table. The records management assistant made sure the patient was positioned appropriately. The lower extremity was prepped and draped in the usual sterile fashion. The limb was exsanguinated with the Zeferino bandage. The pneumatic tourniquet was inflated to 300 mmHg. A standard anterior incision was made with the knee in flexion. Subcutaneous dissection was sharply taken through fascial layer #1. Full-thickness medial and lateral flaps were elevated. The records management assistant retracted the soft tissues and protected them throughout the case. A standard medial parapatellar approach was made. The patella was everted. The infrapatellar fat pad was preserved. The menisci and cruciate ligaments were sharply d?brided. Marginal osteophytes were d?brided with the rongeur. The drill was used to penetrate the femoral canal. The canal was aspirated and irrigated with pulse lavage. The intramedullary femoral guide was placed for a 5-degree valgus cut, removing 10 mm off the distal femur. The saw was used to make the cut. Whitesides line and the trans epicondylar axis were marked. The femoral sizing guide was pinned onto the distal femur. Three degrees of external rotation nicely parallels the transepicondylar axis. Pins were placed for posterior referencing. The four-in-one cutting guide was pinned onto the distal femur. The anterior, posterior, and chamfer cuts were made. The records management assistant protected the collateral ligaments. The box cutting guide was pinned. The box cuts were made. The boxed trial was placed and was an excellent fit. Drill holes for the lugs were made. Attention was then turned to the proximal tibia. The extramedullary tibial guide was placed for a neutral varus/valgus cut with 5 degrees of posterior slope, removing 4 mm based off the medial tibial surface. The records management assistant protected the collateral ligaments and the neurovascular bundle. The saw was used to make the cut. Trial components were placed. The knee was nicely balanced in both flexion and extension. Rotation of the tibial component was matched to the femur in full extension, matched to our tibial cutting pins, and marked with cautery. The trial components were removed. The tray was pinned by the records management assistant and the drill and the punch were used. The tray was removed. The punch was used again. We placed a bone plug in the femoral canal. Attention was then turned to the patella. [place] patellar thickness was 23 mm. The lobster claw resection guide was used with the 9.5 mm vanessa. The saw was used to make the cut. Drill holes were made by the records management assistant. The trial was placed and was an excellent fit. Cancellous surfaces were irrigated with pulse lavage and thoroughly dried by the records management assistant. We cemented the tibial component, then the femoral component. A trial spacer was placed. The knee was brought into full extension. We then cemented the patellar component. Excessive cement was removed. The cement was allowed to harden. Any remaining excessive cement was removed with the osteotome. We impacted the 5 mm polyethylene onto the tibial tray. The knee was taken through a range of motion and was found to be nicely balanced in both flexion and extension. The patella tracks centrally. The records management assistant did a three minute dilute Betadine solution soak. The records management assistant irrigated the wound with 3 liters of normal saline via pulse lavage. The records management assistant reapproximated the extensor mechanism with #1 Vicryl in an interrupted lnbpbk-hz-clnva fashion. The records management assistant then ran the extensor mechanism with a #1 PDO Stratafix. The records management assistant closed the subcutaneous tissues with a 3-0 Stratafix and the skin with a running 3-0 Stratafix in a subcuticular fashion. Glue was used to seal the skin. The records management assistant placed a dry dressing, CARLI stocking, and Polar Care. Sponge and needle counts were correct x2. The patient tolerated the procedure well. There were no apparent complications. They were carefully transferred to the hospital bed and taken to the postanesthesia care unit in satisfactory condition. PLAN: The patient will be mobilized with physical therapy. Aspirin will be used for DVT prophylaxis. They will be discharged to home once medically appropriate.
[2022-01-02] MEDS: LACTATED RINGERS 1000 ML 1,000 ML 75 ML IV (13:59)
--- NOTE | 2022-01-02 14:09 | W.ANESCHARGE ---
Anesthesia Charges Start Date/Time Anesthesia Start Date: 01/02/22 Anesthesia Start Time: 11:33 Stop Date/Time Anesthesia Stop Date: 01/02/22 Anesthesia Stop Time: 14:03 Summary Emergency: No
[2022-01-02] MEDS: fentaNYL 100 MCG/2 ML inj 50 MCG IVP (14:14)
--- NOTE | 2022-01-02 14:16 | W.ANESCHARGE ---
Anesthesia Charges Start Date/Time Anesthesia Start Date: 01/02/22 Anesthesia Start Time: 11:33 Stop Date/Time Anesthesia Stop Date: 01/02/22 Anesthesia Stop Time: 14:03 Summary Emergency: No
[2022-01-02] MEDS: OXYCODONE 5 MG TABLET PO ×4 (16:10→21:35)
[2022-01-02 16:47] LABS: Sodium* 136 mmol/L (135-149)
[2022-01-02] MEDS: LACTATED RINGERS 1000 ML 1,000 ML 35 ML IV (17:49)
[2022-01-02] MEDS: CEFAZOLIN 2 GM in 0.9 % SODIUM CHLORIDE Mini-bag 100 ML IVPB (17:50)
--- NOTE | 2022-01-02 18:51 | PC.NURSE ---
end of shift. pt has been pleasant. pain was 7/10 post pacu. she is getting po pain meds. gave 5 mg and later gave additional 5 mg. she will need 10 mg next time. IV is patent. dressing is C/D/I. cryo cuff is on. teds and pelxi are on and off. she was turned and repositioned. she is eating and drinking. no void so far. her was in to see her. she is a fall risk and alarms are on. she is using the call light
[2022-01-02] MEDS: ONDANSETRON 2 MG/ML inj 4 MG IVP (21:34)
[2022-01-02] MEDS: OMEPRAZOLE 20 MG CAPSULE DR 40 MG PO (21:34)
--- NOTE | 2022-01-02 21:34 | PM.IMCN1 ---
Date of Consult Consult date: 01/02/22 Primary Care Provider: Tom Abdul MD Consult Narrative Narrative: HOSPITALIST CONSULT Hospital Day # 1 Post Op Day # 0 Date of procedure: 01/02/22 Procedure: SURGEON: Amish Andrea MD NAME OF OPERATION: Left total knee arthroplasty ANESTHESIA: Spinal ESTIMATED BLOOD LOSS: 0 mL The hospital medicine team was asked by Orthopedic surgery team to manage the patient's hypertension, major depression/PTSD, asthma. Keiko underwent a left total knee arthroplasty earlier today. There have been no perioperative concerns or complications. She is resting comfortably in her hospital room tonight. 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 Sensorineural hearing loss (Chronic) H90.5 Peripheral neuropathy (Chronic) G62.9 Environmental allergies (Chronic) Z91.09 Restless leg syndrome (Chronic) G25.81 PTSD (post-traumatic stress disorder) (Chronic) F43.10 Bipolar 1 disorder (Chronic) F31.9 Anxiety (Chronic) F41.9 Mild persistent asthma (Chronic) J45.30 GERD (gastroesophageal reflux disease) (Chronic) K21.9 Obstructive sleep apnea (Chronic) G47.33 05/31/21 AHI=50.3. Does not tolerate CPAP uses dental appliance. Hyperlipidemia (Chronic) E78.5 COPD (chronic obstructive pulmonary disease) (Chronic) J44.9 Hypertension (Chronic) I10 Medications: acetaminophen?1,000 mg PO QID PRN albuterol sulfate 90 mcg/actuation?(Ventolin HFA) 2 puffs inhalation Q4-6H PRN atomoxetine?36 mg PO QDAY xxltgjiiop-uelnczpo-iogjynerpf 160-9-4.8 mcg/actuation?(Breztri Aerosphere) 2 inhalations inhalation BID celecoxib?200 mg PO BID duloxetine?60 mg PO QDAY fluticasone propionate 50 mcg/actuation?2 sprays intranasal QDAY lurasidone?(Latuda) 40 mg PO DAILY [medical cannibis?PO]? metoprolol succinate ER?50 mg PO QDAY pantoprazole?40 mg PO QDAY zafirlukast?20 mg PO BID Surgical History History of arthroscopy of left knee History of arthroscopy of left shoulder (11/18/19) History of carpal tunnel surgery of left wrist (2015) History of cervical spinal surgery History of hand surgery History of hysterectomy History of laparoscopic cholecystectomy History of open reduction and internal fixation (ORIF) procedure History of right inguinal hernia repair History of varicose veins (01/18/20) Status post total knee replacement, left Social History Narrative: Single, nonsmoker, no alcohol Smoking Status: Former smoker: REVIEW OF SYSTEMS: 12-point ROS completed with patient and negative unless otherwise stated in HPI or below. PHYSICAL EXAM: CODE STATUS: Full code CONSTITUTIONAL: Conversive, good historian. A/O. Knows setting and context. VITAL SIGNS: see record. HEENT: Normocephalic, atraumatic. PERRL, EOMI, conjunctivae pink, no scleral icterus. Ears and nose externally normal. Pharynx normal. NECK: No JVD. No carotid bruit, no thyromegaly, no adenopathy. CHEST: Clear to auscultation bilaterally HEART: No harsh murmurs. S1/S2. ABDOMEN: Flat, soft, nontender. Normal bowel sounds. Moderately obese. EXTREMITIES: No edema. MUSCULOSKELETAL: Left knee surgical dressing in place. Neurovascularly intact. NEURO: Cranial nerves intact. Normal affect. No gross deficits. Speech intelligible. SKIN: No rashes, petechiae, concerning changes PSYCHIATRIC: Euthymic. INVESTIGATIONS: EMR Reviewed DISPOSITION: DVT: Agree with aspirin b.i.d. GI: PO intake [facility] Medical History (Updated 01/02/22 @ 08:03 by Dede Larsen PA-C) Anxiety Bipolar 1 disorder Chronic pain of left knee COPD (chronic obstructive pulmonary disease) Environmental allergies Exogenous obesity GERD (gastroesophageal reflux disease) Hyperlipidemia Hypertension Late effect of Katarina's syndrome Major depression, recurrent, chronic Mild persistent asthma Obstructive sleep apnea Osteoarthritis of left knee Peripheral neuropathy PTSD (post-traumatic stress disorder) Restless leg syndrome Sensorineural hearing loss Surgical History (Updated 12/24/21 @ 11:23 by Zainab Mas RN) History of arthroscopy of left knee History of arthroscopy of left shoulder (11/18/19) History of carpal tunnel surgery of left wrist (2015) History of cervical spinal surgery History of hand surgery History of hysterectomy History of laparoscopic cholecystectomy History of open reduction and internal fixation (ORIF) procedure History of right inguinal hernia repair History of varicose veins (01/18/20) Status post total knee replacement, left Social History (Updated 12/20/21 @ 09:16 by Tom Abdul MD) Narrative: Single, nonsmoker, no alcohol Smoking Status: Former smoker What tobacco products do you use: cigarettes Smoking quit date/years: <= 15 years ago Do you use any of these nicotine containing products: None How often do you have a drink containing alcohol: monthly or less Alcohol type: wine How many standard drinks containing alcohol do you have on a typical day: 1 or 2 How often do you have six or more drinks on one occasion: Never AUDIT-C Alcohol total score: 1 Non-prescribed substance use: denies use Caffeine: Yes (coffee, 1 cup/day) Meds Home Medications and Allergies Home Medications Medication Instructions Recorded Confirmed Type acetaminophen 500 mg capsule 1,000 mg PO QID PRN 10/31/21 12/20/21 History albuterol sulfate 90 mcg/actuation 2 puff inhalation Q4-6H PRN 10/31/21 12/20/21 History aerosol inhaler (Ventolin HFA) budesonide 160 mcg-glycopyr 9 2 inh inhalation BID 10/31/21 12/20/21 History mcg-formot 4.8 mcg/actuation HFA inhaler (Breztri Aerosphere) celecoxib 200 mg capsule 200 mg PO BID 10/31/21 12/20/21 History zafirlukast 20 mg tablet 20 mg PO BID 10/31/21 12/20/21 History atomoxetine 18 mg capsule 36 mg PO QDAY 11/20/21 01/02/22 History duloxetine 60 mg capsule,delayed 60 mg PO QDAY 11/20/21 12/20/21 History release fluticasone propionate 50 2 spray intranasal QDAY 11/20/21 12/20/21 History mcg/actuation nasal spray,suspension metoprolol succinate 50 mg 50 mg PO QDAY 11/20/21 12/20/21 History tablet,extended release 24 hr pantoprazole 40 mg tablet,delayed 40 mg PO QDAY 11/20/21 12/20/21 History release lurasidone 40 mg tablet (Latuda) 40 mg PO DAILY 12/20/21 12/20/21 History medical cannibis PO 12/20/21 History Allergies Allergy/AdvReac Type Severity Reaction Status Date / Time house dust mite Allergy Intermediate Congested Verified 01/02/22 08:40 mold Allergy Intermediate breathing Verified 01/02/22 08:40 difficulty prazosin Allergy Mild Unknown Verified 01/02/22 08:40 cefdinir AdvReac Intermediate Vomiting Verified 01/02/22 08:40 Exam Const: Vital Signs, click to edit/add: Vital Signs - 24 hr 01/02/22 09:56 01/02/22 10:50 01/02/22 11:05 Temperature 99.0 F Pulse Rate 64 64 59 L Pulse Rate [Left P ulse Oximeter] Respiratory Rate 16 16 16 Blood Pressure 134/72 131/71 119/70 Blood Pressure [Ri ght Arm] Pulse Oximetry 96 96 96 Oxygen Delivery Me thod Room Air Room Air Nasal Can nula Room Air Nasal Can nula Oxygen Flow Rate 3 3 01/02/22 11:00 01/02/22 13:59 01/02/22 14:05 Temperature 97.3 F L Pulse Rate 60 66 63 Pulse Rate [Left P ulse Oximeter] Respiratory Rate 16 16 16 Blood Pressure 128/70 107/52 L 108/65 Blood Pressure [Ri ght Arm] Pulse Oximetry 97 97 97 Oxygen Delivery Me thod Room Air Nasal Can nula Nasal Cannula Oxygen Flow Rate 3 2 01/02/22 14:10 01/02/22 14:15 01/02/22 14:20 Temperature Pulse Rate 55 L 60 60 Pulse Rate [Left P ulse Oximeter] Respiratory Rate 14 12 12 Blood Pressure 104/69 117/67 114/71 Blood Pressure [Ri ght Arm] Pulse Oximetry 98 92 90 Oxygen Delivery Me thod Room Air Oxygen Flow Rate 01/02/22 14:25 01/02/22 14:30 01/02/22 14:35 Temperature 97.6 F Pulse Rate 61 61 56 L Pulse Rate [Left P ulse Oximeter] Respiratory Rate 12 13 12 Blood Pressure 109/64 106/66 102/57 L Blood Pressure [Ri ght Arm] Pulse Oximetry 91 93 92 Oxygen Delivery Me thod Oxygen Flow Rate 01/02/22 15:18 01/02/22 14:50 01/02/22 15:00 Temperature 96.7 F L Pulse Rate Pulse Rate [Left P ulse Oximeter] 64 58 L 64 Respiratory Rate 14 14 14 Blood Pressure Blood Pressure [Ri ght Arm] 124/69 117/79 106/76 Pulse Oximetry 93 91 92 Oxygen Delivery Me thod Room Air Room Air Room Air Oxygen Flow Rate 2 01/02/22 14:50 01/02/22 15:30 01/02/22 15:45 Temperature 96.7 F L Pulse Rate 56 L Pulse Rate [Left P ulse Oximeter] 63 65 Respiratory Rate 14 14 14 Blood Pressure Blood Pressure [Ri ght Arm] 106/76 120/76 129/92 H Pulse Oximetry 93 94 Oxygen Delivery Me thod Room Air Room Air Room Air Oxygen Flow Rate 2 2 01/02/22 16:00 01/02/22 16:33 01/02/22 16:59 Temperature 96.7 F L Pulse Rate Pulse Rate [Left P ulse Oximeter] 62 66 Respiratory Rate 14 16 Blood Pressure Blood Pressure [Ri ght Arm] 119/65 115/68 Pulse Oximetry 94 90 Oxygen Delivery Me thod Room Air Room Air Oxygen Flow Rate 01/02/22 15:00 01/02/22 18:00 01/02/22 19:09 Temperature 97.0 F L Pulse Rate Pulse Rate [Left P ulse Oximeter] 68 71 71 Respiratory Rate 16 18 18 Blood Pressure Blood Pressure [Ri ght Arm] 138/73 124/95 H 120/70 Pulse Oximetry 90 92 92 Oxygen Delivery Me thod Room Air Room Air Room Air Oxygen Flow Rate Labs Labs: [facility] 01/02/22 15:16 Sodium 136 Assessment and Plan Assessment and plan (1) Status post total knee replacement, left: Status: Acute Assessment and Plan: Hospital medicine team is happy to follow this patient through to discharge. I agree with the oral anticoagulation plan. All of medicines tonight, I will prescribe acutely needed tonight. (2) Major depression, recurrent, chronic: Status: Acute (3) PTSD (post-traumatic stress disorder): Status: Chronic (4) Bipolar 1 disorder: Status: Chronic (5) Mild persistent asthma: Status: Chronic (6) GERD (gastroesophageal reflux disease): Status: Chronic (7) Obstructive sleep apnea: Problem comment: 05/31/21 AHI=50.3. Does not tolerate CPAP uses dental appliance. Status: Chronic (8) Hypertension: Status: Chronic
[2022-01-02] MEDS: SENNOSIDES 1 TAB TABLET 2 TAB PO (21:35)
[2022-01-02] MEDS: DULOXETINE 30 MG CAPSULE DR 60 MG PO (21:36)
[2022-01-02] MEDS: ASPIRIN 81 MG TABLET EC PO (21:36)
[2022-01-03] MEDS: OXYCODONE 5 MG TABLET PO ×3 (00:02→06:03)
[2022-01-03] MEDS: CEFAZOLIN 2 GM in 0.9 % SODIUM CHLORIDE Mini-bag 100 ML IVPB ×2 (02:56→10:42)
[2022-01-03] MEDS: ACETAMINOPHEN 500 MG TABLET 1000 MG PO ×2 (02:57→09:38)
[2022-01-03 03:00] VITALS: BP 125/66; PULSE 74; RESP 20; TEMP 36.6; O2SAT 95
--- NOTE | 2022-01-03 04:57 | PC.NURSE ---
SHIFT NOTE -: Pt is pleasant and cooperative, A&O. Afebrile, oxygen saturation 90% and greater on RA, CPAP on overnight. PRN Oxycodone given as needed for pain with pt reporting adequate relief. Surgical dressing is C/D/I, CMS intact, active ice on continuously. Pt up 1 assist with gait belt and walker, tolerating well. PRN Zofran given x1, no emesis, denied nausea the rest of the shift. Pt reports passing flatus. Pt did not bring her Latuda medication or allergy medication to the hospital with her and the pharmacy does not carry this medication, pt made aware and stated that her will bring the medication in the morning, MD updated with no change to POC. Pt denies SOB and CP.
[2022-01-03 07:00] VITALS: BP 151/82; PULSE 78; RESP 20; TEMP 36.6; O2SAT 97
[2022-01-03 07:02] LABS: Basophils Percent Auto 0.1 % (0.0-3.0); Hematocrit 40.1 % (33.0-51.0); Hemoglobin* 12.7 gm/dL (12.0-16.0); Lymphocytes Percent Auto 7.1 % (20-44); Mean Corpuscular HGB Conc 32 gm/dL (32-36); Mean Corpuscular Hemoglobin 30 pg (26-34); Mean Corpuscular Volume 94 fL (80-100); Monocytes Percent Auto 4.6 % (0.0-11.0); Neutrophils Percent Auto 87.1 % (42.0-72.0); Platelet Count* 353 K/uL (140-440); RDW Coefficient of Variation % 12.8 % (11.5-15.5); Red Blood Count 4.27 m/uL (4.00-5.20); White Blood Count* 18.42 K/uL (4.50-11.00)
[2022-01-03 07:16] LABS: Potassium* 4.5 mmol/L (3.6-5.1)
[2022-01-03 07:19] LABS: Blood Urea Nitrogen* 10 mg/dL (7-30); Creatinine* 0.7 mg/dL (0.5-1.5); Est. Creatinine Clearance* 81.18; Estimated Glomerular Filt Rate 104 ml/min
[2022-01-03 07:20] LABS: Slide Review Reflex No
[2022-01-03 07:24] LABS: INR 1.02 (0.91-1.10); Prothrombin Time 13.8 Seconds
--- NOTE | 2022-01-03 07:58 | P.ORPN_ITS ---
Subjective Subjective Time Seen by Provider: 07:10 Date Seen: 01/03/22 Principal diagnosis: 1 day S/P Left TKA Interval history: Keiko is doing well this morning and is resting comfortably in her recliner. Patient c/o minimal left knee pain. Pain is well managed with icing, Tylenol, Celebrex and Oxycodone PRN. Denies: fever, chills, chest pain. Patient has not yet been seen by Physical Therapy this morning. No acute events overnight. Patricia ent feels ready to be discharged to home later this afternoon. Ortho Exam Narrative Exam Narrative: Incision/Dressing: Dressing appears clean and dry. No drainage present. Mepilex intact. Left knee appears moderately swollen but supple with no obvious erythema, fluctuance or excessive warmth. No ecchymosis or erythematous streaking. Warmth around the wound is appropriate. Ice is being utilized as needed. CMS: Intact distally with 2+ Dorsalis pedis and Posterior Tibial pulses. 5/5 motor strength dorsal and plantar flexion. Confirmed sensation distally. Intact straight leg raise. Calf: Bilateral calves are supple, with no swelling, pain, tenderness, erythema, discoloration or coolness to the touch. Constitutional: Patient is alert and oriented x3. Patient is in no acute distress and converses without labored breathing. Patient is able to make decisions and demonstrates good insight. Patient is pleasant and cooperative. Affect is full range and appropriate for the circumstances. Const Vital Signs, click to edit/add: Vital Signs - 24 hr 01/02/22 09:56 01/02/22 10:50 01/02/22 11:05 Temperature 99.0 F Pulse Rate 64 64 59 L Pulse Rate [Left Pulse Oximeter] Respiratory Rate 16 16 16 Blood Pressure 134/72 131/71 119/70 Blood Pressure [Right Arm] Pulse Oximetry 96 96 96 Oxygen Delivery Method Room Air Room Air Nasal Cannula Room Air Nasal Cannula Oxygen Flow Rate 3 3 01/02/22 11:00 01/02/22 13:59 01/02/22 14:05 Temperature 97.3 F L Pulse Rate 60 66 63 Pulse Rate [Left Pulse Oximeter] Respiratory Rate 16 16 16 Blood Pressure 128/70 107/52 L 108/65 Blood Pressure [Right Arm] Pulse Oximetry 97 97 97 Oxygen Delivery Method Room Air Nasal Cannula Nasal Cannula Oxygen Flow Rate 3 2 01/02/22 14:10 01/02/22 14:15 01/02/22 14:20 Temperature Pulse Rate 55 L 60 60 Pulse Rate [Left Pulse Oximeter] Respiratory Rate 14 12 12 Blood Pressure 104/69 117/67 114/71 Blood Pressure [Right Arm] Pulse Oximetry 98 92 90 Oxygen Delivery Method Room Air Oxygen Flow Rate 01/02/22 14:25 01/02/22 14:30 01/02/22 14:35 Temperature 97.6 F Pulse Rate 61 61 56 L Pulse Rate [Left Pulse Oximeter] Respiratory Rate 12 13 12 Blood Pressure 109/64 106/66 102/57 L Blood Pressure [Right Arm] Pulse Oximetry 91 93 92 Oxygen Delivery Method Oxygen Flow Rate 01/02/22 15:18 01/02/22 14:50 01/02/22 15:00 Temperature 96.7 F L Pulse Rate Pulse Rate [Left Pulse Oximeter] 64 58 L 64 Respiratory Rate 14 14 14 Blood Pressure Blood Pressure [Right Arm] 124/69 117/79 106/76 Pulse Oximetry 93 91 92 Oxygen Delivery Method Room Air Room Air Room Air Oxygen Flow Rate 2 01/02/22 14:50 01/02/22 15:30 01/02/22 15:45 Temperature 96.7 F L Pulse Rate 56 L Pulse Rate [Left Pulse Oximeter] 63 65 Respiratory Rate 14 14 14 Blood Pressure Blood Pressure [Right Arm] 106/76 120/76 129/92 H Pulse Oximetry 93 94 Oxygen Delivery Method Room Air Room Air Room Air Oxygen Flow Rate 2 2 01/02/22 16:00 01/02/22 16:33 01/02/22 16:59 Temperature 96.7 F L Pulse Rate Pulse Rate [Left Pulse Oximeter] 62 66 Respiratory Rate 14 16 Blood Pressure Blood Pressure [Right Arm] 119/65 115/68 Pulse Oximetry 94 90 Oxygen Delivery Method Room Air Room Air Oxygen Flow Rate 01/02/22 15:00 01/02/22 18:00 01/02/22 19:09 Temperature 97.0 F L Pulse Rate Pulse Rate [Left Pulse Oximeter] 68 71 71 Respiratory Rate 16 18 18 Blood Pressure Blood Pressure [Right Arm] 138/73 124/95 H 120/70 Pulse Oximetry 90 92 92 Oxygen Delivery Method Room Air Room Air Room Air Oxygen Flow Rate 01/02/22 20:30 01/02/22 23:00 01/03/22 03:00 Temperature 97.8 F 97.6 F 97.8 F Pulse Rate Pulse Rate [Left Pulse Oximeter] 74 78 74 Respiratory Rate 20 18 20 Blood Pressure Blood Pressure [Right Arm] 116/70 134/73 125/66 Pulse Oximetry 90 94 95 Oxygen Delivery Method Room Air Room Air Room Air Oxygen Flow Rate Documenting provider has reviewed patient's vital signs: yes Common normals: no apparent distress, oriented x3, alert and well nourished HENMT Common normals: Yes hearing grossly normal bilaterally Resp Common normals: Yes normal respiratory effort Neuro Common normals: oriented x3 Sensorium/orientation: alert Assessment and Plan Assessment and plan (1) Status post total knee replacement, left: Problem details: 1 day s/p left TKA Status: Acute Assessment and Plan: - Complete 23 hour perioperative antibiotics. - PT/OT consults for education and assistance. - Social consult for discharge planning. - Weight bear as tolerated. - DVT prophylaxis includes: aspirin 81 mg BID x 1 month. Also bilateral knee high Saroj stockings (x 1 month), frequent ambulation and ankle pumps when sedentary. - Anticipate patient will be discharged to home this afternoon if the patient remains medically stable, pain is controlled and is safe with ambulation. - Outpatient physical therapy is scheduled to begin next Thursday at [facility] - Return to clinic in 1 week for a wound check. Mepilex dressing will be removed at this appointment. Remove sooner if dressing becomes saturated. - Return to clinic in [address] Andrea. - Prescribed analgesics as needed. Patient is content with current narcotic medications. Minimize narcotic pain medication use; wean off and discontinue as soon as possible. - Phone Orthopedics with any questions or concerns. (2) Major depression, recurrent, chronic: Status: Acute (3) PTSD (post-traumatic stress disorder): Status: Chronic (4) Bipolar 1 disorder: Status: Chronic (5) Mild persistent asthma: Status: Chronic (6) GERD (gastroesophageal reflux disease): Status: Chronic (7) Obstructive sleep apnea: Problem details: 05/31/21 AHI=50.3. Does not tolerate CPAP uses dental appliance. Status: Chronic (8) Hypertension: Status: Chronic
[2022-01-03] MEDS: ASPIRIN 81 MG TABLET EC PO (08:33)
[2022-01-03] MEDS: SENNOSIDES 1 TAB TABLET 2 TAB PO (08:34)
[2022-01-03] MEDS: CELECOXIB 200 MG CAPSULE PO (08:34)
[2022-01-03] MEDS: OMEPRAZOLE 20 MG CAPSULE DR 40 MG PO (08:34)
== END 2022-01-03 13:03 | disposition home or self-care (01) ==
LOC: OR 09:27 → MEDSURG 09:34
PROVIDERS: PCP Family Medicine; Visit Provider Orthopaedic Surgery
PROC: (CPT 27447; principal; 2022-01-02 11:00)
DX: M17.12 Unilateral primary osteoarthritis, left knee (principal); I10 Essential (primary) hypertension; J45.30 Mild persistent asthma, uncomplicated; J44.9 Chronic obstructive pulmonary disease, unspecified; G62.9 Polyneuropathy, unspecified; K21.9 Gastro-esophageal reflux disease without esophagitis; G47.33 Obstructive sleep apnea (adult) (pediatric); F43.10 Post-traumatic stress disorder, unspecified; F33.9 Major depressive disorder, recurrent, unspecified
CPT/HCPCS: 27447; 01402; 36415; 64447; 64454; 73560; 76942; 82565; 84132; 84295; 84520; 84703; 85025; 85610; 97110; 97116; 97161; 97165; 97530; A9270; C1776; J0690; J1100; J2250; J2370; J2405; J2704; J2795; J3010; J7120

== ENCOUNTER 2022-12-04 09:35 | Outpatient (CLI) | payer BC, SELFPAY ==
--- NOTE | 2022-12-04 09:45 | CRLHL7_ITS ---
For Patients: As a result of the Cures Act, medical imaging exams and procedure reports are released immediately into your electronic medical record. You may view this report before your referring provider. If you have questions, please contact your health care provider. DIGITAL DIAGNOSTIC BILATERAL MAMMMOGRAM USING TOMOSYNTHESIS AND COMPUTER-AIDED DETECTION LEFT BREAST ULTRASOUND CLINICAL HISTORY: LEFT breast lump. COMPARISON: 11/01/2018, 03/13/2016, 12/12/2013. TECHNIQUE: Digital BILATERAL mammogram in four projections. Tomosynthesis and CAD utilized. Real-time ultrasound imaging of LEFT breast with imaging documentation. BREAST COMPOSITION: There are areas of scattered fibroglandular density. FINDINGS: 3D CC/MLO BILATERAL mammogram images submitted. No suspicious masses or architectural distortion. No adenopathy or suspicious calcifications. Mild subcutaneous density located within the area which was bruised. Targeted LEFT breast ultrasound performed in the area of concern LEFT breast 9 o`clock 8 cm from the nipple. Small cystic areas are present measuring less than 1 cm along with mild subcutaneous bruising. No solid masses. IMPRESSION: Mild subcutaneous bruising with small cystic areas within the LEFT breast 9 o`clock 8 cm from the nipple just beneath the skin. No drainable fluid collection or abscess. No suspicious mass. RECOMMENDATIONS: Clinical follow-up and routine BILATERAL screening mammography. Results and recommendations discussed with the patient. BI-RADS Category 2: Benign A lay language report of this examination will be provided to the patient. Dictated by Tom Millan MD @ 12/04/2022 11:51:25 AM j/Dictated by: Tom Millan MD @ 12/04/2022 11:55:00 AM (Electronically Signed)
--- NOTE | 2022-12-04 10:15 | CRLHL7_ITS ---
For Patients: As a result of the Cures Act, medical imaging exams and procedure reports are released immediately into your electronic medical record. You may view this report before your referring provider. If you have questions, please contact your health care provider. PLEASE SEE DIGITAL DIAGNOSTIC BILATERAL MAMMOGRAM PERFORMED SAME DAY CRL:[email or web address] hall/Dictated by: Tom Millan MD @ 12/04/2022 11:43:00 AM (Electronically Signed)
== END 2022-12-04 09:36 | disposition home or self-care (01) ==
LOC: MAMMO 09:36
PROVIDERS: PCP Family Medicine; Visit Provider Family Medicine
DX: N63.20 Unspecified lump in the left breast, unspecified quadrant (principal)
CPT/HCPCS: 76642; 77066; G0279

== ENCOUNTER 2023-01-30 15:50 | Emergency (ER) | payer BC, SELFPAY ==
[2023-01-30 15:56] VITALS: BP 156/101; PULSE 85; RESP 20; TEMP 36.7; O2SAT 94; BMI 44.6
[2023-01-30 16:05] LABS: Appearance Urine Clear (Clear); Bilirubin Urine Negative (Negative); Blood Urine Negative (Negative); Color Urine Yellow (Yellow); Glucose Urine Negative (Negative); Ketones Urine Negative (Negative); Leukocyte Esterase Urine Negative (Negative); Nitrite Urine Negative (Negative); Protein Urine Negative (Negative); Specific Gravity Urine >= 1.030 (1.000-1.030); Urobilinogen Urine 0.2 (0.2-1.0); pH Urine 5.5 (5.0-8.5)
[2023-01-30 16:12] LABS: Bacteria Urine Few; Fine Granular Casts Urine Few; RBC Urine 0-2 (0-2); Squamous Epithelial Cell Urine Few (None-Few)
[2023-01-30] MEDS: IBUPROFEN 200 MG TABLET 600 MG PO (16:38)
[2023-01-30] MEDS: ONDANSETRON ODT 4 MG TAB PO (16:38)
--- NOTE | 2023-01-30 18:02 | ED_ITS ---
HPI - General Adult General Date Seen: 01/30/23 Chief complaint: Urogenital Problems, Female Stated complaint: COVID +, asthma Time Seen by Provider: 01/30/23 15:57 History of Present Illness HPI narrative: This is a pleasant 52-year-old female who has a past medical history including depression, PTSD, bipolar disorder, anxiety, mild persistent asthma (or possibly COPD) former smoker, hypertension, peripheral neuropathy, hearing loss, obesity. She presents to the ER today with concerns for positive coronavirus test and also urinary symptoms. In terms of COVID. She has had the initial 2 vaccines and 1 booster. She has had 1 previous coronavirus infection which should not require hospitalization. She does not know how she got COVID. She began to develop symptoms of body aches and feeling unwell 2 days ago on Thursday while she was at work. She had a positive at-home COVID test yesterday. Symptoms of also include headache, body aches, cough, nasal congestion, some epistaxis. Positive chills and fevers. Facial pain and sinus pain. She has had nausea with multiple episodes of vomiting. She has not been able to keep down her prescription meds since prior to Thursday. No chest pain. No shortness of breath. He was also on when stable she was at work she had an episode of urinary incontinence. Since then she has had a couple more episode of incontinence as well as urinary frequency and some dysuria. No flank pain. No definite bladder pain. No definite blood or cloudiness in her urine. She has had chills and fevers. Related Data Home Medications Medication Instructions Recorded Confirmed albuterol sulfate 90 mcg/actuation 2 puff inhalation Q4-6H PRN 10/31/21 12/03/22 aerosol inhaler (Ventolin HFA) atomoxetine 18 mg capsule 36 mg PO QDAY 11/20/21 12/03/22 duloxetine 60 mg capsule,delayed 60 mg PO QDAY 11/20/21 12/03/22 release fluticasone propionate 50 2 spray intranasal QDAY 11/20/21 12/03/22 mcg/actuation nasal spray,suspension lurasidone 40 mg tablet (Latuda) 40 mg PO DAILY 12/20/21 12/03/22 duloxetine 20 mg capsule,delayed 20 mg PO QDAY 06/13/22 12/03/22 release lurasidone 60 mg tablet 60 mg PO DAILY 12/01/22 12/01/22 fluticasone fur. 100 mcg-umeclid 1 inh inhalation QDAY 12/03/22 12/03/22 62.5 mcg-vilant 25 mcg inhalat.powder (Trelegy Ellipta) Previous Rx's Medication Instructions Recorded ondansetron 4 mg disintegrating 4 - 8 mg (1 - 2 x 4 mg) PO Q6H PRN 01/03/22 tablet Nausea #30 tabs celecoxib 200 mg capsule 200 mg PO BID PRN pain #30 caps 01/08/22 metoprolol succinate 50 mg 50 mg PO QDAY #90 tabs 11/24/22 tablet,extended release 24 hr armodafinil 150 mg tablet 150 mg PO QAM #30 tabs 11/25/22 albuterol sulfate 90 mcg/actuation 2 inh inhalation Q4-6H PRN #1 ea 01/30/23 breath activated powder inhaler hydrocodone 5 mg-acetaminophen 325 1 tab PO Q6H PRN pain #10 tabs 01/30/23 mg tablet ondansetron 4 mg disintegrating 4 mg PO Q8H PRN nausea and 01/30/23 tablet vomiting #10 tabs pantoprazole 40 mg tablet,delayed 40 mg PO QDAY #90 tabs 01/30/23 release zafirlukast 20 mg tablet 20 mg PO BID #180 tabs 01/30/23 Allergies Allergy/AdvReac Type Severity Reaction Status Date / Time house dust mite Allergy Intermediate Congested Verified 12/03/22 10:36 mold Allergy Intermediate breathing Verified 12/03/22 10:36 difficulty prazosin Allergy Mild Unknown Verified 12/03/22 10:36 cefdinir AdvReac Intermediate Vomiting Verified 12/03/22 10:36 [facility] Medical History (Updated 01/30/23 @ 17:29 by Yuri Marsh MD) Late effect of Katarina's syndrome Osteoarthritis of left knee ?M17.12 - Unilateral primary osteoarthritis, left knee (ICD-10) Exogenous obesity ?E66.09 - Other obesity due to excess calories (ICD-10) Major depression, recurrent, chronic ?F33.9 - Major depressive disorder, recurrent, unspecified (ICD-10) Chronic pain of left knee ?M25.562 - Pain in left knee (ICD-10) ?G89.29 - Other chronic pain (ICD-10) Sensorineural hearing loss ?H90.5 - Unspecified sensorineural hearing loss (ICD-10) Peripheral neuropathy ?G62.9 - Polyneuropathy, unspecified (ICD-10) Environmental allergies ?Z91.09 - Other allergy status, other than to drugs and biological substances (ICD-10) Restless leg syndrome ?G25.81 - Restless legs syndrome (ICD-10) PTSD (post-traumatic stress disorder) ?F43.10 - Post-traumatic stress disorder, unspecified (ICD-10) Bipolar 1 disorder ?F31.9 - Bipolar disorder, unspecified (ICD-10) Anxiety ?F41.9 - Anxiety disorder, unspecified (ICD-10) Mild persistent asthma ?J45.30 - Mild persistent asthma, uncomplicated (ICD-10) GERD (gastroesophageal reflux disease) ?K21.9 - Gastro-esophageal reflux disease without esophagitis (ICD-10) Obstructive sleep apnea ?G47.33 - Obstructive sleep apnea (adult) (pediatric) (ICD-10) Hyperlipidemia ?E78.5 - Hyperlipidemia, unspecified (ICD-10) COPD (chronic obstructive pulmonary disease) ?J44.9 - Chronic obstructive pulmonary disease, unspecified (ICD-10) Hypertension ?I10 - Essential (primary) hypertension (ICD-10) Surgical History (Updated 10/19/22 @ 21:05 by Tom Abdul MD) Status post total knee replacement, left (01/02/22) ?Z96.652 - Presence of left artificial knee joint (ICD-10) History of arthroscopy of left knee ?Z98.890 - Other specified postprocedural states (ICD-10) History of open reduction and internal fixation (ORIF) procedure ?Z98.890 - Other specified postprocedural states (ICD-10) History of arthroscopy of left shoulder (11/18/19) ?Z98.890 - Other specified postprocedural states (ICD-10) History of varicose veins (01/18/20) ?Z86.79 - Personal history of other diseases of the circulatory system (ICD- 10) History of hand surgery ?Z98.890 - Other specified postprocedural states (ICD-10) History of carpal tunnel surgery of left wrist (2015) ?Z98.890 - Other specified postprocedural states (ICD-10) History of right inguinal hernia repair ?Z98.890 - Other specified postprocedural states (ICD-10) ?Z87.19 - Personal history of other diseases of the digestive system (ICD-10) History of cervical spinal surgery ?Z98.890 - Other specified postprocedural states (ICD-10) History of laparoscopic cholecystectomy ?Z90.49 - Acquired absence of other specified parts of digestive tract (ICD- 10) History of hysterectomy ?Z90.710 - Acquired absence of both cervix and uterus (ICD-10) Social History (Reviewed 07/14/22 @ 11:06 by Abbie Russell ~ [facility], [facility]) Narrative: nonsmoker, no alcohol Smoking Status: Former smoker What tobacco products do you use: cigarettes Smoking quit date/years: <= 15 years ago Do you use any of these nicotine containing products: None How often do you have a drink containing alcohol: monthly or less Alcohol type: wine How many standard drinks containing alcohol do you have on a typical day: 1 or 2 How often do you have six or more drinks on one occasion: Never AUDIT-C Alcohol total score: 1 Non-prescribed substance use: denies use Caffeine: Yes (coffee, 1 cup/day) Are you now , , , , never or living with a partner: Social isolation score (0-1 are the most socially isolated patients): 1 Little interest or pleasure in doing things: several days Feeling down, depressed, or hopeless: several days Exam Narrative: Exam Narrative: Constitutional: Appears well-developed and well-nourished. Alert. Conversant. Firs looks uncomfortable. Complains of nausea. Non toxic. She thinks she is going to be able to stay hydrated by oral. HENT: Head: Atraumatic. Nose: Nose normal. No purulent rhinorrhea. No epistaxis active. Mouth/Throat: Oral mucosa is clear and moist. no trismus. Pharynx normal. Tonsils symmetric. No tonsillar enlargement, erythema, or exudate. Eyes: Conjunctivae normal. EOM normal. Pupils equal, round, and reactive to light. No scleral icterus. Neck: Normal range of motion. Neck supple. No tracheal deviation present. Cardiovascular: Normal rate, regular rhythm. No gallop. No friction rub. No murmur heard. Symmetric radial artery pulses Pulmonary/Chest: Effort normal. No stridor. No respiratory distress. No wheezes. No rales. No rhonchi . No tenderness. Abdominal: Soft. Bowel sounds normal. No distension. No mass. No tenderness. No HSM. No rebound. No guarding. No CVA tenderness. Musculoskeletal: RUE: Normal range of motion. No tenderness. No deformity LUE: Normal range of motion. No tenderness. No deformity RLE: Normal range of motion. No edema. No tenderness. No deformity LLE: Normal range of motion. No edema. No tenderness. No deformity Lymph: No cervical adenopathy. Neurological: Alert and oriented to person, place, and time. Normal strength. CN II-VII intact. No sensory deficit. GCS eye subscore is 4. GCS verbal subscore is 5. GCS motor subscore is 6. Normal coordination Skin: Skin is warm and dry. No rash noted. No pallor. Normal capillary refill. Psychiatric: Normal mood. Normal affect. Const: Vital Signs, click to edit/add: Vital Signs - 24 hr 01/30/23 15:56 Temperature 98.1 F Pulse Rate [Right Pulse Oximeter] 85 Respiratory Rate 20 Blood Pressure [Ri ght Upper Arm] 156/101 H Pulse Oximetry 94 Oxygen Delivery Me thod Room Air Course Vital Signs Vital signs: Initial Vital Signs Temperature 98.1 F 01/30/23 15:56 Temperature Source Temporal Artery Scan 01/30/23 15:56 Pulse Rate 85 01/30/23 15:56 Respiratory Rate 20 01/30/23 15:56 Blood Pressure 156/101 H 01/30/23 15:56 Blood Pressure Mean 119 H 01/30/23 15:56 Blood Pressure Position Sitting 01/30/23 15:56 Pulse Oximetry 94 01/30/23 15:56 Oxygen Delivery Method Room Air 01/30/23 15:56 Vital Signs Temperature 98.1 F 01/30/23 15:56 Pulse Rate 85 01/30/23 15:56 Respiratory Rate 20 01/30/23 15:56 Blood Pressure 156/101 H 01/30/23 15:56 Pulse Oximetry 94 01/30/23 15:56 Oxygen Delivery Method Room Air 01/30/23 15:56 Temperature 98.1 F 01/30/23 15:56 Pulse Rate 85 01/30/23 15:56 Respiratory Rate 20 01/30/23 15:56 Blood Pressure 156/101 H 01/30/23 15:56 Pulse Oximetry 94 01/30/23 15:56 Oxygen Delivery Method Room Air 01/30/23 15:56 Medical Decision Making MDM Narrative Medical decision making narrative: This patient presents for evaluation of a positive COVID test associated with headache, body aches, fever and chills, nasal congestion, epistaxis yesterday, nausea and vomiting. She has also had dysuria, urinary incontinence for the past couple of days. In terms of her urinary symptoms with concerns for possible UTI. Urinalysis is actually fairly normal. Will set up urine culture in the lab. Would hold off on antibiotics for now. She is not having any severe back pain, numbness weakness down her legs or other symptoms of cauda equina. At this point and like she needs to be admitted for MRI of her low back. The remainder of her symptoms are consistent with COVID infection. She are had a positive at-home test still not repeat that here today. . There is no signs at this point of serious bacterial infection such as OM, RPA, epiglottitis, [employer], strep pharyngitis, pneumonia, sinusitis, meningitis, bacteremia, serious bacterial infection. She does have a history of asthma/COPD and cannot find her inhaler at home. On my exam she is not wheezy at this time. We will give her a refill prescription for her inhaler so that she can use that as needed. Given clear lungs, fever curve, no hypoxia and no respiratory distress I do not feel a CXR is indicated at this point as the probability of bacterial pneumonia is very unlikely. Discussed that there is potential for worsening pulmonary status in the setting of COVID. Fortunately she has had 3 vaccinations and 1 prior infection. Since she is on day 3 of illness and does have underlying lung disease I think she could be a candidate for Paxlovid therapy. However on medication review she has an absolute contraindication and interaction with her medication lurasidone. Discussed with pharmacy and may indicate based on the half life color acid own that is not a safe medication to use with Paxlovid. Therefore will hold off on that antiviral therapy for now. She has had a lot of nausea, vomiting. She has improved after Zofran. Give her prescription for Zofran ODT that she can use to help manage gastrointestinal symptoms. At this point she is feeling well enough that she declines IV fluids. She will be able to maintain hydration at home. She did not have much improvement in her headache and body aches after Motrin. She request stronger pain medicine. Provided. She understands opiate precautions.. Close followup with primary care physician is indicated. Return to ED for any trouble breathing, oxygen below 90, fever > 103, protracted vomiting, dehydration, confusion, or other worsening. Lab Data Labs: Lab Results 01/30/23 Range/Units 16:00 Urine Color Yellow (Yellow) Urine Appearance Clear (Clear) Urine pH 5.5 (5.0-8.5) Ur Specific [place] >= 1.030 (1.000-1.030) Urine Protein Negative (Negative) Urine Glucose (UA) Negative (Negative) Urine Ketones Negative (Negative) Urine Blood Negative (Negative) Urine Nitrite Negative (Negative) Urine Bilirubin Negative (Negative) Urine Urobilinogen 0.2 (0.2-1.0) Ur Leukocyte Esterase Negative (Negative) Urine RBC 0-2 (0-2) Urine WBC 2-5 (0-5) Ur Squamous Epith Cells Few (None-Few) Urine Bacteria Few A (None) Fine Granular Casts Few A (None) Discharge Plan Discharge Clinical Impression: COVID-19, Headache, Body aches, Vomiting Patient Disposition: Home, Self-Care Condition: Stable Instructions: Acute Headache (DC), Acute Nausea and Vomiting (ED), COVID-19 (Coronavirus Disease 2019) (ED) Additional Instructions: As we discussed, there is a chance that coronavirus could get worse. If you have worsening shortness of breath, oxygen below 90%, or any concerns, come back to the ER right away to be recheck. Urine sample today looks healthy. No clear evidence for an infection. We will send a urine culture. This will take 1-2 days to come back from the laboratory. If it is abnormal we will contact you by phone to start you on antibiotics. If your urinary symptoms are not improved within 1 week, recheck with your doctor. Prescriptions: New albuterol sulfate 90 mcg/actuation aerosol powdr breath activated 2 inh inhalation Q4-6H PRNQty: 1 0RF ondansetron 4 mg tablet,disintegrating 4 mg PO Q8H PRN (Reason: nausea and vomiting) Qty: 10 0RF hydrocodone-acetaminophen 5-325 mg tablet 1 tab PO Q6H PRN (Reason: pain) Qty: 10 0RF No Action albuterol sulfate [Ventolin HFA] 90 mcg/actuation HFA aerosol inhaler 2 puff inhalation Q4-6H PRN duloxetine 60 mg capsule,delayed release(DR/EC) 60 mg PO QDAY fluticasone propionate 50 mcg/actuation spray,suspension 2 spray intranasal QDAY Latuda 40 mg tablet 40 mg PO DAILY atomoxetine 18 mg capsule 36 mg PO QDAY lurasidone 60 mg tablet 60 mg PO DAILY Trelegy Ellipta 100-62.5-25 mcg blister with device 1 inh inhalation QDAY celecoxib 200 mg capsule 200 mg PO BID PRN (Reason: pain) Qty: 30 0RF duloxetine 20 mg capsule,delayed release(DR/EC) 20 mg PO QDAY Patient Comments: TAKE ONE CAPSULE BY MOUTH EVERY DAY ALONG WITH 60 MG CAPSULE FOR A TOTAL OF 80 MG PER DAY ondansetron 4 mg tablet,disintegrating 4 - 8 mg PO Q6H PRN (Reason: Nausea) Qty: 30 0RF metoprolol succinate 50 mg tablet extended release 24 hr 50 mg PO QDAY Qty: 90 3RF armodafinil 150 mg tablet 150 mg PO QAM Qty: 30 1RF zafirlukast 20 mg tablet 20 mg PO BID Qty: 180 1RF pantoprazole 40 mg tablet,delayed release (DR/EC) 40 mg PO QDAY Qty: 90 2RF Patient Comments: TAKE ONE TABLET BY MOUTH DAILY Follow Up/Referrals: Tom Abdul MD [Primary Care Provider] - Stand Alone Forms: [facility] Info Instructions
== END 2023-01-30 18:06 | disposition home or self-care (01) ==
PROVIDERS: Emergency Provider Emergency Medicine; PCP Family Medicine
DX: U07.1 COVID-19 (principal); R51.9 Headache, unspecified
CPT/HCPCS: 81001; 87086; 99283; A9270

== ENCOUNTER 2023-10-07 11:34 | Outpatient (CLI) | payer OTHER, SELFPAY ==
--- OUTSIDE RECORDS SUMMARY | 2023-10-07 11:37 | XMS_ITS | Clinical Summary ---
Author Organization [facility] Address [address] [place] [address] Care Team Providers Care Belt Loop Maker Name Role Phone Tom Abdul MD Primary Care Provider Source Comments You are receiving this document as you are listed as the primary care provider,follow-up provider, or the patient has been referred to you for consultation.This is in compliance with the Medicare and[facility] E[facility] Incentive Program,which states Providers who transition their patient to another setting of careor provider of care or refers their patient to another provider of care shouldprovide summary care record for each transition of care or referral. Opposing Views Allergies Active Allergy Reactions Criticality Noted Date Comments Amoxicillin-Pot Clavulanate Diarrhea,Nausea And Vomiting 07/25/2017 Cefdinir Nausea And Vomiting 08/07/2017 During sinusitis illness Prazosin Other, see comments 06/16/2013 Patient felt weak, had bizarre dreams Medications Medication Sig Dispensed Refills Start Date End Date Status ALBUterol sulfate HFA 108 (90 Base) MCG/ACT inhaler Inhale 1-2 Puffs every 4 hours as needed for Wheezing. Active acetaminophen (TYLENOL) 500 MG tablet Take 1 Tablet by mouth every 4 hours as needed. Maximum acetaminophen dose is 4000 mg in 24 hours 100 Tablet 10/18/2019 Active mometasone-formot ralf (DULERA) 100-5 mcg/actuation inhaler Inhale 2 Puffs two times a day. Rinse mouth/gargle after use 1 Each 10/18/2019 Active Additional Information Patient not taking.Reported on 02/13/2021 montelukast (SINGULAIR) 10 MG tablet Take 1 Tablet by mouth every evening. 30 Tablet 10/18/2019 Active Additional Information Patient not taking.Reported on 04/12/2022 lisinopril (ZESTRIL) 10 MG tablet Take 1 Tablet by mouth daily. 30 Tablet 10/18/2019 Active Additional Information Patient not taking.Reported on 02/13/2021 famotidine (PEPCID) 10 MG tablet Take 2 Tablets by mouth two times a day. 120 Tablet 10/18/2019 Active Additional Information Patient not taking.Reported on 02/13/2021 risperiDONE (RISPERDAL) 2 MG tabletIndications :Manic Phase of Bipolar Mood Disorder Take 2 Tablets by mouth daily at bedtime. Indications: Manic Phase of Manic-Depression 60 Tablet 10/28/2019 Active Additional Information Patient not taking.Reported on 02/13/2021 celecoxib (CELEBREX) 100 MG capsule TAKE 1-2 CAPSULES TWICE A DAY NEEDED. 11/16/2020 Active ondansetron (ZOFRAN) 4 MG tablet Every 6 Hours as needed 12/09/2020 Active budesonide-formot ralf (SYMBICORT) 160-4.5 MCG/ACT inhaler Twice A Day 10/04/2020 Active DULoxetine (CYMBALTA) 60 MG capsule Bedtime 01/01/[address] (PROTONIX) 40 MG tablet Take 40 mg by mouth daily. 01/31/2021 Active metoprolol succinate (TOPROL XL) 50 MG 24 hour release tablet Take 1 Tablet (50 mg) by mouth daily. 01/31/2021 Active fluticasone propionate (FLONASE) 50 MCG/ACT nasal solution INSTILL 2 SPRAYS INTO EACH NOSTRIL ONCE DAILY 01/03/2021 Active acetaminophen-cod eine (TYLENOL NO. 3) 300-30 MG tablet Take 1-2 Tablets by mouth every 4 hours as needed. 05/08/2021 Active DULoxetine (CYMBALTA) 30 MG capsule Take 1 Capsule (30 mg) by mouth. Active fluticasone propionate (FLONASE) 50 MCG/ACT nasal solution Daily 04/28/2021 Active LATUDA 40 MG tablet Take 1 Tablet (40 mg) by mouth daily. 09/26/2021 Active zafirlukast (ACCOLATE) 20 MG tablet Take 1 Tablet (20 mg) by mouth every 12 hours. 09/26/2021 Active medical cannabis patient certified Active [place] [employer] 160-9-4.8 MCG/ACT AERO Take 2 Puffs by mouth every 12 hours. 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 Social History Tobacco Use Types Packs/Day Years Used Date Smoking Tobacco: Former Smokeless Tobacco: Never Alcohol Use Standard Drinks/Week Comments Not Currently 0 (1 standard drink = 0.6 oz pur e alcohol) Sex and Gender Information Value Date Recorded Sex Assigned at Not on file Gender Identity Not on file Sexual Orientation Not on file Last Filed Vital Signs Vital Sign Reading Time Taken Comments Blood Pressure 162/85 04/12/2022 1:18 PM PACK OUT OPERATOR Pulse 87 04/12/2022 1:18 PM PACK OUT OPERATOR Temperature 36.4 ??C (97.6 ??F) 04/12/2022 1:18 PM CS T Respiratory Rate 18 04/12/2022 1:18 PM PACK OUT OPERATOR Oxygen Saturation 97% 04/12/2022 1:18 PM PACK OUT OPERATOR Inhaled Oxygen Concentration - - Weight 117.7 kg (259 lb 6.4 oz) 022 10:05 AM CDT Height 165.1 cm (5' 5) 03/05/2021 1:51 PM CDT Body Mass Index 43.17 03/05/2021 1:51 PM CDT Plan of Treatment Health Maintenance Due Date Last Done Comments Cervical Cancer Screening Due 1969 Colon Cancer Screening Plan Due 1969 Hep C Screening (Preventive Services) 1969 Mammogram 1969 Adult Preventive Visit 1987 HepB (1) 1988 Zoster/Shingles (1 of 2) 2019 COVID-19 Vaccine (3 - 2022-2 4 season) 2023 08/21/2020, 07/24/2020 DTaP/Tdap/Td (2 - Tdap) 09/02/2023 09/01/2013 Influenza (Season Ended) 2024 04/20/2020 Cholesterol 11/02/2024 11/03/2019 HIV Screening (Preventive Services) Completed 10/15/2019 HepA Aged Out No longer eligi ble based on patient's age to complete this topic Hib Aged Out No longer eligi ble based on patient's age to complete this topic IPV (Polio) Aged Out No longer eligi ble based on patient's age to complete this topic MCV4 Aged Out No longer eligi ble based on patient's age to complete this topic Pneumococcal Aged Out No longer eligi ble based on patient's age to complete this topic Procedures Procedure Name Priority Date/Time Associated Diagnosis Comments LIPID PANEL & DIRECT LDL (IF NEEDED) Routine 11/03/2019 8:26 AM CDT Bipolar 1 disorder (HRC) HIV 1/2 AG/AB 4TH GEN Routine 10/15/2019 7:35 AM CDT from Last 3 Months or Most Recently Relevant to Health Maintenance Results * (ABNORMAL) Lipid Panel and Direct LDL(If Needed) (11/03/2019 8:26 AM CDT) Cholesterol 249(H) 0 - 199 mg/dL 11/03/2019 11:50 AM CDT [facility] Triglyceride 272(H) <=149 mg/dL 11/03/2019 11:50 AM CDT [facility] HDL Cholesterol 50 >=40 mg/dL 11/03/2019 11:50 AM CDT [facility] LDL, Calculated 145(H) <130 mg/dL 11/03/2019 11:50 AM CDT [facility] Non HDL Chol, Calculated 199 mg/dL 11/03/2019 11:50 AM CDT [facility] Cholesterol/HDL Ratio 5.0 11/03/2019 11:50 AM CDT [facility] Hours Fasting 12 11/03/2019 11:50 AM CDT [facility] Blood Venipuncture / Unknown 11/03/2019 8:26 AM CDT 11/03/2019 8:26 AM CDT Clovis Arias MD LAB_1 [facility] [address] [address], [facility] [phone] [facility] [address] [place] [address], [facility] [phone] * HIV 1/2 Ag/Ab 4th Generation (10/15/2019 7:35 AM CDT) HIV 1/2 Antigen/Antib hayde (4th generation) Negative (Non Reactive) Negative (Non Reactive) 10/15/2019 8:39 AM CDT [facility] Comment:HIV-1 p24 Antigen an d HIV-1/HIV-2 Antibody not detected Blood Venipuncture / Unknown 10/15/2019 7:35 AM CDT 10/15/2019 7:44 AM CDT Nicki Bates MD LAB_[address] [phone] from Last 3 Months or Most Recently Relevant to Health Maintenance Advance Directives * Full Code (Latest Code Status on File) Date Activated Date Inactivated Comments 10/14/2019 4:31 PM 10/18/2019 4:55 PM Care Teams Belt Loop Maker Relationship Specialty Start Date End Date Tom Abdul MD [address] [place] [address] PCP - General Family Practice 11/02/19
--- OUTSIDE RECORDS SUMMARY | 2023-10-07 11:37 | XMS_ITS | Clinical Summary ---
Author Organization [facility] Address [address] [place] [address] Care Team Providers Care Adventure Therapist Name Role Phone Unavailable Primary Care Provider Unavailabl e Allergies Active Allergy Reactions Criticality Noted Date Comments Prazosin Fatigue 05/25/2019 Medications Medication Sig Dispensed Refills Start Date End Date Status gabapentin (NEURONTIN) 300 MG capsule Take 300 mg by mouth 2 times daily Active lisinopril (PRINIVIL/ZESTRIL) 10 MG tablet Take 10 mg by mouth daily Active baclofen (LIORESAL) 10 MG tablet Take 10 mg by mouth At Bedtime 08/25/2019 Active fluticasone (FLONASE) 50 MCG/ACT nasal spray SHAKE LQ AND U 1 SPR IEN D 11/09/2018 Active albuterol (PROAIR HFA/PROVENTIL HFA/VENTOLIN HFA) 108 (90 Base) MCG/ACT inhaler INL 1 TO 2 PFS PO Q 4 H PRF WHZ OR DIFFICULT BREATHING 07/10/2019 Active hydrOXYzine (VISTARIL) 50 MG capsule 07/14/2019 Active DULERA 100-5 MCG/ACT inhaler INL 2 PFS PO BID 06/27/2019 Act [facility]uardo medical cannabis (Patient's own supply) See Admin Instructions (The purpose of this order is to document that the patient reports taking medical cannabis. This is not a prescription, and is not used to certify that the patient has a qualifying medical condition.) Active clonazePAM (KLONOPIN) 0.5 MG tablet Take 0.5 mg by mouth 2 times daily as needed 07/29/2019 Active famotidine (PEPCID) 20 MG tablet Take 20 mg by mouth 2 times daily 11/01/2019 Active nabumetone (RELAFEN) 500 MG tablet Take 500 mg by mouth daily 10/18/2019 Active montelukast (SINGULAIR) 10 MG tablet Take 10 mg by mouth daily 11/08/2019 Active risperiDONE (RISPERDAL) 4 MG tablet Take 4 mg by mouth daily 11/09/2019 Active DULoxetine (CYMBALTA) 30 MG capsule Take 30 mg by mouth 2 times daily Active Social History Tobacco Use Types Packs/Day Years Used Date Smoking Tobacco: Never Smokeless Tobacco: Never Adolescent Education Answer Date Record ed Getting School Help Needed Not on file 01/24 Sex and Gender Information Value Date Recorded [...] Mass Index - - Plan of Treatment Not on file Medical Devices Explanted Type Area Tube Machine Operator Helper Device Identifier Shelf Expiration Date Model / Serial / Lot Catheter- [id number] Implanted:01/17 by Melinda Melgoza MD (Quantity not on file) Explanted:01/17 by Melinda Melgoza MD (Quantity not on file) Catheter [employer] [id number] 05/03/2021 / / [id number]
--- OUTSIDE RECORDS SUMMARY | 2023-10-07 11:37 | XMS_ITS | Clinical Summary ---
Author Organization [employer] [facility] Address [place], [place] [address] Care Team Providers Care Rn Team Leader Name Role Phone Kayy Mathis Skylar BARRON Unavailable Unavaila Ej Meza MD Unavailable Unavailab Donna Mchugh MD Unavailable Zeke Barlow DO Unavailable [phone] Tom Abdul MD Primary Care Provider + Allergies Active Allergy Reactions Criticality Noted Date Comments Amoxicillin-Pot Clavulanate Diarrhea,Vomiting 07/25/2017 Cefdinir Vomiting 08/07/2017 During sinusitis illness Pollen Extracts Runny Nose 04/25/2016 Itchy watery burning eyes, itchy ears Prazosin Other - Describe In Comment Field 06/16/2013 Patient felt weak, had bizarre dreams Medications Medication Sig Dispensed Refills Start Date End Date Status hydrOXYzine pamoate (VISTARIL) 25 mg capsuleIndications: PTSD (post-traumatic stress disorder) TAKE 3 CAPSULES BY MOUTH DAILY NEEDED FOR ANXIETY 180 capsule 3 09/09/2017 Active lisinopril (PRINIVIL; ZESTRIL) 10 mg tabletIndications:H TN (hypertension) Take 1 tablet by mouth once daily. 90 tablet 3 09/09/2017 Active omeprazole (PRILOSEC) 40 mg Delayed-Release capsuleIndications: Gastroesophageal reflux disease with esophagitis Take 1 capsule by mouth once daily. 90 capsule 3 09/09/2017 Active ondansetron (ZOFRAN ODT) 4 mg disintegrating tabletIndications:B ruised ribs, right, initial encounter Place 1 tablet on the tongue every 8 hours if needed for Nausea/Vomiting. 30 tablet 1 09/09/2017 Active fluticasone (50 mcg per actuation) nasal solution (FLONASE)Indication s:Environmental allergies Inhale 2 Sprays into both nostrils once daily. 48 g 3 09/09/2017 Active Additional Information Patient taking differently:2 [place] Both NostrilsDAILY PRN, dust allergy at work, Informant: Patient's Recall, Reported on 02/18/2018 cetirizine (ZYRTEC) 10 mg tabletIndications:E nvironmental allergies Take 1 tablet by mouth once daily. 30 tablet 3 09/29/2017 Active Additional Information Patient taking differently:10 mg OralDAILY PRN, spring allergies, Informant: Patient's Recall, Reported on 02/18/2018 montelukast (SINGULAIR) 10 mg tabletIndications:E nvironmental allergies Take 1 tablet by mouth at bedtime. 30 tablet 2 09/29/2017 Active Additional Information Patient taking differently:10 mg OralBEDTIME PRN, spring allergies, Informant: Patient's Recall, Reported on 02/18/2018 cyclobenzaprine (FLEXERIL) 10 mg tabletIndications:M uscle tension headache,Strain of neck muscle, subsequent encounter Take 1 tablet by mouth 3 times daily if needed for Muscle Spasm. May cause drowsiness. 90 tablet 4 11/17/2017 Active gabapentin (NEURONTIN) 300 mg capsuleIndications: Cervical radiculopathy,Left hand weakness Gradually increase up to 300mg in morning, and Continue 600 mg at night. 270 capsule 1 01/05/2018 Active Additional Information Patient taking differently: 600 mg Oral BID, (No instructions reported), Informant: Patient's Recall, Reported on 02/18/2018 diazePAM (VALIUM) 5 mg tabletIndications:C ervical radiculopathy,Cervi rosy spinal stenosis Take 1 tablet by mouth every 6 hours if needed for Muscle Spasm. Use at bedtime and avoid taking within 3 hours of flexeril. 15 tablet 02/19/2018 Active sennosides-docusate , 8.6-50 mg, (SENOKOT S) 8.6-50 mg tabletIndications:C ervical radiculopathy,Cervi rosy spinal stenosis Take 1-4 tablets by mouth 2 times daily. 50 tablet 02/19/2018 Active HYDROcodone-acetami nophen, 5-325 mg, (NORCO) per tabletIndications:C ervical radiculopathy,Cervi rosy spinal stenosis Take 1-2 tablets by mouth every 4 hours if needed for pain. Max acetaminophen dose: 4000 mg in 24 hrs. 50 tablet 02/19/2018 Active WalkerIndications:C ervical radiculopathy,Cervi rosy spinal stenosis Walker with front wheels for home use. 99 weeks 1 Device 02/19/2018 Active Active Problems Problem Noted Date Diagnosed Date Cervical spinal stenosis 02/18/2018 Cervical radiculopathy 11/26/2017 Overview: ~ November 2017: C7-T1 [place] Left sided epidural steroid injection at [facility]. HTN (hypertension) 09/18/2016 Reactive inflammatory arthritis 03/13/2016 Overview: Dr. Gibson Anxiety 01/30/2016 Restrictive airway disease 08/23/2014 Overview: PFTs 08/2014 Hyperlipidemia LDL goal < 100 08/16/2014 H/O gestational diabetes mellitus, not currently 08/02/2014 Overview: 1997 Environmental allergies 02/16/2014 Encounter for long-term (current) use of medicat ions 11/28/2013 Personality Disorder, NOS; b orderline, dependent, avoidant features 10/18/2013 Ruling out Narcolepsy and cataplexy 05/31/2013 Major depression, recurrent 05/31/2013 Rule out due to general medi rosy condition (Katarina's syndrome age 11, brain swelling, reports change in cognitive and personality) 05/31/2013 BRYAN 1216/2013 AHI-5 04/23/2013 Peripheral neuropathy 03/10/2013 PTSD (post-traumatic stress disorder) Restless legs syndrome (RLS) Resolved Problems Problem Noted Date Diagnosed Date Resolved Date Major depressive disorder, r ecurrent episode, severe, without mention of psychotic behavior 10/27/2013 06/08/2014 Major depressive disorder, r ecurrent episode, moderate 09/08/2013 09/23/2013 Anxiety disorder; ALEX, Panic, PTSD symptoms 05/31/2013 10/18/2013 BRYAN (obstructive sleep apnea) 03/10/2013 04/23/2013 Panic disorder with agoraphobia 06/08/2014 Immunizations Name Administration Dates Next Due Tdap 09/01/2013 Family History Medical History Relation Name Comments Psychiatric illness Brother 1 ocd, pts d Unknown Brother 1 Unknown Brother 2 Psychiatric illness Daughter 1 asperger s, BPAD and ODD Psychiatric illness Daughter 2 mild anx iety Alcohol/Drug Father Psychiatric illness Father Unknown Father Unknown Maternal Grandfather Unknown Maternal Grandmother Alcohol/Drug Mother Hypertension Mother Psychiatric illness Mother not cont rolled, arson, stabbing, etc. Unknown Mother Psychiatric illness Other cousin mult adm to [place] Psychiatric illness Paternal Aunt ECT's a nd mult admission Unknown Paternal Grandfather Unknown Paternal Grandmother Cancer-breast No Family History Relation Name Status Comments Brother 1 Alive Brother 2 Alive Daughter 1 Alive Daughter 2 Alive Father Alive Maternal Grandfather Maternal Grandmother Mother Alive Other cousin Alive Paternal Aunt Alive Paternal Grandfather Paternal Grandmother Social History Tobacco Use Types Packs/Day Years Used Date Smoking Tobacco: Former Cigarettes 1 2015 Smokeless Tobacco: Never Tobacco Cessation:Counseling Given: Yes Comments:passive smoke exposure Alcohol Use Standard Drinks/Week Comments No 0 (1 standard drink = 0.6 oz pure alcohol) extremely rare, less than annually PHQ-2 Answer Date Recorded PHQ-2 Score 1 07/05/2018 Sex and Gender Information Value Date Recorded Sex Assigned at Not on file Gender Identity Not on file Sexual Orientation Not on file Obstetrics History Para Term AB IAB SAB Ectopic Multiple Livin g Live Births 3 2 2 1 1 2 Date Outcome GA Total Labor Labor/2nd/3rd Weight Sex Delivery Anes PTL Megan A1 A5 Name Cl in Term F Term F SAB Last Filed [...] kg (238 lb 8 oz) 02/24/2018 10:45 A M CDT Height 162.6 cm (5' 4) 02/18/2018 7:36 AM CDT Body Mass Index 40.94 02/18/2018 7:36 AM CDT Plan of Treatment Health Maintenance Due Date Last Done Comments HIV for age 15-65 1984 Hepatitis C screening for age 18-79 1987 Mammogram for age 45-75 03/13/2017 03/13/20 16, 12/14/2013, 12/12/2013 Depression screening for age 12+ 09/09/2018 09/09/2017, 09/18/2016, 06/06/2016, Additional history exists BMI (ht and wt on same day) for age 18+ 02/04/2019 02/04/2018, 11/09/2017, 11/05/2017, Additional history exists Zoster (shingles) series for age 50+ (1 of 2) 2019 Lipids for age 45-75 03/13/2021 03/13/2016, 08/11/2014, 08/11/2014 COVID-19 vaccine series (2022- season) 2023 08/21/2020, 07/24/2020 Tetanus booster 09/02/2023 09/01/2013 Influenza for age 50-64 01/03/2024 Colonoscopy through age 75 01/20/2026 01/21/2016, Tdap Completed 09/01/2013 Pneumococcal series for age 6-64 Aged Out No longer eligible based on patient's age to complete this topic Medical Devices Implanted Type Area Research Development Manager Device Identifier Shelf Expiration Date Model / Serial / Lot Disc Cerv [id number] Mobi-C - [id number] Implanted:Qty : 1 on 02/18/2018 by Bunny Monsivais MD at [facility] N/A: Cervical Vertebrae [employer] 06/04/2021 [id number] / / [id number] Procedures Procedure Name Priority Date/Time Associated Diagnosis Comments XR MAMMO BILAT SCREEN FFDM (IA) Routine 03/13/2016 11:10 AM SUPERVISOR COMPUTER OPERATIONS Visit for screening mammogram LIPID PANEL W REFLEX MEASURED LDL Routine 03/13/2016 10:44 AM SUPERVISOR COMPUTER OPERATIONS Hyperlipidemia LDL goal < 100 COLONOSCOPY DIAGNOSTIC Routine 01/21/2016 9:49 AM CDT RLQ abdominal pain Diarrhea, unspecified type from Last 3 Months or Most Recently Relevant to Health Maintenance Results * XR MAMMO BILAT SCREEN FFDM (03/13/2016 11:10 AM SUPERVISOR COMPUTER OPERATIONS) Anatomical Region Laterality Modality BREASTS, Breast Left, Breast Right Bilateral Mammography Impressions 03/13/2016 12:30 PM SUPERVISOR COMPUTER OPERATIONS ??There is no radiographic evidence for malignancy. ??Recommend annual mammograms. A lay language report of this examination will be provided to the patient. MAMMOGRAM ASSESSMENT: ??ACR 2 Benign Narrative 03/13/2016 12:30 PM SUPERVISOR COMPUTER OPERATIONS XR MAMMO BILAT SCREEN FFDM [G0202.0] CLINICAL HISTORY: ??This is an asymptomatic 45 y.o. patient. INDICATION FOR EXAM: Mammogram Screening. TECHNIQUE: CC & MLO views were obtained. ??This digital study was evaluated with the assistance of Computer-Aided Detection. COMPARISON FILMS: Yes 12/12/13 [facility] FINDINGS: ??Mammographically, the breast tissue has scattered fibroglandular densities. ??No suspicious masses or microcalcifications. ?? Benign appearing calcifications within both breasts. Mili Romero TELECOMMUNICATIONS ADMINISTRATOR MAMMO * (ABNORMAL) LIPID PANEL W REFLEX MEASURED LDL (03/13/2016 10:44 AM SUPERVISOR COMPUTER OPERATIONS) CHOLESTEROL,TOTAL 221(H) 100 - 199 mg/dL 03/13/2016 11:17 AM [facility] TRIGLYCERIDES 196(H) <150 mg/dL 03/13/2016 11:17 AM [facility] HDL CHOLESTEROL 46 >40 mg/dL 6 11:17 AM [facility] NON-HDL CHOLESTEROL 175(H) <145 mg/dl 03/13/2016 11:17 AM [facility] CHOL/HDL RATIO 4.80(H) <4.50 03/13/2016 11:17 AM [facility] LDL CHOLESTEROL 136(H) <=130 mg/dL 03/13/2016 11:17 AM [facility] PATIENT STATUS FASTING 03/13/2016 11:17 AM [facility] Blood BLOOD SPECIMEN / Unknown Venipuncture / Unknown 03/13/2016 10:44 AM SUPERVISOR COMPUTER OPERATIONS 03/13/2016 10:44 AM SUPERVISOR COMPUTER OPERATIONS Mili Romero NP CHEMISTRY [facility] [address] [place] [address], * COLONOSCOPY DIAGNOSTIC (01/21/2016 9:49 AM CDT) Zeferino Dominguez MD GI PROCEDURE ORD from Last 3 Months or Most Recently Relevant to Health Maintenance Advance Directives * Full Code (Latest Code Status on File) Date Activated Date Inactivated Comments 02/18/2018 12:51 PM 02/19/2018 4:49 PM * Full Code Date Activated Date Inactivated Comments 05/01/2016 8:39 AM 05/01/2016 1:13 PM Question Answer Comments Code Status Discussion: Discussed * Full Code Date Activated Date Inactivated Comments 05/01/2016 5:45 AM 05/01/2016 8:39 AM Care Teams Rn Team Leader Relationship Specialty Start Date End Date Tom Abdul MD [address] [place] [address] PCP - General Family Practice 07/16/20 Kayy Mathis CNS Clinical Nurse Specialist 08/16/14 Ej Jaeger MD Neurology 08/16/14 Donna Acosta MD [address] [facility] [address] [place] [address] Rheumatology Rheumatology 02/12/16 Zeke Barlow DO [address] [place] [address] Surgery of the Hand 03/13/16
--- OUTSIDE RECORDS SUMMARY | 2023-10-07 11:38 | XMS_ITS | Referral Summary ---
Author Organization [facility] Address [address] [place] [address] Care Team Providers Care Industrial Ecologist Name Role Phone Unavailable Primary Care Provider [...] on file Medical Devices Explanted Type Area Field Artillery Operations Specialist Device Identifier Shelf Expiration Date Model / Serial / Lot Catheter- 020 Implanted:01/17 by Melinda Melgoza MD (Quantity not on file) Explanted:01/17 by Melinda Melgoza MD (Quantity not on file) Catheter [employer] [id number] 05/03/2021 / / [id number]
== END 2023-10-07 11:35 | disposition home or self-care (01) ==
PROVIDERS: PCP Family Medicine; Visit Provider Family Medicine
DX: I10 Essential (primary) hypertension (principal); E78.2 Mixed hyperlipidemia
CPT/HCPCS: 80048; 80061; 85025

== ENCOUNTER 2023-10-19 08:48 | Outpatient (CLI) | payer OTHER, SELFPAY ==
--- OUTSIDE RECORDS SUMMARY | 2023-10-19 08:51 | XMS_ITS | Clinical Summary ---
Author Organization [facility] Address [place], [place] [address] Care Team Providers Care Chain Offbearer Name Role Phone Kayy Mathis Skylar BARRON Unavailable Unavaila Ej Meza MD Unavailable Unavailab Donna Mchugh MD Unavailable [phone] Zeke Barlow DO Unavailable [phone] Tom Abdul MD Primary Care Provider + [...] 09/09/2017 Active Additional Information Patient taking differently:2 Hurley Both NostrilsDAILY PRN, dust allergy at work, [...] [place] Left sided epidural steroid injection at [facility]. HTN (hypertension) 09/18/2016 Reactive inflammatory arthritis [...] Outcome GA Total Labor Labor/2nd/3rd Weight Sex Type Anes PTL Megan A1 A5 Name Clin Term F Term F SAB Last Filed [...] 02/18/2018 7:36 AM CDT Plan of Treatment Upcoming Encounters Date Type Department Care Team (Late st Contact Info) Description 10/19/2023 9:00 AM CDT Ancillary Procedure [facility] [address] [place] [address] Health Maintenance Due Date Last Done Comments [...] 03/13/2021 03/13/2016, 08/11/2014, 08/11/2014 COVID-19 vaccine series ( season) 2023 08/21/2020, 07/24/2020 Tetanus booster 09/02/2023 09/01/2013 Influenza for age 50-64 01/03/2024 Colonoscopy through age 75 01/20/2026 01/21/2016, Tdap Completed 09/01/2013 Pneumococcal series for age 6-64 Aged Out No longer eligible based on patient's age to complete this topic Medical Devices Implanted Type Area Manufacturing Sr Engineer Device Identifier Shelf Expiration Date Model / Serial / Lot Disc Cerv [id number] Mobi-C - [id number] Implanted:Qty : 1 on 02/18/2018 by Bunny Monsivais MD at [facility] N/A: Cervical Vertebrae [employer] 06/04/2021 [id number] / / [id number] Procedures Procedure Name Priority Date/Time Associated Diagnosis Comments XR MAMMO BILAT SCREEN FFDM (IA) Routine 03/13/2016 11:10 AM DRESS CAP MAKER Visit for screening mammogram LIPID PANEL W REFLEX MEASURED LDL Routine 03/13/2016 10:44 AM DRESS CAP MAKER Hyperlipidemia LDL goal < 100 COLONOSCOPY DIAGNOSTIC Routine 01/21/2016 9:49 AM CDT RLQ abdominal pain Diarrhea, unspecified type from Last 3 Months or Most Recently Relevant to Health Maintenance Results * XR MAMMO BILAT SCREEN FFDM (03/13/2016 11:10 AM DRESS CAP MAKER) Anatomical Region Laterality Modality BREASTS, Breast Left, Breast Right Bilateral Mammography Impressions 03/13/2016 12:30 PM DRESS CAP MAKER ??There is no radiographic evidence for malignancy. ??Recommend annual mammograms. A lay language report of this examination will be provided to the patient. MAMMOGRAM ASSESSMENT: ??ACR 2 Benign Narrative 03/13/2016 12:30 PM DRESS CAP MAKER XR MAMMO BILAT SCREEN FFDM [G0202.0] CLINICAL HISTORY: ??This is an asymptomatic 45 y.o. patient. INDICATION FOR EXAM: Mammogram Screening. TECHNIQUE: CC & MLO views were obtained. ??This digital study was evaluated with the assistance of Computer-Aided Detection. COMPARISON FILMS: Yes 12/12/13 [facility] FINDINGS: ??Mammographically, the breast tissue has scattered fibroglandular densities. ??No suspicious masses or microcalcifications. ?? Benign appearing calcifications within both breasts. Mili Romero FUNERAL CAR DRIVER MAMMO * (ABNORMAL) LIPID PANEL W REFLEX MEASURED LDL (03/13/2016 10:44 AM DRESS CAP MAKER) CHOLESTEROL,TOTAL 221(H) 100 - 199 mg/dL 03/13/2016 11:17 AM DRESS CAP MAKER [facility] TRIGLYCERIDES 196(H) <150 mg/dL 03/13/2016 11:17 AM DRESS CAP MAKER [facility] HDL CHOLESTEROL 46 >40 mg/dL 6 11:17 AM DRESS CAP MAKER [facility] NON-HDL CHOLESTEROL 175(H) <145 mg/dl 03/13/2016 11:17 AM [facility] CHOL/HDL RATIO 4.80(H) <4.50 03/13/2016 11:17 AM DRESS CAP MAKER [facility] LDL CHOLESTEROL 136(H) <=130 mg/dL 03/13/2016 11:17 AM DRESS CAP MAKER [facility] PATIENT STATUS FASTING 03/13/2016 11:17 AM DRESS CAP MAKER [facility] Blood BLOOD SPECIMEN / Unknown Venipuncture / Unknown 03/13/2016 10:44 AM DRESS CAP MAKER 03/13/2016 10:44 AM DRESS CAP MAKER Mili Romero NP CHEMISTRY [facility] [address] [place] [address], * COLONOSCOPY DIAGNOSTIC (01/21/2016 9:49 AM CDT) [...] 5:45 AM 05/01/2016 8:39 AM Care Teams Chain Offbearer Relationship Specialty Start Date End Date Tom Abdul MD [address] [place] [address] PCP - General Family Practice 07/16/20 Kayy Mathis, ANDERSON Clinical Nurse Specialist 08/16/14 Ej Jaeger MD Neurology 08/16/14 Donna Acosta MD [address] [facility] [address] [place] [address] Rheumatology Rheumatology 02/12/16 Zeke Barlow DO [address] [place] [id number] Surgery of the Hand 03/13/16
--- OUTSIDE RECORDS SUMMARY | 2023-10-19 08:52 | XMS_ITS | Clinical Summary ---
Author Organization [facility] Address [address] [place] [address] Care Team Providers Care Subway Train Driver Name Role Phone Tom Abdul MD Primary Care Provider Source Comments You are receiving this document as you are listed as the primary care provider,follow-up provider, or the patient has been referred to you for consultation.This is in compliance with the Medicare and[facility] Hospital[facility] EHR Incentive Program,which states Providers who transition their patient to another setting of careor provider of care or refers their patient to another provider of care shouldprovide summary care record for each transition of care or referral. [facility] Allergies Active Allergy Reactions Criticality Noted Date [...] 6 Hours as needed 12/09/2020 Active budesonide-formot arlf (SYMBICORT) 160-4.5 MCG/ACT inhaler Twice A Day [...] Active medical cannabis patient certified Active [place] MarketfishPHERE 160-9-4.8 MCG/ACT AERO Take 2 Puffs by [...] Comments Blood Pressure 162/85 04/12/2022 1:18 PM MARKETING SERVICES REP Pulse 87 04/12/2022 1:18 PM MARKETING SERVICES REP Temperature 36.4 ??C (97.6 ??F) 04/12/2022 1:18 PM CS T Respiratory Rate 18 04/12/2022 1:18 PM MARKETING SERVICES REP Oxygen Saturation 97% 04/12/2022 1:18 PM MARKETING SERVICES REP Inhaled Oxygen Concentration - - Weight 117.7 [...] - 199 mg/dL 11/03/2019 11:50 AM CDT [facility] Triglyceride 272(H) <=149 mg/dL 11/03/2019 11:50 AM CDT [facility] HDL Cholesterol 50 >=40 mg/dL 11/03/2019 11:50 AM CDT [facility] LDL, Calculated 145(H) <130 mg/dL 11/03/2019 11:50 AM CDT [facility] Non HDL Chol, Calculated 199 mg/dL 11/03/2019 11:50 AM CDT [facility] Cholesterol/HDL Ratio 5.0 11/03/2019 11:50 AM CDT [facility] Hours Fasting 12 11/03/2019 11:50 AM CDT [facility] Blood Venipuncture / Unknown 11/03/2019 8:26 AM CDT 11/03/2019 8:26 AM CDT Clovis Arias MD LAB_1 [facility] [address] [address], [facility] [phone] [facility] [address] [place] [address], [facility] [phone] * HIV 1/2 Ag/Ab 4th Generation (10/15/2019 7:35 AM CDT) HIV 1/2 Antigen/Antib hayde (4th generation) Negative (Non Reactive) Negative (Non Reactive) 10/15/2019 8:39 AM CDT [facility] Comment:HIV-1 p24 Antigen an d HIV-1/HIV-2 Antibody not detected Blood Venipuncture / Unknown 10/15/2019 7:35 AM CDT 10/15/2019 7:44 AM CDT Nicki Bates MD LAB_[address] [phone] from Last 3 Months or Most Recently Relevant to Health Maintenance Advance Directives * Full Code (Latest Code Status on File) Date Activated Date Inactivated Comments 10/14/2019 4:31 PM 10/18/2019 4:55 PM Care Teams Subway Train Driver Relationship Specialty Start Date End Date Tom Abdul MD [address] [place] [address] PCP - General Family Practice 11/02/19
--- OUTSIDE RECORDS SUMMARY | 2023-10-19 08:52 | XMS_ITS | Clinical Summary ---
Author Organization [facility] Address [address] [place] [address] Care Team Providers Care Head Start Director Name Role Phone Unavailable Primary Care Provider [...] on file Medical Devices Explanted Type Area Job Site Superintendent Device Identifier Shelf Expiration Date Model / Serial / Lot Catheter- 020 Implanted:01/17 by Melinda Melgoza MD (Quantity not on file) Explanted:01/17 by Melinda Melgoza MD (Quantity not on file) Catheter [employer] [id number] 05/03/2021 / / [id number]
--- OUTSIDE RECORDS SUMMARY | 2023-10-19 08:52 | XMS_ITS | Referral Summary ---
Author Organization [facility] Address [address] [facility] [address] [place] [address] Care Team Providers Care Finnish Rubber Name Role Phone Unavailable Primary Care Provider [...] on file Medical Devices Explanted Type Area Matcher Operator Device Identifier Shelf Expiration Date Model / Serial / Lot Catheter- 020 Implanted:01/17 by Melinda Melgoza MD (Quantity not on file) Explanted:01/17 by Melinda Melgoza MD (Quantity not on file) Catheter [employer] [id number] 05/03/2021 / / [id number]
== END 2023-10-19 08:49 | disposition home or self-care (01) ==
PROVIDERS: PCP Family Medicine; Visit Provider Family Medicine
DX: R01.1 Cardiac murmur, unspecified (principal); I34.0 Nonrheumatic mitral (valve) insufficiency
CPT/HCPCS: 93306

== ENCOUNTER 2023-10-27 06:55 | Outpatient (CLI) | payer OTHER, SELFPAY ==
--- OUTSIDE RECORDS SUMMARY | 2023-10-27 06:58 | XMS_ITS | Referral Summary ---
Author Organization [facility] Address [address] [facility] [place] [address] Care Team Providers Care Crop Farm Helper Name Role Phone Unavailable Primary Care Provider [...] on file Medical Devices Explanted Type Area Community Services Coordinator Device Identifier Shelf Expiration Date Model / Serial / Lot Catheter- 020 Implanted:01/17 by Melinda Melgoza MD (Quantity not on file) Explanted:01/17 by Melinda Melgoza MD (Quantity not on file) Catheter [employer] [id number] 05/03/2021 / / [id number]
--- OUTSIDE RECORDS SUMMARY | 2023-10-27 06:58 | XMS_ITS | Clinical Summary ---
Author Organization [facility] Address [address] [facility] [place] [address] Care Team Providers Care Multifocal Lens Inspector Name Role Phone Unavailable Primary Care Provider [...] on file Medical Devices Explanted Type Area Technical Support Manager Device Identifier Shelf Expiration Date Model / Serial / Lot Catheter- 020 Implanted:01/17 by Melinda Melgoza MD (Quantity not on file) Explanted:01/17 by Melinda Melgoza MD (Quantity not on file) Catheter [employer] [id number] 05/03/2021 / / [id number]
--- OUTSIDE RECORDS SUMMARY | 2023-10-27 06:58 | XMS_ITS | Clinical Summary ---
Author Organization [facility] Address [address] [place] [address] Care Team Providers Care Field Technical Support Consultant Name Role Phone Tom Abdul MD Primary Care Provider Source Comments You are receiving this document as you are listed as the primary care provider,follow-up provider, or the patient has been referred to you for consultation.This is in compliance with the Medicare and[facility] Hospitalcaid EHR Incentive Program,which states Providers who transition their patient to another setting of careor provider of care or refers their patient to another provider of care shouldprovide summary care record for each transition of care or referral. [facility] Allergies Active Allergy Reactions Criticality Noted Date [...] Active medical cannabis patient certified Active [place] RambusPHERE 160-9-4.8 MCG/ACT AERO Take 2 Puffs by [...] Comments Blood Pressure 162/85 04/12/2022 1:18 PM BOTTLE LINE WORKER Pulse 87 04/12/2022 1:18 PM BOTTLE LINE WORKER Temperature 36.4 ??C (97.6 ??F) 04/12/2022 1:18 PM CS T Respiratory Rate 18 04/12/2022 1:18 PM BOTTLE LINE WORKER Oxygen Saturation 97% 04/12/2022 1:18 PM BOTTLE LINE WORKER Inhaled Oxygen Concentration - - Weight 117.7 [...] - 199 mg/dL 11/03/2019 11:50 AM CDT [facility] Triglyceride 272(H) <=149 mg/dL 11/03/2019 11:50 AM CDT [facility] HDL Cholesterol 50 >=40 mg/dL 11/03/2019 11:50 AM CDT [facility] LDL, Calculated 145(H) <130 mg/dL 11/03/2019 11:50 AM CDT [facility] Non HDL Chol, Calculated 199 mg/dL 11/03/2019 11:50 AM CDT [facility] Cholesterol/HDL Ratio 5.0 11/03/2019 11:50 AM CDT [facility] Hours Fasting 12 11/03/2019 11:50 AM CDT [facility] Blood Venipuncture / Unknown 11/03/2019 8:26 AM CDT 11/03/2019 8:26 AM CDT Clovis Arias MD LAB_1 [facility] [address] [address], [facility] [phone] [facility] [address] [place] [address], [facility] [phone] * HIV 1/2 Ag/Ab 4th Generation (10/15/2019 7:35 AM CDT) HIV 1/2 Antigen/Antib hayde (4th generation) Negative (Non Reactive) Negative (Non Reactive) 10/15/2019 8:39 AM CDT [facility] Comment:HIV-1 p24 Antigen an d HIV-1/HIV-2 Antibody not detected Blood Venipuncture / Unknown 10/15/2019 7:35 AM CDT 10/15/2019 7:44 AM CDT Nicki Bates MD LAB_[address] [phone] from Last 3 Months or Most Recently Relevant to Health Maintenance Advance Directives * Full Code (Latest Code Status on File) Date Activated Date Inactivated Comments 10/14/2019 4:31 PM 10/18/2019 4:55 PM Care Teams Field Technical Support Consultant Relationship Specialty Start Date End Date Tom Abdul MD [address] [place] [address] PCP - General Family Practice 11/02/19
--- OUTSIDE RECORDS SUMMARY | 2023-10-27 06:58 | XMS_ITS | Clinical Summary ---
Author Organization [facility] Address [place], [place] [address] Care Team Providers Care Food Trades Assistants Name Role Phone Kayy Mathis Skylar BARRON Unavailable Unavaila Ej Meza MD Unavailable Unavailab Donna Mchugh MD Unavailable [phone] Zeke Barlow DO Unavailable [phone] Yulisa Gracia MD Primary Care Provider + Allergies Active [...] 09/09/2017 Active Additional Information Patient taking differently:2 [place] Both NostrilsDAILY PRN, dust allergy at work, [...] [place] Left sided epidural steroid injection at [facility]. HTN (hypertension) 09/18/2016 Reactive inflammatory arthritis [...] 03/10/2013 04/23/2013 Panic disorder with agoraphobia 06/08/2014 Encounters Date Type Department Care Team Description 10/19/2023 9:00 AM CDT Ancillary Procedure [facility] & [address] [address] 10/19/2023 Travel from Last 3 Months Immunizations Name Administration Dates Next Due Tdap [...] Used Date Smoking Tobacco: Former Cigarettes 1 20 2015 Smokeless Tobacco: Never Tobacco Cessation:Counseling Given: [...] this topic Medical Devices Implanted Type Area Patient Relations Representative Device Identifier Shelf Expiration Date Model / Serial / Lot Disc Cerv 28x64bl H6 Mobi-C - [id number] Implanted:Qty : 1 on 02/18/2018 by Bunny Monsivais MD at [facility] N/A: Cervical Vertebrae [employer] 06/04/2021 [id number] / / [id number] Procedures Procedure Name Priority Date/Time Associated Diagnosis Comments ECHO TTE COMPLETE WO CONTRAST Routine 10/19/2023 10:05 AM CDT Cardiac murmur, unspecified XR MAMMO BILAT SCREEN FFDM (IA) Routine 03/13/2016 11:10 AM TICKET COLLECTOR Visit for screening mammogram LIPID PANEL W REFLEX MEASURED LDL Routine 03/13/2016 10:44 AM TICKET COLLECTOR Hyperlipidemia LDL goal < 100 COLONOSCOPY DIAGNOSTIC Routine 01/21/2016 9:49 AM CDT RLQ abdominal pain Diarrhea, unspecified type from Last 3 Months or Most Recently Relevant to Health Maintenance Results * ECHO TTE COMPLETE WO CONTRAST (10/19/2023 10:05 AM CDT) AORTIC VALVE MEAN PG 6 mmHg EJECTION FRACTION 66 % LVEDD 4.9 cm Anatomical Region Laterality Modality Ultrasound 10/19/2023 9:21 AM CDT Narrative 10/19/2023 11:31 AM CDT ECHOCARDIOGRAM KEIKO GARCIA ? Accession#: ?? [id number] : ?1970 53 years Study Date: ?? 10/19/2023 9:21:52 AM Gender: F ?BP: ? 119/77 mmHg Height: 163.00 cm ?BSA: ?2.09 m? ? ? Weight: 105.00 kg ?Tech: ? MTS ? Referring MD: YULISA GARCIA Site: ? [facility] Reading Location: MOBILE OP Patient Location: Outpatient. Procedure: 2D, Color Doppler and Spectral Doppler. Indication for study: Cardiac murmur, unspecified Cardiac Rhythm: Regular.Study quality: Good. Imaging limitations: This study was subject to imaging limitations due to body habitus and a prominent lung artifact. Final Impressions: 1. Normal left ventricular size, normal wall thickness, normal global systolic function, calculated EF of 66 %. 2. The mitral valve is normal with chordal systolic anterior motion, mild mitral regurgitation. 3. There appears to be a mild outflow tract obstruction likely accounting for the cardiac murmur Chamber Sizes and Function Normal left ventricular size, normal wall thickness, normal global systolic function, calculated EF of 66 %. Left atrial size is normal. Right ventricular cavity size is normal, global systolic RV function is normal. RV wall thickness is normal. The right atrium is normal. Right atrial volume index is 17 ml/m? ? ?. Right atrial area is 14 cm? ? ?. The pulmonary artery is of normal size and origin. The sinus of Valsalva is normal sized. The ascending aorta is normal sized. Valves, RV Pressures and Diastolic Function The aortic valve is normal in structure and trileaflet, no stenosis and no regurgitation. The mitral valve is normal in structure and with chordal systolic anterior motion, mild mitral regurgitation. Normal diastolic function. The tricuspid valve is normal in structure. Tricuspid regurgitation is trace regurgitation. The pulmonic valve is normal. No pulmonary regurgitation. Masses, Effusion, Shunts There is no pericardial effusion. The inferior vena cava is normal sized, respiratory size variation greater than 50%. No left to right shunting was detected by limited color flow Doppler interrogation of the interatrial septum. MEASUREMENTS AND CALCULATIONS 2-D Measurements and LV Function: LVID (d) 4.9 cm Planimetered EF 66 % LVID (s) 2.6 cm LV FS% (2D) ? 47 % IVS (d) ??1.0 cm LVOT diameter ?? 1.9 cm LVPW (d) 1.0 cm HR ?56 bpm Ao Sinus 3.6 cm LA Vol index ?30 ml/m2 Asc Ao ?? 3.1 cm RA Vol index ?17 ml/m2 ?RA area ? 14 cm?RV Max 4C (d) ?? 2.9 cm Diastology: Mitral ?Tissue Doppler ?Pulmonary veins E Peak 0.7 m/s ??e', Septum ? 0.05 m/s Pulm s ?46.4 cm/s A Peak 0.7 m/s ??e', Lateral ?0.09 m/s Pulm d ?39.1 cm/s E/A ?1.0 ?E/e' Average ?? 10.11 ?Pulm s/d ratio ??1.19 DT ? 250 msec Aortic Valve: Vmax ? 1.6 m/s ??ALMA (V) ?? 2.38 cm? ? ? VTI ?0.38 m ?? ALMA (I) ?? 2.46 cm? ? ? LVOT V max 1.3 m/s ??Max PG ?10 mmHg LVOT VTI ?? 0.31 m ?? Mean PG ?? 6 mmHg SV ? 93 ml ?Dim Index 0.83 SV index ?? 44 ml/m? ? ? CO ?5.2 l/min ?CI ?2.5 l/min/m? ? ? Mitral Valve: MVA ?3.0 cm? ? ? MV P 1/2 73 msec Tricuspid Valve and estimated PA pressures: TAPSE 1.9 cm . This study was interpreted by an [facility] accredited facility. CC: HIM ([facility]) [facility]. ??Final ?? Procedure Note Yulisa Perera MD - 10/19/2023 ECHOCARDIOGRAM KEIKO GARCIA : 1970 53 years Study Date: 10/19/2023 9:21:52 AM Gender: F BP: 119/77 mmHg Height: 163.00 cm BSA: 2.09 m? ? ? Weight: 105.00 kg Tech: BRIANDA Referring MD: YULISA GARCIA Site: [facility] Reading Location: MOBILE OP Patient Location: Outpatient. Procedure: 2D, Color Doppler and Spectral Doppler. Indication for study: Cardiac murmur, unspecified Cardiac Rhythm: Regular.Study quality: Good. Imaging limitations: This study was subject to imaging limitations due tobody habitus and a prominent lung artifact. Final Impressions: 1. Normal left ventricular size, normal wall thickness, normal globalsystolic function, calculated EF of 66 %. 2. The mitral valve is normal with chordal systolic anterior motion, mildmitral regurgitation. 3. There appears to be a mild outflow tract obstruction likely accountingfor the cardiac murmur Chamber Sizes and Function Normal left ventricular size, normal wall thickness, normal globalsystolic function, calculated EF of 66 %. Left atrial size is normal.Right ventricular cavity size is normal, global systolic RV function isnormal. RV wall thickness is normal. The right atrium is normal. Rightatrial volume index is 17 ml/m? ? ?. Right atrial area is 14 cm? ? ?. Thepulmonary artery is of normal size and origin. The sinus of Valsalva isnormal sized. The ascending aorta is normal sized. Valves, RV Pressures and Diastolic Function The aortic valve is normal in structure and trileaflet, no stenosis and noregurgitation. The mitral valve is normal in structure and with chordalsystolic anterior motion, mild mitral regurgitation. Normal diastolicfunction. The tricuspid valve is normal in structure. Tricuspidregurgitation is trace regurgitation. The pulmonic valve is normal. Nopulmonary regurgitation. Masses, Effusion, Shunts There is no pericardial effusion. The inferior vena cava is normal sized,respiratory size variation greater than 50%. No left to right shunting wasdetected by limited color flow Doppler interrogation of the interatrialseptum. MEASUREMENTS AND CALCULATIONS 2-D Measurements and LV Function: LVID (d) 4.9 cm Planimetered EF 66 % LVID (s) 2.6 cm LV FS% (2D) 47 % IVS (d) 1.0 cm LVOT diameter 1.9 cm LVPW (d) 1.0 cm HR 56 bpm Ao Sinus 3.6 cm LA Vol index 30 ml/m2 Asc Ao 3.1 cm RA Vol index 17 ml/m2 RA area 14 cm? ? ? RV Max 4C (d) 2.9 cm Diastology: Mitral Tissue Doppler Pulmonary veins E Peak 0.7 m/s e', Septum 0.05 m/s Pulm s 46.4 cm/s A Peak 0.7 m/s e', Lateral 0.09 m/s Pulm d 39.1 cm/s E/A 1.0 E/e' Average 10.11 Pulm s/d ratio 1.19 DT 250 msec Aortic Valve: Vmax 1.6 m/s ALMA (V) 2.38 cm? ? ? VTI 0.38 m ALMA (I) 2.46 cm? ? ? LVOT V max 1.3 m/s Max PG 10 mmHg LVOT VTI 0.31 m Mean PG 6 mmHg SV 93 ml Dim Index 0.83 SV index 44 ml/m? ? ? CO 5.2 l/min CI 2.5 l/min/m? ? ? Mitral Valve: MVA 3.0 cm? ? ? MV P 1/2 73 msec Tricuspid Valve and estimated PA pressures: TAPSE 1.9 cm . This study was interpreted by an [facility] accredited facility. CC: [facility] (med records) [facility]. Final Yulisa Garcia MD ECHO ORD * XR MAMMO BILAT SCREEN FFDM (03/13/2016 11:10 AM TICKET COLLECTOR) Anatomical Region Laterality Modality BREASTS, Breast Left, Breast Right Bilateral Mammography Impressions 03/13/2016 12:30 PM TICKET COLLECTOR ??There is no radiographic evidence for malignancy. ??Recommend annual mammograms. A lay language report of this examination will be provided to the patient. MAMMOGRAM ASSESSMENT: ??ACR 2 Benign Narrative 03/13/2016 12:30 PM TICKET COLLECTOR XR MAMMO BILAT SCREEN FFDM [G0202.0] CLINICAL HISTORY: ??This is an asymptomatic 45 y.o. patient. INDICATION FOR EXAM: Mammogram Screening. TECHNIQUE: CC & MLO views were obtained. ??This digital study was evaluated with the assistance of Computer-Aided Detection. COMPARISON FILMS: Yes 12/12/13 [facility] FINDINGS: ??Mammographically, the breast tissue has scattered fibroglandular densities. ??No suspicious masses or microcalcifications. ?? Benign appearing calcifications within both breasts. Mili Romero NP MAMMO * (ABNORMAL) LIPID PANEL W REFLEX MEASURED LDL (03/13/2016 10:44 AM TICKET COLLECTOR) CHOLESTEROL,TOTAL 221(H) 100 - 199 mg/dL 03/13/2016 11:17 AM TICKET COLLECTOR [facility] TRIGLYCERIDES 196(H) <150 mg/dL 03/13/2016 11:17 AM TICKET COLLECTOR [facility] HDL CHOLESTEROL 46 >40 mg/dL 6 11:17 AM TICKET COLLECTOR [facility] NON-HDL CHOLESTEROL 175(H) <145 mg/dl 03/13/2016 11:17 AM TICKET COLLECTOR [facility] CHOL/HDL RATIO 4.80(H) <4.50 03/13/2016 11:[address] [facility] LDL CHOLESTEROL 136(H) <=130 mg/dL 03/13/2016 11:[address] [facility] PATIENT STATUS FASTING 03/13/2016 11:[address] [facility] Blood BLOOD SPECIMEN / Unknown Venipuncture / Unknown 03/13/2016 10:44 AM TICKET COLLECTOR 03/13/2016 10:44 AM TICKET COLLECTOR Mili Romero NP CHEMISTRY [facility] [address] [place] [address], * COLONOSCOPY DIAGNOSTIC (01/21/2016 9:49 AM CDT) [...] 5:45 AM 05/01/2016 8:39 AM Care Teams Food Trades Assistants Relationship Specialty Start Date End Date Yulisa Garcia MD [address] [place] [address] PCP - General Family Practice 07/16/20 Kayy Mathis CNS Clinical Nurse Specialist 08/16/14 Ej Jaeger MD Neurology 08/16/14 Donna Acosta MD [address] [place] [address] Rheumatology Rheumatology 02/12/16 [place] [address] Surgery of the Hand 03/13/16
== END 2023-10-27 06:56 | disposition home or self-care (01) ==
LOC: NFLDREF 06:56
PROVIDERS: PCP Family Medicine; Visit Provider Family Medicine
DX: R39.9 Unspecified symptoms and signs involving the genitourinary system (principal); N39.0 Urinary tract infection, site not specified
CPT/HCPCS: 87086

== ENCOUNTER 2024-01-26 07:10 | Day surgery (SDC) | payer OTHER, SELFPAY ==
--- OUTSIDE RECORDS SUMMARY | 2024-01-26 07:13 | XMS_ITS | Clinical Summary ---
Author Organization [facility] Address [address] [place] [address] Care Team Providers Care Student Assistance Counselor Name Role Phone Tom Abdul MD Primary Care Provider Source Comments You are receiving this document as you are listed as the primary care provider,follow-up provider, or the patient has been referred to you for consultation.This is in compliance with the Medicare and[facility] Hospital[facility] EHR Incentive Program,which states Providers who transition their patient to another setting of careor provider of care or refers their patient to another provider of care shouldprovide summary care record for each transition of care or referral. Harper Love Adhesive Allergies Active Allergy Reactions Criticality Noted Date [...] Active medical cannabis patient certified Active [place] ARRIETAPHERE 160-9-4.8 MCG/ACT AERO Take 2 Puffs by [...] Comments Blood Pressure 162/85 04/12/2022 1:18 PM ARTIFICIAL PLASTIC EYE MAKER Pulse 87 04/12/2022 1:18 PM ARTIFICIAL PLASTIC EYE MAKER Temperature 36.4 ??C (97.6 ??F) 04/12/2022 1:18 PM CS T Respiratory Rate 18 04/12/2022 1:18 PM ARTIFICIAL PLASTIC EYE MAKER Oxygen Saturation 97% 04/12/2022 1:18 PM ARTIFICIAL PLASTIC EYE MAKER Inhaled Oxygen Concentration - - Weight 117.7 [...] (1) 1988 Zoster/Shingles (1 of 2) 2019 DTaP/Tdap/Td (2 - Tdap) 09/02/2023 09/01/2013 COVID-19 Vaccine (2023-2 5 season) 2024 08/21/2020, 07/24/2020 Influenza (#1) 2024 04/20/2020 Cholesterol 11/02/2024 11/03/2019 HIV Screening [...] - 199 mg/dL 11/03/2019 11:50 AM CDT [facility] Triglyceride 272(H) <=149 mg/dL 11/03/2019 11:50 AM CDT [facility] HDL Cholesterol 50 >=40 mg/dL 11/03/2019 11:50 AM CDT [facility] LDL, Calculated 145(H) <130 mg/dL 11/03/2019 11:50 AM CDT [facility] Non HDL Chol, Calculated 199 mg/dL 11/03/2019 11:50 AM CDT [facility] Cholesterol/HDL Ratio 5.0 11/03/2019 11:50 AM CDT [facility] Hours Fasting 12 11/03/2019 11:50 AM CDT [facility] Blood Venipuncture / Unknown 11/03/2019 8:26 AM CDT 11/03/2019 8:26 AM CDT Clovis Arias MD LAB_1 [facility] [address] [address], [facility] [phone] [facility] [address] [place] [address], [facility] [phone] * HIV 1/2 Ag/Ab 4th Generation (10/15/2019 7:35 AM CDT) HIV 1/2 Antigen/Antib hayde (4th generation) Negative (Non Reactive) Negative (Non Reactive) 10/15/2019 8:39 AM CDT [facility] Comment:HIV-1 p24 Antigen an d HIV-1/HIV-2 Antibody not detected Blood Venipuncture / Unknown 10/15/2019 7:35 AM CDT 10/15/2019 7:44 AM CDT Nicki Bates MD LAB_[address] [phone] from Last 3 Months or Most Recently Relevant to Health Maintenance Advance Directives * Full Code (Latest Code Status on File) Date Activated Date Inactivated Comments 10/14/2019 4:31 PM 10/18/2019 4:55 PM Care Teams Student Assistance Counselor Relationship Specialty Start Date End Date Tom Abdul MD [address] [place] [address] PCP - General Family Practice 11/02/19
--- OUTSIDE RECORDS SUMMARY | 2024-01-26 07:13 | XMS_ITS | Clinical Summary ---
Author Organization [place] Address [address] [place] [address] Care Team Providers Care Director Print Name Role Phone Unavailable Primary Care Provider [...] on file Medical Devices Explanted Type Area Administrative Intern Device Identifier Shelf Expiration Date Model / Serial / Lot Catheter- [id number] Implanted:01/17 by Melinda Melgoza MD (Quantity not on file) Explanted:01/17 by Melinda Melgoza MD (Quantity not on file) Catheter [employer] [id number] 05/03/2021 / / [id number]
--- OUTSIDE RECORDS SUMMARY | 2024-01-26 07:13 | XMS_ITS | Clinical Summary ---
Author Organization [facility] Address [place], [place] [address] Care Team Providers Care Bump Grader Operator Name Role Phone BelindajanettKiaracayla BARRON Unavailable Unavaila Ej Meza MD Unavailable Unavailab Donna Mchugh MD Unavailable [phone] Zeke Barlow DO Unavailable [phone] Tom Abdul MD Primary Care Provider + [...] 09/09/2017 Active Additional Information Patient taking differently:2 [place] Both NostrilsDAILY PRN, dust allergy at work, [...] Cervical spinal stenosis 02/18/2018 Cervical radiculopathy 11/26/2017 Overview (11/26/2017): ~ November 2017: C7-T1 [place] Left sided epidural steroid injection at [facility]. HTN (hypertension) 09/18/2016 Reactive inflammatory arthritis 03/13/2016 Overview (03/13/2016): Dr. Gibson Anxiety 01/30/2016 Restrictive airway disease 08/23/2014 Overview (08/23/2014): PFTs 08/2014 Hyperlipidemia LDL goal < 100 08/16/2014 H/O gestational diabetes mellitus, not currently 08/02/2014 Overview (08/02/2014): 1997 Environmental allergies 02/16/2014 Encounter for long-term [...] for age 45-75 03/13/2021 03/13/2016, 08/11/2014, 08/11/2014 Tetanus booster 09/02/2023 09/01/2013 COVID-19 vaccine series ( season) 2024 08/21/2020, 07/24/2020 Influenza for age 50-64 01/03/2024 Colonoscopy through age 75 01/20/2026 01/21/2016, Tdap Completed 09/01/2013 Pneumococcal series for age 6-64 Aged Out No longer eligible based on patient's age to complete this topic Medical Devices Implanted Type Area Laborer/Key Man Device Identifier Shelf Expiration Date Model / Serial / Lot Disc Cerv [id number] H6 Mobi-C - [id number] Implanted:Qty : 1 on 02/18/2018 by Bunny Monsivais MD at [facility] N/A: Cervical Vertebrae [employer] 06/04/2021 [id number] / / [id number] Procedures Procedure Name Priority Date/Time Associated Diagnosis Comments XR MAMMO BILAT SCREEN FFDM (IA) Routine 03/13/2016 11:10 AM ICE SCRAPER Visit for screening mammogram LIPID PANEL W REFLEX MEASURED LDL Routine 03/13/2016 10:44 AM ICE SCRAPER Hyperlipidemia LDL goal < 100 COLONOSCOPY DIAGNOSTIC Routine 01/21/2016 9:49 AM CDT RLQ abdominal pain Diarrhea, unspecified type from Last 3 Months or Most Recently Relevant to Health Maintenance Results * XR MAMMO BILAT SCREEN FFDM (03/13/2016 11:10 AM ICE SCRAPER) Anatomical Region Laterality Modality BREASTS, Breast Left, Breast Right Bilateral Mammography Impressions 03/13/2016 12:30 PM ICE SCRAPER ??There is no radiographic evidence for malignancy. ??Recommend annual mammograms. A lay language report of this examination will be provided to the patient. MAMMOGRAM ASSESSMENT: ??ACR 2 Benign Narrative 03/13/2016 12:30 PM ICE SCRAPER XR MAMMO BILAT SCREEN FFDM [G0202.0] CLINICAL HISTORY: ??This is an asymptomatic 45 y.o. patient. INDICATION FOR EXAM: Mammogram Screening. TECHNIQUE: CC & MLO views were obtained. ??This digital study was evaluated with the assistance of Computer-Aided Detection. COMPARISON FILMS: Yes 12/12/13 [facility] FINDINGS: ??Mammographically, the breast tissue has scattered fibroglandular densities. ??No suspicious masses or microcalcifications. ?? Benign appearing calcifications within both breasts. Mili Romero FEATHER RENOVATOR MAMMO * (ABNORMAL) LIPID PANEL W REFLEX MEASURED LDL (03/13/2016 10:44 AM ICE SCRAPER) CHOLESTEROL,TOTAL 221(H) 100 - 199 mg/dL 03/13/2016 11:17 AM [facility] TRIGLYCERIDES 196(H) <150 mg/dL 03/13/2016 11:17 AM [facility] HDL CHOLESTEROL 46 >40 mg/dL 6 11:17 AM [facility] NON-HDL CHOLESTEROL 175(H) <145 mg/dl 03/13/2016 11:17 AM [facility] CHOL/HDL RATIO 4.80(H) <4.50 03/13/2016 11:17 AM [facility] LDL CHOLESTEROL 136(H) <=130 mg/dL 03/13/2016 11:17 AM [facility] PATIENT STATUS FASTING 03/13/2016 11:17 AM ICE SCRAPER [facility] Blood BLOOD SPECIMEN / Unknown Venipuncture / Unknown 03/13/2016 10:44 AM ICE SCRAPER 03/13/2016 10:44 AM ICE SCRAPER Mili Romero NP CHEMISTRY [facility] [address] [place] [address], * COLONOSCOPY DIAGNOSTIC (01/21/2016 9:49 AM CDT) [...] 5:45 AM 05/01/2016 8:39 AM Care Teams Bump Grader Operator Relationship Specialty Start Date End Date Tom Abdul MD [address] [place] [address] PCP - General Family Practice 07/16/20 Kayy Mathis CNS Clinical Nurse Specialist 08/16/14 Ej Jaeger MD Neurology 08/16/14 Donna Acosta MD [address] [facility] [address] [place] [address] Rheumatology Rheumatology 02/12/16 Zeke Barlow DO [address] [place] [address] Surgery of the Hand 03/13/16
--- OUTSIDE RECORDS SUMMARY | 2024-01-26 07:13 | XMS_ITS | Referral Summary ---
Author Organization [facility] Address [address] [place] [address] Care Team Providers Care Jig Boring Machine Operator For Metal Name Role Phone Unavailable Primary Care Provider [...] on file Medical Devices Explanted Type Area Veterinary Medicine Teacher Device Identifier Shelf Expiration Date Model / Serial / Lot Catheter- 020 Implanted:01/17 by Melinda Melgoza MD (Quantity not on file) Explanted:01/17 by Melinda Melgoza MD (Quantity not on file) Catheter [employer] [id number] 05/03/2021 / / [id number]
[2024-01-26] MEDS: LACTATED RINGERS 1000 ML 1,000 ML 100 ML IV (07:15)
[2024-01-26] MEDS: SODIUM CHLORIDE 0.9 % (FLUSH) 10 ML SYRINGE IVF (07:27)
[2024-01-26 07:28] VITALS: BP 122/82; PULSE 67; RESP 16; TEMP 36.7; O2SAT 93; BMI 38.7
[2024-01-26] MEDS: BUPIVACAINE 0.25 %/EPI 1:200K 30 ml INJECTION (10:04)
[2024-01-26 11:10] VITALS: BP 120/76; PULSE 71; RESP 16; TEMP 37.2; O2SAT 94
[2024-01-26 11:15] VITALS: BP 126/77; PULSE 67; RESP 16; O2SAT 96
--- NOTE | 2024-01-26 11:22 | W.ANESCHARGE ---
Anesthesia Charges Start Date/Time Anesthesia Start Date: 01/26/24 Anesthesia Start Time: 09:37 Stop Date/Time Anesthesia Stop Date: 01/26/24 Anesthesia Stop Time: 01:11
--- NOTE | 2024-01-26 11:24 | P.ORPRC_ITS ---
Procedure Note Date of procedure: 01/26/24 Procedure: Preop diagnosis: Right upper extremity carpal tunnel syndrome, cubital tunnel syndrome, dorsal forearm skin lesion Postop diagnosis: Right upper extremity carpal tunnel syndrome, cubital tunnel syndrome, dorsal forearm skin lesion Procedure: Right upper extremity carpal tunnel release, cubital tunnel release, skin lesion excisional biopsy Anesthesia: Local plus monitored anesthesia care Surgeon: Amish Andrea MD assistant professor of nursing: NICHOLE Vasquez EBL: 10 mL Complications: None Specimens: Sent for gross and microscopic pathology labeled right forearm skin lesion Drains: None Preoperative antibiotics: None Indications: The patient has a history of right upper extremity symptoms consistent with carpal tunnel syndrome and cubital tunnel syndrome, confirmed with electrodiagnostic testing. Despite appropriate nonoperative management consisting of nighttime bracing and occupational therapy they continue to have symptoms. Operative intervention was recommended. Additionally, she has a skin lesion over the dorsal forearm on the same at extremity. She wished to have this excised. The risks, benefits alternatives and expected outcomes were discussed in detail. These included but were not limited to: Infection, bleeding, injury to blood vessel or nerve, venous thromboembolism. All questions were answered to their satisfaction. The patient was placed supine on the operating room table. IV sedation was administered by anesthesia. Local anesthesia was established with 0.5% Marcaine with epinephrine and 2% lidocaine with epinephrine. The upper extremity was prepped and draped in usual sterile fashion. The skin lesion was approached 1st. It was ellipsed with a transverse oriented incision excised en block. It was placed in formalin, labeled right forearm skin lesion and sent to pathology. The wound was closed with a 3-0 nylon in an interrupted horizontal mattress fashion. Attention was then turned to the carpal tunnel release. A longitudinal incision was made centered over the radial border of the ring finger at the base of the palm. Subcutaneous dissection was sharply taken through the palmar fascia and the palmaris brevis to the transverse carpal ligament. The ligament was divided in line with the incision. Proximal and distal dissection was carried with tenotomy and Metzenbaum scissors for a wide decompression of the carpal tunnel. The wound was closed with a 3-0 nylon. Attention was then turned to the cubital tunnel release. A longitudinal incision was made centered over the ulnar nerve at the cubital tunnel. Subcutaneous dissection was taken with the scalpel and Metzenbaum and tenotomy scissors to the ulnar nerve. Dissection was carried distally to the fascia over the flexor carpi ulnaris which was divided longitudinally. We visualized the motor branch to the FCU. Dissection was carried proximally into the triceps muscle belly. This results in a wide decompression of the ulnar nerve. Flexion and extension of the elbow shows the nerve is stable. A simple dry dressing was applied to each wound. Sponge and needle counts were correct x 2. The patient tolerated the procedure well, there were no apparent complications. They were sent to same day surgery in satisfactory condition. Plan: Use of the upper extremity as tolerates. Discontinue the intraoperative dressings on postoperative day 3 and may get the wound wet as tolerates. Follow up in the office in 2 weeks for a wound check and suture removal.
--- NOTE | 2024-01-26 11:24 | W.ANESCHARGE ---
Anesthesia Charges Start Date/Time Anesthesia Start Date: 01/26/24 Anesthesia Start Time: 09:37 Stop Date/Time Anesthesia Stop Date: 01/26/24 Anesthesia Stop Time: 11:11
[2024-01-26 11:30] VITALS: BP 112/92; PULSE 67; RESP 16; O2SAT 95
--- NOTE | 2024-01-26 11:33 | W.ANESCHARGE ---
Anesthesia Charges Start Date/Time Anesthesia Start Date: 01/26/24 Anesthesia Start Time: 09:37 Stop Date/Time Anesthesia Stop Date: 01/26/24 Anesthesia Stop Time: 11:11
[2024-01-26 11:45] VITALS: BP 131/77; PULSE 62; RESP 16; O2SAT 98
[2024-01-26 12:00] VITALS: BP 129/77; PULSE 58; RESP 16; O2SAT 97
== END 2024-01-26 12:11 | disposition home or self-care (01) ==
LOC: OR 07:11
PROVIDERS: PCP Family Medicine; Visit Provider Orthopaedic Surgery
PROC: (CPT 64721; principal; 2024-01-26 09:30)
PROC: (CPT 64721; 2024-01-26 09:30)
DX: G56.01 Carpal tunnel syndrome, right upper limb (principal); G56.21 Lesion of ulnar nerve, right upper limb; D22.61 Melanocytic nevi of right upper limb, including shoulder
CPT/HCPCS: 64721; 64718; 11402; 01810; 88305; J2250; J2704; J3490; J7120

== ENCOUNTER 2024-08-11 14:11 | Outpatient (CLI) | payer OTHER, SELFPAY ==
--- NOTE | 2024-08-11 14:30 | CRLHL7_ITS ---
For Patients: As a result of the Century Cures Act, medical imaging exams and procedure reports are released immediately into your electronic medical record. You may view this report before your referring provider. If you have questions, please contact your health care provider. INDICATION: Abdominal pain TECHNIQUE: Volumetric helical scanning of the abdomen and pelvis was performed with 112 cc of Isovue 370 contrast material IV. Coronal and sagittal reconstructions were obtained. COMPARISON: None FINDINGS: Sigmoid and left colonic diverticulosis is demonstrated. There is no evidence of diverticulitis. The bowel is otherwise unremarkable. The appendix is normal. The liver is normal in size, shape and attenuation. Postop changes of cholecystectomy are noted. The bile ducts are within normal limits. The spleen, adrenal glands and pancreas are negative. The kidneys are unremarkable. No lymphadenopathy is evident. No free fluid is demonstrated. Postop changes of hysterectomy are noted. The lung bases are essentially clear, and heart size is normal. IMPRESSION: 1. Sigmoid and left colonic diverticulosis but no evidence of diverticulitis. 2. Post cholecystectomy and hysterectomy. Please note that all CT scans at this facility use dose modulation, iterative reconstruction, and/or weight-based dosing when appropriate to reduce radiation dose to as low as reasonably achievable. Dictated by Marlon Sow MD @ 08/12/2024 6:18:50 AM (Electronically Signed)
== END 2024-08-11 14:12 | disposition home or self-care (01) ==
LOC: CT 14:11
PROVIDERS: PCP Family Medicine; Visit Provider Registered Nurse
DX: R10.9 Unspecified abdominal pain (principal); K57.30 Diverticulosis of large intestine without perforation or abscess without bleeding; K92.1 Melena
CPT/HCPCS: 74177; 80053; 83690; Q9967

== ENCOUNTER 2024-08-23 09:46 | Outpatient (CLI) | payer OTHER, SELFPAY ==
--- NOTE | 2024-08-23 11:22 | P.ANES_ITS ---
Anesthesia Charges Start Date/Time Anesthesia Start Date: 08/23/24 Anesthesia Start Time: 10:41 Stop Date/Time Anesthesia Stop Date: 08/23/24 Anesthesia Stop Time: 11:20 Coding CPT Codes CPT Codes: ANES LWR INTST NDSC NOS - [id number] ([id number]) P3 - PATIENT W/SEVERE SYS DISEASE, QZ - GUI DEVELOPER SVC W/O PAYROLL AND BENEFITS SPECIALIST BY
--- NOTE | 2024-08-23 11:22 | W.ANESCHARGE ---
Anesthesia Charges Start Date/Time Anesthesia Start Date: 08/23/24 Anesthesia Start Time: 10:41 Stop Date/Time Anesthesia Stop Date: 08/23/24 Anesthesia Stop Time: 11:20 Coding CPT Codes CPT Codes: ANES LWR INTST NDSC NOS - [id number] ([id number]) P3 - PATIENT W/SEVERE SYS DISEASE, QZ - RPG PROGRAMMER SVC W/O FLOOR NURSE BY
== END 2024-08-23 09:47 | disposition home or self-care (01) ==
LOC: OP CLINIC 09:46
PROVIDERS: PCP Family Medicine; Visit Provider Surgery
DX: K92.1 Melena (principal); D12.5 Benign neoplasm of sigmoid colon; D17.5 Benign lipomatous neoplasm of intra-abdominal organs; K57.30 Diverticulosis of large intestine without perforation or abscess without bleeding
CPT/HCPCS: 00811; 45380; 45385; 88305; J2704